=== PATIENT | female | born 1940 | race Caucasian/White ===

== ENCOUNTER → 2018-03-01 11:03 | Outpatient (CLI) | payer OTHER, SELFPAY ==
--- NOTE | 2018-03-01 | DI.CT.S_ITS ---
PROCEDURE: CT CHEST ABD PEL W CON INDICATIONS: Abdominal pain and weight loss TECHNIQUE: After the administration of oral and intravenous contrast, 5 mm thick sections acquired from the lung apices to the symphysis. 5 mm coronal and sagittal reformats were performed, with additional 7 mm coronal MIP reformats through the lungs. For radiation dose reduction, the following was used: automated exposure control, adjustment of mA and/or kV according to patient size. COMPARISON: None. FINDINGS: Image quality: Excellent. CHEST: Lungs and pleura: There is moderate patchy opacity within the right middle lobe, with an associated 24 mm diameter nodular density in the right anterior lung base, with ill-defined borders. Subpleural scarring within the bilateral upper lobes anteriorly are present, consistent with post repeat therapy related. No pleural effusions or pneumothorax. Central and peripheral airways appear patent and normal in caliber. Mediastinum: Heart size is normal. No pericardial effusion. No mediastinal or hilar adenopathy by size criteria. Thoracic aorta and central pulmonary arteries are normal in size. Esophagus is normal in caliber. No hiatal hernia. Chest wall: No axillary or supraclavicular adenopathy by size criteria. Thyroid gland is not seen, presumably surgically absent. ABDOMEN: Solid organs: Liver is normal in size and enhancement. Gallbladder is within normal limits. Biliary system is non dilated. Pancreas enhances normally. Spleen is normal in size and enhancement. No adrenal nodules. Kidneys demonstrate normal size and enhancement, without hydronephrosis. Peritoneum and bowel: Bowel loops demonstrate normal wall thickness and caliber. No free fluid or air. Nodes and vessels: No retroperitoneal or mesenteric adenopathy by size criteria. Aorta and inferior vena cava are normal in size. Miscellaneous: No ventral hernias. PELVIS: Genitourinary: Bladder wall thickness is normal. A 67 mm diameter left adnexal cyst is present. A pessary is present. Miscellaneous: No inguinal hernias or adenopathy. Bones: No suspicious bony lesions. No vertebral body compression fractures. IMPRESSION: 1. Presumed post radiation therapy scarring within the bilateral upper lobes. 2. Right middle lobe density which is indeterminate, and could represent pneumonia. Underlying neoplasm may also be present. Followup chest CT in 3 months is recommended to assess for resolution. 3. 67 mm diameter left adnexal cyst, which could represent a low-grade ovarian neoplasm. Initial further assessment with pelvic ultrasound is recommended. Dictated by: Levi Garcia M.D. on 03/01/2018 at 12:55 Approved by: Levi Garcia M.D. on 03/01/2018 at 12:58
== END ==
PROVIDERS: Family Provider Internal Medicine; PCP Internal Medicine; Visit Provider Internal Medicine
DX: R10.9 Unspecified abdominal pain (principal); R63.4 Abnormal weight loss; J98.4 Other disorders of lung; N83.8 Other noninflammatory disorders of ovary, fallopian tube and broad ligament
CPT/HCPCS: 71260; 74177; Q9967

== ENCOUNTER → 2018-03-09 10:18 | Outpatient (CLI) | payer OTHER, SELFPAY ==
--- NOTE | 2018-03-09 | DI.US.S_ITS ---
PROCEDURE: US PELVIC COMPLETE INDICATIONS: OVARIAN CYST TECHNIQUE: Real-time scanning was performed of the pelvic organs, with image documentation. Additional endovaginal scanning was necessary due to incomplete visualization of the adnexal and endometrial structures by transabdominal scanning. COMPARISON: [facility], CT, CT CHEST ABD PEL W CON, 03/01/2018, 12:28. FINDINGS: Transabdominal scanning: Limited scanning through the kidneys shows no hydronephrosis. No pathologic free abdominal or pelvic fluid. Endovaginal scanning: Uterus: Uterus is normal in size at 6.2 x 2.9 x 4.5 cm. The endometrium is not visualized. The 23 mm posterior intramural fibroid. Ovaries: Right ovary is not visualized. Simple cyst redemonstrated involving the left ovary unchanged measuring 4.9 x 6.1 x 5.1 cm. IMPRESSION: 1. Large simple left ovarian cyst as was seen on prior CT scan. Recommend gynecologic consultation and annual followup sonography. 2. 23 mm intramural fibroid. Dictated by: Kelton Cardenas A Interpreted: Licha Velasquez MD on 03/09/2018 at 12:06 Approved by: Licha Velasquez MD, PhD on 03/09/2018 at 15:12
== END ==
PROVIDERS: Family Provider Internal Medicine; PCP Internal Medicine; Visit Provider Internal Medicine
DX: N83.202 Unspecified ovarian cyst, left side (principal); D25.1 Intramural leiomyoma of uterus
CPT/HCPCS: 76830; 76856

== ENCOUNTER → 2018-03-10 13:12 | Outpatient (CLI) | payer OTHER, SELFPAY ==
--- NOTE | 2018-03-10 | DI.MG.S_ITS ---
BILATERAL DIGITAL DIAGNOSTIC MAMMOGRAM 3D/2D WITH CAD POST LUMPECTOMY SHORT-TERM FOLLOW-UP: 03/10/2018 CLINICAL: Patient returns for a 6 month follow up of the right breast. Due for bilateral imaging. Post right lumpectomy. Post left lumpectomy. Comparison is made to exams dated: 09/09/2017 mammogram, 05/19/2017 localization, and 05/19/2017 mammogram - [facility]. The tissue of both breasts is heterogeneously dense. This may lower the sensitivity of mammography. Current study was also evaluated with a Computer Aided Detection (CAD) system. There is a benign irregular architectural distortion with an indistinct margin in the right breast at 11 o'clock posterior depth. This correlates with surgery. No other significant masses, calcifications, or other findings are seen in either breast. IMPRESSION: BENIGN There is no mammographic evidence of malignancy. A 1 year screening mammogram is recommended. This exam was interpreted at Station ID: [id number]. NOTE: For mammograms, a report in lay terms will be sent to the patient. Approximately 15% of breast malignancies will not be visualized mammographically. In the management of a palpable breast mass, a negative mammogram must not discourage biopsy of a clinically suspicious lesion. Electronically Signed By: Lawrence shane/lee:03/10/2018 14:16:25 copy to: Karsten Lyon copy to: Evert Chinchilla letter sent: Normal Exam ACR BI-RADS Category 2: Benign Finding(s) [id number]
== END ==
PROVIDERS: Family Provider Internal Medicine; PCP Internal Medicine; Visit Provider Internal Medicine
DX: R92.8 Other abnormal and inconclusive findings on diagnostic imaging of breast (principal)
CPT/HCPCS: 77066; G0279

== ENCOUNTER → 2018-03-31 17:11 | Outpatient (CLI) | payer OTHER, SELFPAY ==
[2018-03-31 19:04] LABS: Cancer Antigen 125 13 U/mL (0-35)
[2018-04-06 12:45] LABS: Human HE4 Antigen 128 pmol/L
== END ==
PROVIDERS: Family Provider Internal Medicine; PCP Internal Medicine; Visit Provider Specialist
DX: N83.202 Unspecified ovarian cyst, left side (principal)
CPT/HCPCS: 36415; 86304; 86305

== ENCOUNTER → 2018-04-05 12:02 | Outpatient (CLI) | payer OTHER, SELFPAY ==
--- NOTE | 2018-04-05 | DI.CT.S_ITS ---
PROCEDURE: CT ABDOMEN PELVIS W CON INDICATIONS: CONSTIPATION AND LOWER ABDOMINAL PAIN TECHNIQUE: After the administration of oral and intravenous contrast, 5 mm thick sections acquired from the diaphragms to the symphysis. 5 mm thick coronal and sagittal reformats were performed. For radiation dose reduction, the following was used: automated exposure control, adjustment of mA and/or kV according to patient size. COMPARISON: [facility], CT, CT CHEST WITHOUT CONTRAST, 07/01/2017, 14:14. [facility], US, US PELVIC COMPLETE, 03/09/2018, 10:29. [facility], CT, CT CHEST ABD PEL W CON, 03/01/2018, 12:28. FINDINGS: Image quality: Excellent. ABDOMEN: Lung bases: Infiltrates in the right middle lobe. Heart size is normal. Solid organs: Liver is normal in size and enhancement. Gallbladder is normal. Biliary system is non-dilated. Pancreas enhances normally. Spleen is normal in size and enhancement. No adrenal nodules. Kidneys are normal in size and enhancement, without hydronephrosis. Peritoneum and bowel: Stomach, small bowel, and colon loops are normal in caliber and wall thickness. There is a large amount of stool in colon No free fluid or air. Nodes and vessels: No retroperitoneal or mesenteric adenopathy. Aorta and inferior vena cava are normal in caliber. Miscellaneous: No ventral hernias. PELVIS: Genitourinary: There is a 5.6 x 7.6 cm cystic mass in the left adnexum, demonstrating interval enlargement (previously 4.9 x 6.6 cm on 03/01/2018). Bladder is distended. Bladder wall thickness is normal. There is a pelvic floor suspension device. Miscellaneous: No inguinal hernias or adenopathy. Bones: Old right inferior fractures are noted. No suspicious bony lesions. No vertebral body compression fractures. Moderate levoscoliosis. Severe degenerative changes in lumbar spine. IMPRESSION: 1. A large amount of stool throughout colon, concerning for fecal impaction. 2. Large adnexal cystic mass has shown further interval enlargement compared to 03/01/2018. 3. Right middle lobe infiltrate consistent with pneumonia or pneumonitis. 4. Distended urinary bladder. Recommend clinical correlation for urinary retention. Dictated by: Pillo Campbell M.D. on 04/05/2018 at 14:45 Approved by: Pillo Campbell M.D. on 04/05/2018 at 14:55
== END ==
PROVIDERS: Family Provider Internal Medicine; PCP Internal Medicine; Visit Provider Physician Assistant
DX: K59.00 Constipation, unspecified (principal); R19.00 Intra-abdominal and pelvic swelling, mass and lump, unspecified site; J18.9 Pneumonia, unspecified organism; N32.89 Other specified disorders of bladder; R10.30 Lower abdominal pain, unspecified
CPT/HCPCS: 74177; Q9967

== ENCOUNTER 2018-04-05 17:35 | Emergency (ER) | payer OTHER, SELFPAY ==
[2018-04-05 17:41] VITALS: BP 162/61; PULSE 89; RESP 16; TEMP 37; O2SAT 100
--- NOTE | 2018-04-05 20:46 | ED_ITS ---
HPI - Abdominal Pain General Chief Complaint: Abdominal Pain Stated Complaint: STATES IMPACTED BOWEL Time Seen by Provider: 04/05/18 18:15 Source: patient and family Mode of arrival: ambulatory Limitations: no limitations History of Present Illness HPI narrative: Patient to the emergency department at the request of her primary care office after a CT obtained today notes large amount of stool and the possibility of fecal impaction additionally the possibility of pneumonia and a large distended bladder and the possibility of retention. The patient saw her primary care provider yesterday and had complaints of 4 days of soft stool and small amounts of stool with tenderness in her rectum. The patient had been given docusate and senna CHI and she started having multiple soft stools so she was then given loperamide. She regularly takes MiraLax at baseline. MD complaint: abdominal pain Onset (ago): day(s) Pain Consistency: constant Location: diffuse Severity: moderate Quality: cramping and aching Radiation: none Migration to: no migration Relieving factors: nothing Exacerbating factors: nothing Associated symptoms: denies other symptoms Related Data Home Medications Medication Instructions Recorded Confirmed calcium carbonate [Calci-Chew] 1 tab PO BID #0 05/19/17 03/28/18 losartan 50 mg PO BID #0 05/19/17 03/28/18 polyethylene glycol 3350 [Miralax] #0 05/19/17 03/28/18 levothyroxine 112 mcg capsule 112 mcg PO DAILY 03/31/18 03/31/18 verapamil ER 180 mg 24 hr 180 mg PO DAILY 03/31/18 03/31/18 capsule,extended release Allergies Allergy/AdvReac Type Severity Reaction Status Date / Time paraben [PARABEN] Allergy Unknown Unverified 03/31/18 16:29 hydrochlorothiazide Allergy Verified 03/31/18 16:29 amlodipine [AMLODIPINE] AdvReac Unknown LEG CRAMPS Unverified 03/31/18 16:29 metoprolol [METOPROLOL] AdvReac Unknown LEG CRAMPS Unverified 03/31/18 16:29 Review of Systems Review of Systems All systems reviewed & are unremarkable except as noted in HPI and below Constitutional Denies chills, Denies fever(s), Denies lethargy and Denies weakness Eyes Denies change in vision, Denies eye discharge, Denies irritation and Denies loss of vision ENT Ears, Nose, Mouth, and Throat: Denies change in voice, Denies neck pain and Denies sore throat Cardiovascular Denies chest pain, Denies irregular heart rhythm, Denies lightheadedness, Denies palpitations, Denies dyspnea, Denies dyspnea on exertion and Denies orthopnea Respiratory Denies cough, Denies dyspnea, Denies dyspnea on exertion and Denies wheezing Gastrointestinal Gastrointestinal: Reports abdominal pain, Denies change in bowel habits, Reports diarrhea, Denies nausea and Denies vomiting Genitourinary Denies hematuria, Denies flank pain, Denies urinary incontinence and Denies urinary urgency Musculoskeletal Denies neck pain Integumentary/Breasts Denies pruritus, Denies erythema, Denies rash and Denies wounds Neurologic Denies confusion, Denies loss of vision and Denies weakness Psychiatric Denies anxiety, Denies confusion, Denies depression, Denies homicidal ideation and Denies suicidal ideation Endocrine Denies palpitations Hematologic/Lymphatic Denies easy bruising Allergic/Immunologic Denies wheezing PFSH Surgical History History of thyroidectomy Status post breast lumpectomy Status post parathyroidectomy Family History Father Stroke Social History Smoking Status: Never smoker Exam Narrative Exam Narrative: GENERAL: 77-year-old female in obvious distress rubbing suprapubic region HEAD: Atraumatic. Normocephalic. No temporal or scalp tenderness. EYES: Pupils equal round and reactive. Extraocular motions intact. No scleral icterus. No injection or drainage. ENT: Nose without bleeding, purulent drainage or septal hematoma. Throat without erythema, tonsillar hypertrophy or exudate. Uvula midline. Airway patent. NECK: Trachea midline. No JVD or lymphadenopathy. Supple, nontender, no meningeal signs. CARDIOVASCULAR: Regular rate and rhythm without murmurs, gallops, or rubs. RESPIRATORY: Clear to auscultation. Breath sounds equal bilaterally. No wheezes , rales, or rhonchi. GASTROINTESTINAL: Suprapubic tenderness and minimal distention No hepato- splenomegaly, or palpable masses. No guarding. EXTREMITIES: No clubbing, cyanosis, or edema. No joint tenderness, effusion, or edema noted. BACK: Nontender without deformity or crepitance. No flank tenderness. NEURO: AOx3. SKIN: No rash or erythema. Initial Vital Signs Initial Vital Signs: Vital Signs Temperature 98.6 F 04/05/18 17:41 Pulse Rate 89 04/05/18 17:41 Respiratory Rate 16 04/05/18 17:41 Blood Pressure 162/61 H 04/05/18 17:41 Pulse Oximetry 100 04/05/18 17:41 Course Reevaluation(s) Reevaluation #1: With bladder scan noted over 900 cc. Costello catheter placed and patient experienced near immediate relief. At this point a rectal exam was performed with female nursing financial investment manager at the bedside. Moderate amount of firm stool in the rectal vault noted and manually disimpacted. Patient tolerated well Vital Signs - 8 hr 04/05/18 17:41 Temperature 98.6 F Pulse Rate 89 Respiratory Rate 16 Blood Pressure 162/61 H Pulse Oximetry 100 Discharge Plan Departure Patient Disposition: Home, Self-Care Clinical Impression: Acute urinary retention, Fecal impaction Discharge Date/Time: 04/06/18 01:12 Interventions: ED Discharge Assessment Last Done: 04/06/18 01:11 Instructions: DI for Fecal Impaction Activity Restrictions/Additional Instructions: 1. Stay active 2. Return to your normal diet as much as possible 3. Stay well hydrated 4. A combination of over the counter laxitives including Dulcolax (stimulant laxative) Magnesium Citrate (pulls water into stool) Colace (stool softener) Please follow up closely with her primary care provider in the next few days, call tomorrow morning for follow-up. Regarding urinary retention, please contact [facility] urology clinic (Dr. Khan) Prescriptions: No Action losartan 50 MG tablet 50 mg PO BID Qty: 0 RF: 0 calcium carbonate [Calci-Chew] 500 MG tablet,chewable 1 tab PO BID Qty: 0 RF: 0 polyethylene glycol 3350 [Miralax] 17 GM powder in packet Qty: 0 RF: 0 verapamil 180 mg capsule,ext rel. pellets 24 hr 180 mg PO DAILY RF: 0 levothyroxine 112 mcg capsule 112 mcg PO DAILY RF: 0 Referrals: Jacquie Khan MD [Physician] - Evert Chinchilla MD [Primary Care Provider] -
--- NOTE | 2018-04-05 21:38 | PC.NURSE ---
Pt has been having difficulty urinating
== END 2018-04-06 01:12 | disposition home or self-care (01) ==
PROVIDERS: Emergency Provider Emergency Medicine; Family Provider Internal Medicine; PCP Internal Medicine
DX: K56.41 Fecal impaction (principal); R33.8 Other retention of urine
CPT/HCPCS: 51701; 51798; 74177; 99283; 99285; Q9967

== ENCOUNTER → 2018-06-15 15:32 | Outpatient (CLI) | payer OTHER, SELFPAY ==
[2018-06-15 15:47] LABS: Add Manual Diff / Slide Review NO; Basophils Percent Auto 1.4 % (0-2); Eosinophils Percent Auto 1.4 % (2-4); Hematocrit 34.8 % (36-46); Hemoglobin 11.9 g/dL (12.0-16.0); Lymphocytes Percent Auto 18.6 % (25-40); Mean Corpuscular HGB Conc 34.3 % (30-36); Mean Corpuscular Hemoglobin 31.2 PG (26-34); Mean Corpuscular Volume 90.9 fL (80-100); Monocytes Percent Auto 7.1 % (3-14); Neutrophils Absolute Auto 2800 /uL (3000-5900); Neutrophils Percent Auto 71.5 % (50-75); Platelet Count 148 X10^3/uL (150-400); Red Blood Cell Count 3.83 X10^6/uL (4.0-5.2); Red Cell Distribution Width 14.2 % (11.6-14.8)
[2018-06-15 15:59] LABS: Alanine Aminotransferase 24 IU/L (9-52); Albumin 4.5 g/dL (3.5-5.0); Albumin Globulin Ratio 1.6 (1.0-2.8); Alkaline Phosphatase 38 U/L (38-126); Aspartate Aminotransferase 40 IU/L (14-36); BUN Creatinine Ratio 28.8 (6-22); Bilirubin Total 0.4 mg/dL (0.2-1.3); Blood Urea Nitrogen 23 mg/dL (7-17); Calcium 9.8 mg/dL (8.4-10.2); Carbon Dioxide 32 mmol/L (22-32); Chloride 98 mmol/L (98-107); Estimated Glomerular Filt Rate > 60.0 mL/min (>60); Globulin 2.8 g/dL (1.7-4.1); Glucose 99 mg/dL (80-110); HEMOLYSIS < 15 (0-50); Sodium 141 mmol/L (137-145); Total Protein 7.3 g/dL (6.3-8.2)
== END ==
PROVIDERS: Internal Medicine Hematology & Oncology; Family Provider Internal Medicine; PCP Internal Medicine; Visit Provider Nurse Practitioner Gerontology
DX: Z08 Encounter for follow-up examination after completed treatment for malignant neoplasm (principal); Z86.000 Personal history of in-situ neoplasm of breast; Z85.3 Personal history of malignant neoplasm of breast; Z85.850 Personal history of malignant neoplasm of thyroid
CPT/HCPCS: 36415; 80053; 85025

== ENCOUNTER → 2018-10-03 08:56 | Outpatient (CLI) | payer OTHER, SELFPAY ==
--- NOTE | 2018-10-03 08:58 | DI.MG.S_ITS ---
UNILATERAL LEFT DIGITAL DIAGNOSTIC MAMMOGRAM 3D/2D POST LUMPECTOMY: 10/03/2018 CLINICAL: Patient reports single episode of nonfocal left breast pain now resolved and cannot be localized. Personal history of breast cancer. Family history of breast cancer. Comparison is made to exams dated: 03/10/2018 mammogram - [facility], 03/15/2017 mammogram [facility], and [facility]. The tissue of left breast is heterogeneously dense. This may lower the sensitivity of mammography. There is a stable benign post surgical scar in the left breast in the upper outer quadrant. There also are stable benign punctate calcifications in the left breast. The left breast has post-operative findings. No significant masses, calcifications, or other findings are seen in the breast. IMPRESSION: There is no mammographic evidence of malignancy. Return to annual mammogram screening schedule is recommended, due in approximately 6 months. Clinical follow up for any recurrent or persistent breast pain. This exam was interpreted at Station ID: [id number]. NOTE: For mammograms, a report in lay terms will be sent to the patient. Approximately 15% of breast malignancies will not be visualized mammographically. In the management of a palpable breast mass, a negative mammogram must not discourage biopsy of a clinically suspicious lesion. Electronically Signed By: Papito Rod M.D. aty/:10/03/2018 09:59:47 copy to: Evert Chinchilla letter sent: Normal Exam ACR BI-RADS Category 2: Benign Finding(s) 3342F
== END ==
PROVIDERS: Family Provider Internal Medicine; PCP Internal Medicine; Visit Provider Surgery
DX: R92.8 Other abnormal and inconclusive findings on diagnostic imaging of breast (principal); N64.4 Mastodynia; Z85.3 Personal history of malignant neoplasm of breast; Z80.3 Family history of malignant neoplasm of breast
CPT/HCPCS: 77065; G0279

== ENCOUNTER → 2018-12-06 12:43 | Outpatient (CLI) | payer OTHER, SELFPAY | PROVIDERS: Family Provider Internal Medicine; PCP Internal Medicine; Visit Provider Internal Medicine | DX: M81.0 Age-related osteoporosis without current pathological fracture (principal); Z78.0 Asymptomatic menopausal state; E07.9 Disorder of thyroid, unspecified; Z85.3 Personal history of malignant neoplasm of breast | CPT/HCPCS: 77080; 77081 ==

== ENCOUNTER → 2018-12-12 13:47 | Outpatient (CLI) | payer OTHER, SELFPAY ==
[2018-12-12 14:24] LABS: Add Manual Diff / Slide Review NO; Basophils Absolute Auto 0 /uL (0-100); Basophils Percent Auto 0.8 % (0-2); Eosinophils Absolute Auto 100 /uL (0-450); Eosinophils Percent Auto 2.4 % (2-4); Hematocrit 35.1 % (36-46); Hemoglobin 11.6 g/dL (12.0-16.0); Lymphocytes Absolute Auto 1000 /uL (1100-4500); Mean Corpuscular HGB Conc 33.1 % (30-36); Mean Corpuscular Hemoglobin 30.2 PG (26-34); Mean Corpuscular Volume 91.1 fL (80-100); Monocytes Absolute Auto 500 /uL (0-900); Monocytes Percent Auto 8.8 % (3-14); Neutrophils Absolute Auto 3800 /uL (1500-7000); Platelet Count 156 X10^3/uL (150-400); Red Blood Cell Count 3.85 X10^6/uL (4.0-5.2); Red Cell Distribution Width 13.6 % (11.6-14.8); White Blood Cell Count 5.4 X10^3/uL (4.5-11.0)
[2018-12-12 15:41] LABS: Alanine Aminotransferase 22 IU/L (9-52); Albumin 4.4 g/dL (3.5-5.0); Albumin Globulin Ratio 1.6 (1.0-2.8); Alkaline Phosphatase 39 U/L (38-126); Aspartate Aminotransferase 36 IU/L (14-36); Bilirubin Total 0.6 mg/dL (0.2-1.3); Blood Urea Nitrogen 32 mg/dL (7-17); Calcium 9.4 mg/dL (8.4-10.2); Carbon Dioxide 30 mmol/L (22-32); Chloride 100 mmol/L (98-107); Estimated Glomerular Filt Rate 53.5 mL/min (>60); Globulin 2.7 g/dL (1.7-4.1); Glucose 103 mg/dL (80-110); HEMOLYSIS < 15 (0-50); Sodium 139 mmol/L (137-145); Total Protein 7.1 g/dL (6.3-8.2)
== END ==
PROVIDERS: Family Provider Internal Medicine; PCP Internal Medicine; Visit Provider Internal Medicine Hematology & Oncology
DX: D05.11 Intraductal carcinoma in situ of right breast (principal)
CPT/HCPCS: 36415; 80053; 85025

== ENCOUNTER → 2019-02-23 15:46 | Outpatient (CLI) | payer OTHER, SELFPAY ==
[2019-02-23 18:09] LABS: Vitamin B12 469 pg/mL (239-931)
== END ==
PROVIDERS: Family Provider Internal Medicine; PCP Internal Medicine; Visit Provider Internal Medicine
DX: D51.9 Vitamin B12 deficiency anemia, unspecified (principal)
CPT/HCPCS: 36415; 82607

== ENCOUNTER → 2019-03-20 12:37 | Outpatient (CLI) | payer OTHER, SELFPAY ==
--- NOTE | 2019-03-20 | DI.MG.S_ITS ---
BILATERAL DIGITAL SCREENING MAMMOGRAM 3D/2D WITH CAD POST LUMPECTOMY: 03/20/2019 CLINICAL: Routine screening. Personal history of bilateral breast cancer. Comparison is made to exams dated: 03/10/2018 mammogram, 10/28/2012 mammogram, and 10/03/2018 mammogram - [facility]. The tissue of both breasts is heterogeneously dense. This may lower the sensitivity of mammography. Current study was also evaluated with a Computer Aided Detection (CAD) system. There are benign post operative findings in the right breast. There also are benign calcifications in the left breast. No significant masses, calcifications, or other findings are seen in either breast. There has been no significant interval change. IMPRESSION: There is no mammographic evidence of malignancy. A 1 year screening mammogram is recommended. This exam was interpreted at Station ID: [id number]. NOTE: For mammograms, a report in lay terms will be sent to the patient. Approximately 15% of breast malignancies will not be visualized mammographically. In the management of a palpable breast mass, a negative mammogram must not discourage biopsy of a clinically suspicious lesion. Electronically Signed By: Lawrence shane/lee:03/20/2019 16:48:30 copy to: Evert Chinchilla letter sent: Normal Exam ACR BI-RADS Category 2: Benign Finding(s) 3342F
== END ==
PROVIDERS: Family Provider Internal Medicine; PCP Internal Medicine; Visit Provider Internal Medicine
DX: Z12.31 Encounter for screening mammogram for malignant neoplasm of breast (principal); Z85.3 Personal history of malignant neoplasm of breast
CPT/HCPCS: 77063; 77067

== ENCOUNTER → 2019-03-30 13:59 | Outpatient (CLI) | payer OTHER, SELFPAY ==
[2019-03-30 14:14] LABS: Add Manual Diff / Slide Review NO; Basophils Absolute Auto 0 /uL (0-100); Basophils Percent Auto 0.6 % (0-2); Eosinophils Absolute Auto 100 /uL (0-450); Eosinophils Percent Auto 1.2 % (2-4); Hematocrit 36.2 % (36-46); Hemoglobin 12.2 g/dL (12.0-16.0); Lymphocytes Absolute Auto 900 /uL (1100-4500); Lymphocytes Percent Auto 17.8 % (25-40); Mean Corpuscular HGB Conc 33.7 % (30-36); Mean Corpuscular Hemoglobin 30.7 PG (26-34); Mean Corpuscular Volume 91.1 fL (80-100); Monocytes Absolute Auto 400 /uL (0-900); Neutrophils Absolute Auto 3800 /uL (1500-7000); Neutrophils Percent Auto 72.4 % (50-75); Platelet Count 159 X10^3/uL (150-400); Red Blood Cell Count 3.97 X10^6/uL (4.0-5.2); Red Cell Distribution Width 13.5 % (11.6-14.8); White Blood Cell Count 5.2 X10^3/uL (4.5-11.0)
[2019-03-30 14:25] LABS: Alanine Aminotransferase 19 IU/L (9-52); Albumin 4.7 g/dL (3.5-5.0); Albumin Globulin Ratio 1.6 (1.0-2.8); Alkaline Phosphatase 46 U/L (38-126); Aspartate Aminotransferase 37 IU/L (14-36); BUN Creatinine Ratio 31.3 (6-22); Bilirubin Total 0.6 mg/dL (0.2-1.3); Blood Urea Nitrogen 25 mg/dL (7-17); Calcium 9.3 mg/dL (8.4-10.2); Carbon Dioxide 27 mmol/L (22-32); Chloride 104 mmol/L (98-107); Estimated Glomerular Filt Rate > 60.0 mL/min (>60); Globulin 2.9 g/dL (1.7-4.1); Glucose 112 mg/dL (80-110); HEMOLYSIS < 15 (0-50); Potassium 4.1 mmol/L (3.4-5.1); Sodium 142 mmol/L (137-145); Total Protein 7.6 g/dL (6.3-8.2)
== END ==
PROVIDERS: Family Provider Internal Medicine; Visit Provider Internal Medicine Hematology & Oncology
DX: D05.11 Intraductal carcinoma in situ of right breast (principal)
CPT/HCPCS: 36415; 80053; 85025

== ENCOUNTER → 2019-06-14 14:17 | Outpatient (ROUT) | payer OTHER, SELFPAY ==
[2019-06-14 15:07] LABS: Free T3, Triiodothyronine Free 2.97 pg/mL (2.77-5.27); Free T4, Direct Thyroxine 1.74 ng/dL (0.78-2.19)
== END ==
PROVIDERS: Family Provider Internal Medicine; Visit Provider Internal Medicine
DX: E03.9 Hypothyroidism, unspecified (principal)
CPT/HCPCS: 84439; 84443; 84481

== ENCOUNTER → 2019-08-16 15:17 | Outpatient (CLI) | payer OTHER, SELFPAY ==
[2019-08-16 17:09] LABS: Cancer Antigen 125 14 U/mL (0-35)
== END ==
PROVIDERS: Family Provider Internal Medicine; PCP Internal Medicine; Visit Provider Specialist
DX: N83.202 Unspecified ovarian cyst, left side (principal)
CPT/HCPCS: 36415; 86304

== ENCOUNTER → 2019-09-21 09:36 | Outpatient (CLI) | payer OTHER, SELFPAY | PROVIDERS: Family Provider Internal Medicine; PCP Internal Medicine; Visit Provider Specialist | DX: R32 Unspecified urinary incontinence (principal) | CPT/HCPCS: 87086 ==

== ENCOUNTER 2019-10-19 13:12 | Emergency (ER) | payer OTHER, SELFPAY ==
[2019-10-19 13:19] VITALS: BP 189/91; PULSE 82; RESP 18; TEMP 36.7; O2SAT 100; BMI 19.2
--- NOTE | 2019-10-19 13:23 | PC.NURSE ---
pt states he pulls out things he wants then makes a jerking motion. states hes smart, then states i could if i want.
[2019-10-19 15:15] VITALS: BP 189/91
[2019-10-19 15:43] VITALS: PULSE 64; O2SAT 98
[2019-10-19 15:52] LABS: Add Manual Diff / Slide Review NO; Basophils Absolute Auto 0 /uL (0-100); Basophils Percent Auto 0.8 % (0-2); Eosinophils Absolute Auto 100 /uL (0-450); Eosinophils Percent Auto 0.9 % (2-4); Hematocrit 33.7 % (36-46); Hemoglobin 11.6 g/dL (12.0-16.0); Lymphocytes Absolute Auto 500 /uL (1100-4500); Lymphocytes Percent Auto 8.1 % (25-40); Mean Corpuscular HGB Conc 34.4 % (30-36); Mean Corpuscular Hemoglobin 31.4 PG (26-34); Mean Corpuscular Volume 91.3 fL (80-100); Monocytes Absolute Auto 400 /uL (0-900); Monocytes Percent Auto 6.3 % (3-14); Neutrophils Absolute Auto 5100 /uL (1500-7000); Neutrophils Percent Auto 83.9 % (50-75); Platelet Count 176 X10^3/uL (150-400); Red Blood Cell Count 3.69 X10^6/uL (4.0-5.2); Red Cell Distribution Width 13.6 % (11.6-14.8); White Blood Cell Count 6.1 X10^3/uL (4.5-11.0)
[2019-10-19 15:54] LABS: Prothrombin Time 11.4 SECONDS (10.1-12.7)
[2019-10-19 15:57] LABS: PTT Partial Thromboplastin Tim 32 SECONDS (26.4-36.2)
[2019-10-19 16:01] LABS: Alanine Aminotransferase 31 IU/L (<35); Albumin 4.3 g/dL (3.5-5.0); Albumin Globulin Ratio 1.3 (1.0-2.8); Alkaline Phosphatase 61 U/L (38-126); Aspartate Aminotransferase 41 IU/L (14-36); Bilirubin Total 0.8 mg/dL (0.2-1.3); Blood Urea Nitrogen 20 mg/dL (7-17); Calcium 8.8 mg/dL (8.4-10.2); Carbon Dioxide 28 mmol/L (22-32); Chloride 100 mmol/L (98-107); Estimated Glomerular Filt Rate > 60.0 mL/min (>60); Globulin 3.4 g/dL (1.7-4.1); Glucose 103 mg/dL (80-110); HEMOLYSIS 48 (0-50); Lipase 77 U/L (23-300); Potassium 3.8 mmol/L (3.4-5.1); Sodium 137 mmol/L (137-145); Total Protein 7.7 g/dL (6.3-8.2)
--- NOTE | 2019-10-19 16:31 | ED.ABDPAIN ---
HPI - Abdominal Pain <Josette YenDEVIN - Last Filed: 10/19/19 21:20> General Chief Complaint: Abdominal Pain Stated Complaint: fecal impaction Time Seen by Provider: 10/19/19 15:16 Source: patient and family Mode of arrival: Ambulatory History of Present Illness HPI narrative: 78-year-old female with history of dementia presents to the emergency department initially with her for constipation. Patient lives at home with her . She has a history of chronic constipation. Patient apparently resisted vitals in triage and thinks that her is changing her name off of certain documents. Patient lives with her , patient's states she usually takes MiraLax daily. Last week her stool became soft so they stopped the MiraLax for 4 days. However, then her stool became hard and she has had very small bowel movements but has not had a large bowel movement for the past 8 days. is concern for constipation. No fevers, cough, shortness of breath, vomiting, complains of abdominal pain, change in behavior, or other concerns. Patient's son states that patient has developed paranoia and has started to report hearing voices. Related Data Home Medications Medication Instructions Recorded Confirmed losartan 50 mg PO BID #0 05/19/17 10/19/19 polyethylene glycol 3350 [Miralax] 17 g PO DAILY #0 05/19/17 10/19/19 cholecalciferol (vitamin D3) 5,000 unit PO DAILY 06/20/18 09/21/19 [Vitamin D3] magnesium 400 mg PO DAILY 06/20/18 09/21/19 potassium chloride 10 meq PO DAILY 06/20/18 10/19/19 alendronate [Fosamax] 70 mg WEEKLY 04/10/19 10/19/19 verapamil 120 mg tablet 120 mg PO BID 08/16/19 10/19/19 rivastigmine 4.6 mg TRANSDERMAL DAILY 08/22/19 10/19/19 calcium carbonate 500 mg PO BID 10/19/19 10/19/19 levothyroxine 100 mcg PO DAILY 10/19/19 10/19/19 oxyquinoline-sod.lauryl sulfat 0.5 ea VAGINAL 3XW 10/19/19 10/19/19 [Trimo-Pickett Jelly] Allergies Allergy/AdvReac Type Severity Reaction Status Date / Time paraben [PARABEN] Allergy Unknown Verified 10/19/19 13:19 hydrochlorothiazide Allergy Verified 10/19/19 13:19 amlodipine [AMLODIPINE] AdvReac Unknown LEG CRAMPS Verified 10/19/19 13:19 metoprolol [METOPROLOL] AdvReac Unknown LEG CRAMPS Verified 10/19/19 13:19 Review of Systems <DEVIN Dawson - Last Filed: 10/19/19 21:20> Review of Systems Narrative: REVIEW OF SYSTEMS: GENERAL: Denies fevers. HENT: No head trauma. CARDIOVASCULAR: No chest pain. RESPIRATORY: No cough. GASTROINTESTINAL: Complains of constipation, see HPI. GENITOURINARY: No increased frequency. MUSCULOSKELETAL: No falls or trauma. INTEGUMENTARY: No rash, lesions, or pruritus. Patient History <DEVIN Dawson - Last Filed: 10/19/19 21:20> Surgical History History of thyroidectomy Status post breast lumpectomy Status post parathyroidectomy Family History Father Stroke Social History Smoking Status: Never smoker Smoking Status: Never smoker Substance Use Type: does not use Exam <DEVIN Dawson - Last Filed: 10/19/19 21:20> Initial Vital Signs Initial Vital Signs: Vital Signs Temperature 98.0 F 10/19/19 13:19 Pulse Rate 82 10/19/19 13:19 Respiratory Rate 18 10/19/19 13:19 Blood Pressure 189/91 H 10/19/19 13:19 Pulse Oximetry 100 10/19/19 13:19 PHYSICAL EXAMINATION: GENERAL: Well groomed, alert, and cooperative. Answers questions promptly and appropriately. Vital signs noted. HENT: Normocephalic, atraumatic. Hearing intact. Oral mucosa is pink and moist. EYES: Conjunctiva pink, sclera white, no periorbital swelling. CARDIOVASCULAR: S1 and S2 sounds normal. Regular rate and rhythm, no murmurs, clicks, or bruits. No pedal edema. RESPIRATORY: Normal respiratory rate, trachea midline, airway patent. No stridor, nasal flaring or accessory muscle use. Lungs are clear in all judd without wheeze, rhonchi, or crackles. GASTROINTESTINAL: Bowel sounds normoactive. Abdomen is soft and non-tender. No organomegaly, no palpable masses. RECTAL: External hemorrhoids noted during rectal exam, moderate amount of hard brown stool removed via digital disimpaction. GENITALURINARY: No flank tenderness. MUSCULOSKELETAL: Normal gait and coordination. Equal tone and mass bilaterally. EXTREMITIES: CMS intact, no pedal edema. SKIN: Warm, dry, soft, appropriate color for ethnicity. No lesions, rashes, or wounds to visualized areas. NEURO: Alert and Oriented X 3. Good coordination. No ataxia, or sensory deficits, or cognitive issues. PSYCH: Appropriate affect and mood. <Carla Segundo DO - Last Filed: 10/20/19 05:51> Initial Vital Signs Initial Vital Signs: Vital Signs Temperature 98.0 F 10/19/19 13:19 Pulse Rate 82 10/19/19 13:19 Respiratory Rate 18 10/19/19 13:19 Blood Pressure 189/91 H 10/19/19 13:19 Pulse Oximetry 100 10/19/19 13:19 Course <DEVIN Dawson - Last Filed: 10/19/19 21:20> Course Course Narrative: Nursing administered and well enema, small amount of stool was removed. An additional saline enema was administered. After enema administration, patient was disimpacted. A large amount of hard stool was removed. Patient was then able to have a large bowel movement per nursing report. Afterwards, she fell asleep and was resting more comfortably. Orders Ordered: Discontinued Medications Magnesium Citrate (Magnesium Citrate) 150 ml PO NOW ONE Stop: 10/19/19 19:20 Mineral Oil (Mineral Oil Enema) 1 each TN NOW ONE Stop: 10/19/19 16:34 Last Admin: 10/19/19 17:15 Dose: 1 each Documented by: SCANAPO Vital Signs Vital signs: Vital Signs - 8 hr 10/19/19 13:19 10/19/19 15:15 10/19/19 15:43 Temperature 98.0 F Pulse Rate 82 64 Respiratory Rate 18 Blood Pressure 189/91 H Blood Pressure [Right Arm] 189/91 H Pulse Oximetry 100 98 10/19/19 18:20 01/30/20 19:45 Temperature Pulse Rate 71 67 Respiratory Rate 16 16 Blood Pressure Blood Pressure [Right Arm] 174/80 H 152/72 H Pulse Oximetry 100 99 <Crala Segunod DO - Last Filed: 10/20/19 05:51> Orders Ordered: Discontinued Medications Magnesium Citrate (Magnesium Citrate) 150 ml PO NOW ONE Stop: 10/19/19 19:20 Mineral Oil (Mineral Oil Enema) 1 each TN NOW ONE Stop: 10/19/19 16:34 Last Admin: 10/19/19 17:15 Dose: 1 each Documented by: SCANAPO Vital Signs Vital signs: Vital Signs - 8 hr 10/19/19 13:19 10/19/19 15:15 10/19/19 15:43 Temperature 98.0 F Pulse Rate 82 64 Respiratory Rate 18 Blood Pressure 189/91 H Blood Pressure [Right Arm] 189/91 H Pulse Oximetry 100 98 10/19/19 18:20 10/19/19 19:45 Temperature Pulse Rate 71 67 Respiratory Rate 16 16 Blood Pressure Blood Pressure [Right Arm] 174/80 H 152/72 H Pulse Oximetry 100 99 MDM - Abdominal Pain <DEVIN Dawson - Last Filed: 10/19/19 21:20> Medical Records Attestation: I reviewed the patient's medical records. Lab Data Attestation: I reviewed the patient's lab results. Result diagrams: 10/19/19 15:37 10/19/19 15:37 Labs: Lab Results 10/19/19 10/19/19 10/19/19 Range/Units 15:37 15:37 15:37 WBC 6.1 (4.5-11.0) X10^3/uL RBC 3.69 L (4.0-5.2) X10^6/uL Hgb 11.6 L (12.0-16.0) g/dL Hct 33.7 L (36-46) % MCV 91.3 (80-100) fL MCH 31.4 (26-34) PG MCHC 34.4 (30-36) % RDW 13.6 (11.6-14.8) % Plt Count 176 (150-400) X10^3/uL Neut % (Auto) 83.9 H (50-75) % Lymph % (Auto) 8.1 L (25-40) % Sutter % (Auto) 6.3 (3-14) % Eos % (Auto) 0.9 L (2-4) % Baso % (Auto) 0.8 (0-2) % Neut # (Auto) 5100 (2548-8515) /uL Lymph # (Auto) 500 L (6529-0634) /uL Sutter # (Auto) 400 (0-900) /uL Eos # (Auto) 100 (0-450) /uL Baso # (Auto) 0 (0-100) /uL PT 11.4 (10.1-12.7) SECONDS INR 1.0 (0.9-1.3) APTT 32 (26.4-36.2) SECONDS Sodium 137 (137-145) mmol/L Potassium 3.8 (3.4-5.1) mmol/L Chloride 100 (98-107) mmol/L Carbon Dioxide 28 (22-32) mmol/L BUN 20 H (7-17) mg/dL Creatinine 0.80 (0.52-1.04) mg/dL Estimated GFR > 60.0 (>60) mL/min BUN/Creatinine Ratio 25.0 H (6-22) Glucose 103 (80-110) mg/dL Calcium 8.8 (8.4-10.2) mg/dL Total Bilirubin 0.8 (0.2-1.3) mg/dL AST 41 H (14-36) IU/L ALT 31 (<35) IU/L Alkaline Phosphatase 61 (38-126) U/L Total Protein 7.7 (6.3-8.2) g/dL Albumin 4.3 (3.5-5.0) g/dL Globulin 3.4 (1.7-4.1) g/dL Albumin/Globulin Ratio 1.3 (1.0-2.8) Lipase 77 (23-300) U/L Point of care testing: Urine Dip Bedside Urine Glucose Negative Bedside Urine Bilirubin - Negative Bedside Urine Ketone + 15 Urine Specific Mcallen 1.015 Bedside Urine Occult Blood - Negative Bedside Urine pH 7 Bedside Urine Protein +/- 15 Bedside Urine Urobilinogen - Negative Bedside Urine Nitrite - Negative Bedside Urine Leukocytes - Negative Esterase Imaging Data Abdominal x-ray: Radiologist's Impression: [address] [address] XRay Report Signed Patient: Jocelyn Cornelius MMR#: [id number] : 1941Acct:[id number] Age/Sex: 78 / FDate of Service: 10/19/19 Loc: ED Accession Number: [id number] Procedure: XR acute abdomen series Ordering Provider: Josette Yen PROCEDURE: XR ACUTE ABDOMEN SERIES INDICATIONS: Complains of constipation. TECHNIQUE: One view chest and two views of the abdomen were acquired. COMPARISON: None. FINDINGS: Surgical changes and devices: None. Chest: Lungs are clear. Heart size is normal. No pleural effusions. No pneumoperitoneum. Abdomen: Bowel gas pattern is nonobstructive. Large amount of fecal matter is seen throughout the colon suggestive of severe constipation. No suspicious calcifications. Visualized solid organ contours appear normal. Bones: No suspicious bony lesions. IMPRESSION: Finding is consistent with severe constipation. No gross free air. No acute cardiopulmonary pathology. Dictated by: Mario Bhat M.D. on 10/19/2019 at 17:50 Approved by: Mario Bhat M.D. on 10/19/2019 at 17:51 MDM Narrative Medical decision making narrative: 78-year-old female presenting to the emergency department for constipation. Patient had a large bowel movement after to enemas and a disimpaction. Constipation without significant concerns for obstruction or visualized on x-ray. Patient exhibit signs of relief after bowel movement. She was given magnesium citrate to take a half a bottle at home to help promote another bowel movement. She was encouraged to continue her MiraLax as she is taking this daily for the past few weeks. Less likely abdominal etiology due to benign abdominal exam, relief of symptoms after bowel movement, and constipation seen on imaging. Less concern for obstruction due to lack of vomiting, severe abdominal pain, and a bowel gas pattern on imaging that is consistent with a non obstructive pattern. Patient and family were requesting social work evaluation, A&O was left for director of social media marketing follow-up. Patient is currently scheduled to see a psychiatrist. They are encouraged to follow-up instructed. Return precautions given. <Carla Segundo DO - Last Filed: 10/20/19 05:51> Lab Data Labs: Lab Results 10/19/19 10/19/19 10/19/19 Range/Units 15:37 15:37 15:37 WBC 6.1 (4.5-11.0) X10^3/uL RBC 3.69 L (4.0-5.2) X10^6/uL Hgb 11.6 L (12.0-16.0) g/dL Hct 33.7 L (36-46) % MCV 91.3 (80-100) fL MCH 31.4 (26-34) PG MCHC 34.4 (30-36) % RDW 13.6 (11.6-14.8) % Plt Count 176 (150-400) X10^3/uL Neut % (Auto) 83.9 H (50-75) % Lymph % (Auto) 8.1 L (25-40) % Sutter % (Auto) 6.3 (3-14) % Eos % (Auto) 0.9 L (2-4) % Baso % (Auto) 0.8 (0-2) % Neut # (Auto) 5100 (2495-0016) /uL Lymph # (Auto) 500 L (5776-2845) /uL Sutter # (Auto) 400 (0-900) /uL Eos # (Auto) 100 (0-450) /uL Baso # (Auto) 0 (0-100) /uL PT 11.4 (10.1-12.7) SECONDS INR 1.0 (0.9-1.3) APTT 32 (26.4-36.2) SECONDS Sodium 137 (137-145) mmol/L Potassium 3.8 (3.4-5.1) mmol/L Chloride 100 (98-107) mmol/L Carbon Dioxide 28 (22-32) mmol/L BUN 20 H (7-17) mg/dL Creatinine 0.80 (0.52-1.04) mg/dL Estimated GFR > 60.0 (>60) mL/min BUN/Creatinine Ratio 25.0 H (6-22) Glucose 103 (80-110) mg/dL Calcium 8.8 (8.4-10.2) mg/dL Total Bilirubin 0.8 (0.2-1.3) mg/dL AST 41 H (14-36) IU/L ALT 31 (<35) IU/L Alkaline Phosphatase 61 (38-126) U/L Total Protein 7.7 (6.3-8.2) g/dL Albumin 4.3 (3.5-5.0) g/dL Globulin 3.4 (1.7-4.1) g/dL Albumin/Globulin Ratio 1.3 (1.0-2.8) Lipase 77 (23-300) U/L Point of care testing: Urine Dip Bedside Urine Glucose Negative Bedside Urine Bilirubin - Negative Bedside Urine Ketone + 15 Urine Specific Mcallen 1.015 Bedside Urine Occult Blood - Negative Bedside Urine pH 7 Bedside Urine Protein +/- 15 Bedside Urine Urobilinogen - Negative Bedside Urine Nitrite - Negative Bedside Urine Leukocytes - Negative Esterase Discharge Plan Departure Patient Disposition: Home Clinical Impression: Constipation Qualifiers: Constipation type: other constipation type Qualified Code(s): K59.09 - Other constipation Discharge Date/Time: 10/19/19 19:58 Instructions: DI for Constipation Activity Restrictions/Additional Instructions: Thank you for entrusting me with your care today. As discussed, a large amount of stool was removed from her rectum today. Your x-ray reveals that there is more stool in your colon. Prescribed you magnesium citrate, please drink half of this when you are home to help encourage a bowel movement. We do not have a bowel movement in the next 24 hours, you may drink the other half. I have sent in a referral to our director of social media marketing, they should give you a call in the next 1-2 days to follow up with you and provide you appropriate resources. Return emergency department for new or worsening symptoms such as abdominal pain, high fevers, uncontrollable vomiting, or other concerns. Prescriptions: No Action losartan 50 MG tablet 50 mg PO BID Qty: 0 RF: 0 polyethylene glycol 3350 [Miralax] 17 GM powder in packet 17 g PO DAILY Qty: 0 RF: 0 verapamil 120 mg tablet 120 mg PO BID RF: 0 rivastigmine 4.6 mg/24 hr patch 24 hour 4.6 mg transdermal DAILY RF: 0 potassium chloride 10 mEq Capsule, Extended Release 10 meq PO DAILY RF: 0 magnesium 200 mg Tablet 400 mg PO DAILY RF: 0 cholecalciferol (vitamin D3) [Vitamin D3] 5,000 unit Tablet 5,000 unit PO DAILY RF: 0 alendronate [Fosamax] 70 mg Tablet 70 mg WEEKLY RF: 0 levothyroxine 100 mcg Tablet 100 mcg PO DAILY RF: 0 Trimo-Pickett Jelly 0.025-0.01 % Gel 0.5 ea VAGINAL 3XW RF: 0 calcium carbonate 500 mg calcium (1,250 mg) Tablet,Chewable 500 mg PO BID RF: 0 Referrals: Evert Chinchilla MD [Primary Care Provider] -
[2019-10-19] MEDS: MINERAL OIL 1 EACH ENEMA PR (17:15)
[2019-10-19 18:20] VITALS: BP 174/80; PULSE 71; RESP 16; O2SAT 100
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
[2019-10-19 19:45] VITALS: BP 152/72; PULSE 67; RESP 16; O2SAT 99
--- NOTE | 2019-10-20 15:58 | CM.SWNOTE ---
Late Entry PRODUCT SAFETY SPECIALIST Consult Brief Intervention: Received PRODUCT SAFETY SPECIALIST consult request 10.19.19 by ANGELIC Arriaga to assess needs of this 78 yo female, presented to the ED w/ fecal impaction. This PRODUCT SAFETY SPECIALIST asked ED staff the afternoon of 10.19.19 about this consult request...what was the need? what was the reason for consult? ED staff including providers Josette Yen and Dr Harrison had not known about PRODUCT SAFETY SPECIALIST consult request and had stated at the time that Jocelyn was not even assigned to a room. Later spoke w/ ANGELIC Arriaga who explained that Jocelyn was exhibiting behaviors associated w/progressive dementia to include paranoia, short term memory loss, hearing suspicious voices and accused spouse of malicious behavior and plots against her. ANGELIC Arriaga was able to assist in getting Jocelyn disimpacted and Jocelyn was inevitably DC home w.her and her adult son. Family had requested an PRODUCT SAFETY SPECIALIST visit but this was not available, and ED staff did not know to refer pt's family to the Resource center or PCP for Senior Resources (?) This AM, SPREADING MACHINE OPERATOR/[facility] asked this PRODUCT SAFETY SPECIALIST to f/u w/Jocelyn's family per ED provider Josette Yen's request for resources re: caring for someone w/dementia ..spouse feeling burnt out and unsure how to care for Jocelyn at home. This PRODUCT SAFETY SPECIALIST unable to commit time to this today so placed call to PCP Dr Chinchilla's [place] office, he and his RN are out today, requested that a msg by relayed to them upon their return Wednesday and summarized above. EFRAÍN Flores
== END 2019-10-19 19:58 | disposition home or self-care (01) ==
PROVIDERS: Emergency Medicine; Emergency Provider Nurse Practitioner; Family Provider Internal Medicine; PCP Internal Medicine
DX: K59.09 Other constipation (principal)
CPT/HCPCS: 36415; 74022; 80053; 81003; 83690; 85025; 85610; 85730; 99284

== ENCOUNTER → 2020-01-26 14:06 | Outpatient (CLI) | payer OTHER, SELFPAY ==
[2020-01-26 15:10] LABS: Add Manual Diff / Slide Review NO; Basophils Absolute Auto 0 /uL (0-100); Basophils Percent Auto 0.4 % (0-2); Eosinophils Absolute Auto 100 /uL (0-450); Eosinophils Percent Auto 1.5 % (2-4); Hematocrit 34.7 % (36-46); Hemoglobin 11.6 g/dL (12.0-16.0); Lymphocytes Absolute Auto 900 /uL (1100-4500); Lymphocytes Percent Auto 21.8 % (25-40); Mean Corpuscular HGB Conc 33.3 % (30-36); Mean Corpuscular Hemoglobin 30.9 PG (26-34); Mean Corpuscular Volume 92.8 fL (80-100); Monocytes Absolute Auto 300 /uL (0-900); Monocytes Percent Auto 8.3 % (3-14); Neutrophils Absolute Auto 2800 /uL (1500-7000); Platelet Count 152 X10^3/uL (150-400); Red Blood Cell Count 3.74 X10^6/uL (4.0-5.2); Red Cell Distribution Width 13.4 % (11.6-14.8); White Blood Cell Count 4.1 X10^3/uL (4.5-11.0)
[2020-01-26 15:28] LABS: BUN Creatinine Ratio 31.5 (6-22); Blood Urea Nitrogen 28 mg/dL (7-17); Calcium 9.4 mg/dL (8.4-10.2); Carbon Dioxide 30 mmol/L (22-32); Chloride 103 mmol/L (98-107); Estimated Glomerular Filt Rate > 60.0 mL/min (>60); Glucose 107 mg/dL (80-110); HEMOLYSIS < 15 (0-50); Potassium 4.2 mmol/L (3.4-5.1); Sodium 140 mmol/L (137-145)
[2020-01-26 16:02] LABS: Thyroid Stimulating Hormone 2.63 uIU/mL (0.47-4.68)
[2020-01-26 18:21] LABS: Free T3, Triiodothyronine Free 2.57 pg/mL (2.77-5.27)
== END ==
PROVIDERS: Family Provider Internal Medicine; PCP Internal Medicine; Referring Provider Internal Medicine; Visit Provider Internal Medicine
DX: E03.9 Hypothyroidism, unspecified (principal); I10 Essential (primary) hypertension
CPT/HCPCS: 36415; 80048; 84436; 84443; 84481; 85025

== ENCOUNTER → 2020-04-03 11:44 | Outpatient (CLI) | payer OTHER, SELFPAY ==
--- NOTE | 2020-04-03 11:45 | DI.MG.S_ITS ---
BILATERAL DIGITAL SCREENING MAMMOGRAM 3D/2D WITH CAD: 04/03/2020 CLINICAL: Routine screening. Family history of breast cancer. Breast cancer. Comparison is made to exams dated: 03/20/2019 mammogram, 10/03/2018 mammogram, 03/10/2018 mammogram, 09/09/2017 mammogram, and 05/19/2017 mammogram - [facility]. The tissue of both breasts is heterogeneously dense. This may lower the sensitivity of mammography. Current study was also evaluated with a Computer Aided Detection (CAD) system. There are benign calcifications in the left breast. There also are benign post operative findings in the right breast. No significant masses, calcifications, or other findings are seen in either breast. There has been no significant interval change. IMPRESSION: There is no mammographic evidence of malignancy. A 1 year screening mammogram is recommended. This exam was interpreted at Station ID: [id number]. NOTE: For mammograms, a report in lay terms will be sent to the patient. Approximately 15% of breast malignancies will not be visualized mammographically. In the management of a palpable breast mass, a negative mammogram must not discourage biopsy of a clinically suspicious lesion. Electronically Signed By: Phylicia cleveland/lee:04/03/2020 17:32:21 letter sent: Normal Exam ACR BI-RADS Category 2: Benign Finding(s) 3342F
== END ==
PROVIDERS: Family Provider Internal Medicine; PCP Internal Medicine; Referring Provider Internal Medicine Hematology & Oncology; Visit Provider Internal Medicine Hematology & Oncology
DX: Z12.31 Encounter for screening mammogram for malignant neoplasm of breast (principal); Z80.3 Family history of malignant neoplasm of breast; Z85.3 Personal history of malignant neoplasm of breast; Z86.000 Personal history of in-situ neoplasm of breast
CPT/HCPCS: 77063; 77067

== ENCOUNTER → 2020-11-05 10:41 | Outpatient (CLI) | payer OTHER, SELFPAY | PROVIDERS: Family Provider Internal Medicine; PCP Internal Medicine; Referring Provider Internal Medicine; Visit Provider Internal Medicine | DX: R14.0 Abdominal distension (gaseous) (principal); Z85.3 Personal history of malignant neoplasm of breast ==

== ENCOUNTER → 2020-11-05 10:58 | Oncology outpatient (ONC) | payer OTHER, SELFPAY ==
[2018-06-20 16:28] VITALS: BP 165/84; PULSE 84; RESP 20; TEMP 36.6; O2SAT 98
--- NOTE | 2018-06-20 17:06 | ONC.PN ---
PN -Subjective Interval history: Chief Complaint 77-year-old female with history breast cancer presents today for scheduled follow-up History of Present Illness Patient was last seen by Dr. Everardo Dumont in December of 2017. Patient has remote history thyroid cancer at the age of 18 status post thyroidectomy in 1966, a remote history of left-sided breast cancer diagnosed 1998 and treated with lumpectomy followed by chemotherapy and radiation treatment followed by 5 years of tamoxifen. In April of 2017 patient was diagnosed with right breast multiple focal DCIS and underwent lumpectomy on May 19, 2017. The tumor was ER negative, and MD negative. Patient underwent adjuvant radiotherapy to the right breast from July 09, 2017 through August 11, 2017. Patient came in here today accompanied by her . Since her previous visit, patient reported no new events. However patient has severe memory issues. She is not able to recall events in the near past. Per patient's , patient overall has been doing relatively well. She underwent a mammogram on March 10, 2018. The mammogram showed no evidence of malignancy. A 1 year screening mammogram was recommended. Due to abdomen pain, she underwent CT the abdomen with contrast and scan showed a 5.6 x 7.6 cm cystic mass in left adnexum demonstrating interval enlargement compared to scans March 01, 2018. The patient is not being followed by Dr. Krishnamurthy a slip cover operator. Patient is been getting ultrasound study about every 6 months. Patient said that she has a better energy level and better appetite. The said that her appetite is real good. Patient denies any nausea or vomiting. He denies any abdominal pain. He denies bright red blood per rectum or black stool. Patient has a left ovarian cyst/mass and is currently being followed by ultrasound study - Additional ROS All systems PM: reviewed and no additional remarkable complaints except as stated (Obtained from the . Patient has serious memory loss.) Home Medications and Allergies Home Medications Medication Instructions Recorded Confirmed Type calcium carbonate [Calci-Chew] 1 tab PO BID #0 05/19/17 03/28/18 History losartan 50 mg PO BID #0 05/19/17 03/28/18 History polyethylene glycol 3350 [Miralax] #0 05/19/17 03/28/18 History levothyroxine 112 mcg capsule 112 mcg PO DAILY 03/31/18 03/31/18 History verapamil ER 180 mg 24 hr 180 mg PO DAILY 03/31/18 03/31/18 History capsule,extended release cholecalciferol (vitamin D3) 5,000 unit PO DAILY 06/20/18 06/20/18 History [Vitamin D3] magnesium 400 mg PO DAILY 06/20/18 06/20/18 History potassium chloride 10 meq PO DAILY 06/20/18 06/20/18 History Allergies Allergy/AdvReac Type Severity Reaction Status Date / Time paraben [PARABEN] Allergy Unknown Unverified 03/31/18 16:29 hydrochlorothiazide Allergy Verified 03/31/18 16:29 amlodipine [AMLODIPINE] AdvReac Unknown LEG CRAMPS Unverified 03/31/18 16:29 metoprolol [METOPROLOL] AdvReac Unknown LEG CRAMPS Unverified 03/31/18 16:29 Exam Vital signs: Last Vital Signs Temp 97.9 F 06/20/18 16:28 Pulse 84 06/20/18 16:28 Resp 20 06/20/18 16:28 BP 165/84 H 06/20/18 16:28 Pulse Ox 98 06/20/18 16:28 Narrative: Constitutional: Well developed, well nourished, not in any acute respiratory distress, average body habitus, well groomed, pleasant and cooperative. HEENT: Normocephalic atraumatic. Extraocular muscle movement intact. Pupils are round, equal and reactive to light and accommodations. Anicteric sclera. No hearing difficulty; Oral mucus membrane moist and without ulcers. Neck: Supple, symmetrical, and tracheal midline; No palpable thyromegaly and no palpable lymph nodes. Respiratory: No use of accessory muscles. Clear to auscultation, and no wheezes or rales or rubs. Cardiovascular: Regular rate and rhythm, S1 and S2 normal, no murmurs gallops or rubs. No JVD. No pitting edema of lower extremities. Abdomen: Soft, nontender, non-distended, bowel sounds normal, no palpable organomegaly, no hernia, no palpable masses. Lower extremities: No palpable pedal edema. Lymphatic: no palpable lymph nodes in the neck, axillae, or groins. Musculoskeletal: normal gait and station, no clubbing, no cyanosis, no pitting edema. Skin: no rashes, no ulcers, no petechiae Neurological: Awake and alert and oriented x3. CN II-XII grossly intact. No focal motor or sensory deficit. Psychiatric: serious memory loss Results - Labs From June 15, 2018 WBC 4.0, hemoglobin 11.9, hematocrit 34.8, platelets 148 Sodium 141, potassium 4.0, chloride 98, carbon dioxide 32, BUN 23, creatinine 0.8, glucose level 99, calcium 9.8, total bilirubin 0.4, AST 40, ALT 24, alk-phos 38. Total protein 7.3, globulin 2.8, albumin 4.5. 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 And there is no mammographic evidence of disease recurrence or metastasis. I will continue current active surveillance. (2) History of left breast cancer She has a remote history of left breast apparently ER positive cancer diagnosed in 1998. Patient underwent lumpectomy followed by chemotherapy followed by surgery followed by 5 years of endocrine treatment. Patient has been doing well. There is no evidence clinically or mammographically to suggest disease recurrence or metastasis. I will continue current active surveillance. (3) History of thyroid cancer Patient underwent thyroidectomy apparently. He has been doing well. We will continue surveillance. (4) History of benign parathyroid tumor According to patient's , patient had a on usually high level of calcium. Patient underwent resection of 1 of the for parathyroid glands. Since then patient has been normal as far as calcium level is concerned. Today the calcium level is 9.8. I will 10 continue current active surveillance. (5) Memory loss It seems to me that patient has serious memory issues. I believe patient is now being followed by neurologist Andriy. I encouraged patient continue to follow up with her primary care provider as well as Dr. Dr. Ashraf. - Time Spent with Patient For I will have the patient come back in 6 months for follow-up.
--- NOTE | 2018-06-20 17:20 | P.PNONC_ITS ---
PN -Subjective Interval history: Chief Complaint 77-year-old female with history breast cancer presents today for scheduled follow-up History of Present Illness Patient was last seen by Dr. Everardo Dumont in December of 2017. Patient has remote history thyroid cancer at the age of 18 status post thyroidectomy in 1966 , a remote history of left-sided breast cancer diagnosed 1998 and treated with lumpectomy followed by chemotherapy and radiation treatment followed by 5 years of tamoxifen. In April of 2017 patient was diagnosed with right breast multiple focal DCIS and underwent lumpectomy on May 19, 2017. The tumor was ER negative, and [place] negative. Patient underwent adjuvant radiotherapy to the right breast from July 09, 2017 through August 11, 2017. Patient came in here today accompanied by her . Since her previous visit, patient reported no new events. However patient has severe memory issues. She is not able to recall events in the near past. Per patient's , patient overall has been doing relatively well. She underwent a mammogram on March 10, 2018. The mammogram showed no evidence of malignancy. A 1 year screening mammogram was recommended. Due to abdomen pain, she underwent CT the abdomen with contrast and scan showed a 5.6 x 7.6 cm cystic mass in left adnexum demonstrating interval enlargement compared to scans March 01, 2018. The patient is not being followed by Dr. Krishnamurthy a band head saw operator. Patient is been getting ultrasound study about every 6 months. Patient said that she has a better energy level and better appetite. The said that her appetite is real good. Patient denies any nausea or vomiting. He denies any abdominal pain. He denies bright red blood per rectum or black stool. Patient has a left ovarian cyst/mass and is currently being followed by ultrasound study - Additional ROS All systems PM: reviewed and no additional remarkable complaints except as stated (Obtained from the . Patient has serious memory loss.) Home Medications and Allergies Home Medications Medication Instructions Recorded Confirmed Type calcium carbonate [Calci-Chew] 1 tab PO BID #0 05/19/17 03/28/18 History losartan 50 mg PO BID #0 05/19/17 03/28/18 History polyethylene glycol 3350 [Miralax] #0 05/19/17 03/28/18 History levothyroxine 112 mcg capsule 112 mcg PO DAILY 03/31/18 03/31/18 History verapamil ER 180 mg 24 hr 180 mg PO DAILY 03/31/18 03/31/18 History capsule,extended release cholecalciferol (vitamin D3) 5,000 unit PO DAILY 06/20/18 06/20/18 History [Vitamin D3] magnesium 400 mg PO DAILY 06/20/18 06/20/18 History potassium chloride 10 meq PO DAILY 06/20/18 06/20/18 History Allergies Allergy/AdvReac Type Severity Reaction Status Date / Time paraben [PARABEN] Allergy Unknown Unverified 03/31/18 16:29 hydrochlorothiazide Allergy Verified 03/31/18 16:29 amlodipine [AMLODIPINE] AdvReac Unknown LEG CRAMPS Unverified 03/31/18 16:29 metoprolol [METOPROLOL] AdvReac Unknown LEG CRAMPS Unverified 03/31/18 16:29 Exam Vital signs: Last Vital Signs Temp 97.9 F 06/20/18 16:28 Pulse 84 06/20/18 16:28 Resp 20 06/20/18 16:28 BP 165/84 H 06/20/18 16:28 Pulse Ox 98 06/20/18 16:28 Narrative: Constitutional: Well developed, well nourished, not in any acute respiratory distress, average body habitus, well groomed, pleasant and cooperative. HEENT: Normocephalic atraumatic. Extraocular muscle movement intact. Pupils are round, equal and reactive to light and accommodations. Anicteric sclera. No hearing difficulty; Oral mucus membrane moist and without ulcers. Neck: Supple, symmetrical, and tracheal midline; No palpable thyromegaly and no palpable lymph nodes. Respiratory: No use of accessory muscles. Clear to auscultation, and no wheezes or rales or rubs. Cardiovascular: Regular rate and rhythm, S1 and S2 normal, no murmurs gallops or rubs. No JVD. No pitting edema of lower extremities. Abdomen: Soft, nontender, non-distended, bowel sounds normal, no palpable organomegaly, no hernia, no palpable masses. Lower extremities: No palpable pedal edema. Lymphatic: no palpable lymph nodes in the neck, axillae, or groins. Musculoskeletal: normal gait and station, no clubbing, no cyanosis, no pitting edema. Skin: no rashes, no ulcers, no petechiae Neurological: Awake and alert and oriented x3. CN II-XII grossly intact. No focal motor or sensory deficit. Psychiatric: serious memory loss Results - Labs From June 15, 2018 WBC 4.0, hemoglobin 11.9, hematocrit 34.8, platelets 148 Sodium 141, potassium 4.0, chloride 98, carbon dioxide 32, BUN 23, creatinine 0.8, glucose level 99, calcium 9.8, total bilirubin 0.4, AST 40, ALT 24, alk- phos 38. Total protein 7.3, globulin 2.8, albumin 4.5. - Imaging Additional studies: Procedures Excision of lesion of other soft tissue (05/23/14) Insertion of intraocular lens prosthesis at time of cataract extraction, one- stage (01/22/15) Other local excision or destruction of lesion or tissue of skin and subcutaneous tissue (05/23/14) Phacoemulsification and aspiration of cataract (01/22/15) Assessment and Plan (1) Ductal carcinoma in situ (DCIS) of right breast She had a mammogram in February of 2018. And there is no mammographic evidence of disease recurrence or metastasis. I will continue current active surveillance. (2) History of left breast cancer She has a remote history of left breast apparently ER positive cancer diagnosed in 1998. Patient underwent lumpectomy followed by chemotherapy followed by surgery followed by 5 years of endocrine treatment. Patient has been doing well. There is no evidence clinically or mammographically to suggest disease recurrence or metastasis. I will continue current active surveillance. (3) History of thyroid cancer Patient underwent thyroidectomy apparently. He has been doing well. We will continue surveillance. (4) History of benign parathyroid tumor According to patient's , patient had a on usually high level of calcium. Patient underwent resection of 1 of the for parathyroid glands. Since then patient has been normal as far as calcium level is concerned. Today the calcium level is 9.8. I will 10 continue current active surveillance. (5) Memory loss It seems to me that patient has serious memory issues. I believe patient is now being followed by neurologist Andriy. I encouraged patient continue to follow up with her primary care provider as well as Dr. Dr. Ashraf. - Time Spent with Patient For I will have the patient come back in 6 months for follow-up.
[2018-12-19 12:09] VITALS: BP 129/63; PULSE 84; RESP 16; TEMP 36.4; O2SAT 97
--- NOTE | 2018-12-19 12:26 | ONC.PN ---
PN -Subjective Interval history: She came in here today for scheduled follow-up visit. She is accompanied by her . She is complaining intermittent pain in the breast on both side. She did not notice any lumps or bumps. She saw Dr. Pang and had a mammogram of the left side in Sep 2018. The mammogram showed no evidence of disease. She noticed a dent on her right breast in the mirror when she got of shower. No palpable mass. History of Present Illness Patient was last seen by Dr. Everardo Dumont in December of 2017. Patient has remote history thyroid cancer at the age of 18 status post thyroidectomy in 1966, a remote history of left-sided breast cancer diagnosed 1998 and treated with lumpectomy followed by chemotherapy and radiation treatment followed by 5 years of tamoxifen. In April of 2017 patient was diagnosed with right breast multiple focal DCIS and underwent lumpectomy on May 19, 2017. The tumor was ER negative, and [place] negative. Patient underwent adjuvant radiotherapy to the right breast from July 09, 2017 through August 11, 2017. Patient came in here today accompanied by her . Since her previous visit, patient reported no new events. However patient has severe memory issues. She is not able to recall events in the near past. Per patient's , patient overall has been doing relatively well. She underwent a mammogram on March 10, 2018. The mammogram showed no evidence of malignancy. A 1 year screening mammogram was recommended. Due to abdomen pain, she underwent CT the abdomen with contrast and scan showed a 5.6 x 7.6 cm cystic mass in left adnexum demonstrating interval enlargement compared to scans March 01, 2018. The patient is not being followed by Dr. Krishnamurthy a insert molding operator. Patient is been getting ultrasound study about every 6 months. Patient said that she has a better energy level and better appetite. The said that her appetite is real good. Patient denies any nausea or vomiting. He denies any abdominal pain. He denies bright red blood per rectum or black stool. Patient has a left ovarian cyst/mass and is currently being followed by ultrasound study - Additional ROS All systems PM: reviewed and no additional remarkable complaints except as stated Home Medications and Allergies Home Medications Medication Instructions Recorded Confirmed Type calcium carbonate [Calci-Chew] 1 tab PO BID #0 05/19/17 03/28/18 History losartan 50 mg PO BID #0 05/19/17 03/28/18 History polyethylene glycol 3350 [Miralax] #0 05/19/17 03/28/18 History levothyroxine 112 mcg capsule 112 mcg PO DAILY 03/31/18 03/31/18 History verapamil ER 180 mg 24 hr 180 mg PO DAILY 03/31/18 03/31/18 History capsule,extended release cholecalciferol (vitamin D3) 5,000 unit PO DAILY 06/20/18 06/20/18 History [Vitamin D3] magnesium 400 mg PO DAILY 06/20/18 06/20/18 History potassium chloride 10 meq PO DAILY 06/20/18 06/20/18 History Allergies Allergy/AdvReac Type Severity Reaction Status Date / Time paraben [PARABEN] Allergy Unknown Unverified 03/31/18 16:29 hydrochlorothiazide Allergy Verified 03/31/18 16:29 amlodipine [AMLODIPINE] AdvReac Unknown LEG CRAMPS Unverified 03/31/18 16:29 metoprolol [METOPROLOL] AdvReac Unknown LEG CRAMPS Unverified 03/31/18 16:29 Exam Vital signs: Vital Signs Temp Pulse Resp BP Pulse Ox 12/19/18 12:09 97.6 F 84 16 129/63 97 Intake and Output 12/18/18 12/19/18 12/19/18 23:59 07:59 15:59 Other: Weight 54.6 kg Patient Weight 12/19/18 23:59 Weight 54.6 kg Narrative: Constitutional: Well developed, well nourished, not in any acute respiratory distress, average body habitus, well groomed, pleasant and cooperative. HEENT: Normocephalic atraumatic. Extraocular muscle movement intact. Pupils are round, equal and reactive to light and accommodations. Anicteric sclera. No hearing difficulty; Oral mucus membrane moist and without ulcers. Neck: Supple, symmetrical, and tracheal midline; No palpable thyromegaly and no palpable lymph nodes. Respiratory: No use of accessory muscles. Clear to auscultation, and no wheezes or rales or rubs. Cardiovascular: Regular rate and rhythm, S1 and S2 normal, no murmurs gallops or rubs. No JVD. No pitting edema of lower extremities. Abdomen: Soft, nontender, non-distended, bowel sounds normal, no palpable organomegaly, no hernia, no palpable masses. Lower extremities: No palpable pedal edema. Lymphatic: no palpable lymph nodes in the neck, axillae, or groins. Musculoskeletal: normal gait and station, no clubbing, no cyanosis, no pitting edema. Skin: no rashes, no ulcers, no petechiae Neurological: Awake and alert and oriented x3. CN II-XII grossly intact. No focal motor or sensory deficit. Breast exam: Right breast: Status post previous lumpectomy. There is no palpable lumps or bumps, there is no skin changes. There is no palpable lymph nodes in the right axilla. The left breast is status post previous lumpectomy. No nipple retraction. No palpable masses. No palpable lymph nodes in the left axilla. Psychiatric: serious memory loss All physical examinations are chaperoned. Results - Labs Reviewed. - Imaging Additional studies: Procedures Excision of lesion of other soft tissue (05/23/14) Insertion of intraocular lens prosthesis at time of cataract extraction, one-stage (01/22/15) Other local excision or destruction of lesion or tissue of skin and subcutaneous tissue (05/23/14) Phacoemulsification and aspiration of cataract (01/22/15) Assessment and Plan (1) Ductal carcinoma in situ (DCIS) of right breast I talked with the patient and patient's that I do not think there is any clinical evidence of disease recurrence or metastasis. We will continue current active surveillance. She has already scheduled screening mammograms in 20 of March. I will have her come back after the mammogram is performed. Patient and patient's both voiced understanding. Plan: Mammogram as scheduled in March 2019 RTC MD visit 04/10/2019, CBC, CMP. (2) History of left breast cancer She has a remote history of left breast apparently ER positive cancer diagnosed in 1998. Patient underwent lumpectomy followed by chemotherapy followed by surgery followed by 5 years of endocrine treatment. Patient has been doing well. There is no evidence clinically or mammographically to suggest disease recurrence or metastasis. I will continue current active surveillance. Plan: See above. (3) History of thyroid cancer Patient underwent thyroidectomy apparently. He has been doing well. We will continue surveillance. (4) History of benign parathyroid tumor According to patient's , patient had a on usually high level of calcium. Patient underwent resection of 1 of the for parathyroid glands. Since then patient has been normal as far as calcium level is concerned. Today the calcium level is 9.4. I will continue current active surveillance. (5) Memory loss It seems to me that patient has serious memory issues. I believe patient is now being followed by neurologist Andriy. I encouraged patient continue to follow up with her primary care provider as well as Dr. Dr. Ashraf.
[2019-04-10 13:22] VITALS: BP 137/84; PULSE 77; RESP 18; TEMP 36.6; O2SAT 99
--- NOTE | 2019-04-10 13:38 | P.PNONC_ITS ---
PN -Subjective Interval history: She came in here today for scheduled follow-up visit. She is accompanied by her . According to him, patient has been doing really good recently. Patient underwent screening mammogram on March 20 2019. It showed no evidence of disease recurrence or metastasis. One year follow-up is recommended. History of Present Illness Patient was last seen by Dr. Everardo Dumont in December of 2017. Patient has remote history thyroid cancer at the age of 18 status post thyroidectomy in 1966, a remote history of left-sided breast cancer diagnosed 1998 and treated with lumpectomy followed by chemotherapy and radiation treatment followed by 5 years of tamoxifen. In April of 2017 patient was diagnosed with right breast multiple focal DCIS and underwent lumpectomy on May 19, 2017. The tumor was ER negative, and CT negative. Patient underwent adjuvant radiotherapy to the right breast from July 09, 2017 through August 11, 2017. Patient came in here today accompanied by her . Since her previous visit, patient reported no new events. However patient has severe memory issues. She is not able to recall events in the near past. Per patient's , patient overall has been doing relatively well. She underwent a mammogram on March 10, 2018. The mammogram showed no evidence of malignancy. A 1 year screening mammogram was recommended. Due to abdomen pain, she underwent CT the abdomen with contrast and scan showed a 5.6 x 7.6 cm cystic mass in left adnexum demonstrating interval enlargement compared to scans March 01, 2018. The patient is not being followed by Dr. Krishnamurthy a vocational rehabilitation consultant. Patient is been getting ultrasound study about every 6 months. Patient said that she has a better energy level and better appetite. The said that her appetite is real good. Patient denies any nausea or vomiting. He denies any abdominal pain. He denies bright red blood per rectum or black stool. Patient has a left ovarian cyst/mass and is currently being followed by ultrasound study - Additional ROS All systems PM: reviewed and no additional remarkable complaints except as stated Home Medications and Allergies Home Medications Medication Instructions Recorded Confirmed Type calcium carbonate [Calci-Chew] 1 tab PO BID #0 05/19/17 04/10/19 History losartan 50 mg PO BID #0 05/19/17 04/10/19 History polyethylene glycol 3350 [Miralax] 17 g DAILY #0 05/19/17 04/10/19 History levothyroxine 112 mcg capsule 112 mcg PO DAILY 03/31/18 04/10/19 History cholecalciferol (vitamin D3) 5,000 unit PO DAILY 06/20/18 04/10/19 History [Vitamin D3] magnesium 400 mg PO DAILY 06/20/18 04/10/19 History potassium chloride 10 meq PO DAILY 06/20/18 04/10/19 History alendronate [Fosamax] 70 mg WEEKLY 04/10/19 04/10/19 History Allergies Allergy/AdvReac Type Severity Reaction Status Date / Time paraben [PARABEN] Allergy Unknown Unverified 03/31/18 16:29 hydrochlorothiazide Allergy Verified 03/31/18 16:29 amlodipine [AMLODIPINE] AdvReac Unknown LEG CRAMPS Unverified 03/31/18 16:29 metoprolol [METOPROLOL] AdvReac Unknown LEG CRAMPS Unverified 03/31/18 16:29 Exam Vital signs: Vital Signs Temp Pulse Resp BP Pulse Ox 04/10/19 13:22 97.8 F 77 18 137/84 99 Intake and Output 04/09/19 04/10/19 04/10/19 23:59 07:59 15:59 Other: Weight 54 kg Patient Weight 04/10/19 23:59 Weight 54 kg ECOG 1 Narrative: Constitutional: Well developed, well nourished, not in any acute respiratory distress, average body habitus, well groomed, pleasant and cooperative. HEENT: Normocephalic atraumatic. Extraocular muscle movement intact. Pupils are round, equal and reactive to light and accommodations. Anicteric sclera. No hearing difficulty; Oral mucus membrane moist and without ulcers. Neck: Supple, symmetrical, and tracheal midline; No palpable thyromegaly and no palpable lymph nodes. Respiratory: No use of accessory muscles. Clear to auscultation, and no wheezes or rales or rubs. Cardiovascular: Regular rate and rhythm, S1 and S2 normal, no murmurs gallops or rubs. No JVD. No pitting edema of lower extremities. Abdomen: Soft, nontender, non-distended, bowel sounds normal, no palpable organomegaly, no hernia, no palpable masses. Lower extremities: No palpable pedal edema. Lymphatic: no palpable lymph nodes in the neck, axillae, or groins. Musculoskeletal: normal gait and station, no clubbing, no cyanosis Skin: no rashes, no ulcers, no petechiae Neurological: Awake and alert and oriented x3. CN II-XII grossly intact. No focal motor or sensory deficit. Breast exam: deferred. Psychiatric: serious memory loss Results - Labs Mammogram and labs were reviewed. - Imaging Additional studies: Procedures Excision of lesion of other soft tissue (05/23/14) Insertion of intraocular lens prosthesis at time of cataract extraction, one- stage (01/22/15) Other local excision or destruction of lesion or tissue of skin and subcutaneous tissue (05/23/14) Phacoemulsification and aspiration of cataract (01/22/15) Assessment and Plan (1) Ductal carcinoma in situ (DCIS) of right breast I reviewed the mammogram results with her and her hunsband. I do not think there is any clinical evidence of disease recurrence or metastasis. We will continue current active surveillance. Plan: Mammogram as scheduled in March 2020, RTC MD visit after scan, CBC, CMP. (2) History of left breast cancer She has a remote history of left breast apparently ER positive cancer diagnosed in 1998. Patient underwent lumpectomy followed by chemotherapy followed by surgery followed by 5 years of endocrine treatment. Patient has been doing well. There is no evidence clinically or mammographically to suggest disease recurrence or metastasis. I will continue current active surveillance. (3) History of thyroid cancer Patient underwent thyroidectomy apparently. He has been doing well. We will continue surveillance. (4) History of benign parathyroid tumor According to patient's , patient had a on usually high level of calcium. Patient underwent resection of 1 of the four parathyroid glands. Since then patient has been normal as far as calcium level is concerned. I will continue current active surveillance. (5) Memory loss It seems to me that patient has serious memory issues. I believe patient is now being followed by neurologlisa Ashraf. I encouraged patient continue to follow up with her primary care provider as well as Dr. Ashraf.
[2020-04-03 12:33] LABS: Add Manual Diff / Slide Review NO; Basophils Absolute Auto 0 /uL (0-100); Eosinophils Absolute Auto 0 /uL (0-450); Eosinophils Percent Auto 0.9 % (2-4); Hematocrit 34.6 % (36-46); Hemoglobin 11.7 g/dL (12.0-16.0); Lymphocytes Absolute Auto 700 /uL (1100-4500); Lymphocytes Percent Auto 14.7 % (25-40); Mean Corpuscular HGB Conc 33.9 % (30-36); Mean Corpuscular Hemoglobin 31.3 PG (26-34); Mean Corpuscular Volume 92.3 fL (80-100); Monocytes Absolute Auto 300 /uL (0-900); Monocytes Percent Auto 6.3 % (3-14); Neutrophils Absolute Auto 3600 /uL (1500-7000); Neutrophils Percent Auto 77.1 % (50-75); Platelet Count 147 X10^3/uL (150-400); Red Blood Cell Count 3.75 X10^6/uL (4.0-5.2); Red Cell Distribution Width 13.6 % (11.6-14.8); White Blood Cell Count 4.7 X10^3/uL (4.5-11.0)
[2020-04-03 12:47] LABS: Albumin 4.6 g/dL (3.5-5.0); Albumin Globulin Ratio 1.6 (1.0-2.8); Alkaline Phosphatase 32 U/L (38-126); Aspartate Aminotransferase 38 IU/L (14-36); BUN Creatinine Ratio 34.1 (6-22); Bilirubin Total 0.8 mg/dL (0.2-1.3); Blood Urea Nitrogen 31 mg/dL (7-17); Calcium 9.7 mg/dL (8.4-10.2); Carbon Dioxide 25 mmol/L (22-32); Chloride 104 mmol/L (98-107); Estimated Glomerular Filt Rate 59.3 mL/min (>60); Globulin 2.8 g/dL (1.7-4.1); Glucose 145 mg/dL (80-110); HEMOLYSIS 25 (0-50); Potassium 4.3 mmol/L (3.4-5.1); Sodium 138 mmol/L (137-145); Total Protein 7.4 g/dL (6.3-8.2)
[2020-04-03 13:02] LABS: Alanine Aminotransferase 18 IU/L (<35)
[2020-04-16 08:51] VITALS: BP 164/78; PULSE 73; RESP 16; TEMP 36.5; O2SAT 98
--- NOTE | 2020-04-16 08:59 | P.PNONC_ITS ---
PN -Subjective Interval history: She came in here today for scheduled follow-up visit. She is accompanied by her . Patient has remote history thyroid cancer at the age of 18 status post thyroidectomy in 1966, a remote history of left-sided breast cancer diagnosed 1998 and treated with lumpectomy followed by chemotherapy and radiation t reatment followed by 5 years of tamoxifen. In April of 2017 patient was diagnosed with right breast multiple focal DCIS and underwent lumpectomy on May 19, 2017. The tumor was ER negative, and NE negative. Patient underwent adjuvant radiotherapy to the right breast from July 09, 2017 through August 11, 2017. Patient came in here today accompanied by her . Since her previous visit, patient reported no new events. However patient has severe memory issues. She is not able to recall events in the near past. She denies any pain, bleeding, localized weakness, fever, chills, nausea, vomiting, cough or shortness of breath. Her states that they get out of the house almost daily to go for a walk. Her memory issues have continued and are severe. She previously underwent CT the abdomen with contrast and scan showed a 5.6 x 7.6 cm cystic mass in left adnexum demonstrating interval enlargement compared to scans March 01, 2018. A CA 125 in July of 2019 was normal at 14. She has previously been seen by Dr. Krishnamurthy from Gynecology but has not seen her in over a year. Patient and her both state that she isn't have any symptoms of abdominal or pelvic pain, disturbances in her bowel function, urinary symptoms or bleeding. All other systems are negative. Her past medical history including family and social history are reviewed from previous notes. Home Medications and Allergies Home Medications Medication Instructions Recorded Confirmed Type losartan 50 mg PO BID #0 05/19/17 04/16/20 History polyethylene glycol 3350 [Miralax] 17 g PO DAILY #0 05/19/17 04/16/20 History cholecalciferol (vitamin D3) 5,000 unit PO DAILY 06/20/18 04/16/20 History [Vitamin D3] magnesium 400 mg PO DAILY 06/20/18 04/16/20 History potassium chloride 10 meq PO DAILY 06/20/18 04/16/20 History alendronate [Fosamax] 70 mg WEEKLY 04/10/19 04/16/20 History verapamil 120 mg tablet 120 mg PO BID 08/16/19 04/16/20 History calcium carbonate 500 mg PO BID 10/19/19 04/16/20 History levothyroxine 100 mcg PO DAILY 10/19/19 04/16/20 History oxyquinoline-sod.lauryl sulfat 0.5 ea VAGINAL 3XW 10/19/19 04/16/20 History [[place] Jelly] Allergies Allergy/AdvReac Type Severity Reaction Status Date / Time paraben [PARABEN] Allergy Unknown Verified 11/21/19 13:16 hydrochlorothiazide Allergy Verified 11/21/19 13:16 amlodipine [AMLODIPINE] AdvReac Unknown LEG CRAMPS Verified 11/21/19 13:16 metoprolol [METOPROLOL] AdvReac Unknown LEG CRAMPS Verified 11/21/19 13:16 Exam Vital signs: Vital Signs Temp Pulse Resp BP Pulse Ox 04/16/20 08:51 97.7 F 73 16 164/78 H 98 Intake and Output 04/15/20 04/16/20 04/16/20 23:59 07:59 15:59 Other: Weight 53.6 kg Patient Weight 04/16/20 23:59 Weight 53.6 kg Narrative: She was awake and alert. She appeared in no acute distress. She did not appear to have a good understanding of why she was in the office today. She was suspicious of some of my questions and her 's answering of her symptom sheet questions. Despite numerous attempts by me, her , and the mA, she declined a physical examination today. I reassured her that we would be respectful of her wishes. Results - Labs Laboratory Last Values WBC 4.7 X10^3/uL (4.5-11.0) 04/03/20 12:24 RBC 3.75 X10^6/uL (4.0-5.2) L 04/03/20 12:24 Hgb 11.7 g/dL (12.0-16.0) L 04/03/20 12:24 Hct 34.6 % (36-46) L 04/03/20 12:24 MCV 92.3 fL (80-100) 04/03/20 12:24 MCH 31.3 PG (26-34) 04/03/20 12:24 MCHC 33.9 % (30-36) 04/03/20 12:24 RDW 13.6 % (11.6-14.8) 04/03/20 12:24 Plt Count 147 X10^3/uL (150-400) L 04/03/20 12:24 Neut % (Auto) 77.1 % (50-75) H 04/03/20 12:24 Lymph % (Auto) 14.7 % (25-40) L 04/03/20 12:24 [place] % (Auto) 6.3 % (3-14) 04/03/20 12:24 Eos % (Auto) 0.9 % (2-4) L 04/03/20 12:24 Baso % (Auto) 1.0 % (0-2) 04/03/20 12:24 Neut # (Auto) 3600 /uL (8721-2939) 04/03/20 12:24 Lymph # (Auto) 700 /uL (2634-1171) L 04/03/20 12:24 [place] # (Auto) 300 /uL (0-900) 04/03/20 12:24 Eos # (Auto) 0 /uL (0-450) 04/03/20 12:24 Baso # (Auto) 0 /uL (0-100) 04/03/20 12:24 Sodium 138 mmol/L (137-145) 04/03/20 12:24 Potassium 4.3 mmol/L (3.4-5.1) 04/03/20 12:24 Chloride 104 mmol/L (98-107) 04/03/20 12:24 Carbon Dioxide 25 mmol/L (22-32) 04/03/20 12:24 BUN 31 mg/dL (7-17) H 04/03/20 12:24 Creatinine 0.91 mg/dL (0.52-1.04) 04/03/20 12:24 Estimated GFR 59.3 mL/min (>60) L 04/03/20 12:24 BUN/Creatinine Ratio 34.1 (6-22) H 04/03/20 12:24 Glucose 145 mg/dL (80-110) H 04/03/20 12:24 Calcium 9.7 mg/dL (8.4-10.2) 04/03/20 12:24 Total Bilirubin 0.8 mg/dL (0.2-1.3) 04/03/20 12:24 AST 38 IU/L (14-36) H 04/03/20 12:24 ALT 18 IU/L (<35) 04/03/20 12:24 Alkaline Phosphatase 32 U/L (38-126) L 04/03/20 12:24 Total Protein 7.4 g/dL (6.3-8.2) 04/03/20 12:24 Albumin 4.6 g/dL (3.5-5.0) 04/03/20 12:24 Globulin 2.8 g/dL (1.7-4.1) 04/03/20 12:24 Albumin/Globulin Ratio 1.6 (1.0-2.8) 04/03/20 12:24 - Imaging Additional studies: Procedures Excision of lesion of other soft tissue (05/23/14) Insertion of intraocular lens prosthesis at time of cataract extraction, one- stage (01/22/15) Other local excision or destruction of lesion or tissue of skin and subcutaneous tissue (05/23/14) Phacoemulsification and aspiration of cataract (01/22/15) Assessment and Plan (1) Ductal carcinoma in situ (DCIS) of right breast I reviewed the mammogram results with her and her hunsband. I do not think there is any clinical evidence of disease recurrence or metastasis. We will continue current active surveillance. We reviewed the fact that her original breast cancer in 1998 is now 21 years ago. Although late relapses can occur with home receptor-positive breast cancer, her risk of relapse going forward from this con dition would be small. We also discussed the fact that she had her most recent breast cancer related event was right-sided hormone receptor negative ductal carcinoma in Situ. She has had lumpectomy and radiation for this. We discussed the fact that ductal carcinoma in Situ is not associated with a decrease in survival in women diagnosed over the age of 65. There survival curve is superimposeable on that of the general population. We discussed standard follow-up. This would consist of an annual mammogram and examination. She would not need laboratory studies to monitor her ductal carcinoma in Situ. I explained it does not matter who does the exam and mammogram and this could be done by her primary care provider or here in the clinic. Will plan to schedule her back here in a year for follow-up exam in mammogram and orders were entered for this today. I explained that if she wished to have an examination here in the interim would be happy to see her any time to accomplish that. We also discussed the fact that both of the breast cancer related events for which were monitoring her (invasive breast cancer in 1998, ductal carcinoma in Situ in 2017) pose a relatively low risk to her at this time. I personally spent 25 minutes in today's [id number] visit with greater than 50% of the time spent in counseling regarding the issues outlined above. Return appointment will be scheduled in a year for an exam and mammogram. She was encouraged to call if any problems arise in the interim. We also discussed the fact that she has a history of an ovarian cyst. She has not been seen by Gynecology recently. She does not have any symptoms referable to this and I suggested that they follow up with Dr. Krishnamurthy if any symptoms should arise such as pain, disturbances in bowel or bladder function, or bleeding. (2) History of left breast cancer She has a remote history of left breast apparently ER positive cancer diagnosed in 1998. Patient underwent lumpectomy followed by chemotherapy followed by surgery followed by 5 years of endocrine treatment. Patient has been doing well. There is no evidence clinically or mammographically to suggest disease recurrence or metastasis. I will continue current active surveillance.
[2020-10-29 16:25] VITALS: BP 186/86; PULSE 84; RESP 16; TEMP 36.4; O2SAT 100
--- NOTE | 2020-10-29 17:27 | P.PNONC_ITS ---
PN -Subjective Interval history: She came in here today for scheduled follow-up visit. She is accompanied by her . Patient has remote history thyroid cancer at the age of 18 status post thyroidectomy in 1966, a remote history of left-sided breast cancer diagnosed 1998 and treated with lumpectomy followed by chemotherapy and radiation t reatment followed by 5 years of tamoxifen. In April of 2017 patient was diagnosed with right breast multiple focal DCIS and underwent lumpectomy on May 19, 2017. The tumor was ER negative, and [place] negative. Patient underwent adjuvant radiotherapy to the right breast from July 09, 2017 through August 11, 2017. She was last seen about 6 months ago. She declined examination at that time. She comes today for a follow-up assessment. Her notes abdominal distension that is been present for the past 3 weeks or so. It has not changed since then. She is moving her bowels normally. She is passing urine normally. She has not had any nausea or vomiting. She has not been in any apparent pain. There has been no bleeding, fever, chills, sweats, cough or shortness of breath. All other systems are negative. Her states that they get out of the house almost daily to go for a walk. Her memory issues have continued and are severe. She previously underwent CT the abdomen with contrast and scan showed a 5.6 x 7.6 cm cystic mass in left adnexum demonstrating interval enlargement compared to scans March 01, 2018. A CA 125 in July of 2019 was normal at 14. She has previously been seen by Dr. Krishnamurthy from Gynecology, but has had no recent visits with her. Her past medical history including family and social history are reviewed from previous notes. Home Medications and Allergies Home Medications Medication Instructions Recorded Confirmed Type losartan 50 mg PO BID #0 05/19/17 10/29/20 History polyethylene glycol 3350 [Miralax] 17 g PO DAILY #0 05/19/17 10/29/20 History cholecalciferol (vitamin D3) 5,000 unit PO DAILY 06/20/18 10/29/20 History [Vitamin D3] alendronate [Fosamax] 70 mg WEEKLY 04/10/19 10/29/20 History verapamil 120 mg tablet 120 mg PO BID 08/16/19 10/29/20 History levothyroxine 100 mcg PO DAILY 10/19/19 10/29/20 History oxyquinoline 0.025 %-sodium lauryl 0.5 ea VAGINAL 3XW #113.4 gram 07/22/20 10/29/20 Rx sulfate 0.01 % vaginal gel Allergies Allergy/AdvReac Type Severity Reaction Status Date / Time paraben [PARABEN] Allergy Unknown Verified 07/22/20 12:09 hydrochlorothiazide Allergy Verified 07/22/20 12:09 amlodipine [AMLODIPINE] AdvReac Unknown LEG CRAMPS Verified 07/22/20 12:09 metoprolol [METOPROLOL] AdvReac Unknown LEG CRAMPS Verified 07/22/20 12:09 Exam Vital signs: Vital Signs Temp Pulse Resp BP Pulse Ox 10/29/20 16:25 97.6 F 84 16 186/86 H 100 Intake and Output 10/29/20 10/29/20 10/29/20 07:59 15:59 23:59 Other: Weight 53.8 kg Patient Weight 10/29/20 23:59 Weight 53.8 kg Narrative: She was awake and alert. She appeared in no acute distress. She was calm and cooperative today. There was no lymphadenopathy in the cervical, supraclavicular, axillary, inguinal femoral regions. Abdomen was distended. The liver and spleen were not enlarged. There was a fullness in the mid abdomen but it was difficult to appreciate a discrete mass. There was no evidence of phlebitis in the lower extremities. Results - Labs Laboratory Last Values WBC 4.7 X10^3/uL (4.5-11.0) 04/03/20 12:24 RBC 3.75 X10^6/uL (4.0-5.2) L 04/03/20 12:24 Hgb 11.7 g/dL (12.0-16.0) L 04/03/20 12:24 Hct 34.6 % (36-46) L 04/03/20 12:24 MCV 92.3 fL (80-100) 04/03/20 12:24 MCH 31.3 PG (26-34) 04/03/20 12:24 MCHC 33.9 % (30-36) 04/03/20 12:24 RDW 13.6 % (11.6-14.8) 04/03/20 12:24 Plt Count 147 X10^3/uL (150-400) L 04/03/20 12:24 Neut % (Auto) 77.1 % (50-75) H 04/03/20 12:24 Lymph % (Auto) 14.7 % (25-40) L 04/03/20 12:24 [place] % (Auto) 6.3 % (3-14) 04/03/20 12:24 Eos % (Auto) 0.9 % (2-4) L 04/03/20 12:24 Baso % (Auto) 1.0 % (0-2) 04/03/20 12:24 Neut # (Auto) 3600 /uL (3724-4035) 04/03/20 12:24 Lymph # (Auto) 700 /uL (7199-5518) L 04/03/20 12:24 [place] # (Auto) 300 /uL (0-900) 04/03/20 12:24 Eos # (Auto) 0 /uL (0-450) 04/03/20 12:24 Baso # (Auto) 0 /uL (0-100) 04/03/20 12:24 Sodium 138 mmol/L (137-145) 04/03/20 12:24 Potassium 4.3 mmol/L (3.4-5.1) 04/03/20 12:24 Chloride 104 mmol/L (98-107) 04/03/20 12:24 Carbon Dioxide 25 mmol/L (22-32) 04/03/20 12:24 BUN 31 mg/dL (7-17) H 04/03/20 12:24 Creatinine 0.91 mg/dL (0.52-1.04) 04/03/20 12:24 Estimated GFR 59.3 mL/min (>60) L 04/03/20 12:24 BUN/Creatinine Ratio 34.1 (6-22) H 04/03/20 12:24 Glucose 145 mg/dL (80-110) H 04/03/20 12:24 Calcium 9.7 mg/dL (8.4-10.2) 04/03/20 12:24 Total Bilirubin 0.8 mg/dL (0.2-1.3) 04/03/20 12:24 AST 38 IU/L (14-36) H 04/03/20 12:24 ALT 18 IU/L (<35) 04/03/20 12:24 Alkaline Phosphatase 32 U/L (38-126) L 04/03/20 12:24 Total Protein 7.4 g/dL (6.3-8.2) 04/03/20 12:24 Albumin 4.6 g/dL (3.5-5.0) 04/03/20 12:24 Globulin 2.8 g/dL (1.7-4.1) 04/03/20 12:24 Albumin/Globulin Ratio 1.6 (1.0-2.8) 04/03/20 12:24 - Imaging Additional studies: Procedures Excision of lesion of other soft tissue (05/23/14) Insertion of intraocular lens prosthesis at time of cataract extraction, one- stage (01/22/15) Other local excision or destruction of lesion or tissue of skin and subcutaneous tissue (05/23/14) Phacoemulsification and aspiration of cataract (01/22/15) Assessment and Plan (1) Ductal carcinoma in situ (DCIS) of right breast Ms. Cornelius has abdominal distention over the past 3 weeks. There is a fullness in the mid abdomen but I can appreciate a discrete mass. She has a history of an ovarian cyst. She does not have any bowel or bladder dysfunction, pain, nausea or vomiting all of which is reassuring. We discussed options, which would include continued observation or imaging. They were comfortable proceeding with an ultrasound of the abdomen pelvis along with lab work to include a CBC, CMP, and CA 125. These tests were ordered for today and a plan to see her back afterwards to review results. We could consider a CT scan if indicated based upon the ultrasound results and could also have the patient follow-up with Dr. Krishnamurthy depending upon the findings. From a breast cancer perspective, she appears to be doing well. I spent 9 minutes in chart review, 14 minutes with the patient, 4 minutes writing orders, and 6 minutes in documentation for a total of 33 minutes. (2) History of left breast cancer She has a remote history of left breast apparently ER positive cancer diagnosed in 1998. Patient underwent lumpectomy followed by chemotherapy followed by surgery followed by 5 years of endocrine treatment. Patient has been doing well. There is no evidence clinically or mammographically to suggest disease recurrence or metastasis. I will continue current active surveillance. (3) Abdominal bloating Status: Acute
--- NOTE | 2020-10-31 10:44 | ONC.SCHED ---
Patient is scheduled for US's 11/05/20 check in time of 9:40AM with clear liquids only after midnight and to come with a full bladder. I gave the instructions day/time to spouse and they will be there.
[2020-11-05 11:44] LABS: Add Manual Diff / Slide Review NO; Basophils Absolute Auto 0 /uL (0-100); Basophils Percent Auto 0.8 % (0-2); Eosinophils Absolute Auto 100 /uL (0-450); Eosinophils Percent Auto 1.5 % (2-4); Hematocrit 35.6 % (36-46); Hemoglobin 11.9 g/dL (12.0-16.0); Lymphocytes Absolute Auto 700 /uL (1100-4500); Lymphocytes Percent Auto 15.2 % (25-40); Mean Corpuscular HGB Conc 33.5 % (30-36); Mean Corpuscular Hemoglobin 30.8 PG (26-34); Mean Corpuscular Volume 92.1 fL (80-100); Monocytes Absolute Auto 400 /uL (0-900); Monocytes Percent Auto 7.2 % (3-14); Neutrophils Absolute Auto 3700 /uL (1500-7000); Neutrophils Percent Auto 75.3 % (50-75); Platelet Count 156 X10^3/uL (150-400); Red Blood Cell Count 3.86 X10^6/uL (4.0-5.2); Red Cell Distribution Width 15.6 % (11.6-14.8); White Blood Cell Count 4.9 X10^3/uL (4.5-11.0)
[2020-11-05 12:30] LABS: Alanine Aminotransferase 16 IU/L (<35); Albumin 4.4 g/dL (3.5-5.0); Albumin Globulin Ratio 1.5 (1.0-2.8); Alkaline Phosphatase 45 U/L (38-126); Aspartate Aminotransferase 37 IU/L (14-36); BUN Creatinine Ratio 38.7 (6-22); Bilirubin Total 0.6 mg/dL (0.2-1.3); Blood Urea Nitrogen 41 mg/dL (7-17); Calcium 9.2 mg/dL (8.4-10.2); Carbon Dioxide 31 mmol/L (22-32); Chloride 104 mmol/L (98-107); Estimated Glomerular Filt Rate 49.8 mL/min (>60); Globulin 2.9 g/dL (1.7-4.1); Glucose 101 mg/dL (80-110); HEMOLYSIS < 15 (0-50); Potassium 4.2 mmol/L (3.4-5.1); Sodium 139 mmol/L (137-145); Total Protein 7.3 g/dL (6.3-8.2)
[2020-11-05 12:46] LABS: Cancer Antigen 125 17.3 U/mL (0-35)
--- NOTE | 2020-11-11 14:17 | PC.NURSE ---
This RN was called by Registration on behalf of the patient after a scheduled ultrasound. The patient had become suspicious and expressed she did not want to leave with her . She said she was not in any danger. Pt did say that she does not remember why she was at the hospital and seemed anxious about not being able to remember. This RN tried to orient the patient to the situation, but was unsuccessful. The social media assistant was then notified.
--- NOTE | 2020-11-12 08:36 | ONC.SCHED ---
per Awa Stout, Dr. Gonzalez will call patient at the end of his day today with her US results/left a voice mail for the patient and cancelled appt per Awa's request
--- NOTE | 2020-11-12 17:24 | P.PNONC_ITS ---
PN -Subjective Interval history: I called Mr. link with the lab and ultrasound results. The CA 125 was normal. There were no changes of from previous results in her metabolic panel or CBC. The ultrasound of the abdomen pelvis showed no obvious masses. Her symptoms seem a bit better. Given her progressive dementia the plan will be to monitor her symptoms for the time being. She has a return appointment in March which she can keep if things are going well enough that that is sensible and he was advised to let us know if she has worsening abdominal complaints. Further workup can take the form of a CT scan or a merchandise director referral. Home Medications and Allergies Home Medications Medication Instructions Recorded Confirmed Type losartan 50 mg PO BID #0 05/19/17 10/29/20 History polyethylene glycol 3350 [Miralax] 17 g PO DAILY #0 05/19/17 10/29/20 History cholecalciferol (vitamin D3) 5,000 unit PO DAILY 06/20/18 10/29/20 History [Vitamin D3] alendronate [Fosamax] 70 mg WEEKLY 04/10/19 10/29/20 History verapamil 120 mg tablet 120 mg PO BID 08/16/19 10/29/20 History levothyroxine 100 mcg PO DAILY 10/19/19 10/29/20 History oxyquinoline 0.025 %-sodium lauryl 0.5 ea VAGINAL 3XW #113.4 gram 07/22/20 10/29/20 Rx sulfate 0.01 % vaginal gel Allergies Allergy/AdvReac Type Severity Reaction Status Date / Time paraben [PARABEN] Allergy Unknown Verified 07/22/20 12:09 hydrochlorothiazide Allergy Verified 07/22/20 12:09 amlodipine [AMLODIPINE] AdvReac Unknown LEG CRAMPS Verified 07/22/20 12:09 metoprolol [METOPROLOL] AdvReac Unknown LEG CRAMPS Verified 07/22/20 12:09 Results - Labs Laboratory Last Values WBC 4.9 X10^3/uL (4.5-11.0) 11/05/20 11:02 RBC 3.86 X10^6/uL (4.0-5.2) L 11/05/20 11:02 Hgb 11.9 g/dL (12.0-16.0) L 11/05/20 11:02 Hct 35.6 % (36-46) L 11/05/20 11:02 MCV 92.1 fL (80-100) 11/05/20 11:02 MCH 30.8 PG (26-34) 11/05/20 11:02 MCHC 33.5 % (30-36) 11/05/20 11:02 RDW 15.6 % (11.6-14.8) H 11/05/20 11:02 Plt Count 156 X10^3/uL (150-400) 11/05/20 11:02 Neut % (Auto) 75.3 % (50-75) H 11/05/20 11:02 Lymph % (Auto) 15.2 % (25-40) L 11/05/20 11:02 [place] % (Auto) 7.2 % (3-14) 11/05/20 11:02 Eos % (Auto) 1.5 % (2-4) L 11/05/20 11:02 Baso % (Auto) 0.8 % (0-2) 11/05/20 11:02 Neut # (Auto) 3700 /uL (6975-0834) 11/05/20 11:02 Lymph # (Auto) 700 /uL (2398-5225) L 11/05/20 11:02 [place] # (Auto) 400 /uL (0-900) 11/05/20 11:02 Eos # (Auto) 100 /uL (0-450) 11/05/20 11:02 Baso # (Auto) 0 /uL (0-100) 11/05/20 11:02 Sodium 139 mmol/L (137-145) 11/05/20 11:02 Potassium 4.2 mmol/L (3.4-5.1) 11/05/20 11:02 Chloride 104 mmol/L (98-107) 11/05/20 11:02 Carbon Dioxide 31 mmol/L (22-32) 11/05/20 11:02 BUN 41 mg/dL (7-17) H 11/05/20 11:02 Creatinine 1.06 mg/dL (0.52-1.04) H 11/05/20 11:02 Estimated GFR 49.8 mL/min (>60) L 11/05/20 11:02 BUN/Creatinine Ratio 38.7 (6-22) H 11/05/20 11:02 Glucose 101 mg/dL (80-110) 11/05/20 11:02 Calcium 9.2 mg/dL (8.4-10.2) 11/05/20 11:02 Total Bilirubin 0.6 mg/dL (0.2-1.3) 11/05/20 11:02 AST 37 IU/L (14-36) H 11/05/20 11:02 ALT 16 IU/L (<35) 11/05/20 11:02 Alkaline Phosphatase 45 U/L (38-126) 11/05/20 11:02 Total Protein 7.3 g/dL (6.3-8.2) 11/05/20 11:02 Albumin 4.4 g/dL (3.5-5.0) 11/05/20 11:02 Globulin 2.9 g/dL (1.7-4.1) 11/05/20 11:02 Albumin/Globulin Ratio 1.5 (1.0-2.8) 11/05/20 11:02 CA 125 Antigen 17.3 U/mL (0-35) 11/05/20 11:02 - Imaging Additional studies: Procedures Excision of lesion of other soft tissue (05/23/14) Insertion of intraocular lens prosthesis at time of cataract extraction, one- stage (01/22/15) Other local excision or destruction of lesion or tissue of skin and subcutaneous tissue (05/23/14) Phacoemulsification and aspiration of cataract (01/22/15) Assessment and Plan (1) Ductal carcinoma in situ (DCIS) of right breast (2) History of left breast cancer (3) Abdominal bloating Status: Acute
--- NOTE | 2021-03-31 13:49 | PC.NURSE ---
Addendum entered by Richard Duong R.N. 04/07/21 09:07: Dr. Perez gave written orders for Sep 2021. Original Note: Pt's spouse called to cancel upcoming appointment and asked if we could postpone the appointment to allow for his healing from open heart surgery as he is the morning caregiver of his SO that lives in memory care. She is doing well and has no symptoms. This RN recommended postponing the appointment till Sep 2021. Making the provider aware with this note. If Dr. perez is in agreement we will ask the schedulers to call and set up the appointment.
--- NOTE | 2021-10-06 09:26 | ONC.MSW ---
T/C-Discontinue ONC Tx Activity: Pt's spouse called and shared that he and his adult children had a long discussion re: continued care goals for pt, and have decided to end all of her f/u appointments and tx in Oncology at this time. He states that her dementia has become very progressed, and it's just too difficult, distressing, and unsafe for her to leave the home. TERRITORY MANAGER agreed, offered support for coping and doing what is best for her and the family. No further needs expressed at this time.
== END ==
PROVIDERS: Internal Medicine; Internal Medicine Hematology & Oncology; Family Provider Internal Medicine; PCP Internal Medicine; Visit Provider Internal Medicine Medical Oncology
DX: Z08 Encounter for follow-up examination after completed treatment for malignant neoplasm; Z85.3 Personal history of malignant neoplasm of breast; Z85.850 Personal history of malignant neoplasm of thyroid; Z86.000 Personal history of in-situ neoplasm of breast; R14.0 Abdominal distension (gaseous); N83.202 Unspecified ovarian cyst, left side
CPT/HCPCS: 36415; 80053; 85025; 86304; 99214

== ENCOUNTER → 2020-11-11 09:08 | Outpatient (CLI) | payer OTHER, SELFPAY ==
--- NOTE | 2020-11-11 09:10 | DI.US.S_ITS ---
PROCEDURE: US PELVIC LIMITED INDICATIONS: ABDOMINAL DISTENTION TECHNIQUE: Real-time transabdominal scanning was performed of the pelvic organs, with image documentation. COMPARISON: [facility], US, US ABDOMEN COMPLETE, 11/11/2020, 9:18. [facility], CT, CT ABDOMEN PELVIS W CON, 04/05/2018, 13:16. FINDINGS: Uterus: Uterus is not visualized. Ovaries: The ovaries are not visualized. Adnexal regions are unremarkable. Other: No free pelvic fluid. IMPRESSION: Nonvisualization of the uterus and ovaries. No free fluid. Dictated by: Corie Barker M.D. on 11/11/2020 at 12:15 Approved by: Corie Barker M.D. on 11/11/2020 at 12:15
--- NOTE | 2020-11-11 09:11 | DI.US.S_ITS ---
PROCEDURE: US ABDOMEN COMPLETE INDICATIONS: ABDOMINAL DISTENTION TECHNIQUE: Real-time scanning was performed of the abdominal and retroperitoneal organs, with image documentation. COMPARISON: [facility], US, US PELVIC LIMITED, 11/11/2020, 9:35. [facility], CT, CT ABDOMEN PELVIS W CON, 04/05/2018, 13:16. FINDINGS: Liver: Liver is normal in size and homogeneous in echotexture. Gallbladder: Gallbladder demonstrate multiple areas of non mobile increased echogenicity the largest measuring 4 mm. Wall thickness is within normal limits measuring 1.2 mm. Biliary ducts: Intrahepatic bile ducts are non-dilated. Extrahepatic bile duct caliber measures 4.1 mm. Normal is 6-7 mm or less in diameter, or 10 mm or less post-cholecystectomy. Pancreas: Visualized portions of the pancreas are sonographically normal. Spleen: Spleen is normal in size and homogeneous in echotexture. Kidneys: Kidneys are normal in size and echotexture. Right kidney measures 9.2 cm long; left kidney measures 8.7 cm long. No hydronephrosis or nephrolithiasis. No solid masses. Aorta: Visualized aorta is normal in caliber at less than 3 cm. Iliacs: Proximal common iliac arteries are not visualized. IVC: Intrahepatic inferior vena cava is patent. Miscellaneous: No free abdominal fluid. IMPRESSION: 1. Non mobile foci increased echogenicity within the gallbladder suggestive of polyps. Dictated by: Corie Barker M.D. on 11/11/2020 at 12:13 Approved by: Corie Barker M.D. on 11/11/2020 at 12:15
== END ==
PROVIDERS: Family Provider Internal Medicine; PCP Internal Medicine; Referring Provider Internal Medicine; Visit Provider Internal Medicine
DX: R14.0 Abdominal distension (gaseous) (principal); Z85.3 Personal history of malignant neoplasm of breast
CPT/HCPCS: 76700; 76857

== ENCOUNTER 2022-03-01 23:19 | Emergency (ER) | payer OTHER, SELFPAY ==
[2022-03-01 23:30] VITALS: BP 183/86; PULSE 77; RESP 14; TEMP 36.1; O2SAT 98; BMI 19.3
--- NOTE | 2022-03-01 23:37 | DI.CT.S_ITS ---
PROCEDURE: CT CERVICAL SPINE WO CON INDICATIONS: fall with injury to the head TECHNIQUE: Noncontrast 3 mm thick sections acquired from the skull base to the T4 level. Sagittal and coronal reformats were then constructed. For radiation dose reduction, the following was used: automated exposure control, adjustment of mA and/or kV according to patient size. COMPARISON: None. FINDINGS: Image quality: Excellent. Bones: No fractures or subluxation. There is minimal anterolisthesis at C3-C4, C4-C5, and C5-C6. There is multilevel degenerative disc disease including moderate degeneration at C6-C7. Moderate to severe multilevel facet arthropathy also demonstrated throughout the cervical spine. Visualized superior ribs are intact. Soft tissues: Prevertebral soft tissues are normal in thickness. No paravertebral hematomas. No apical pneumothoraces. IMPRESSION: 1. No acute fracture or subluxation. 2. Multilevel degenerative changes as described. Dictated by: Lawrence Aparicio M.D. on 03/02/2022 at 1:03 Approved by: Lawrence Aparicio M.D. on 03/02/2022 at 1:11
--- NOTE | 2022-03-01 23:37 | DI.CT.S_ITS ---
PROCEDURE: CT HEAD/BRAIN WO CON INDICATIONS: fall with injury to the head TECHNIQUE: Noncontrast 5 mm thick angled axial sections acquired from the foramen magnum to the vertex, with coronal and sagittal reformats. For radiation dose reduction, the following was used: automated exposure control, adjustment of mA and/or kV according to patient size. COMPARISON: [facility], CT, HEAD WITHOUT CONTRAST, 11/29/2015, 12:31. FINDINGS: Image quality: Excellent. CSF spaces: Basal cisterns are patent. No extra-axial fluid collections. There is moderate cerebral volume loss, with resultant ventricular and sulcal prominence. Brain: No intracranial hemorrhage, mass, or mass effect. There are subcortical, periventricular and deep white matter hypodensities consistent with mild chronic small vessel ischemic changes. The stafford-white matter junction appears preserved. There is intracranial internal carotid artery atherosclerosis. Skull and face: There is left frontal forehead soft tissue swelling. Calvarium and visualized facial bones appear intact, without suspicious lesions. Sinuses: Visualized sinuses demonstrate [id number] mucosal thickening within the ethmoid sinuses. Mastoid air cells are clear. IMPRESSION: 1. No acute intracranial abnormality. 2. Moderate cerebral volume loss and mild chronic white matter small vessel ischemic changes. 3. No fractures identified. Dictated by: Lawrence Aparicio M.D. on 03/02/2022 at 0:25 Approved by: Lawrence Aparicio M.D. on 03/02/2022 at 0:27
--- NOTE | 2022-03-02 01:12 | ED.FALL ---
HPI - Fall General Chief Complaint: Fall Stated Complaint: fall Time Seen by Provider: 03/01/22 23:39 Source: family and EMS Mode of arrival: EMS History of Present Illness HPI Narrative: 81-year-old woman with advanced dementia who lives at home with her is her primary caregiver history of hypertension, hypothyroidism, osteoporosis presents after a fall today. Her notes that each day seems to be different in today was a ?sleepy day. After dinner she apparently fell asleep sitting at the table and then fell off the chair hitting the left side of her head on the cabinet on the way down. There is enough bleeding that he was concerned and called 911. On arrival she has a small abrasion to the top for head does not need repair. She is minimally interactive in her seems to feel that she is close to her baseline. She seems to indicate some behavior when manipulating her neck and her hips so x-rays will be ordered. She has no other significant trauma appreciated. Her notes that she has not been dramatically different from her baseline and has not had a cough, fevers, vomiting, diarrhea and has not been complaining of headache or abdominal pain. Related Data Home Medications Medication Instructions Recorded Confirmed losartan 50 mg tablet 50 mg PO BID ##0 05/19/17 01/09/21 polyethylene glycol 3350 17 gram 17 g PO DAILY ##0 05/19/17 01/09/21 oral powder packet (Miralax) cholecalciferol (vitamin D3) 125 5,000 unit PO DAILY 06/20/18 01/09/21 mcg (5,000 unit) tablet (Vitamin D3) alendronate 70 mg tablet (Fosamax) 70 mg WEEKLY 04/10/19 01/09/21 verapamil 120 mg tablet 120 mg PO BID 08/16/19 01/09/21 levothyroxine 100 mcg tablet 100 mcg PO DAILY 10/19/19 01/09/21 Previous Rx's Medication Instructions Recorded oxyquinoline 0.025 %-sodium lauryl 0.5 ea vaginal 3XW pessary #113.4 07/22/20 sulfate 0.01 % vaginal gel grams (Trimo-Pickett Jelly) Allergies Allergy/AdvReac Type Severity Reaction Status Date / Time paraben [PARABEN] Allergy Unknown Verified 07/22/20 12:09 hydrochlorothiazide Allergy Verified 07/22/20 12:09 amlodipine [AMLODIPINE] AdvReac Unknown LEG CRAMPS Verified 07/22/20 12:09 metoprolol [METOPROLOL] AdvReac Unknown LEG CRAMPS Verified 07/22/20 12:09 Review of Systems Review of Systems Narrative: Remainder of complete review of systems is otherwise unremarkable except for that included in the HPI. Patient History Medical History (Updated 03/02/22 @ 03:21 by Valeria Pritchard MD) Dementia Hallucinations due to late onset dementia Memory loss Surgical History History of thyroidectomy Status post breast lumpectomy Status post parathyroidectomy Family History Father Stroke Social History Smoking Status: Never smoker Smoking Status: Never smoker Substance Use Type: does not use Exam Initial Vital Signs Initial Vital Signs: Vital Signs Temperature 97 F L 03/01/22 23:30 Pulse Rate 77 03/01/22 23:30 Respiratory Rate 14 03/01/22 23:30 Blood Pressure 183/86 H 03/01/22 23:30 Pulse Oximetry 98 03/01/22 23:30 Oxygen Delivery Method 03/01/22 23:30 General: Frail and chronically ill-appearing, lying comfortably on the gurney minimally interactive HEENT: Dry mucous membranes, normal sclera with reactive pupils, Neck: No JVD, mild tenderness C6-C7 level to palpation Respiratory: Lungs are clear to auscultation, no wheezing no rales no rhonchi. Full and symmetrical air movement Cardiac: Regular rate and rhythm no murmurs no bruits Abdomen: Soft, nontender, good bowel tones, no flank pain Skin: Pale, Warm and dry, no rashes Neurologic: Moving all extremities with minimal interaction otherwise Extremities: No trauma, well perfused, seems to indicate pain behavior when mobilizing her hips Psych: Advanced dementia Course Orders Ordered: ED Orders 03/01/22 23:37 CT cervical spine wo con Stat CT head/brain wo con Stat 03/02/22 01:22 XR pelvis 1-2V Stat Vital Signs Vital signs: Vital Signs - 8 hr 03/01/22 23:30 Temperature 97 F L Pulse Rate 77 Respiratory Rate 14 Blood Pressure 183/86 H Pulse Oximetry 98 Oxygen Delivery Method Room Air MDM - Fall Imaging Data CT - cervical spine: Radiologist's Impression: FINDINGS:? Image quality:? Excellent.? ? Bones:? No fractures or subluxation.? There is minimal anterolisthesis at C3-C4, C4-C5, and C5-C6.? There is multilevel degenerative disc disease including moderate degeneration at C6-C7.? Moderate to severe multilevel facet arthropathy also demonstrated throughout the cervical spine.? Visualized superior ribs are intact.? ? Soft tissues:? Prevertebral soft tissues are normal in thickness.? No paravertebral hematomas.? No apical pneumothoraces.? ? ? IMPRESSION:? ? 1. No acute fracture or subluxation. ? 2. Multilevel degenerative changes as described. ? ? ? Dictated by: Lawrence Aparicio M.D. on 03/02/2022 at 1:03? ?? CT scan - head: Radiologist's Impression: FINDINGS:? Image quality:? Excellent.? ? CSF spaces:? Basal cisterns are patent.? No extra-axial fluid collections.? There is moderate cerebral volume loss, with resultant ventricular and sulcal prominence.? ? Brain:? No intracranial hemorrhage, mass, or mass effect.? There are subcortical, periventricular and deep white matter hypodensities consistent with mild chronic small vessel ischemic changes.? The stafford-white matter junction appears preserved.? There is intracranial internal carotid artery atherosclerosis.? ? Skull and face:? There is left frontal forehead soft tissue swelling.? Calvarium and visualized facial bones appear intact, without suspicious lesions.? ? Sinuses:? Visualized sinuses demonstrate [id number] mucosal thickening within the ethmoid sinuses.? Mastoid air cells are clear. ? IMPRESSION:? ? 1. No acute intracranial abnormality. ? 2.? Moderate cerebral volume loss and mild chronic white matter small vessel ischemic changes. ? 3. No fractures identified.? ? Dictated by: Lawrence Aparicio M.D. on 03/02/2022 at 0:25? ?? XR pelvis: Radiologist's Impression: FINDINGS:? ? Bones:? No definite fractures or dislocations.? No suspicious bony lesions.? ? Soft tissues:? Visualized bowel gas pattern is normal.? There are linear calcifications adjacent to the greater trochanters bilaterally, left greater than right. ? IMPRESSION:? ? 1. No definite fracture or dislocation. ? 2. Linear calcifications along the greater trochanters bilaterally are nonspecific and may reflect enthesophytes, calcific tendinitis, or dystrophic calcifications.? ? ? Dictated by: Lawrence Aparicio M.D. on 03/02/2022 at 2:50? ?? MDM Narrative Medical decision making narrative: 81-year-old woman with advanced dementia with 2nd fall this week. Her does seem to providing outstanding care at home however additional assistance would likely be entirely appropriate. At this time and has a small abrasion to her scalp that does not eat in the repair. X-rays are reassuring. There is no sign of obvious infection or other treatable anomalies today. She is unable to sit or stand by herself due to her dementia and BLS transport will be used to help her get back home this evening. Discharge Plan Departure Patient Disposition: Home Clinical Impression: Dementia, Fall, Contusion of head Activity Restrictions/Additional Instructions: Thank you for coming in today. CT scan of the head, cervical spine and pelvis are unremarkable today. I did not find any evidence of bleeding or any fractures. At this time I am going to have our BLS ambulance crew help get an safely home. You are doing an amazing job of being a wonderful caregiver for your . I would encourage you to talk to her primary care doctor to see if additional services might be available to you such as home health workers and aides that may be able to assist for a couple of hours a week. Home physical therapy to suggest modifications in presenting falls may be an excellent opportunity as well. Unfortunately, dementia is a chronic progressive disease and as the number of falls increase the risk of having significant complications from the falls increase as well. Prescriptions: No Action losartan 50 MG tablet 50 mg PO BID Qty: 0 Rx Instructions: *Pt currently taking one time daily polyethylene glycol 3350 [Miralax] 17 GM powder in packet 17 g PO DAILY Qty: 0 verapamil 120 mg tablet 120 mg PO BID Rx Instructions: *Pt only taking one time daily Trimo-Pickett Jelly 0.025-0.01 % gel 0.5 ea VAGINAL 3XW Qty: 113.4 2RF cholecalciferol (vitamin D3) [Vitamin D3] 5,000 unit Tablet 5,000 unit PO DAILY alendronate [Fosamax] 70 mg Tablet 70 mg WEEKLY levothyroxine 100 mcg Tablet 100 mcg PO DAILY Referrals: Evert Chinchilla MD [Primary Care Provider] - Visit Report Forms: Patient Portal/API
--- NOTE | 2022-03-02 01:22 | DI.RAD.S_ITS ---
PROCEDURE: XR PELVIS 1-2V INDICATIONS: fall, pain behaviors TECHNIQUE: Single view of the pelvis acquired. COMPARISON: None. FINDINGS: Bones: No definite fractures or dislocations. No suspicious bony lesions. Soft tissues: Visualized bowel gas pattern is normal. There are linear calcifications adjacent to the greater trochanters bilaterally, left greater than right. IMPRESSION: 1. No definite fracture or dislocation. 2. Linear calcifications along the greater trochanters bilaterally are nonspecific and may reflect enthesophytes, calcific tendinitis, or dystrophic calcifications. Dictated by: Lawrence Aparicio M.D. on 03/02/2022 at 2:50 Approved by: Lawrence Aparicio M.D. on 03/02/2022 at 2:51
[2022-03-02 03:58] VITALS: PULSE 82; RESP 16; O2SAT 98
--- NOTE | 2022-03-04 14:56 | CM.SWNOTE ---
PROCESSING ANALYST f/u note PROCESSING ANALYST receives consult for f/u call for 81 y/o patient and spouse. PROCESSING ANALYST calls patient's spouse. He reports that patient is doing quite well since ED visit and denies concerns. He states that he is very capable of caring for patient as needed and has great neighbors that are close by and supportive as well as several relatives. PROCESSING ANALYST recommends PCP appt if patient is in need of further services after ED encounter and returning to ED in case of an emergency. Spouse denies need for PCP f/u or the need for any in home services at this time due to patient's natural supports that are readily available. Erica Rainey, PROCESSING ANALYST
== END 2022-03-02 04:03 | disposition home or self-care (01) ==
PROVIDERS: Emergency Provider Emergency Medicine; Family Provider Internal Medicine; PCP Internal Medicine
DX: S00.93XA Contusion of unspecified part of head, initial encounter (principal); W19.XXXA Unspecified fall, initial encounter; F03.90 Unspecified dementia, unspecified severity, without behavioral disturbance, psychotic disturbance, mood disturbance, and anxiety
CPT/HCPCS: 70450; 72125; 72170; 99283

== ENCOUNTER 2022-05-12 18:51 | Inpatient (IN) | payer OTHER, SELFPAY ==
[2022-05-12] VITALS (12 sets, daily range): BP systolic 166–215; BP diastolic 86–103; PULSE 73–103; TEMP 37; O2SAT 93–99; BMI 24.0; BMI 21.2
--- NOTE | 2022-05-12 | DI.RAD.S_ITS ---
PROCEDURE: XR CHEST 1V INDICATIONS: FALL TECHNIQUE: One view of the chest was acquired. COMPARISON: [facility], , CHEST 1 VIEW, 11/04/2016, 11:51. FINDINGS: Surgical changes and devices: Surgical clips are seen in the left axilla. Lungs and pleura: Patient is rotated towards the left. Lungs are clear. No pleural effusions or pneumothorax. Mediastinum: Mediastinal contours appear normal. Heart size is normal. Bones and chest wall: Chronic appearing right posterolateral rib fractures are noted. No suspicious bony lesions. Overlying soft tissues appear unremarkable. IMPRESSION: No acute displaced rib fracture is seen. Chronic appearing right-sided rib fractures are present. No pleural effusion or pneumothorax. Dictated by: Martinez Porter M.D. on 05/12/2022 at 19:24 Approved by: Martinez Porter M.D. on 05/12/2022 at 19:26
--- NOTE | 2022-05-12 18:54 | DI.RAD.S_ITS ---
PROCEDURE: XR HIP W PEL IF DONE RT 2V INDICATIONS: fall TECHNIQUE: AP pelvis with lateral view of the right hip. COMPARISON: [facility], CR, XR PELVIS 1-2V, 03/02/2022, 1:25. FINDINGS: Bones: There is a mildly displaced and impacted fracture of the right femoral neck. The femoral neck component is mildly superiorly displaced and anteriorly displaced relative to the femoral head component with impaction. No additional pelvic fracture is seen. Soft tissues: The visualized bowel gas pattern is normal. Nonspecific calcification again seen at the greater trochanters that may indicate calcific tendinopathy. IMPRESSION: Mildly displaced impacted subcapital or transcervical fracture of the right femoral neck. Dictated by: Martinez Porter M.D. on 05/12/2022 at 19:22 Approved by: Martinez Porter M.D. on 05/12/2022 at 19:24
[2022-05-12] MEDS: ONDANSETRON 4 MG/2 ML INJ IV (19:24)
[2022-05-12] MEDS: HYDROMORPHONE 0.5 MG INJ (19:24)
[2022-05-12 19:59] LABS: Add Manual Diff / Slide Review NO; Basophils Absolute Auto 100 /uL (0-100); Basophils Percent Auto 0.7 % (0-2); Eosinophils Absolute Auto 0 /uL (0-450); Eosinophils Percent Auto 0.3 % (2-4); Hematocrit 33.1 % (36-46); Hemoglobin 11.4 g/dL (12.0-16.0); Lymphocytes Absolute Auto 200 /uL (1100-4500); Lymphocytes Percent Auto 2.3 % (25-40); Mean Corpuscular HGB Conc 34.4 % (30-36); Mean Corpuscular Hemoglobin 30.7 PG (26-34); Mean Corpuscular Volume 89.3 fL (80-100); Monocytes Absolute Auto 500 /uL (0-900); Monocytes Percent Auto 5.4 % (3-14); Neutrophils Absolute Auto 8100 /uL (1500-7000); Neutrophils Percent Auto 91.3 % (50-75); Platelet Count 133 X10^3/uL (150-400); Red Blood Cell Count 3.71 X10^6/uL (4.0-5.2); Red Cell Distribution Width 14.1 % (11.6-14.8); White Blood Cell Count 8.8 X10^3/uL (4.5-11.0)
[2022-05-12 20:07] LABS: Appearance Urine UA SL CLOUDY; Bilirubin Urine UA NEGATIVE (NEGATIVE); Color Urine UA YELLOW; Glucose Urine UA NEGATIVE (Negative); Ketones Urine UA 1+ (NEGATIVE); Leukocyte Esterase Urine UA 1+ (NEGATIVE); Nitrite Urine UA POSITIVE (Negative); Occult Blood Urine UA 2+ (Negative); Protein Urine UA 1+ (Negative); Specific Gravity Urine UA 1.015 (1.000-1.035); Urobilinogen Urine UA 0.2 E.U./dL (0.2)
[2022-05-12 20:10] LABS: COVID19 -Nasal RAPID Negative (Negative)
--- NOTE | 2022-05-12 20:12 | ED.FALL ---
HPI - Fall General Chief Complaint: Fall Stated Complaint: GLF-no thinners,she tripped this morning Time Seen by Provider: 05/12/22 19:20 Source: EMS Mode of arrival: EMS History of Present Illness HPI Narrative: 81-year-old woman with hypothyroidism, hypertension and dementia, lives at home with her who is her primary caregiver is brought in by medics with severe right hip pain. Reportedly she was more agitated last night and prefer to sleep on the couch when typically she sleeps in bed so her can watch over her. Her her found her on the floor beside the couch complaining of right hip pain. He was able to get back onto the couch relatively comfortable but over the course the day her pain has progressively gotten worse the point that medics were required to help her transfer and she is brought to the emergency room for further evaluation. Reports that she is otherwise been in fairly good health with no complaints of urine abnormalities, frequency, cough, fevers, change to her baseline cognitive status, chest pain or headaches. Related Data Home Medications Medication Instructions Recorded Confirmed losartan 50 mg tablet 50 mg PO BID ##0 05/19/17 01/09/21 polyethylene glycol 3350 17 gram 17 g PO DAILY ##0 05/19/17 01/09/21 oral powder packet (Miralax) cholecalciferol (vitamin D3) 125 5,000 unit PO DAILY 06/20/18 01/09/21 mcg (5,000 unit) tablet (Vitamin D3) alendronate 70 mg tablet (Fosamax) 70 mg WEEKLY 04/10/19 01/09/21 verapamil 120 mg tablet 120 mg PO BID 08/16/19 01/09/21 levothyroxine 100 mcg tablet 100 mcg PO DAILY 10/19/19 01/09/21 Previous Rx's Medication Instructions Recorded oxyquinoline 0.025 %-sodium lauryl 0.5 ea vaginal 3XW pessary #113.4 07/22/20 sulfate 0.01 % vaginal gel grams (Trimo-Pickett Jelly) Allergies Allergy/AdvReac Type Severity Reaction Status Date / Time paraben [PARABEN] Allergy Unknown Verified 05/12/22 19:05 hydrochlorothiazide Allergy Verified 05/12/22 19:05 amlodipine [AMLODIPINE] AdvReac Unknown LEG CRAMPS Verified 05/12/22 19:05 metoprolol [METOPROLOL] AdvReac Unknown LEG CRAMPS Verified 05/12/22 19:05 Review of Systems Review of Systems Narrative: Remainder of complete review of systems is otherwise unremarkable except for that included in the HPI. Patient History Medical History Dementia Hallucinations due to late onset dementia Memory loss Surgical History History of thyroidectomy Status post breast lumpectomy Status post parathyroidectomy Family History Father Stroke Social History Smoking Status: Never smoker Smoking Status: Never smoker Substance Use Type: does not use Exam Initial Vital Signs Initial Vital Signs: Vital Signs Temperature 98.6 F 05/12/22 19:14 Pulse Rate 103 H 05/12/22 19:14 Blood Pressure 215/86 H 05/12/22 19:14 Pulse Oximetry 99 05/12/22 19:14 General: Frail 81-year-old woman appears to be in mild pain minimally active with physical with contributing majority of the history HEENT: Moist mucous membranes, normal sclera with reactive pupils, Neck: No midline cervical spine tenderness supple Respiratory: Lungs are clear to auscultation, no wheezing no rales no rhonchi. Full and symmetrical air movement Cardiac: Regular rate and rhythm no murmurs no bruits Abdomen: Soft, scaphoid, nontender, good bowel tones, no flank pain Skin: Warm and dry, no rashes Neurologic: Grossly neurologically intact with no obvious asymmetries or abnormalities Extremities: Tenderness to the right hip with right leg foreshortened and internally rotated. Neurovascularly intact. Minor bruising over the greater trochanter Psych: Cooperative, dementia with minimal verbal interaction Course Orders Ordered: Acetaminophen (Acetaminophen 325 Mg Tablet) 650 mg PO Q6HR [facility] Last Admin: 05/13/22 06:06 Dose: Not Given Documented By: Admin: 05/13/22 00:22 Dose: 650 mg Documented By: Docusate Sodium (Docusate 100 Mg Capsule) 100 mg PO BID [facility] Last Admin: 05/13/22 00:22 Dose: 100 mg Documented By: Hydromorphone HCl (Hydromorphone 0.5 Mg Inj) 0.5 mg IV Q4H PRN PRN Reason: Breakthrough pain only (8-10) Last Admin: 05/13/22 00:23 Dose: 0.5 mg Documented By: RICHARD Sodium Chloride (Normal Saline 0.9%) 1,000 mls @ 100 mls/hr IV CONT [facility] Last Admin: 05/13/22 00:21 Dose: 100 mls/hr Documented By: RICHARD Ceftriaxone Sodium 1,000 mg/ (Sodium Chloride) 100 mls @ 200 mls/hr IV Q24H [facility] Losartan Potassium (Losartan 50 Mg Tablet) 50 mg PO BID [facility] Last Admin: 05/13/22 00:20 Dose: 50 mg Documented By: RICHARD Morphine Sulfate (Morphine 2 Mg/Ml Inj) 2 mg IV Q4H PRN PRN Reason: Pain, Severe (7-10) Naloxone HCl (Naloxone 0.4 Mg/Ml Vial) 0.1 mg IV Q2MIN PRN PRN Reason: Opiate Reversal Ondansetron HCl (Ondansetron 4 Mg/2 Ml Inj) 4 mg IV Q6HR PRN PRN Reason: Nausea And Vomiting Last Admin: 05/13/22 00:23 Dose: 4 mg Documented By: RICHARD Sennosides (Sennosides 8.6 Mg Tablet) 17.2 mg PO BEDTIME [facility] Last Admin: 05/13/22 00:22 Dose: 17.2 mg Documented By: RICHARD Tramadol HCl (Tramadol 50 Mg Tablet) 50 mg PO Q4H PRN PRN Reason: Pain, Moderate (4-6) Verapamil HCl (Verapamil 120 Mg Tablet) 120 mg PO BID [facility] Last Admin: 05/13/22 00:20 Dose: 120 mg Documented By: RICHARD Discontinued Medications Enalaprilat (Enalaprilat 2.5 Mg/ 2 Ml Vial) 0.625 mg IV NOW ONE Stop: 05/13/22 05:50 Last Admin: 05/13/22 06:06 Dose: Not Given Documented By: RICHARD Hydromorphone HCl (Hydromorphone 0.5 Mg Inj) 0.5 mg IV Q15MIN PRN PRN Reason: Pain, Ceftriaxone Sodium 2,000 mg/ (Sodium Chloride) 100 mls @ 200 mls/hr IV NOW ONE Stop: 05/12/22 20:12 Last Infusion: 05/12/22 22:12 Dose: 0 mls/hr Documented By: Admin: 05/12/22 21:34 Dose: 200 mls/hr Documented By: DANYA Ondansetron HCl (Ondansetron 4 Mg/2 Ml Inj) 4 mg IV NOW ONE Stop: 05/12/22 19:21 Last Admin: 05/12/22 19:24 Dose: 4 mg Documented By: ABDIRASHID Vital Signs Vital signs: Vital Signs - 8 hr 05/12/22 19:14 05/12/22 19:14 05/12/22 19:32 Temperature 98.6 F Pulse Rate 103 H 97 H Blood Pressure 215/86 H Pulse Oximetry 99 96 05/12/22 20:00 05/12/22 20:30 05/12/22 21:00 Temperature Pulse Rate 83 74 73 Blood Pressure Pulse Oximetry 93 93 93 05/12/22 21:30 05/12/22 22:00 05/12/22 22:30 Temperature Pulse Rate 73 78 90 Blood Pressure Pulse Oximetry 94 94 95 MDM - Fall Lab Data Result diagrams: 05/13/22 05:53 05/13/22 05:53 Labs: Lab Results 05/12/22 05/12/22 05/12/22 Range/Units 19:36 19:36 19:36 WBC 8.8 (4.5-11.0) X10^3/uL RBC 3.71 L (4.0-5.2) X10^6/uL Hgb 11.4 L (12.0-16.0) g/dL Hct 33.1 L (36-46) % MCV 89.3 (80-100) fL MCH 30.7 (26-34) PG MCHC 34.4 (30-36) % RDW 14.1 (11.6-14.8) % Plt Count 133 L (150-400) X10^3/uL Neut % (Auto) 91.3 H (50-75) % Lymph % (Auto) 2.3 L (25-40) % [place] % (Auto) 5.4 (3-14) % Eos % (Auto) 0.3 L (2-4) % Baso % (Auto) 0.7 (0-2) % Neut # (Auto) 8100 H (5300-0877) /uL Lymph # (Auto) 200 L (3284-1387) /uL [place] # (Auto) 500 (0-900) /uL Eos # (Auto) 0 (0-450) /uL Baso # (Auto) 100 (0-100) /uL PT (10.1-12.7) SECONDS INR (0.9-1.3) Sodium 140 (137-145) mmol/L Potassium 3.7 (3.4-5.1) mmol/L Chloride 103 (98-107) mmol/L Carbon Dioxide 31 (22-32) mmol/L BUN 31 H (7-17) mg/dL Creatinine 0.72 (0.52-1.04) mg/dL Estimated GFR > 60 (>60) mL/min BUN/Creatinine Ratio 43.1 H (6-22) Glucose 170 H (80-110) mg/dL Hemoglobin A1c (4.0-6.0) % Calcium 8.7 (8.4-10.2) mg/dL Total Bilirubin 1.1 (0.2-1.3) mg/dL AST 35 (14-36) IU/L ALT 19 (<35) IU/L Alkaline Phosphatase 52 (38-126) U/L Total Protein 7.4 (6.3-8.2) g/dL Albumin 4.2 (3.5-5.0) g/dL Globulin 3.2 (1.7-4.1) g/dL Albumin/Globulin Ratio 1.3 (1.0-2.8) Urine Color Yellow Urine Appearance Sl cloudy Urine pH 6.0 (4.5-8.0) Ur Specific [place] 1.015 (1.000-1.035) Urine Protein 1+ H (Negative) Urine Glucose (UA) Negative (Negative) g/dL Urine Ketones 1+ H (NEGATIVE) Urine Occult Blood 2+ H (Negative) Urine Nitrate Positive H (Negative) Urine Bilirubin Negative (NEGATIVE) Urine Urobilinogen 0.2 (0.2) E.U./dL Ur Leukocyte Esterase 1+ H (NEGATIVE) Urine RBC 1-5/hpf (0-5/HPF) Urine WBC 1-5/hpf (0-5/HPF) Ur Squamous Epith Cells 0-1 /hpf (0-5/HPF) Amorphous Sediment 1+ Urine Bacteria Many (>30) H (None) Ur Culture Indicated? Specimen cultured SARS-CoV-2 (PCR) (Negative) 05/12/22 05/12/22 05/12/22 Range/Units 19:36 19:45 19:45 WBC (4.5-11.0) X10^3/uL RBC (4.0-5.2) X10^6/uL Hgb (12.0-16.0) g/dL Hct (36-46) % MCV (80-100) fL MCH (26-34) PG MCHC (30-36) % RDW (11.6-14.8) % Plt Count (150-400) X10^3/uL Neut % (Auto) (50-75) % Lymph % (Auto) (25-40) % [place] % (Auto) (3-14) % Eos % (Auto) (2-4) % Baso % (Auto) (0-2) % Neut # (Auto) (3418-1727) /uL Lymph # (Auto) (2779-8066) /uL [place] # (Auto) (0-900) /uL Eos # (Auto) (0-450) /uL Baso # (Auto) (0-100) /uL PT 12.5 (10.1-12.7) SECONDS INR 1.1 (0.9-1.3) Sodium (137-145) mmol/L Potassium (3.4-5.1) mmol/L Chloride (98-107) mmol/L Carbon Dioxide (22-32) mmol/L BUN (7-17) mg/dL Creatinine (0.52-1.04) mg/dL Estimated GFR (>60) mL/min BUN/Creatinine Ratio (6-22) Glucose (80-110) mg/dL Hemoglobin A1c 5.2 (4.0-6.0) % Calcium (8.4-10.2) mg/dL Total Bilirubin (0.2-1.3) mg/dL AST (14-36) IU/L ALT (<35) IU/L Alkaline Phosphatase (38-126) U/L Total Protein (6.3-8.2) g/dL Albumin (3.5-5.0) g/dL Globulin (1.7-4.1) g/dL Albumin/Globulin Ratio (1.0-2.8) Urine Color Urine Appearance Urine pH (4.5-8.0) Ur Specific [place] (1.000-1.035) Urine Protein (Negative) Urine Glucose (UA) (Negative) g/dL Urine Ketones (NEGATIVE) Urine Occult Blood (Negative) Urine Nitrate (Negative) Urine Bilirubin (NEGATIVE) Urine Urobilinogen (0.2) E.U./dL Ur Leukocyte Esterase (NEGATIVE) Urine RBC (0-5/HPF) Urine WBC (0-5/HPF) Ur Squamous Epith Cells (0-5/HPF) Amorphous Sediment Urine Bacteria (None) Ur Culture Indicated? SARS-CoV-2 (PCR) Negative (Negative) Imaging Data XR hip: Radiologist's Impression: FINDINGS:? ? Bones:? There is a mildly displaced and impacted fracture of the right femoral neck.? The femoral neck component is mildly superiorly displaced and anteriorly displaced relative to the femoral head component with impaction.? No additional pelvic fracture is seen. ? Soft tissues:? The visualized bowel gas pattern is normal.? Nonspecific calcification again seen at the greater trochanters that may indicate calcific tendinopathy. ? ? IMPRESSION:? Mildly displaced impacted subcapital or transcervical fracture of the right femoral neck. ? ? ? Dictated by: Martinez Porter M.D. on 05/12/2022 at 19:22 ?? Chest x-ray: Radiologist's Impression: FINDINGS:? ? Surgical changes and devices:? Surgical clips are seen in the left axilla. ? Lungs and pleura:? Patient is rotated towards the left.? Lungs are clear.? No pleural effusions or pneumothorax.? ? Mediastinum:? Mediastinal contours appear normal.? Heart size is normal.? ? Bones and chest wall:? Chronic appearing right posterolateral rib fractures are noted. No suspicious bony lesions.? Overlying soft tissues appear unremarkable.? ? IMPRESSION:? No acute displaced rib fracture is seen.? Chronic appearing right-sided rib fractures are present.? No pleural effusion or pneumothorax. ? ? Dictated by: Martinez Porter M.D. on 05/12/2022 at 19:24 ? ? MDM Narrative Medical decision making narrative: 81-year-old woman who presents 12 hours after ground level fall with right femoral neck fracture and no other significant injury. She does have moderate dementia. Her notes that she typically is fairly mobile at home and still moderately independent. She is found have very strong smelling urine, Costello catheter is placed and urine sample looks like she does in fact have a urinary tract infection there is no sign of sepsis. She is treated with IV ceftriaxone in the emergency department. 1030 hospitalist, admit except 10[address] Dr [place], will consult, surgery anticipated DNR, surgery and intubation for surgery is OK Discharge Plan Departure Patient Disposition: Admitted As Inpatient Clinical Impression: Acute UTI Closed hip fracture Qualifiers: Encounter type: initial encounter Laterality: right Qualified Code(s): S72.001A - Fracture of unspecified part of neck of right femur, initial encounter for closed fracture Admit Date/Time: 05/12/22 22:52 Admit Provider: Che Morton
[2022-05-12 20:14] LABS: Alanine Aminotransferase 19 IU/L (<35); Albumin 4.2 g/dL (3.5-5.0); Albumin Globulin Ratio 1.3 (1.0-2.8); Alkaline Phosphatase 52 U/L (38-126); Aspartate Aminotransferase 35 IU/L (14-36); BUN Creatinine Ratio 43.1 (6-22); Bilirubin Total 1.1 mg/dL (0.2-1.3); Blood Urea Nitrogen 31 mg/dL (7-17); Calcium 8.7 mg/dL (8.4-10.2); Carbon Dioxide 31 mmol/L (22-32); Chloride 103 mmol/L (98-107); Estimated Glomerular Filt Rate > 60 mL/min (>60); Globulin 3.2 g/dL (1.7-4.1); Glucose 170 mg/dL (80-110); HEMOLYSIS < 15 (0-50); Potassium 3.7 mmol/L (3.4-5.1); Sodium 140 mmol/L (137-145); Total Protein 7.4 g/dL (6.3-8.2)
[2022-05-12 20:19] LABS: Amorphous Sediment Urine 1+; Bacteria Urine Many (>30); Culture Indicated Urine Specimen Cultured; RBC Urine 1-5/HPF (0-5/HPF); Squamous Epithelial Cell Urine 0-1 /HPF (0-5/HPF); WBC Urine 1-5/HPF (0-5/HPF)
[2022-05-12] MEDS: cefTRIAXone 2,000 MG in SODIUM CHLORIDE 0.9% 100 ML 200 MG IV (21:34)
[2022-05-12 23:28] LABS: INR 1.1 (0.9-1.3); Prothrombin Time 12.5 SECONDS (10.1-12.7)
[2022-05-12 23:50] LABS: Hemoglobin A1C% w Est Avg Glu 5.2 % (4.0-6.0)
[2022-05-13] VITALS (16 sets, daily range): BP systolic 133–185; BP diastolic 60–112; PULSE 74–93; RESP 12–24; TEMP 36.2–37.7; O2SAT 90–100; BMI 21.2
--- NOTE | 2022-05-13 | DI.RAD.S_ITS ---
PROCEDURE: XR PELVIS 1-2V INDICATIONS: INTRA-OP AVELINO RIGHT HIP TECHNIQUE: 1 view of the lower pelvis acquired. COMPARISON: [facility], , XR PELVIS 1-2V, 03/02/2022, 1:25. FINDINGS: Bones: Patient is status post right hip arthroplasty, with hardware components in expected positions. The hip joint appears congruent. The visualized bony structures appear intact. Soft tissues: Overlying postoperative changes are noted. No suspicious soft tissue densities. IMPRESSION: Total right hip arthroplasty in position Approved by: Iron Ornelas M.D. on 05/13/2022 at 15:32
[2022-05-13] MEDS: VERAPAMIL 120 MG TABLET PO ×3 (00:20→21:18)
[2022-05-13] MEDS: LOSARTAN 50 MG TABLET PO ×3 (00:20→21:19)
[2022-05-13] MEDS: SODIUM CHLORIDE 0.9% 1,000 ML 100 ML IV ×3 (00:21→17:34)
[2022-05-13] MEDS: DOCUSATE 100 MG CAPSULE PO ×2 (00:22→21:19)
[2022-05-13] MEDS: SENNOSIDES 8.6 MG TABLET 17.2 MG PO (00:22)
[2022-05-13] MEDS: ACETAMINOPHEN 325 MG TABLET 650 MG PO (00:22)
[2022-05-13] MEDS: ONDANSETRON 4 MG/2 ML INJ IV (00:23)
[2022-05-13] MEDS: HYDROMORPHONE 0.5 MG INJ IV (00:23)
--- NOTE | 2022-05-13 01:06 | P.HP_ITS ---
History of Present Illness History of Present Illness Date Patient Seen: 05/13/22 Time Patient Seen: 01:07 Chief complaint: Right hip fx, UTI Narrative: Audrey Cornelius is an 81 female with has late stage dementia, osteoporosis, hypothyroidism, and essential hypertension is non-verbal to me and am unable to obtain a history from her. History is obtained from the ED provider based on her conversation with the patient's who has left for the evening. Per the E D provider, the patient was in bed with her then decided to go out into the living room and sleep on the couch. told the ED provider that when she got up her leg gave out on her and she fell. She was found to have a right ?impacted subcapital or transcervical fracture of the right femoral neck and an incidental finding of a urinary tract infection. She is afebrile, blood pressure 185/76, heart rate 93, she is mildly anemic with a H&H of 11.4 and 33.1 respectively she has a thrombocytopenia of with platelet count of 133, mild left shift of 8100 BUN 31 glucose 170 with an A1c of 5.2 she is positive for nitrates in her urine with ketones, leukocytes and bacteria and her urine will be cultured, COVID-19 PCR is negative. FH: See chart, unable to obtain any kind of history from the patient including family history. Patient History Medical History Dementia Hallucinations due to late onset dementia Memory loss Surgical History History of thyroidectomy Status post breast lumpectomy Status post parathyroidectomy Family & Social History Family History Father Stroke Safety & Behavioral: Feels Safe in Current Yes Environment Tobacco & Substance use: Smoking Status Never smoker Substance Use Type does not use Meds Home Medications and Allergies Home Medications Medication Instructions Recorded Confirmed Type losartan 50 mg tablet 50 mg PO BID ##0 05/19/17 01/09/21 History polyethylene glycol 3350 17 gram 17 g PO DAILY ##0 05/19/17 01/09/21 History oral powder packet (Miralax) cholecalciferol (vitamin D3) 125 5,000 unit PO DAILY 06/20/18 01/09/21 History mcg (5,000 unit) tablet (Vitamin D3) alendronate 70 mg tablet (Fosamax) 70 mg WEEKLY 04/10/19 01/09/21 History verapamil 120 mg tablet 120 mg PO BID 08/16/19 01/09/21 History levothyroxine 100 mcg tablet 100 mcg PO DAILY 10/19/19 01/09/21 History oxyquinoline 0.025 %-sodium lauryl 0.5 ea vaginal 3XW pessary #113.4 07/22/20 01/09/21 Rx sulfate 0.01 % vaginal gel grams (Trimo-Pickett Jelly) Allergies Allergy/AdvReac Type Severity Reaction Status Date / Time paraben [PARABEN] Allergy Unknown Verified 05/12/22 19:05 hydrochlorothiazide Allergy Verified 05/12/22 19:05 amlodipine [AMLODIPINE] AdvReac Unknown LEG CRAMPS Verified 05/12/22 19:05 metoprolol [METOPROLOL] AdvReac Unknown LEG CRAMPS Verified 05/12/22 19:05 Review of Systems Review of Systems ROS: Yes unobtainable due to mental status Exam Vital Signs (past 8 hours): - 05/12/22 19:14 05/12/22 19:14 05/12/22 19:32 Temperature 98.6 F Pulse Rate 103 H 97 H Respiratory Rate Blood Pressure 215/86 H Pulse Oximetry 99 96 Oxygen Flow Rate 05/12/22 20:00 05/12/22 20:30 05/12/22 21:00 Temperature Pulse Rate 83 74 73 Respiratory Rate Blood Pressure Pulse Oximetry 93 93 93 Oxygen Flow Rate 05/12/22 21:30 05/12/22 22:00 05/12/22 22:30 Temperature Pulse Rate 73 78 90 Respiratory Rate Blood Pressure Pulse Oximetry 94 94 95 Oxygen Flow Rate 05/12/22 23:00 05/12/22 23:15 05/12/22 23:15 Temperature Pulse Rate 103 H 101 H Respiratory Rate Blood Pressure 205/91 H Pulse Oximetry 96 95 Oxygen Flow Rate 05/12/22 23:30 05/12/22 23:31 05/12/22 23:31 Temperature Pulse Rate 94 H 94 H Respiratory Rate Blood Pressure 166/103 H Pulse Oximetry 96 96 Oxygen Flow Rate 05/13/22 00:20 05/13/22 00:00 Temperature 98.4 F Pulse Rate 93 H 93 H Respiratory Rate 24 Blood Pressure 185/76 H 185/76 H Pulse Oximetry 95 Oxygen Flow Rate 0 Oxygen Flow Rate 0 Narrative Exam Narrative: Gen: A rousable and very frail-appearing 81 y.o. female, appears uncomfortable HEENT: normocephalic, atraumatic, conjunctiva clear, sclera non-icteric, oral mucosa pink and moist Neck: supple, full ROM, no JVD, trachea is midline Resp: Lungs CTA, non-labored breathing CV: RRR, no murmur or rubs Abd: soft, non-tender, normoactive BTs Skin: Thin and friable no lesions or rashes, dry and intact Neuro: GCS 13 Patient seems to be nonverbal Extremities: moves all 4 extremities, is ambulatory, negative Roby?s sign Psyche: normal mood and affect. Objective Labs Result Diagrams: 05/12/22 19:36 05/12/22 19:36 Labs: Laboratory Results - last 24 hr 05/12/22 05/12/22 05/12/22 19:36 19:36 19:36 WBC 8.8 RBC 3.71 L Hgb 11.4 L Hct 33.1 L MCV 89.3 MCH 30.7 MCHC 34.4 RDW 14.1 Plt Count 133 L Neut % (Auto) 91.3 H Lymph % (Auto) 2.3 L [place] % (Auto) 5.4 Eos % (Auto) 0.3 L Baso % (Auto) 0.7 Neut # (Auto) 8100 H Lymph # (Auto) 200 L [place] # (Auto) 500 Eos # (Auto) 0 Baso # (Auto) 100 PT INR Sodium 140 Potassium 3.7 Chloride 103 Carbon Dioxide 31 BUN 31 H Creatinine 0.72 Estimated GFR > 60 BUN/Creatinine Ratio 43.1 H Glucose 170 H Hemoglobin A1c Calcium 8.7 Total Bilirubin 1.1 AST 35 ALT 19 Alkaline Phosphatase 52 Total Protein 7.4 Albumin 4.2 Globulin 3.2 Albumin/Globulin Ratio 1.3 Urine Color Yellow Urine Appearance Sl cloudy Urine pH 6.0 Ur Specific [place] 1.015 Urine Protein 1+ H Urine Glucose (UA) Negative Urine Ketones 1+ H Urine Occult Blood 2+ H Urine Nitrate Positive H Urine Bilirubin Negative Urine Urobilinogen 0.2 Ur Leukocyte Esterase 1+ H Urine RBC 1-5/hpf Urine WBC 1-5/hpf Ur Squamous Epith Cells 0-1 /hpf Amorphous Sediment 1+ Urine Bacteria Many (>30) H Ur Culture Indicated? Specimen cultured SARS-CoV-2 (PCR) 05/12/22 05/12/22 05/12/22 19:36 19:45 19:45 WBC RBC Hgb Hct MCV MCH MCHC RDW Plt Count Neut % (Auto) Lymph % (Auto) [place] % (Auto) Eos % (Auto) Baso % (Auto) Neut # (Auto) Lymph # (Auto) [place] # (Auto) Eos # (Auto) Baso # (Auto) PT 12.5 INR 1.1 Sodium Potassium Chloride Carbon Dioxide BUN Creatinine Estimated GFR BUN/Creatinine Ratio Glucose Hemoglobin A1c 5.2 Calcium Total Bilirubin AST ALT Alkaline Phosphatase Total Protein Albumin Globulin Albumin/Globulin Ratio Urine Color Urine Appearance Urine pH Ur Specific [place] Urine Protein Urine Glucose (UA) Urine Ketones Urine Occult Blood Urine Nitrate Urine Bilirubin Urine Urobilinogen Ur Leukocyte Esterase Urine RBC Urine WBC Ur Squamous Epith Cells Amorphous Sediment Urine Bacteria Ur Culture Indicated? SARS-CoV-2 (PCR) Negative Assessment & Plan Assessment & Plan narrative: Audrey Cornelius is admitted for surgical management of a right femur fracture and a UTI. Right femur fracture, acute, present on admission * She is NPO * Dr. Han, orthopedic surgery will see the patient in the morning, scheduling is unknown Urinary tract infection, acute, present on admission * She was administered 2 g IV ceftriaxone in the emergency department and will be continued on 1 g ceftriaxone daily Essential hypertension, not well controlled * Continue home dose of verapramil 120 mg p.o. b.i.d. VTE Prophylaxis: Wells risk score 0X Bilateral SCDs Patient is admitted to the inpatient service due to the severity of disease, risks of further disease progression and this stay is expected to exceed 2 midnights. FEN: IV fluids: NS at 100 mL/hour, diet: NPO, labs: CBC, C/BMP, liver enzymes, Mag, PT/INR Consultants Dr. Han, orthopedic surgery, care and involvement in the patient's care is appreciated. Dispo: Probable discharge to [facility] for rehab Code status: DNR, Erica Cornelius is her surrogate and POA. [X] I have utilized all available immediate resources to obtain, update, or review of the patient's current medications COVID-19 COVID-19 status: Negative Result date/Date tested (Pos, Neg/Pending): 05/13/22 Scores GCS Milena coma scale eye opening: Spontaneous Ehrenberg coma scale verbal response: Confused Milena coma scale motor response: Localising Ehrenberg coma scale total score: 13 Quality VTE Deep Vein Thrombosis/Pulmonary Embolism Present on Admission: No MIPS - Admit I confirm the patient?s Advance Care Plan is present, Code status is documented, Surrogate decision maker is in patient?s record [If Yes, STOP here]: Yes MIPS - DC The patient has current or prior documentation of left ventricular ejection fraction (LVEF) less than 40%, or moderate or severely depressed left ventricular systolic function.: No
[2022-05-13 06:15] LABS: Add Manual Diff / Slide Review NO; Basophils Absolute Auto 0 /uL (0-100); Basophils Percent Auto 0.3 % (0-2); Eosinophils Absolute Auto 100 /uL (0-450); Eosinophils Percent Auto 1.4 % (2-4); Hematocrit 30.9 % (36-46); Hemoglobin 10.6 g/dL (12.0-16.0); Lymphocytes Absolute Auto 500 /uL (1100-4500); Mean Corpuscular HGB Conc 34.4 % (30-36); Mean Corpuscular Hemoglobin 30.9 PG (26-34); Mean Corpuscular Volume 89.9 fL (80-100); Monocytes Absolute Auto 500 /uL (0-900); Monocytes Percent Auto 6.9 % (3-14); Neutrophils Absolute Auto 5500 /uL (1500-7000); Neutrophils Percent Auto 83.4 % (50-75); Platelet Count 112 X10^3/uL (150-400); Red Blood Cell Count 3.43 X10^6/uL (4.0-5.2); White Blood Cell Count 6.6 X10^3/uL (4.5-11.0)
[2022-05-13 06:30] LABS: Alanine Aminotransferase 15 IU/L (<35); Albumin 3.6 g/dL (3.5-5.0); Albumin Globulin Ratio 1.4 (1.0-2.8); Alkaline Phosphatase 43 U/L (38-126); Aspartate Aminotransferase 30 IU/L (14-36); BUN Creatinine Ratio 31.6 (6-22); Bilirubin Total 0.9 mg/dL (0.2-1.3); Blood Urea Nitrogen 24 mg/dL (7-17); Calcium 8.1 mg/dL (8.4-10.2); Carbon Dioxide 32 mmol/L (22-32); Chloride 105 mmol/L (98-107); Estimated Glomerular Filt Rate > 60 mL/min (>60); Globulin 2.6 g/dL (1.7-4.1); Glucose 99 mg/dL (80-110); HEMOLYSIS < 15 (0-50); Potassium 4.2 mmol/L (3.4-5.1); Sodium 140 mmol/L (137-145); Total Protein 6.2 g/dL (6.3-8.2)
--- NOTE | 2022-05-13 07:40 | PM.CN ---
History of Present Illness Consult details Date Patient Seen: 05/13/22 Time Patient Seen: 07:40 Chief complaint: Right hip fx, UTI Reason for consult: Right femoral neck fracture Requesting provider: Valeria Pritchard Narrative: The patient is an 81 year old woman with significant dementia who fell yesterday morning, sustaining an injury to her right hip. She was evaluated at [facility] ED and found to have a displaced right femoral neck fracture. Orthopedic consultation is obtained for management of the fracture. She is not anticoagulated, but does have a urinary tract infection. Meds Home Medications and Allergies Home Medications Medication Instructions Recorded Confirmed Type losartan 50 mg tablet 50 mg PO BID ##0 05/19/17 01/09/21 History polyethylene glycol 3350 17 gram 17 g PO DAILY ##0 05/19/17 01/09/21 History oral powder packet (Miralax) cholecalciferol (vitamin D3) 125 5,000 unit PO DAILY 06/20/18 01/09/21 History mcg (5,000 unit) tablet (Vitamin D3) alendronate 70 mg tablet (Fosamax) 70 mg WEEKLY 04/10/19 01/09/21 History verapamil 120 mg tablet 120 mg PO BID 08/16/19 01/09/21 History levothyroxine 100 mcg tablet 100 mcg PO DAILY 10/19/19 01/09/21 History oxyquinoline 0.025 %-sodium lauryl 0.5 ea vaginal 3XW pessary #113.4 07/22/20 01/09/21 Rx sulfate 0.01 % vaginal gel grams (Trimo-Pickett Jelly) Allergies Allergy/AdvReac Type Severity Reaction Status Date / Time paraben [PARABEN] Allergy Unknown Verified 05/12/22 19:05 hydrochlorothiazide Allergy Verified 05/12/22 19:05 amlodipine [AMLODIPINE] AdvReac Unknown LEG CRAMPS Verified 05/12/22 19:05 metoprolol [METOPROLOL] AdvReac Unknown LEG CRAMPS Verified 05/12/22 19:05 Review of Systems Review of Systems Narrative: Unobtainable due to dementia. Exam Vital Signs (past 8 hours): - 05/13/22 00:20 05/13/22 00:00 05/13/22 05:46 Temperature 98.4 F 97.7 F Pulse Rate 93 H 93 H 74 Respiratory Rate 24 20 Blood Pressure 185/76 H 185/76 H 133/60 Pulse Oximetry 95 94 Oxygen Delivery Method Oxygen Flow Rate 0 0 05/13/22 00:00 05/13/22 05:58 Temperature Pulse Rate Respiratory Rate Blood Pressure Pulse Oximetry 95 96 Oxygen Delivery Method Room Air Room Air Oxygen Flow Rate 0 Oxygen Delivery Method Room Air Oxygen Flow Rate 0 Narrative Exam Narrative: Resting comfortably in her hospital bed. Right leg shortened, neutral rotation. Light touch intact throughout toes, says, yes when asked to move toes but does not comply. Calf is soft. 1+ pulses in DP and PT arteries. Objective Labs Result Diagrams: 05/13/22 05:53 05/13/22 05:53 Labs: Laboratory Results - last 24 hr 05/12/22 05/12/22 05/12/22 19:36 19:36 19:36 WBC 8.8 RBC 3.71 L Hgb 11.4 L Hct 33.1 L MCV 89.3 MCH 30.7 MCHC 34.4 RDW 14.1 Plt Count 133 L Neut % (Auto) 91.3 H Lymph % (Auto) 2.3 L [place] % (Auto) 5.4 Eos % (Auto) 0.3 L Baso % (Auto) 0.7 Neut # (Auto) 8100 H Lymph # (Auto) 200 L [place] # (Auto) 500 Eos # (Auto) 0 Baso # (Auto) 100 PT INR Sodium 140 Potassium 3.7 Chloride 103 Carbon Dioxide 31 BUN 31 H Creatinine 0.72 Estimated GFR > 60 BUN/Creatinine Ratio 43.1 H Glucose 170 H Hemoglobin A1c Calcium 8.7 Magnesium Total Bilirubin 1.1 AST 35 ALT 19 Alkaline Phosphatase 52 Total Protein 7.4 Albumin 4.2 Globulin 3.2 Albumin/Globulin Ratio 1.3 Urine Color Yellow Urine Appearance Sl cloudy Urine pH 6.0 Ur Specific [place] 1.015 Urine Protein 1+ H Urine Glucose (UA) Negative Urine Ketones 1+ H Urine Occult Blood 2+ H Urine Nitrate Positive H Urine Bilirubin Negative Urine Urobilinogen 0.2 Ur Leukocyte Esterase 1+ H Urine RBC 1-5/hpf Urine WBC 1-5/hpf Ur Squamous Epith Cells 0-1 /hpf Amorphous Sediment 1+ Urine Bacteria Many (>30) H Ur Culture Indicated? Specimen cultured SARS-CoV-2 (PCR) 05/12/22 05/12/22 05/12/22 19:36 19:45 19:45 WBC RBC Hgb Hct MCV MCH MCHC RDW Plt Count Neut % (Auto) Lymph % (Auto) [place] % (Auto) Eos % (Auto) Baso % (Auto) Neut # (Auto) Lymph # (Auto) [place] # (Auto) Eos # (Auto) Baso # (Auto) PT 12.5 INR 1.1 Sodium Potassium Chloride Carbon Dioxide BUN Creatinine Estimated GFR BUN/Creatinine Ratio Glucose Hemoglobin A1c 5.2 Calcium Magnesium Total Bilirubin AST ALT Alkaline Phosphatase Total Protein Albumin Globulin Albumin/Globulin Ratio Urine Color Urine Appearance Urine pH Ur Specific [place] Urine Protein Urine Glucose (UA) Urine Ketones Urine Occult Blood Urine Nitrate Urine Bilirubin Urine Urobilinogen Ur Leukocyte Esterase Urine RBC Urine WBC Ur Squamous Epith Cells Amorphous Sediment Urine Bacteria Ur Culture Indicated? SARS-CoV-2 (PCR) Negative 05/13/22 05/13/22 05:53 05:53 WBC 6.6 RBC 3.43 L Hgb 10.6 L Hct 30.9 L MCV 89.9 MCH 30.9 MCHC 34.4 RDW 14.0 Plt Count 112 L Neut % (Auto) 83.4 H Lymph % (Auto) 8.0 L [place] % (Auto) 6.9 Eos % (Auto) 1.4 L Baso % (Auto) 0.3 Neut # (Auto) 5500 Lymph # (Auto) 500 L [place] # (Auto) 500 Eos # (Auto) 100 Baso # (Auto) 0 PT INR Sodium 140 Potassium 4.2 Chloride 105 Carbon Dioxide 32 BUN 24 H Creatinine 0.76 Estimated GFR > 60 BUN/Creatinine Ratio 31.6 H Glucose 99 Hemoglobin A1c Calcium 8.1 L Magnesium 2.0 Total Bilirubin 0.9 AST 30 ALT 15 Alkaline Phosphatase 43 Total Protein 6.2 L Albumin 3.6 Globulin 2.6 Albumin/Globulin Ratio 1.4 Urine Color Urine Appearance Urine pH Ur Specific [place] Urine Protein Urine Glucose (UA) Urine Ketones Urine Occult Blood Urine Nitrate Urine Bilirubin Urine Urobilinogen Ur Leukocyte Esterase Urine RBC Urine WBC Ur Squamous Epith Cells Amorphous Sediment Urine Bacteria Ur Culture Indicated? SARS-CoV-2 (PCR) Radiographs reveal a displaced femoral neck fracture on the right. [facility] Medical History Dementia Hallucinations due to late onset dementia Memory loss Surgical History History of thyroidectomy Status post breast lumpectomy Status post parathyroidectomy Family History Father Stroke Tobacco & Substance Use Smoking Status: Never smoker Assessment & Plan Assessment & Plan narrative: Elderly lady with dementia and a right femoral neck fracture. Dr. Pritchard spoke to the family and they wish operative care rather than comfort measures. I have added her on to today's surgical schedule for a hemiarthroplasty and will return to discuss the risks, benefits and alternatives of surgery with the patient's later today when he comes into the hospital. She will need to remain NPO today for anesthesia. COVID-19 COVID-19 status: Negative Result date/Date tested (Pos, Neg/Pending): 05/12/22 Time Spent With Patient Time with patient: less than 30 minutes Critical Care time: I spent a total of [] minutes of critical care time on this patient's care today; this time is exclusive of procedural time.
[2022-05-13] MEDS: TRAMADOL 50 MG TABLET PO (10:18)
--- NOTE | 2022-05-13 14:16 | PM.PN.1 ---
Subjective Subjective Date Patient Seen: 05/13/22 Interval history: Patient has left for the operating room. Exam Vital Signs (past 8 hours): - 05/13/22 08:00 05/13/22 08:00 05/13/22 08:00 Temperature 98.3 F Pulse Rate 80 Respiratory Rate 19 Blood Pressure 136/61 Pulse Oximetry 97 98 Oxygen Delivery Method Room Air Room Air Oxygen Flow Rate 0 Oxygen Delivery Method Room Air Oxygen Flow Rate 0 Narrative Exam Narrative: No exam done. Objective Labs Result Diagrams: 05/13/22 05:53 05/13/22 05:53 Labs: Laboratory Results - last 24 hr 05/12/22 05/12/22 05/12/22 19:36 19:36 19:36 WBC 8.8 RBC 3.71 L Hgb 11.4 L Hct 33.1 L MCV 89.3 MCH 30.7 MCHC 34.4 RDW 14.1 Plt Count 133 L Neut % (Auto) 91.3 H Lymph % (Auto) 2.3 L [place] % (Auto) 5.4 Eos % (Auto) 0.3 L Baso % (Auto) 0.7 Neut # (Auto) 8100 H Lymph # (Auto) 200 L [place] # (Auto) 500 Eos # (Auto) 0 Baso # (Auto) 100 PT INR Sodium 140 Potassium 3.7 Chloride 103 Carbon Dioxide 31 BUN 31 H Creatinine 0.72 Estimated GFR > 60 BUN/Creatinine Ratio 43.1 H Glucose 170 H Hemoglobin A1c Calcium 8.7 Magnesium Total Bilirubin 1.1 AST 35 ALT 19 Alkaline Phosphatase 52 Total Protein 7.4 Albumin 4.2 Globulin 3.2 Albumin/Globulin Ratio 1.3 Urine Color Yellow Urine Appearance Sl cloudy Urine pH 6.0 Ur Specific [place] 1.015 Urine Protein 1+ H Urine Glucose (UA) Negative Urine Ketones 1+ H Urine Occult Blood 2+ H Urine Nitrate Positive H Urine Bilirubin Negative Urine Urobilinogen 0.2 Ur Leukocyte Esterase 1+ H Urine RBC 1-5/hpf Urine WBC 1-5/hpf Ur Squamous Epith Cells 0-1 /hpf Amorphous Sediment 1+ Urine Bacteria Many (>30) H Ur Culture Indicated? Specimen cultured SARS-CoV-2 (PCR) 05/12/22 05/12/22 05/12/22 19:36 19:45 19:45 WBC RBC Hgb Hct MCV MCH MCHC RDW Plt Count Neut % (Auto) Lymph % (Auto) [place] % (Auto) Eos % (Auto) Baso % (Auto) Neut # (Auto) Lymph # (Auto) [place] # (Auto) Eos # (Auto) Baso # (Auto) PT 12.5 INR 1.1 Sodium Potassium Chloride Carbon Dioxide BUN Creatinine Estimated GFR BUN/Creatinine Ratio Glucose Hemoglobin A1c 5.2 Calcium Magnesium Total Bilirubin AST ALT Alkaline Phosphatase Total Protein Albumin Globulin Albumin/Globulin Ratio Urine Color Urine Appearance Urine pH Ur Specific [place] Urine Protein Urine Glucose (UA) Urine Ketones Urine Occult Blood Urine Nitrate Urine Bilirubin Urine Urobilinogen Ur Leukocyte Esterase Urine RBC Urine WBC Ur Squamous Epith Cells Amorphous Sediment Urine Bacteria Ur Culture Indicated? SARS-CoV-2 (PCR) Negative 05/13/22 05/13/22 05:53 05:53 WBC 6.6 RBC 3.43 L Hgb 10.6 L Hct 30.9 L MCV 89.9 MCH 30.9 MCHC 34.4 RDW 14.0 Plt Count 112 L Neut % (Auto) 83.4 H Lymph % (Auto) 8.0 L [place] % (Auto) 6.9 Eos % (Auto) 1.4 L Baso % (Auto) 0.3 Neut # (Auto) 5500 Lymph # (Auto) 500 L [place] # (Auto) 500 Eos # (Auto) 100 Baso # (Auto) 0 PT INR Sodium 140 Potassium 4.2 Chloride 105 Carbon Dioxide 32 BUN 24 H Creatinine 0.76 Estimated GFR > 60 BUN/Creatinine Ratio 31.6 H Glucose 99 Hemoglobin A1c Calcium 8.1 L Magnesium 2.0 Total Bilirubin 0.9 AST 30 ALT 15 Alkaline Phosphatase 43 Total Protein 6.2 L Albumin 3.6 Globulin 2.6 Albumin/Globulin Ratio 1.4 Urine Color Urine Appearance Urine pH Ur Specific [place] Urine Protein Urine Glucose (UA) Urine Ketones Urine Occult Blood Urine Nitrate Urine Bilirubin Urine Urobilinogen Ur Leukocyte Esterase Urine RBC Urine WBC Ur Squamous Epith Cells Amorphous Sediment Urine Bacteria Ur Culture Indicated? SARS-CoV-2 (PCR) [facility] Medical History Dementia Hallucinations due to late onset dementia Memory loss Surgical History History of thyroidectomy Status post breast lumpectomy Status post parathyroidectomy Family History Father Stroke Social History Smoking Status: Never smoker Assessment & Plan Assessment & Plan narrative: 1.Right femur fracture, acute, present on admission. Has gone to the operating room Dr. Han, orthopedic surgery will do surgery. 2.Urinary tract infection, acute, present on admission She was administered 2 g IV ceftriaxone in the emergency department and will be continued on 1 g ceftriaxone daily. Urine is positive for Gram-positive bacilli. 3.Essential hypertension, not well controlled on presentation. Today has adequate control. Continue home dose of verapramil 120 mg p.o. b.i.d. VTE Prophylaxis: Wells risk score 0X Bilateral SCDs Patient is inpatient service due to the severity of disease, risks of further disease progression and this stay is expected to exceed 2 midnights. FEN: IV fluids:? NS at 100 mL/hour, diet:? NPO, labs: CBC, C/BMP, liver enzymes, Mag, PT/INR Consultants Dr. Han, orthopedic surgery, care and involvement in the patient's care is appreciated. Dispo:? [facility]able [facility] for [facility]hab Code status:? DNR, Erica Cornelius is? her surrogate and POA. Time Spent With Patient Critical Care time: I spent a total of [] minutes of critical care time on this patient's care today; this time is exclusive of procedural time. Quality VTE Deep Vein Thrombosis/Pulmonary Embolism Present on Admission: No
--- NOTE | 2022-05-13 14:19 | CM.DANOTE ---
Patient is an 81 yo female who was admitted on 05/12/22 for GLF, hip fx. Pt has [facility] for insurance and her PCP is Dr. Evert Chinchilla. EMR was reviewed. Per MD, pt with late stage dementia, osteoporosis, and mostly nonverbal and poor historian. Pt with hip fx from GLF. Per Ortho Consult, met with spouse and adult son and discussion of Comfort vs tx and surgery. Decision made for surgery today around 1430. SW met bedside with pt, who was sleeping, spouse/DPOA and adult son and explained role and spent lengthy amount of time discussing options and plans. Spouse confirms they live at home and spouse is primary CG and states no other supportive services or private caregivers in place. Pt typically ambulates independently and has had increased falls and needs reminders and redirection and is incontinent at baseline. Spouse states that pt is not agitated or aggressive and does not really exit seek but he has placed locks on the doors for night as a precaution. SW discussed LTC plans and spouse states last year he had to have surgery and went to SNF himself and pt had to go to Memory Care at [facility] and it went alright. SW provided resources for local Memory Care facilities and also PP CG agencies for likely need in the future and spouse and son very appreciative and plan to start researching LTC options for the likely need in the near future. SW provided SNF Choice List and showed the medicare website for reviews and per family wishes would want SNF in [facility] and SW highlighted [facility] SNFs. Family plans to tour [facility], [facility], and [facility] and aware it will also depend on which facility accepts and bed availability and very reasonable. PASRR completed in anticipation of SNF. Pt fully vaccinated with 2 vaccines and 2 boosters and SW printed copy from [facility]. Plan: SW to follow closely after surgery tonight and then PT/OT eval towards initiating [facility] auth and referrals to [facility] contracted SNFs after family tours. [place] Discharge Planning/Care Management CM Discharge Assessment Start: 05/13/22 14:16 Freq: Status: Active Protocol: Document 05/13/22 14:17 BF (Rec: 05/13/22 14:19 BF [id number]) Discharge Planning Assessment Assigned Director Of Corporate Communications [place]RAÍN [place] DPOA/Assigned Designee Name Erica, spouse Contact Information [phone] Advance Directives? No Advance Directives on File No History Provided By Family Member,Significant Other,Medical Record Has Patient been admitted in last 30 No days? Prior Living Arrangements House Household Members spouse Type of transporation used prior to Relies on Others admit Independent with ADL's No Is patient alert and oriented? No Needs Assistance With Grooming,Meal Prep,Toileting, Managing Medications,Home Chores / Shopping Caregiver for Another No Patient/Family Preference [facility] Facility Barriers to Discharge Yes Comment dementia, but no behaviors Discharge Plan [facility] Facility Transportation Arrangement If SNF then facility van Referrals Initiated [facility] If patient plan is SNF: Has PASSR been Yes completed? Medicare Choice List Provided Yes SNF/HH Preference [facility], [facility] Has Agency SNF been contacted Yes Whiteboard Updated in Patient Room with Yes name and ext. # of Director Of Corporate Communications Review Status In Process Please Provide Date Initial DC 05/13/22 Assessment Was Performed Next Review Type Continued Stay Review
[2022-05-13] MEDS: TRANEXAMIC ACID 1,000 MG in SODIUM CHLORIDE 0.9% 100 ML 200 MG IV (14:58)
[2022-05-13] MEDS: CEFAZOLIN VIAL 1 GM in SODIUM CHLORIDE 0.9% 100 ML IV (14:58)
--- NOTE | 2022-05-13 15:28 | SUR.OPER ---
Lateral on padded OR bed. Gel axillary roll. Arms secured on padded armboard with pillow supporting top arm. Padded hip positioner braces x4 - anterior and posterior chest and pelvis. Additional gel pad used anterior pelvis. Gel pad under bottom leg from knee to foot and secured with tape over sheet. POSITION APPROVED BY ANESTHESIA AND SURGEON
[2022-05-13] MEDS: LACTATED RINGERS 1,000 ML 42 ML IV (16:00)
[2022-05-13] MEDS: BUPIVACAINE 0.5% W/ EPI (PF) 30 ML VIAL INJ (16:00)
--- NOTE | 2022-05-13 16:10 | P.OP_ITS ---
Operative Date/Time/Diagnoses Date of procedure: 05/13/22 Time of procedure: 16:11 Pre-op diagnosis: Right hip femoral neck fracture Post-op diagnosis: same Procedure & Clinicians Procedure: Right hip hemiarthroplasty Same procedure as scheduled: Yes Indications: The patient is an 81-year-old woman who suffered a fall sustaining the above-no adelina fracture. Her who holds durable power of digital strategist, gave consent to proceed with hemiarthroplasty after discussion risks benefits and alternatives. Risks discussed included but were not limited to: Leg length discrepancy, instability of the hip, infection, nerve damage, deep venous thrombosis, pulmonary embolism, stroke, myocardial infarction, permanent paralysis and . Surgeon: Devendra Han Digital Marketing Assistant: Tab Dunn Click Yes if Unassisted: No Anesthesia Type: General and Local Operative Notes Findings: Subcapital femoral neck fracture, displaced. Closure Type: primary Specimen(s): none sent Prosthetic devices, grafts, tissues, transplants, or devices: Implants used in this procedure were manufactured by the [employer] and [employer] and included a Synergy cemented stem size 10 with a 48 mm Tandem unipolar femoral head with a +0 neck and an 8 mm distal cement centralizer. In addition a plastic bone plug was used as a cement restrictor. Applied: catheter and implant(s) Estimated Blood Loss (mL): 250 Blood products transfused: none Tourniquet time (min): 0 Procedure in detail: The patient was seen in the pre-operative area, where they identified the right hip as the operative site and this was marked with my initials. The patient received pre-operative antibiotics and was taken to the operating room and placed on the operative table in the left lateral decubitus position after satisfactory anesthesia. A multimedia authoring specialist out was performed. The right leg was prepared from the ankle to the iliac crest with ChloroPrep in the usual fashion and draped through sterile drapes. The hip was approached through an approximately 15 cm incision centered over the greater trochanter and curving gently posteriorly as it went proximally. This was carried sharply to the fascia dave, which was divided and retracted with a self-retaining retractor. The trochanteric bursa was excised with care being taken to avoid the sciatic nerve, which was identified and protected throughout the case. The short external rotators were incised and the capsulomuscular flap was raised and tagged for later repair. The femoral head was removed with a ?corkscrew?, and the femoral neck osteotomy performed approximately 15 mm above the lesser trochanter. Retractors were placed to expose the acetabulum and a trial femoral head placed to confirm the size of the ball. We then turned our attention to the femur. The canal was opened with a box cutting osteotome, followed by a T handled reamer and a lateralizing reamer. The broaches were used, sequentially enlarging until a good fit was obtained. A trial head and neck were then placed and the hip relocated and checked for leg length and stability. The patient was stable in the position of sleep, of squatting, and could be put through a range of motion with 45 degrees internal rotation without dislocation. At 90 degrees flexion, internal rotation to 70? was possible before dislocation. This was felt to be satisfactory and the appropriate components were opened, and the trials were removed. The canal was prepared by placing a distal cement plug. The pulsatile lavage was used followed by an epinephrine-soaked sponge for hemostasis. Cement was then retrograde injected and pressurized. The final stem was then impacted into the prepared femoral canal. Finally the femoral head was impacted onto the stem. The acetabulum was cleared of all material and the hip relocated one final time. Radiographs were obtained intra-operatively confirming the position of all components and confirming that there were no iatrogenic fractures. The capsulomuscular flap was then repaired to the greater trochanter though an awl hole using the tag sutures. The short external rotators were repaired with a running 0 Vicryl. The fascia dave was closed with running and interrupted 0 Vicryl. A subcutaneous drain was placed. The subcutaneous layer was closed with interrupted 3-0 Vicryl, and the skin with a running 3-0 V-Lock suture and SteriStrips. An Aquacel Ag dressing was applied and the patient was taken to recovery having tolerated the procedure well. The services of a skilled teachers assistant were necessary in this procedure for exposure and to correctly orient the leg for appropriate positioning of the femoral stem. Without the services of Floyd Dunn the procedure would have been considerably more difficult and would have been prolonged. Complications: none Post-operative Condition: stable Disposition: PACU Plan for aftercare: The patient will be maintained in the hospital for approximately 3 days and will likely be transferred to a halfway facility. She has fairly significant dementia and her is elderly and it is likely that she will require halfway for assistance in the early postoperative period.
--- NOTE | 2022-05-13 16:44 | SUR.PHASEI ---
Report called to Janie Harris.
--- NOTE | 2022-05-13 17:18 | SUR.PHASEI ---
Patient transferred to the floor with the tele. Report given to Janie. Right hip dressing CDI. Patient moving her toes independently. VS stable, except O2 dropped to 85% RA. 2L NC applied, sats increased to 94%. IV saline locked.
[2022-05-13] MEDS: HYDROMORPHONE 0.5 MG INJ 0.2 MG IV (17:44)
[2022-05-13] MEDS: cefTRIAXone 1,000 MG in SODIUM CHLORIDE 0.9% 100 ML 200 MG IV (21:18)
[2022-05-13] MEDS: HALOPERIDOL 5 MG/ML VIAL IM (22:14)
[2022-05-14] VITALS (11 sets, daily range): BP systolic 156–182; BP diastolic 66–80; PULSE 80–93; RESP 12–22; TEMP 36.4–36.7; O2SAT 92–95
--- NOTE | 2022-05-14 04:19 | PC.NURSE ---
Patient is A/O to self only and not able to follow commands overnight. After giving patient their evening meds with applesauce, the patient became agitated and began spitting sauce out, pulled out IV out, threw blankets, and attempted to pull Costello Catheter out. Patient was combative and not able to keep hands to herself and would not stop yelling. Dr. Fox notified and aware. One dose of IM Haldol given.
[2022-05-14 07:50] LABS: Add Manual Diff / Slide Review NO; Basophils Absolute Auto 100 /uL (0-100); Basophils Percent Auto 0.7 % (0-2); Eosinophils Absolute Auto 100 /uL (0-450); Eosinophils Percent Auto 0.9 % (2-4); Hematocrit 27.7 % (36-46); Hemoglobin 9.5 g/dL (12.0-16.0); Lymphocytes Absolute Auto 500 /uL (1100-4500); Lymphocytes Percent Auto 5.9 % (25-40); Mean Corpuscular HGB Conc 34.2 % (30-36); Mean Corpuscular Hemoglobin 30.8 PG (26-34); Mean Corpuscular Volume 90.1 fL (80-100); Monocytes Absolute Auto 600 /uL (0-900); Monocytes Percent Auto 6.7 % (3-14); Neutrophils Absolute Auto 7900 /uL (1500-7000); Neutrophils Percent Auto 85.8 % (50-75); Platelet Count 103 X10^3/uL (150-400); Red Blood Cell Count 3.07 X10^6/uL (4.0-5.2); White Blood Cell Count 9.2 X10^3/uL (4.5-11.0)
[2022-05-14 08:05] LABS: Albumin 3.1 g/dL (3.5-5.0); Albumin Globulin Ratio 1.1 (1.0-2.8); Alkaline Phosphatase 45 U/L (38-126); Aspartate Aminotransferase 38 IU/L (14-36); BUN Creatinine Ratio 21.9 (6-22); Bilirubin Total 0.7 mg/dL (0.2-1.3); Blood Urea Nitrogen 16 mg/dL (7-17); Carbon Dioxide 28 mmol/L (22-32); Estimated Glomerular Filt Rate > 60 mL/min (>60); Globulin 2.8 g/dL (1.7-4.1); Glucose 100 mg/dL (80-110); HEMOLYSIS < 15 (0-50); Total Protein 5.9 g/dL (6.3-8.2)
[2022-05-14 08:10] LABS: Alanine Aminotransferase 17 IU/L (<35); Calcium 7.6 mg/dL (8.4-10.2); Chloride 106 mmol/L (98-107); Potassium 3.6 mmol/L (3.4-5.1); Sodium 139 mmol/L (137-145)
[2022-05-14 08:19] LABS: Magnesium 1.8 mg/dL (1.6-2.3)
--- NOTE | 2022-05-14 08:20 | P.PN_ITS ---
Subjective Subjective Date Patient Seen: 05/14/22 Time Patient Seen: 08:25 Interval history: Patient on able to articulate things for herself. Per nursing, became very agitated with any positional movement with there is increased pain at the hip. Also has been pulling at IV and [place]. Is lungs the patient can stay in 1 position and is not approached, the patient is calm. Agitation has been worse at night. Exam Vital Signs (past 8 hours): - 05/14/22 02:57 05/14/22 04:29 05/14/22 05:21 Temperature 97.9 F Pulse Rate 82 Respiratory Rate 12 Blood Pressure 182/79 H 163/78 H Pulse Oximetry 92 Oxygen Delivery Method Room Air Oxygen Flow Rate 0 Oxygen Delivery Method Room Air Oxygen Flow Rate 0 Narrative Exam Narrative: Gen:? Arousable and interacting me when talking to her. Appears in no acute medical distress. HEENT: normocephalic, atraumatic, conjunctiva clear, sclera non-icteric, oral mucosa pink and moist Neck: supple, full ROM, no JVD, trachea is midline Resp: Lungs CTA, non-labored breathing CV: Rhythm normal. Heart sounds S1 and S2, no murmur or rubs Abd: soft, non-tender, bowel sounds normal. Skin:? Thin and friable no lesions or rashes, dry and intact Neuro: Abnormal sensation of all extremities. Protective of any movement of her right leg due to right hip pain. Extremities: moves all 4 extremities. Protective of any movement of her right leg due to right hip pain. Psyche: normal mood and affect. Agitated easily due to dementia. Objective Labs Result Diagrams: 05/14/22 07:31 05/14/22 07:31 Labs: Laboratory Results - last 24 hr 05/14/22 05/14/22 05/14/22 07:31 07:31 07:31 WBC 9.2 RBC 3.07 L Hgb 9.5 L Hct 27.7 L MCV 90.1 MCH 30.8 MCHC 34.2 RDW 14.0 Plt Count 103 L Neut % (Auto) 85.8 H Lymph % (Auto) 5.9 L [place] % (Auto) 6.7 Eos % (Auto) 0.9 L Baso % (Auto) 0.7 Neut # (Auto) 7900 H Lymph # (Auto) 500 L [place] # (Auto) 600 Eos # (Auto) 100 Baso # (Auto) 100 Sodium 139 Potassium 3.6 Chloride 106 Carbon Dioxide 28 BUN 16 Creatinine 0.73 Estimated GFR > 60 BUN/Creatinine Ratio 21.9 Glucose 100 Calcium 7.6 L Magnesium 1.8 Total Bilirubin 0.7 AST 38 H ALT 17 Alkaline Phosphatase 45 Total Protein 5.9 L Albumin 3.1 L Globulin 2.8 Albumin/Globulin Ratio 1.1 [facility] Medical History Dementia Hallucinations due to late onset dementia Memory loss Surgical History History of thyroidectomy Status post breast lumpectomy Status post parathyroidectomy Family History Father Stroke Social History household members: spouse Smoking Status: Never smoker alcohol intake: former Assessment & Plan Assessment & Plan narrative: 1.Right femur fracture, acute, present on admission.? Postoperative for right hip hemiarthroplasty. Dr. Han, orthopedic surgery will do surgery. 2.Urinary tract infection, acute, present on admission She was administered 2 g IV ceftriaxone in the emergency department and will be continued on 1 g ceftriaxone daily.? Urine is positive for Gram-positive bacilli. Identified as E coli sensitive to ceftriaxone. 3.Essential hypertension, not well controlled on presentation.? Slightly elevated today and likely as a response to pain and agitation. Continue home dose of verapramil 120 mg p.o. b.i.d. 4. Dementia with agitation especially at night. Add dosing of quetiapine. VTE Prophylaxis: Wells risk score 0X Bilateral SCDs Patient is inpatient service due to the severity of disease, risks of further disease progression. FEN: IV fluids:? NS at 100 mL/hour, diet:? NPO, labs: CBC, C/BMP, liver enzymes, Mag, PT/INR Consultants Dr. Han, orthopedic surgery, care and involvement in the patient's care is appreciated. Dispo:? Probable discharge to [facility] for rehab Code status:? DNR, Erica Cornelius is? her surrogate and POA. Time Spent With Patient Critical Care time: I spent a total of [] minutes of critical care time on this patient's care today; this time is exclusive of procedural time. Quality VTE Deep Vein Thrombosis/Pulmonary Embolism Present on Admission: No
--- NOTE | 2022-05-14 10:23 | PM.PNPO.1 ---
Subjective Subjective Date Patient Seen: 05/14/22 Time Patient Seen: 10:23 Interval history: Pt is sitting up comfortably in bed, calmly twisting ends of her blanket. She is responsive to questions with one or two words, but does not appropriately answer or follow commands. She is demented at baseline. Exam Vital Signs (past 8 hours): - 05/14/22 02:57 05/14/22 04:29 05/14/22 05:21 Temperature 97.9 F Pulse Rate 82 Respiratory Rate 12 Blood Pressure 182/79 H 163/78 H Pulse Oximetry 92 Oxygen Delivery Method Room Air Oxygen Flow Rate 0 05/14/22 08:31 05/14/22 10:06 05/14/22 10:11 Temperature 98.1 F Pulse Rate 84 84 Respiratory Rate 22 Blood Pressure 162/73 H 162/73 H Pulse Oximetry 94 94 Oxygen Delivery Method Room Air Oxygen Flow Rate 0 0 Oxygen Delivery Method Room Air Oxygen Flow Rate 0 Narrative Exam Narrative: Unable to examine strength due to lack of cooperation. RLE is warm, calves are soft and compressible. Aquacel dressing to right hip is CDI. Objective Labs Result Diagrams: 05/14/22 07:31 05/14/22 07:31 Labs: Laboratory Results - last 24 hr 05/14/22 05/14/22 05/14/22 07:31 07:31 07:31 WBC 9.2 RBC 3.07 L Hgb 9.5 L Hct 27.7 L MCV 90.1 MCH 30.8 MCHC 34.2 RDW 14.0 Plt Count 103 L Neut % (Auto) 85.8 H Lymph % (Auto) 5.9 L [place] % (Auto) 6.7 Eos % (Auto) 0.9 L Baso % (Auto) 0.7 Neut # (Auto) 7900 H Lymph # (Auto) 500 L [place] # (Auto) 600 Eos # (Auto) 100 Baso # (Auto) 100 Sodium 139 Potassium 3.6 Chloride 106 Carbon Dioxide 28 BUN 16 Creatinine 0.73 Estimated GFR > 60 BUN/Creatinine Ratio 21.9 Glucose 100 Calcium 7.6 L Magnesium 1.8 Total Bilirubin 0.7 AST 38 H ALT 17 Alkaline Phosphatase 45 Total Protein 5.9 L Albumin 3.1 L Globulin 2.8 Albumin/Globulin Ratio 1.1 [facility] Medical History Dementia Hallucinations due to late onset dementia Memory loss Surgical History (Updated 05/14/22 @ 10:26 by Alba Smith PA-C) History of thyroidectomy Status post breast lumpectomy Status post parathyroidectomy Family History Father Stroke Social History household members: spouse Smoking Status: Never smoker alcohol intake: former Assessment & Plan Post-op Assessment and plan (1) S/P hip hemiarthroplasty: Assessment and Plan narrative: WBAT to RLE, posterior hip precautions. Continue SCDs and enoxaparin 40 mg daily for VTE prophylaxis. Continue enoxaparin through May 23. Follow up in Dr Han's office with a PA between May 22 and May 26 for wound check. Leave Aquacel dressing in place until that time. If transport from SNF at that time is too burdensome, Aquacel dressing can be removed and wound evaluated by SNF provider. Pt should follow up in Dr Han's office no later than 6 weeks after surgery for radiographs. Postoperative Procedures: Procedures Operation Date: 05/13/22 14:15 Actual Procedure Side Surgeon p Hip Hemiarthroplasty Right Devendra Han MD Postoperative day: 1 Quality VTE Deep Vein Thrombosis/Pulmonary Embolism Present on Admission: No
--- NOTE | 2022-05-14 10:30 | PT.IIE ---
Current Diagnoses Fracture of unspecified part of neck of unspecified femur, initial encounter for closed fracture (05/12/22) Presence of unspecified artificial hip joint (05/12/22) Surgery Performed Operation Date: 05/13/22 14:15 Actual Procedures p Hip Hemiarthroplasty(Right) - Devendra Han MD Surgical History (Last Reviewed 05/13/22 @ 08:27 by Valeria Pritchard MD) History of thyroidectomy Status post breast lumpectomy Status post parathyroidectomy Medical History (Last Reviewed 05/13/22 @ 08:27 by Valeria Pritchard MD) Dementia Hallucinations due to late onset dementia Memory loss Physical Therapy Inpatient Evaluation/Re-Eval M1 PT/OT-IP Prior Functional Status Start: 05/14/22 12:23 Freq: NEEDED Status: Active Protocol: Document 05/14/22 10:30 AB (Rec: 05/14/22 12:36 AB [id number]) Medical Review Prior Functional Status Medical History Reviewed Yes Communication pt has decrease awareness due to dx of dementia; unable to make eye contact or follow directions Mobility and Gait spouse in room and provided PLFO and home set up info: stated that pt is modified independent with bed mobility, transfers and ambulation without AD but depending on willingness of pt to move; stated that he assists pt with hygiene care, dressing needs Social History Household Members spouse Living Arrangements House Number of Floors (Floors) One Floor Number of Stairs To Enter/Railing? no steps to enter Home Environment Standard Height Toilet,Walk in Shower Home Equipment Shower Seat with Backrest,Hand Held Shower M2 PT-IP Current Condition Start: 05/14/22 12:23 Freq: NEEDED Status: Active Protocol: Document 05/14/22 10:30 AB (Rec: 05/14/22 12:36 AB [id number]) Physical Therapy Current Condition Current Condition Evaluation Date 05/14/22 Treatment Diagnosis R femoral fx s/p hemiarthroplasty; difficulty in walking Onset Date 05/12/22 M3 PT-IP Subjective Start: 05/14/22 12:23 Freq: NEEDED Status: Active Protocol: Document 05/14/22 10:30 AB (Rec: 05/14/22 12:36 AB [id number]) Subjective Physical Therapy Visit Type Type Initial Evaluation Visit Start Time 10:30 Visit Stop Time 11:17 Total Visit Minutes 47 Number of [employer] Visits 0 Physical Therapy Visit Comments Patient Comments spouse gave consent to work with pt M4 PT-IP Mobility and Gait Start: 05/14/22 12:23 Freq: NEEDED Status: Active Protocol: Document 05/14/22 10:30 AB (Rec: 05/14/22 12:36 AB [id number]) PT-Bed Mobility Assessment Supine to Sit Supine to Sit Total Assistance,2 Person Assistance,Head of Bed Elevated Sit to Supine Sit to Supine Total Assistance,2 Person Assistance Scooting Scooting to Edge of Bed Dependent PT-Transfer Assessment Sit to and From Stand Sit to and from Stand Maximum Assistance,Total Assistance,2 Person Assistance ,Use of Upper Extremities Equipment Transfer Assistive Device Gait Belt,Front Wheeled Walker Orthotic/Prosthetic Devices or Brace: No Comments Mobility Comments informed spouse regarding pt's R hip posterior precautions. Pt has dx dementia and with decrease comprehension and unable to following much directions. completed supine to sit total A x 2. Pt easily agitated and combative. able to sit on EOB max A. positioned pt on EOB total A x 2 and able to sit SBA to CGA afterwards. completed sit to stand x 3 attempts max A x 2 to total A x 2. able to stand using FWW for ~ 10 sec max A x 2. assisted back to bed. completed sit to supine total A x 2. positioned pt in bed. call light and table placed within reach. PT-Balance Assessment Sitting Balance and Reactions Static Sitting Balance Ability Fair Dynamic Sitting Balance Ability Fair Standing Balance and Reactions Static Standing Balance Ability Poor Dynamic Standing Balance Ability Poor Device Used FWW M5 PT-IP Objective Assessments Start: 05/14/22 12:23 Freq: NEEDED Status: Active Protocol: Document 05/14/22 10:30 AB (Rec: 05/14/22 12:36 AB [id number]) Orientation Orientation/Cognition Level of Alertness Confus[place] State Safety Awareness Decreased Safety Awareness Memory Description Short Term Impaired,Practice Business Asst Impaired Gross Range of Motion Lower Extremity ROM Impairments presents with increase extensor guarding and unable to assess ROM and MMT Strength Comments Strength Comments presents with increase extensor guarding and unable to assess ROM and MMT M6 PT-IP Treatment Start: 05/14/22 12:23 Freq: NEEDED Status: Active Protocol: Document 05/14/22 10:30 AB (Rec: 05/14/22 12:36 AB [email or web address]) Physical Therapy Treatment Education Education Provided Precautions,Weight Bearing Status,Post-Op Packet,Safety M7 PT-IP Assessment and Plan Start: 05/14/22 12:23 Freq: NEEDED Status: Active Protocol: Document 05/14/22 10:30 AB (Rec: 05/14/22 12:36 [email or web address]) PT Summary Assessment and Plan Potential Rehabilitation Potential Fair Status of Condition at Evaluation Evolving Summary Impairments Pain,ROM,Strength,Balance, Coordination,Sensation,Tone, Cognition,Bed Mobility, Transfers,Gait,Activity Tolerance Assessment Summary pt s/p fall and sustained a R femoral fx and underwent a R hip hemiarthroplasty. Pt has dx of dementia affecting mobility and safety awareness. pt has difficulty in following directions and can get easily agitated and combative. pt requiring max A x 2 to total A x 2 at this time and will need SNF rehab. will continue to assess progress. Goals Bed Mobility Goal Moderate Assistance Transfer Goal Moderate Assistance,Front Wheeled Walker Gait Goal Moderate Assistance,Front Wheel Walker Gait Distance 25 Other Goals improve bed mobiltiy, transfers and ambulation using FWW ~ 50 ft min A Days to Meet Goals 10 Frequency of Treatment Frequency Of Treatment Once a Day Treatment Plan Physical Therapy Treatment Plan Bed Mobility Training,Transfer Training,Gait Training, Therapeutic Exercise,Balance Retraining,Post Op Education, Discharge Planning,Hot or Cold Pack,Neuromuscular Re-ed, Coordination Retraining,Manual Therapy Precautions Posterior Hip Precautions No Hip Flexion > 90 degrees,No Hip Internal Rotation,No Hip Adduction Weight Bearing Status Weight Bearing Status Weight Bear as Tolerated Allowed Weight Bearing Amount (enter % RLE WBAT or #) (%) Recommendations To Nursing Amount of Assist Needed Mechanical Lift Discharge Recommendations PT Discharge Recommendations SNF Rehab Transportation Needs at Discharge Wheelchair/Cabulance
[2022-05-14] MEDS: SODIUM CHLORIDE 0.9% 1,000 ML 100 ML IV ×2 (11:31→21:54)
--- NOTE | 2022-05-14 15:40 | CM.DPNOTE ---
Discharge Planning Note: Spoke with spouse regarding if has chosen SNF. He wants to go with [facility]. Called Mera this afternoon and she will take a look at the chart and get back to me. Plan: Upon discharge to go to SNF, preference for spouse is [facility]. Speak with Mera in the morning. Melanie Reina RN/DCP
--- NOTE | 2022-05-14 17:32 | PC.NURSE ---
Day shift: Pt has been sleepy today. Pt declined taking PO daily medications today. Pt Erica states, Jocelyn usually sleeps during the day and is less cooperative until the evening.
[2022-05-14] MEDS: cefTRIAXone 1,000 MG in SODIUM CHLORIDE 0.9% 100 ML 200 MG IV (20:51)
[2022-05-14] MEDS: QUETIAPINE 25 MG TABLET 12.5 MG PO (20:53)
[2022-05-14] MEDS: DOCUSATE 100 MG CAPSULE PO (20:53)
[2022-05-14] MEDS: VERAPAMIL 120 MG TABLET PO (20:56)
[2022-05-14] MEDS: LOSARTAN 50 MG TABLET PO (20:56)
[2022-05-14] MEDS: ACETAMINOPHEN 325 MG TABLET 650 MG PO (23:59)
[2022-05-15] VITALS (11 sets, daily range): BP systolic 95–153; BP diastolic 40–104; PULSE 76–83; RESP 16–22; TEMP 36.6–37.4; O2SAT 92–96
--- NOTE | 2022-05-15 07:20 | PM.PNPO.1 ---
Subjective Subjective Date Patient Seen: 05/15/22 Time Patient Seen: 07:21 Interval history: Pt sleeping on visit this morning, seen in conjunction w/ Dr Weber. Arouses sleepily to voice, appears to be answering questions appropriately. Exam Vital Signs (past 8 hours): - 05/15/22 00:00 05/15/22 02:00 05/15/22 06:00 Temperature 99.3 F 98.3 F Pulse Rate 83 76 Respiratory Rate 16 16 Blood Pressure 95/40 L 153/70 H Pulse Oximetry 92 96 96 Oxygen Delivery Method Room Air Oxygen Flow Rate 0 0 0 Oxygen Delivery Method Room Air Oxygen Flow Rate 0 Narrative Exam Narrative: No pain response to exam of RLE. Aquacel dressing CDI, calves soft and compressible. Objective Labs Result Diagrams: 05/14/22 07:31 05/14/22 07:31 Labs: Laboratory Results - last 24 hr 05/14/22 05/14/22 05/14/22 07:31 07:31 07:31 WBC 9.2 RBC 3.07 L Hgb 9.5 L Hct 27.7 L MCV 90.1 MCH 30.8 MCHC 34.2 RDW 14.0 Plt Count 103 L Neut % (Auto) 85.8 H Lymph % (Auto) 5.9 L [place] % (Auto) 6.7 Eos % (Auto) 0.9 L Baso % (Auto) 0.7 Neut # (Auto) 7900 H Lymph # (Auto) 500 L [place] # (Auto) 600 Eos # (Auto) 100 Baso # (Auto) 100 Sodium 139 Potassium 3.6 Chloride 106 Carbon Dioxide 28 BUN 16 Creatinine 0.73 Estimated GFR > 60 BUN/Creatinine Ratio 21.9 Glucose 100 Calcium 7.6 L Magnesium 1.8 Total Bilirubin 0.7 AST 38 H ALT 17 Alkaline Phosphatase 45 Total Protein 5.9 L Albumin 3.1 L Globulin 2.8 Albumin/Globulin Ratio 1.1 [facility] Medical History Dementia Hallucinations due to late onset dementia Memory loss Surgical History (Updated 05/14/22 @ 10:26 by Alba Smith PA-C) History of thyroidectomy Status post breast lumpectomy Status post parathyroidectomy Family History Father Stroke Social History household members: spouse Smoking Status: Never smoker alcohol intake: former Assessment & Plan Post-op Assessment and plan (1) S/P hip hemiarthroplasty: Assessment and Plan narrative: Will need SNF rehab. WBAT to RLE, posterior hip precautions. Continue SCDs and enoxaparin 40 mg daily for VTE prophylaxis.? Continue enoxaparin through May 23. Follow up in Dr Han's office with a PA between May 22 and May 26 for wound check.? Leave Aquacel dressing in place until that time.? If transport from [facility] at that time is too burdensome, Aquacel dressing can be removed and wound evaluated by SNF provider.? Pt should follow up in Dr Han's office no later than 6 weeks after surgery for radiographs. Postoperative Procedures: Procedures Operation Date: 05/13/22 14:15 Actual Procedure Side Surgeon p Hip Hemiarthroplasty Right Devendra Han MD Postoperative day: 2 Quality VTE Deep Vein Thrombosis/Pulmonary Embolism Present on Admission: No
--- NOTE | 2022-05-15 07:22 | P.PN_ITS ---
Subjective Subjective Date Patient Seen: 05/15/22 Time Patient Seen: 07:05 Interval history: Nursing reports that there has been no agitation with the use of quetiapine. Also slept well last night. Not eating very well. Pain adequately controlled per nursing. Patient in no pain. She that she feels fine. Exam Vital Signs (past 8 hours): - 05/15/22 00:00 05/15/22 02:00 05/15/22 06:00 Temperature 99.3 F 98.3 F Pulse Rate 83 76 Respiratory Rate 16 16 Blood Pressure 95/40 L 153/70 H Pulse Oximetry 92 96 96 Oxygen Delivery Method Room Air Oxygen Flow Rate 0 0 0 Oxygen Delivery Method Room Air Oxygen Flow Rate 0 Narrative Exam Narrative: Gen:? Arousable and indicating that she feels fine.? Appears in no acute medical distress. HEENT: normocephalic, atraumatic, conjunctiva clear, sclera non-icteric, oral mucosa pink and moist Neck: supple, full ROM, no JVD, trachea is midline Resp: Lungs CTA, non-labored breathing CV:? Rhythm normal.? Heart sounds S1 and S2, no murmur or rubs Abd: soft, non-tender, bowel sounds normal. Skin:? Thin and friable no lesions or rashes, dry and intact Neuro:? Normal sensation of all extremities.? Protective of any movement of her right leg due to right hip pain. Extremities: moves all 4 extremities.? Protective of any movement of her right leg due to right hip pain. Psyche: normal mood and affect.? Dementia with behavioral disturbance that is well controlled now that the patient is on quetiapine doses.. Objective Labs Result Diagrams: 05/14/22 07:31 05/14/22 07:31 Labs: Laboratory Results - last 24 hr 05/14/22 05/14/22 05/14/22 07:31 07:31 07:31 WBC 9.2 RBC 3.07 L Hgb 9.5 L Hct 27.7 L MCV 90.1 MCH 30.8 MCHC 34.2 RDW 14.0 Plt Count 103 L Neut % (Auto) 85.8 H Lymph % (Auto) 5.9 L [place] % (Auto) 6.7 Eos % (Auto) 0.9 L Baso % (Auto) 0.7 Neut # (Auto) 7900 H Lymph # (Auto) 500 L [place] # (Auto) 600 Eos # (Auto) 100 Baso # (Auto) 100 Sodium 139 Potassium 3.6 Chloride 106 Carbon Dioxide 28 BUN 16 Creatinine 0.73 Estimated GFR > 60 BUN/Creatinine Ratio 21.9 Glucose 100 Calcium 7.6 L Magnesium 1.8 Total Bilirubin 0.7 AST 38 H ALT 17 Alkaline Phosphatase 45 Total Protein 5.9 L Albumin 3.1 L Globulin 2.8 Albumin/Globulin Ratio 1.1 [facility] Medical History Dementia Hallucinations due to late onset dementia Memory loss Surgical History (Updated 05/14/22 @ 10:26 by Alba Smith PA-C) History of thyroidectomy Status post breast lumpectomy Status post parathyroidectomy Family History Father Stroke Social History household members: spouse Smoking Status: Never smoker alcohol intake: former Assessment & Plan Assessment & Plan narrative: 1.Right femur fracture, acute, present on admission.? Postoperative for right hip hemiarthroplasty. Dr. Han, orthopedic surgery did surgery. 2.Urinary tract infection, acute, present on admission She was administered 2 g IV ceftriaxone in the emergency department and will be continued on 1 g ceftriaxone daily.? Urine is positive for Gram-positive bacilli.? Identified as E coli sensitive to ceftriaxone. Can discontinue ceftriaxone. 3.Essential hypertension, not well controlled on presentation.? Slightly elevated today and likely as a response to pain and the agitation of being in the hospital. Continue home dose of verapramil 120 mg p.o. b.i.d. 4. Dementia with behavioral disturbance especially at night.? Add dosing of quetiapine. The b.i.d. dosing of 12.5 mg has been of benefit in the patient behavioral disturbance with the dementia has settled. VTE Prophylaxis: Wells risk score 0X Bilateral SCDs Patient is inpatient service due to the severity of disease, risks of further disease progression. FEN: IV fluids:? NS at 100 mL/hour, diet:? NPO, labs: CBC, C/BMP, liver enzymes, Mag, PT/INR Consultants Dr. Han, orthopedic surgery, care and involvement in the patient's care is appreciated. Dispo:? Probable discharge to [facility] for rehab Code status:? DNR, Erica Cornelius is? her surrogate and POA. Time Spent With Patient Critical Care time: I spent a total of [] minutes of critical care time on this patient's care today; this time is exclusive of procedural time. Quality VTE Deep Vein Thrombosis/Pulmonary Embolism Present on Admission: No
[2022-05-15 07:37] LABS: Add Manual Diff / Slide Review NO; Basophils Absolute Auto 100 /uL (0-100); Basophils Percent Auto 0.8 % (0-2); Eosinophils Absolute Auto 200 /uL (0-450); Eosinophils Percent Auto 2.8 % (2-4); Hematocrit 26.4 % (36-46); Hemoglobin 9.1 g/dL (12.0-16.0); Lymphocytes Absolute Auto 400 /uL (1100-4500); Lymphocytes Percent Auto 6.8 % (25-40); Mean Corpuscular HGB Conc 34.4 % (30-36); Mean Corpuscular Volume 90.3 fL (80-100); Monocytes Absolute Auto 500 /uL (0-900); Monocytes Percent Auto 7.9 % (3-14); Neutrophils Absolute Auto 5300 /uL (1500-7000); Neutrophils Percent Auto 81.7 % (50-75); Platelet Count 85 X10^3/uL (150-400); Red Blood Cell Count 2.92 X10^6/uL (4.0-5.2); Red Cell Distribution Width 13.9 % (11.6-14.8); White Blood Cell Count 6.4 X10^3/uL (4.5-11.0)
[2022-05-15 07:40] LABS: Alanine Aminotransferase 15 IU/L (<35); Albumin 2.8 g/dL (3.5-5.0); Alkaline Phosphatase 47 U/L (38-126); Aspartate Aminotransferase 38 IU/L (14-36); BUN Creatinine Ratio 22.1 (6-22); Bilirubin Total 0.6 mg/dL (0.2-1.3); Blood Urea Nitrogen 15 mg/dL (7-17); Calcium 7.6 mg/dL (8.4-10.2); Carbon Dioxide 25 mmol/L (22-32); Chloride 110 mmol/L (98-107); Estimated Glomerular Filt Rate > 60 mL/min (>60); Globulin 2.8 g/dL (1.7-4.1); Glucose 82 mg/dL (80-110); HEMOLYSIS < 15 (0-50); Potassium 3.2 mmol/L (3.4-5.1); Sodium 139 mmol/L (137-145); Total Protein 5.6 g/dL (6.3-8.2)
[2022-05-15] MEDS: SODIUM CHLORIDE 0.9% 1,000 ML 100 ML IV ×2 (07:52→18:20)
[2022-05-15] MEDS: QUETIAPINE 25 MG TABLET 12.5 MG PO ×2 (09:43→21:25)
[2022-05-15] MEDS: VERAPAMIL 120 MG TABLET PO ×2 (09:44→21:25)
[2022-05-15] MEDS: LOSARTAN 50 MG TABLET PO ×2 (09:44→21:26)
[2022-05-15] MEDS: SODIUM CHLORIDE 0.9% FLUSH 10 ML IV ×2 (09:45→21:28)
[2022-05-15] MEDS: DOCUSATE 100 MG CAPSULE PO (09:45)
--- NOTE | 2022-05-15 11:36 | CM.DPNOTE ---
Addendum entered by Aydee Reina R.N. 05/15/22 16:51: [facility] can accept on Wednesday. PASSR done. Spoke with he is glad she will go to [facility], as that was his choice. Early leatha pending, Sherita--[phone]. SEJ Original Note: Discharge Planning Note: Received voicemail from February at [facility] this morning and she would like to see another PT note and this DCP requested Dr to write for OT Eval this am. PT/OT notes instrumental in getting Sharath zhang for optimal stay in SNF. February asking what is LTC plan for patient given her advanced dementia. Will let her know that family have been given memory care resources and private caregivers. P: Touch base with spouse. Call February. Melanie Reina RN/DCP
--- NOTE | 2022-05-15 11:44 | PT.IPTN ---
Current Diagnoses Fracture of unspecified part of neck of unspecified femur, initial encounter for closed fracture (05/12/22) Presence of unspecified artificial hip joint (05/12/22) Surgery Performed Operation Date: 05/13/22 14:15 Actual Procedures p Hip Hemiarthroplasty(Right) - Devendra Han MD Physical Therapy Treatment Note M2 PT-IP Current Condition Start: 05/14/22 12:23 Freq: NEEDED Status: Active Protocol: Document 05/14/22 10:30 AB (Rec: 05/14/22 12:36 AB [id number]) Physical Therapy Current Condition Current Condition Evaluation Date 05/14/22 Treatment Diagnosis R femoral fx s/p hemiarthroplasty; difficulty in walking Onset Date 05/12/22 M3 PT-IP Subjective Start: 05/14/22 12:23 Freq: NEEDED Status: Active Protocol: Document 05/15/22 11:21 KS (Rec: 05/15/22 14:29 KS [id number]) Subjective Physical Therapy Visit Type Type Treatment Note Visit Start Time 11:21 Visit Stop Time 11:44 Total Visit Minutes 23 Notes co-treat w/ OT Number of PROGRAM COUNSELOR Visits 1 Physical Therapy Visit Comments Patient Comments spouse gave consent to work with pt M4 PT-IP Mobility and Gait Start: 05/14/22 12:23 Freq: NEEDED Status: Active Protocol: Document 05/15/22 11:21 [place] (Rec: 05/15/22 14:29 KS [id number]) PT-Bed Mobility Assessment Supine to Sit Supine to Sit Maximum Assistance,Total Assistance,2 Person Assistance ,Head of Bed Elevated Scooting Scooting to Edge of Bed Dependent PT-Transfer Assessment Sit to and From Stand Sit to and from Stand Maximum Assistance,Total Assistance,2 Person Assistance ,Use of Upper Extremities Equipment Transfer Assistive Device Gait Belt,Front Wheeled Walker Orthotic/Prosthetic Devices or Brace: No Transfers Transfer Destination Chair Transfer Technique Squat Pivot Transfer Ability Level of Assist Maximum Assistance,Total Assistance,2 Person Assistance Comments Mobility Comments Pt in bed upon arrival and present giving consent to mobilize pt. Pt w/ severe dementia, able to follow some cues including opening eyes and leaning forward. Pt required Max to Total A x2 for all mobility. She was able to sit EOB at first needing max A to maintain balance but progressed to Min A. She stood twice w/ FWW w/ Max Total x2- 3 and max cues for upright posture, knee and hip extension which she could minimally follow. Performed squat pivot to chair Max/Total x2. Pt left in chair w/ all needs in reach. Gait Assessment Comments Gait Comments Unable PT-Balance Assessment Sitting Balance and Reactions Static Sitting Balance Ability Fair Dynamic Sitting Balance Ability Fair Standing Balance and Reactions Static Standing Balance Ability Poor Dynamic Standing Balance Ability Poor Device Used FWW M5 PT-IP Objective Assessments Start: 05/14/22 12:23 Freq: NEEDED Status: Active Protocol: Document 05/14/22 10:30 AB (Rec: 05/14/22 12:36 AB [id number]) Orientation Orientation/Cognition Level of Alertness Confusional State Safety Awareness Decreased Safety Awareness Memory Description Short Term Impaired,Mink Slicer Impaired Gross Range of Motion Lower Extremity ROM Impairments presents with increase extensor guarding and unable to assess ROM and MMT Strength Comments Strength Comments presents with increase extensor guarding and unable to assess ROM and MMT M6 PT-IP Treatment Start: 05/14/22 12:23 Freq: NEEDED Status: Active Protocol: Document 05/15/22 11:21 KS (Rec: 05/15/22 14:29 KS [id number]) Physical Therapy Treatment Education Education Provided Precautions,Weight Bearing Status,Post-Op Packet,Safety M7 PT-IP Assessment and Plan Start: 05/14/22 12:23 Freq: NEEDED Status: Active Protocol: Document 05/15/22 11:21 KS (Rec: 05/15/22 14:29 KS [id number]) PT Summary Assessment and Plan Potential Rehabilitation Potential Fair Summary Impairments Pain,ROM,Strength,Balance, Coordination,Sensation,Tone, Cognition,Bed Mobility, Transfers,Gait,Activity Tolerance Progress Towards Goals Slow Progress due to Pain,Slow Progress due to Medical Issues,Slow Progress due to Activity Tolerance Assessment Summary Pt showed progress today and did not resist any therapies. She was able to perform 2x sit <>Stand and 1x squat pivot from bed to chair w/ Max/Total A x2. She was able to follow simple commands and responded to verbal and tactile cues. She was not agitated or combative. She will require SNF to improve strength and functional mobility. Goals Bed Mobility Goal Moderate Assistance Transfer Goal Moderate Assistance,Front Wheeled Walker Gait Goal Moderate Assistance,Front Wheel Walker Gait Distance 25 Other Goals improve bed mobiltiy, transfers and ambulation using FWW ~ 50 ft min A Days to Meet Goals 10 Frequency of Treatment Frequency Of Treatment Once a Day Treatment Plan Physical Therapy Treatment Plan Bed Mobility Training,Transfer Training,Gait Training, Therapeutic Exercise,Balance Retraining,Post Op Education, Discharge Planning,Hot or Cold Pack,Neuromuscular Re-ed, Coordination Retraining,Manual Therapy Precautions Posterior Hip Precautions No Hip Flexion > 90 degrees,No Hip Internal Rotation,No Hip Adduction Weight Bearing Status Weight Bearing Status Weight Bear as Tolerated Allowed Weight Bearing Amount (enter % RLE WBAT or #) (%) Recommendations To Nursing Amount of Assist Needed Mechanical Lift Discharge Recommendations PT Discharge Recommendations SNF Rehab Transportation Needs at Discharge Wheelchair/Cabulance
--- NOTE | 2022-05-15 11:50 | OT.IP.EVAL ---
Current Diagnoses Fracture of unspecified part of neck of unspecified femur, initial encounter for closed fracture (05/12/22) Presence of unspecified artificial hip joint (05/12/22) Surgery Performed Operation Date: 05/13/22 14:15 Actual Procedures p Hip Hemiarthroplasty(Right) - Devendra Han MD Past Medical History (Last Reviewed 05/13/22 @ 08:27 by Valeria Pritchard MD) Dementia Hallucinations due to late onset dementia Memory loss Surgical History (Last Reviewed 05/13/22 @ 08:27 by Valeria Pritchard MD) History of thyroidectomy Status post breast lumpectomy Status post parathyroidectomy Occupational Therapy Inpatient Evaluation/Re-Eval M1 PT/OT-IP Prior Functional Status Start: 05/14/22 12:23 Freq: NEEDED Status: Active Protocol: Document 05/15/22 11:55 [facility] (Rec: 05/15/22 12:19 [facility] [id number]) Medical Review Prior Functional Status Medical History Reviewed Yes Communication pt has decrease awareness due to dx of dementia; Pt needing visual cue and tactile cues to follow commands. Mobility and Gait spouse in room and provided PLFO and home set up info: stated that pt is modified independent with bed mobility, transfers and ambulation without AD but depending on willingness of pt to move; stated that he assists pt with hygiene care, dressing needs Activities of Daily Living and IADL's Pt's states once in while pt able to get to the toilet on her own and complete the task, otherwise he is there to assist as needed and help her sequence through the tasks. Social History Household Members spouse Living Arrangements House Number of Floors (Floors) One Floor Number of Stairs To Enter/Railing? no steps to enter Home Environment Standard Height Toilet,Walk in Shower Home Equipment Shower Seat with Backrest,Hand Held Shower M2 OT-IP Current Condition Start: 05/15/22 11:54 Freq: Status: Active Protocol: Document 05/15/22 11:55 [facility] (Rec: 05/15/22 12:19 [facility] [id number]) Occupational Therapy Current Condition Current Condition Evaluation Date 05/15/22 Treatment Diagnosis Right femoral fx, UTI, decreased mobility Diagnosis Onset Date 05/12/22 Post Operative Precautions Posterior Hip Precautions No Hip Flexion > 90 degrees,No Hip Internal Rotation,No Hip Adduction M3 OT- IP Subjective and Pain Start: 05/15/22 11:54 Freq: Status: Active Protocol: Document 05/15/22 11:55 [facility] (Rec: 05/15/22 12:19 [facility] [id number]) OT- Subjective Occupational Therapy Visit Type Type Initial Evaluation Visit Start Time 11:20 Visit Stop Time 11:50 Total Visit Minutes 30 Occupational Therapy Visit Comments Patient Comments Pt's in the room and pt awake in the bed. Patient/Caregiver Goals Pt's would like for pt to go to skilled rehab. Pt has severe dementia and unable to states any goals. OT Pain Assessment Pain When Pain Assessed During Mobility Pain Present Pain Present Unable to Respond FLACC Pain Scale Face Occasional grimace/frown M4 OT- IP ADL's Start: 05/15/22 11:54 Freq: Status: Active Protocol: Document 05/15/22 11:55 [facility] (Rec: 05/15/22 12:19 [facility] [id number]) OT [id number] Comments OT Self-Feeding Comments NOt at meal time. Nursing aid states assisted pt to eat her pudding. OT ADL-Grooming Comments OT Grooming Comments Pt not able to wash her face after wash cloth set-up in her hand. OT ADL-Oral Care Comments Oral Care Comments Per pt's assist with her oral care at home especially for completeness as food gets stuck on her mouth. OT ADL-Dressing General Eval Lower Body Dressing Ability Total Assistance Comments OT Dressing Comments Pt will need total assist for all LB dressing needs at this time. OT ADL-Toileting General Evaluation Toileting Ability Total Assistance OT ADL-Bathing Comments OT Bathing Comments Sponge bath more appropriate at this time. M5 OT- IP IADL's Start: 05/15/22 11:54 Freq: Status: Active Protocol: Document 05/15/22 11:55 [facility] (Rec: 05/15/22 12:19 [facility] [id number]) OT-Instrumental Activities of Daily Living Home Safety Awareness Ability to Problem Solve Emergency Unable to Problem Solve Situations Home Safety Comments Pt has severe dementia and therefore pt's assist with all ADL,IADL, and mobility needs. Medication Management Medication Management Caregiver Administers Money Management Money Management Caregiver Provides Assistance Meal Preparation Meal Preparation Caregiver Provides Assist Security Researcher Security Researcher Caregiver Provides Assist Driving Driving Caregiver Provides Assist M6 OT- IP Functional Cognition Start: 05/15/22 11:54 Freq: Status: Active Protocol: Document 05/15/22 11:55 [facility] (Rec: 05/15/22 12:19 [facility] [id number]) Cognitive Factors Limiting Selfcare Function Cognitive Ability Level of Alertness Alert,Confusional State Patient Orientation Name Attention Span Ability Capable of Focused Attention, Unable to Sustain Attention Memory Description Short Term Impaired,[place] Impaired,Working Impaired Cognitive Comments Cognitive Assessment Comments Pt has severe dementia and mainly just orientated to her name. Pt able to follow simple concrete commands with visual and tactile cues. Pt is cooperative during OT/PERMIT SPECIALIST joint session. M7 OT- IP Mobility and Balance Start: 05/15/22 11:54 Freq: Status: Active Protocol: Document 05/15/22 11:55 [facility] (Rec: 05/15/22 12:19 [facility] [id number]) OT- Bed Mobility Assessment Supine to Sit Supine to Sit Assist Maximum Assistance,Total Assistance,2 Person Assistance ,Head of Bed Elevated OT-Transfer Assessment Sit to and From Stand Sit to and from Stand Maximum Assistance,Total Assistance,1 Person Assistance ,2 Person Assistance Transfers Transfer Ability Total Assistance,2 Person Assistance Technique Transfer Destination Bed,Chair Transfer Technique Squat Pivot Devices Transfer Assistive Devices None,Gait Belt Comments Mobility Comments MAX/TOTAL assist and heavy use of green pad to assist to get pt to the edge of the bed. assist to get her legs off the bed and to assist to get her trunk upright. Pt needing from CGA to MOD a for sitting balance at this time. MAX/ Total X 2-3 to assist to stand to FWW and unable to straighten her legs up all the way. Squat pivot transfer Total A x2 to the left and another person there for safety and IV pole management. Jose lift. OT- Balance Assessment Sitting Balance and Reactions Static Sitting Balance Ability Poor Dynamic Sitting Balance Ability Poor Standing Balance and Reactions Static Standing Balance Ability Poor Dynamic Standing Balance Ability Poor M8 OT- IP Objective Assessments Start: 05/15/22 11:54 Freq: Status: Active Protocol: Document 05/15/22 11:55 [facility] (Rec: 05/15/22 12:19 [facility] [id number]) OT Strength Comments Strength Comments Not able to formally assess due to her dementia, at least 3-/5 per pt's assist for mobility needs. OT-Muscle Tone Assessment Muscle Tone WNL Yes M9 OT- IP Assessment and Plan Start: 05/15/22 11:54 Freq: Status: Active Protocol: Document 05/15/22 11:55 [facility] (Rec: 05/15/22 12:19 [facility] [id number]) OT Summary Assessment and Plan Potential Rehabilitation Potential Good Analytic Complexity at Evaluation Moderate Summary OT Impairments Pain,Balance,Functional Cognition,Functional Mobility, Dressing,Toileting,Toilet Transfers,Shower Transfers, Activity Tolerance Progress Towards Goals Slow Progress due to Pain,Slow Progress due to Medical Issues,Slow Progress due to Activity Tolerance,Slow Progress due to Cognition Assessment Summary Pt MOD complexity and main barriers are pain and now needing 3 person assist to stand to FWW . Pt able to do squat pivot transfer from the bed to wc with TOTAL assist x2 . Jose lift suggested for nursing staff at this time. Pt is far from her baseline of MOD I without use of devices for functional ambulation needs. Pt has a very supportive elderly but pt's current level too great for pt to assist. Pt will greatly benefit from skilled rehab. Pt was cooperative during OT eval today . Goals Grooming Goal Moderate Assistance Toileting Goal Moderate Assistance Toilet Transfer Goal Contact Guard Assistance Shower Transfer Goal Minimal Assistance Days to Meet Goals 40 Frequency of Treatment Frequency Of Treatment Once a Day Treatment Plan OT Treatment Plan ADL Training,Functional Mobility,Patient/Family Education,Discharge Planning Other Treatment Recommendations and [place] [facility] [place] 2 Treatment Focus squat pivot. Discharge Recommendations OT Discharge Recommendations SNF Rehab Transportation Needs at Discharge Wheelchair/Cabulance
[2022-05-15] MEDS: ACETAMINOPHEN 325 MG TABLET 650 MG PO (12:24)
[2022-05-15] MEDS: POTASSIUM CHLORIDE 20 MEQ TAB 40 MEQ PO (12:24)
--- NOTE | 2022-05-15 21:02 | P.PN_ITS ---
Exam Vital Signs (past 8 hours): - 05/15/22 14:00 05/15/22 18:00 Temperature 98.0 F Pulse Rate 81 Respiratory Rate 22 Blood Pressure 114/96 H Pulse Oximetry 94 95 Oxygen Delivery Method Room Air Oxygen Flow Rate 0 0 Oxygen Delivery Method Room Air Oxygen Flow Rate 0 Narrative Exam Narrative: Gen:? Arousable and indicating that she feels fine.? Appears in no acute medical distress. HEENT: normocephalic, atraumatic, conjunctiva clear, sclera non-icteric, oral mucosa pink and moist Neck: supple, full ROM, no JVD, trachea is midline Resp: Lungs CTA, non-labored breathing CV:? Rhythm normal.? Heart sounds S1 and S2, no murmur or rubs Abd: soft, non-tender, bowel sounds normal. Skin:? Thin and friable no lesions or rashes, dry and intact Neuro:? Normal sensation of all extremities.? Protective of any movement of her right leg due to right hip pain. Extremities: moves all 4 extremities.? Protective of any movement of her right leg due to right hip pain. Psyche: normal mood and affect.? Dementia with behavioral disturbance that is well controlled now that the patient is on quetiapine doses.. Objective Labs Result Diagrams: 05/15/22 06:39 05/15/22 06:39 Labs: Laboratory Results - last 24 hr 05/15/22 05/15/22 06:39 06:39 WBC 6.4 RBC 2.92 L Hgb 9.1 L Hct 26.4 L MCV 90.3 MCH 31.0 MCHC 34.4 RDW 13.9 Plt Count 85 L Neut % (Auto) 81.7 H Lymph % (Auto) 6.8 L [place] % (Auto) 7.9 Eos % (Auto) 2.8 Baso % (Auto) 0.8 Neut # (Auto) 5300 Lymph # (Auto) 400 L [place] # (Auto) 500 Eos # (Auto) 200 Baso # (Auto) 100 Sodium 139 Potassium 3.2 L Chloride 110 H Carbon Dioxide 25 BUN 15 Creatinine 0.68 Estimated GFR > 60 BUN/Creatinine Ratio 22.1 H Glucose 82 Calcium 7.6 L Magnesium 2.0 Total Bilirubin 0.6 AST 38 H ALT 15 Alkaline Phosphatase 47 Total Protein 5.6 L Albumin 2.8 L Globulin 2.8 Albumin/Globulin Ratio 1.0 PFSH Medical History Dementia Hallucinations due to late onset dementia Memory loss Surgical History (Updated 05/14/22 @ 10:26 by Alba Smith PA-C) History of thyroidectomy Status post breast lumpectomy Status post parathyroidectomy Family History Father Stroke Social History household members: spouse Smoking Status: Never smoker alcohol intake: former Assessment & Plan Assessment & Plan narrative: 1.Right femur fracture, acute, present on admission.? Postoperative for right hip hemiarthroplasty. Dr. Han, orthopedic surgery did surgery. 2.Urinary tract infection, acute, present on admission She was administered 2 g IV ceftriaxone in the emergency department and will be continued on 1 g ceftriaxone daily.? Urine is positive for Gram-positive bacilli.? Identified as E coli sensitive to ceftriaxone. Can discontinue ceftriaxone. 3.Essential hypertension, not well controlled on presentation.? Slightly elevated today and likely as a response to pain and the agitation of being in the hospital. Continue home dose of verapramil 120 mg p.o. b.i.d. 4. Dementia with behavioral disturbance especially at night.? Add dosing of quetiapine. The b.i.d. dosing of 12.5 mg has been of benefit in the patient behavioral disturbance with the dementia has settled. VTE Prophylaxis: Wells risk score 0X Bilateral SCDs Patient is inpatient service due to the severity of disease, risks of further disease progression. Consultants Dr. Han, orthopedic surgery, care and involvement in the patient's care is appreciated. Dispo:? Probable discharge to SNF for rehab, awaiting availability Code status:? DNR, Erica Cornelius is? her surrogate and POA. Time Spent With Patient Critical Care time: I spent a total of [] minutes of critical care time on this patient's care today; this time is exclusive of procedural time. Quality VTE Deep Vein Thrombosis/Pulmonary Embolism Present on Admission: No
[2022-05-16] VITALS: BP 135/61; PULSE 87; RESP 15; TEMP 37.2; O2SAT 94
[2022-05-16 02:00] VITALS: O2SAT 94
[2022-05-16 06:00] VITALS: BP 133/56; PULSE 83; RESP 17; TEMP 36.7; O2SAT 96
--- NOTE | 2022-05-16 06:58 | PC.NURSE ---
Pt initially allowed this RN to administer medication with applesauce. All tablets given, pt continued to chew them instead of swallowing despite cues. One capsule remained, pt repeatedly spat out of applesauce and refused to take any more pills. Refused tylenol x2.
[2022-05-16] MEDS: QUETIAPINE 25 MG TABLET 12.5 MG PO (08:36)
[2022-05-16 08:37] VITALS: O2SAT 93
[2022-05-16] MEDS: LOSARTAN 50 MG TABLET PO (08:37)
[2022-05-16] MEDS: DOCUSATE 100 MG CAPSULE PO (08:37)
[2022-05-16] MEDS: VERAPAMIL 120 MG TABLET PO (08:37)
[2022-05-16] MEDS: SODIUM CHLORIDE 0.9% FLUSH 10 ML IV (08:38)
[2022-05-16 08:40] VITALS: BP 132/53; PULSE 78
[2022-05-16 10:09] LABS: COVID19 -Nasal RAPID Negative (Negative)
--- NOTE | 2022-05-16 10:30 | P.PN_ITS ---
Subjective Subjective Date Patient Seen: 05/16/22 Time Patient Seen: 11:02 Interval history: Sitting up in a chair, eating breakfast with the help of her , Katerin. She continues to be minimally verbal and only occasionally cooperative with exam, despite the urging of her . Exam Vital Signs (past 8 hours): - 05/16/22 06:00 05/16/22 08:40 05/16/22 08:37 Temperature 98.1 F Pulse Rate 83 78 Respiratory Rate 17 Blood Pressure 133/56 L 132/53 L Pulse Oximetry 96 Oxygen Delivery Method Room Air Oxygen Flow Rate 0 05/16/22 08:37 Temperature Pulse Rate Respiratory Rate Blood Pressure Pulse Oximetry 93 Oxygen Delivery Method Room Air Oxygen Flow Rate Oxygen Delivery Method Room Air Oxygen Flow Rate 0 Narrative Exam Narrative: Wiggles toes without difficulty, does not otherwise move foot or leg. RLE is warm and well-perfused. Calves are soft and compressible without palpable cords or masses. Aquacel dressing to right hip is CDI. Objective Labs Result Diagrams: 05/15/22 06:39 05/15/22 06:39 Labs: Laboratory Results - last 24 hr 05/16/22 09:53 SARS-CoV-2 (PCR) Negative [facility] Medical History Dementia Hallucinations due to late onset dementia Memory loss Surgical History (Updated 05/14/22 @ 10:26 by Alba Smith PA-C) History of thyroidectomy Status post breast lumpectomy Status post parathyroidectomy Family History Father Stroke Social History household members: spouse Smoking Status: Never smoker alcohol intake: former Assessment & Plan Post-op Assessment and plan (1) S/P hip hemiarthroplasty: Assessment and Plan narrative: Per CM notes, appears that plan is for [facility] on 05/18/2022. WBAT to RLE, posterior hip precautions. Continue SCDs and enoxaparin 40 mg daily for VTE prophylaxis.? Continue enoxaparin through May 23. Follow up in Dr Han's office with a PA between May 22 and May 26 for wound check.? Leave Aquacel dressing in place until that time.? If transport from SNF at that time is too burdensome, Aquacel dressing can be removed and wound evaluated by SNF provider.? Pt should follow up in Dr Han's office no later than 6 weeks after surgery for radiographs. Postoperative Procedures: Procedures Operation Date: 05/13/22 14:15 Actual Procedure Side Surgeon p Hip Hemiarthroplasty Right Devendra Han MD Postoperative day: 3 Quality VTE Deep Vein Thrombosis/Pulmonary Embolism Present on Admission: No
--- NOTE | 2022-05-16 10:48 | PT.IPTN ---
Current Diagnoses Fracture of unspecified part of neck of unspecified femur, initial encounter for closed fracture (05/12/22) Presence of unspecified artificial hip joint (05/12/22) Surgery Performed Operation Date: 05/13/22 14:15 Actual Procedures p Hip Hemiarthroplasty(Right) - Devendra Han MD Physical Therapy Treatment Note M2 PT-IP Current Condition Start: 05/14/22 12:23 Freq: NEEDED Status: Active Protocol: Document 05/14/22 10:30 AB (Rec: 05/14/22 12:36 AB [id number]) Physical Therapy Current Condition Current Condition Evaluation Date 05/14/22 Treatment Diagnosis R femoral fx s/p hemiarthroplasty; difficulty in walking Onset Date 05/12/22 M3 PT-IP Subjective Start: 05/14/22 12:23 Freq: NEEDED Status: Active Protocol: Document 05/16/22 10:34 KS (Rec: 05/16/22 11:31 KS [id number]) Subjective Physical Therapy Visit Type Type Treatment Note Visit Start Time 10:34 Visit Stop Time 10:48 Total Visit Minutes 14 Notes co-treat w/ OT Number of WILDLIFE MANAGER Visits 2 Physical Therapy Visit Comments Patient Comments Pt agreeable to transfer to chair. M4 PT-IP Mobility and Gait Start: 05/14/22 12:23 Freq: NEEDED Status: Active Protocol: Document 05/16/22 10:34 KS (Rec: 05/16/22 11:31 KS [id number]) PT-Bed Mobility Assessment Supine to Sit Supine to Sit Maximum Assistance,2 Person Assistance,Head of Bed Elevated Scooting Scooting to Edge of Bed Dependent PT-Transfer Assessment Sit to and From Stand Sit to and from Stand Maximum Assistance,2 Person Assistance,Use of Upper Extremities Equipment Transfer Assistive Device Gait Belt,Front Wheeled Walker Orthotic/Prosthetic Devices or Brace: No Transfers Transfer Destination Chair Transfer Technique Squat Pivot Transfer Ability Level of Assist Maximum Assistance,2 Person Assistance Comments Mobility Comments Pt in bed upon arrival w/ in room. Agreeable to transfer to chair to finish breakfast. Pt required Max A x2 for sup<>sit and scooting EOB. Her sitting balance was improved today and she was able to maintain seated balance EOB CGA to Min A. Required Max A x2 for squat pivot transfer from bed to chair. Pt left in chair w/ all needs in reach. PT-Balance Assessment Sitting Balance and Reactions Static Sitting Balance Ability Fair Dynamic Sitting Balance Ability Fair Standing Balance and Reactions Static Standing Balance Ability Poor Dynamic Standing Balance Ability Poor Device Used FWW M5 PT-IP Objective Assessments Start: 05/14/22 12:23 Freq: NEEDED Status: Active Protocol: Document 05/14/22 10:30 AB (Rec: 05/14/22 12:36 AB [id number]) Orientation Orientation/Cognition Level of Alertness [place] Safety Awareness Decreased Safety Awareness Memory Description Short Term Impaired,Fpc Impaired Gross Range of Motion Lower Extremity ROM Impairments presents with increase extensor guarding and unable to assess ROM and MMT Strength Comments Strength Comments presents with increase extensor guarding and unable to assess ROM and MMT M6 PT-IP Treatment Start: 05/14/22 12:23 Freq: NEEDED Status: Active Protocol: Document 05/16/22 10:34 KS (Rec: 05/16/22 11:31 KS [id number]) Physical Therapy Treatment Education Education Provided Precautions,Weight Bearing Status,Post-Op Packet,Safety M7 PT-IP Assessment and Plan Start: 05/14/22 12:23 Freq: NEEDED Status: Active Protocol: Document 05/16/22 10:34 KS (Rec: 05/16/22 11:31 KS [id number]) PT Summary Assessment and Plan Potential Rehabilitation Potential Fair Summary Impairments Pain,ROM,Strength,Balance, Coordination,Sensation,Tone, Cognition,Bed Mobility, Transfers,Gait,Activity Tolerance Progress Towards Goals Slow Progress due to Pain,Slow Progress due to Medical Issues,Slow Progress due to Activity Tolerance Assessment Summary Pt continues to make slow progress and demonstrated improved sitting balance today . She required Max A x2 for squat pivot transfer and tolerated well. She was able to follow simple commands and responded to verbal and tactile cues. She was not agitated or combative. She will require SNF to improve strength and functional mobility as she is not at her baseline mobility. Goals Bed Mobility Goal Moderate Assistance Transfer Goal Moderate Assistance,Front Wheeled Walker Gait Goal Moderate Assistance,Front Wheel Walker Gait Distance 25 Other Goals improve bed mobiltiy, transfers and ambulation using FWW ~ 50 ft min A Days to Meet Goals 10 Frequency of Treatment Frequency Of Treatment Once a Day Treatment Plan Physical Therapy Treatment Plan Bed Mobility Training,Transfer Training,Gait Training, Therapeutic Exercise,Balance Retraining,Post Op Education, Discharge Planning,Hot or Cold Pack,Neuromuscular Re-ed, Coordination Retraining,Manual Therapy Precautions Posterior Hip Precautions No Hip Flexion > 90 degrees,No Hip Internal Rotation,No Hip Adduction Weight Bearing Status Weight Bearing Status Weight Bear as Tolerated Allowed Weight Bearing Amount (enter % RLE WBAT or #) (%) Recommendations To Nursing Amount of Assist Needed Mechanical Lift Discharge Recommendations PT Discharge Recommendations SNF Rehab Transportation Needs at Discharge Wheelchair/Cabulance
--- NOTE | 2022-05-16 10:49 | OT.IP.TRT ---
Current Diagnoses Fracture of unspecified part of neck of unspecified femur, initial encounter for closed fracture (05/12/22) Presence of unspecified artificial hip joint (05/12/22) Surgery Performed Operation Date: 05/13/22 14:15 Actual Procedures p Hip Hemiarthroplasty(Right) - Devendra Han MD Occupational Therapy Treatment Note M2 OT-IP Current Condition Start: 05/15/22 11:54 Freq: Status: Active Protocol: Document 05/15/22 11:55 [facility] (Rec: 05/15/22 12:19 [facility] [id number]) Occupational Therapy Current Condition Current Condition Evaluation Date 05/15/22 Treatment Diagnosis Right femoral fx, UTI, decreased mobility Diagnosis Onset Date 05/12/22 Post Operative Precautions Posterior Hip Precautions No Hip Flexion > 90 degrees,No Hip Internal Rotation,No Hip Adduction M3 OT- IP Subjective and Pain Start: 05/15/22 11:54 Freq: Status: Active Protocol: Document 05/16/22 10:53 [facility] (Rec: 05/16/22 11:06 [facility] [id number]) OT- Subjective Occupational Therapy Visit Type Type Treatment Note Visit Start Time 10:34 Visit Stop Time 10:49 Total Visit Minutes 15 Occupational Therapy Visit Comments Patient Comments Pt's assisting her to eat and pt's agreed best to get the pt up to the recliner. Patient/Caregiver Goals Pt's would like for pt to go to skilled rehab. Pt has severe dementia and unable to states any goals. OT Pain Assessment Pain When Pain Assessed During Mobility Pain Present Pain Present Unable to Respond FLACC Pain Scale Face Frequent/constant frown M4 OT- IP ADL's Start: 05/15/22 11:54 Freq: Status: Active Protocol: Document 05/16/22 10:53 [facility] (Rec: 05/16/22 11:06 [facility] [id number]) OT LUL-Rzfq-[id number] Comments OT Self-Feeding Comments Pt's assisting pt to eat at this time and will continue to benefit from assist due to her dementia. OT ADL-Grooming Comments OT Grooming Comments Not performed. OT ADL-Oral Care Comments Oral Care Comments NOt performed. OT ADL-Dressing Comments OT Dressing Comments Total assist at this time. OT ADL-Toileting General Evaluation Toileting Ability Total Assistance OT ADL-Bathing Comments OT Bathing Comments Sponge bath more appropriate at this time. M5 OT- IP IADL's Start: 05/15/22 11:54 Freq: Status: Active Protocol: Document 05/15/22 11:55 [facility] (Rec: 05/15/22 12:19 [facility] [id number]) OT-Instrumental Activities of Daily Living Home Safety Awareness Ability to Problem Solve Emergency Unable to Problem Solve Situations Home Safety Comments Pt has severe dementia and therefore pt's assist with all ADL,IADL, and mobility needs. Medication Management Medication Management Caregiver Administers Money Management Money Management Caregiver Provides Assistance Meal Preparation Meal Preparation Caregiver Provides Assist Industrial Electrician Industrial Electrician Caregiver Provides Assist Driving Driving Caregiver Provides Assist M6 OT- IP Functional Cognition Start: 05/15/22 11:54 Freq: Status: Active Protocol: Document 05/16/22 10:53 [facility] (Rec: 05/16/22 11:06 [facility] [id number]) Cognitive Factors Limiting Selfcare Function Cognitive Ability Level of Alertness Alert Patient Orientation Name Attention Span Ability Capable of Focused Attention Memory Description Short Term Impaired,Care Home Impaired,Working Impaired Cognitive Comments Cognitive Assessment Comments Pt able to follow commands better today and answer simple questions today regarding her pain. Pt is cooperative during the session. M7 OT- IP Mobility and Balance Start: 05/15/22 11:54 Freq: Status: Active Protocol: Document 05/16/22 10:53 [facility] (Rec: 05/16/22 11:06 [facility] [id number]) OT- Bed Mobility Assessment Supine to Sit Supine to Sit Assist Maximum Assistance,2 Person Assistance,Head of Bed Elevated OT-Transfer Assessment Transfers Transfer Ability Maximum Assistance,2 Person Assistance Technique Transfer Destination Bed,Chair Transfer Technique Squat Pivot Devices Transfer Assistive Devices None,Gait Belt Comments Mobility Comments Pt able to assist to help move her left leg closer to the edge of the bed and then needing assist to move both legs off the bed and assist for her trunk upright. Use of green pad to assist to move her to the edge of the bed. Squat/stand pivot and MAX AX 2 and pt able to move her feet a little during the transfer. OT- Balance Assessment Sitting Balance and Reactions Static Sitting Balance Ability Fair Dynamic Sitting Balance Ability Poor Comments Other Balance Tests/Deviations/Treatment Pt sitting balance improve : today and fair and able to sit at the edge of the bed with SBA today versus yesterday needing up to MOD A at times. M8 OT- IP Objective Assessments Start: 05/15/22 11:54 Freq: Status: Active Protocol: Document 05/15/22 11:55 [facility] (Rec: 05/15/22 12:19 [facility] [id number]) OT Strength Comments Strength Comments Not able to formally assess due to her dementia, at least 3-/5 per pt's assist for mobility needs. OT-Muscle Tone Assessment Muscle Tone WNL Yes M9 OT- IP Assessment and Plan Start: 05/15/22 11:54 Freq: Status: Active Protocol: Document 05/16/22 10:53 [facility] (Rec: 05/16/22 11:06 [facility] [id number]) OT Summary Assessment and Plan Potential Rehabilitation Potential Good Analytic Complexity at Evaluation Moderate Summary OT Impairments Pain,Balance,Functional Cognition,Functional Mobility, Dressing,Toileting,Toilet Transfers,Shower Transfers, Activity Tolerance Progress Towards Goals Progressing Toward Goals,Slow Progress due to Pain Assessment Summary Pt able to follow commands better today for the transfer. Pt also able to answer simple questions today of whether she was in pain. Pt sitting balance was SBA at the edge of the bed today and able to do squat/stand pivot MAX Ax2. Pt is very cooperative and would greatly benefit from skilled rehab. Prior to pt's fall pt was MOD I with all her mobility needs and no devices used. Goals Self-Feeding Goal Moderate Assistance Grooming Goal Moderate Assistance Toileting Goal Moderate Assistance Toilet Transfer Goal Contact Guard Assistance Shower Transfer Goal Minimal Assistance Days to Meet Goals 39 Frequency of Treatment Frequency Of Treatment Once a Day Treatment Plan OT Treatment Plan ADL Training,Functional Mobility,Patient/Family Education,Discharge Planning Other Treatment Recommendations and Next Transfer to [facility] with MAX AX 2 Treatment Focus squat pivot. Discharge Recommendations OT Discharge Recommendations SNF Rehab Transportation Needs at Discharge Wheelchair/Cabulance
--- NOTE | 2022-05-16 11:18 | PC.NURSE ---
patient is 1:1 feed. A&O1. occasionally follows commands. denies pain. can wiggle toes. can slightly bend legs. pp++.foleey patent
--- NOTE | 2022-05-16 12:49 | P.DS_ITS ---
History of Present Illness History of Present Illness Date Patient Seen: 05/16/22 Time Patient Seen: 12:49 Chief complaint: Right hip fx, UTI Narrative: Audrey Cornelius is an 81 female with has late stage dementia, osteoporosis, hypothyroidism, and essential hypertension is non-verbal to me and am unable to obtain a history from her. History is obtained from the ED provider based on her conversation with the patient's who has left for the evening.? Per the ED provider, the patient was in bed with her then decided to go out into the living room and sleep on the couch.? told the ED provider that when she got up her leg gave out on her and she fell.? She was found to have a right ?impacted subcapital or transcervical fracture of the right femoral neck and an incidental finding of a urinary tract infection. She is afebrile, blood pressure 185/76, heart rate 93, she is mildly anemic with a H&H of 11.4 and 33.1 respectively she has a thrombocytopenia of with platelet count of 133, mild left shift of 8100 BUN 31 glucose 170 with an A1c of 5.2 she is positive for nitrates in her urine with ketones, leukocytes and bacteria and her urine will be cultured, COVID-19 PCR is negative. FH:? See chart, unable to obtain any kind of history from the patient including family history. Discharge Providers Provider Date of admission: 05/12/22 22:52 Discharge Date: 05/16/22 Primary care physician: Evert Chinchilla MD Consults: 05/12/22 23:20 Consult to Physician Routine Comment: Consulting Provider: Devendra Han Reason for consultation: right hip fx Has provider been notified: Yes 05/13/22 17:16 Consult to Discharge Planning Routine Comment: Consult to Physical Therapy Evaluate & Treat Comment: Physician Instructions: post op BAM protocol Consult to Respiratory Therapy Evaluate & Treat Comment: Physician Instructions: Evaluate and treat 05/15/22 10:30 Consult to Occupational Therapy Evaluate & Treat Comment: assess needs Physician Instructions: Evaluate and treat Discharge provider: Des Campa DO Summary Hospital Course Discharge Diagnosis: 1.Right femur fracture, acute, present on admission.? Postoperative for right hip hemiarthroplasty. Dr. Han, orthopedic surgery repaired on 05/13/22. -Continue lovenox 40mg daily until 05/23. -Per ortho note: Follow up in Dr Han's office with a PA between May 22 and May 26 for wound check.? Leave Aquacel dressing in place until that time.? If transport from [facility] at that time is too burdensome, Aquacel dressing can be removed and wound evaluated by SNF provider.? Pt should follow up in Dr Han's office no later than 6 weeks after surgery for radiographs. 2.Urinary tract infection, acute, present on admission She was administered 2 g IV ceftriaxone in the emergency department and will be continued on 1 g ceftriaxone daily.? Urine is positive for Gram-positive bacilli.? Identified as E coli sensitive to ceftriaxone.? Finished 3 day course. 3.Essential hypertension, not well controlled on presentation.? Slightly elevated today and likely as a response to pain and the agitation of being in the hospital. Continue home dose of verapramil 120 mg p.o. b.i.d. 4. Dementia with behavioral disturbance especially at night.? Add dosing of quetiapine.? The b.i.d. dosing of 12.5 mg has been of benefit in the patient behavioral disturbance with the dementia has settled. Hospital Course: Admitted for right hip fracture s/p repair by Dr. Han on 05/13. Had delirium post-op on top of her advanced dementia so seroquel added with good results. She will continue lovenox 40mg daily until 05/23 and f/u in ortho clinic for wound check in 1 week and again in 6 weeks. Time Spent with Patient Time spent: Greater than 30 minutes Exam Vital Signs (past 8 hours): - 05/16/22 06:00 05/16/22 08:40 05/16/22 08:37 Temperature 98.1 F Pulse Rate 83 78 Respiratory Rate 17 Blood Pressure 133/56 L 132/53 L Pulse Oximetry 96 Oxygen Delivery Method Room Air Oxygen Flow Rate 0 05/16/22 08:37 Temperature Pulse Rate Respiratory Rate Blood Pressure Pulse Oximetry 93 Oxygen Delivery Method Room Air Oxygen Flow Rate Oxygen Delivery Method Room Air Oxygen Flow Rate 0 Narrative Exam Narrative: Gen:? Arousable and indicating that she feels fine.? Appears in no acute medical distress. HEENT: normocephalic, atraumatic, conjunctiva clear, sclera non-icteric, oral mucosa pink and moist Neck: supple, full ROM, no JVD, trachea is midline Resp: Lungs CTA, non-labored breathing CV:? Rhythm normal.? Heart sounds S1 and S2, no murmur or rubs Abd: soft, non-tender, bowel sounds normal. Skin:? Thin and friable no lesions or rashes, dry and intact Neuro:? Normal sensation of all extremities.? Protective of any movement of her right leg due to right hip pain. Extremities: moves all 4 extremities.? Protective of any movement of her right leg due to right hip pain. Psyche: normal mood and affect.? Dementia with behavioral disturbance that is well controlled now that the patient is on quetiapine doses. Objective Labs Result Diagrams: 05/15/22 06:39 05/15/22 06:39 Labs: Laboratory Results - last 24 hr 05/16/22 09:53 SARS-CoV-2 (PCR) Negative COUNT INCLUDES THE [facility] Medical History Dementia Hallucinations due to late onset dementia Memory loss Surgical History (Updated 05/14/22 @ 10:26 by Alba Smith PA-C) History of thyroidectomy Status post breast lumpectomy Status post parathyroidectomy Family History Father Stroke Social History household members: spouse Smoking Status: Never smoker alcohol intake: former Discharge Plan Discharge Plan Patient Disposition: SNF Transfer to: [facility] Discharge orders & Medications Prescriptions: New enoxaparin [Lovenox] 40 mg/0.4 mL Syringe 40 mg SUBCUT DAILY 7 Days Qty: 4 0RF quetiapine 25 mg Tablet 12.5 mg PO BID Qty: 30 0RF oxycodone 5 mg Tablet 5 mg PO Q3HR PRN (Reason: Pain, Moderate (4-6)) Qty: 30 0RF senna 8.6 mg capsule 17.2 mg PO BEDTIME Qty: 30 0RF levothyroxine 112 mcg capsule 112 mcg PO DAILY Qty: 30 0RF Continued losartan 50 MG tablet 50 mg PO DAILY Qty: 0 Rx Instructions: *Pt currently taking one time daily polyethylene glycol 3350 [Miralax] 17 GM powder in packet 17 g PO DAILY Qty: 0 verapamil 120 mg tablet 120 mg PO DAILY Rx Instructions: *Pt only taking one time daily cholecalciferol (vitamin D3) [Vitamin D3] 5,000 unit Tablet 5,000 unit PO DAILY alendronate [Fosamax] 70 mg Tablet 70 mg WEEKLY Discontinued levothyroxine 100 mcg Tablet 100 mcg PO DAILY Follow up/Referrals: Evert Chinchilla MD [Primary Care Provider] - Devendra Han MD [Physician] - 1 Week Diet/Activity/Treatments Diet: Regular [facility] Reason for rehabilitation: Post-operative therapy Rehab type: Physical therapy and Occupational therapy Discharge Data Primary Care Provider: Evert Chinchilla Quality VTE Deep Vein Thrombosis/Pulmonary Embolism Present on Admission: No
[2022-05-16] MEDS: polyethylene glycoL 3350 17 GM POWD.PACK PO (13:22)
[2022-05-16 14:01] VITALS: BP 116/53; PULSE 97; RESP 14; TEMP 36.5; O2SAT 96
--- NOTE | 2022-05-16 15:26 | CM.DPC ---
DCP/continued: Reviewed chart. Received notification from provider that patient medically stable for d/c. Current plan is for patient to go to [facility] if approved by [facility]. RAIL CAR MAINTENANCE MECHANIC spoke with Vane at [facility] this AM. She reports that case being reviewed by Mixing Picker Tender. Updated therapy notes from today sent to [facility] per their request. Spoke with Mera at [facility] and she confirms that they can accept today if authorization received. Received call from [facility] indicating that patient has been approved for SNF. RN updated and number for report provided. Dr. Campa wrote d/c orders. RAIL CAR MAINTENANCE MECHANIC faxed order and [facility] facility. No additional needs identified. Met with patient and spouse. Spouse in agreement to plan. P: [facility] today. SUMIT
== END 2022-05-16 14:00 | DRG 522 ==
LOC: ED 20:12 → AC 22:53
PROVIDERS: Neuromusculoskeletal Medicine, Sports Medicine; Orthopaedic Surgery; Student in an Organized Health Care Education/Training Program; Admitting Provider Nurse Practitioner Family; Emergency Provider Emergency Medicine; Family Provider Internal Medicine; PCP Internal Medicine; Referring Provider Emergency Medicine; Visit Provider Nurse Practitioner Family
PROC: 0SRR0JZ Replacement of Right Hip Joint, Femoral Surface with Synthetic Substitute, Open Approach (ICD-10-PCS; CPT 27125; principal; 2022-05-13 14:15)
DX: S72.011A Unspecified intracapsular fracture of right femur, initial encounter for closed fracture (principal); N39.0 Urinary tract infection, site not specified; F03.91 Unspecified dementia, unspecified severity, with behavioral disturbance; I10 Essential (primary) hypertension; Z66 Do not resuscitate; B96.20 Unspecified Escherichia coli [E. coli] as the cause of diseases classified elsewhere; M81.0 Age-related osteoporosis without current pathological fracture; W08.XXXA Fall from other furniture, initial encounter; Z20.822 Contact with and (suspected) exposure to COVID-19
CPT/HCPCS: 36415; 71045; 72170; 73502; 80053; 81001; 83036; 83735; 85025; 85610; 87077; 87086; 87186; 87635; 93005; 96365; 96375; 97163; 97166; 97530; 99284; C1776; C9803; J0690; J0696; J1170; J1630; J2405; J2704; J3010

== ENCOUNTER 2022-10-10 16:08 | Inpatient (IN) | payer OTHER, SELFPAY ==
[2022-05-12 23:05] VITALS: BMI 21.2
[2022-10-10] VITALS (25 sets, daily range): BP systolic 144–224; BP diastolic 67–96; PULSE 76–104; RESP 11–25; TEMP 36.8–36.9; O2SAT 92–96; BMI 15.0
--- NOTE | 2022-10-10 16:17 | DI.RAD.S_ITS ---
PROCEDURE: XR CHEST 1V INDICATIONS: altered, twitchy TECHNIQUE: One view of the chest was acquired. COMPARISON: [facility], , CHEST 1 VIEW, 11/04/2016, 11:51. [facility], , XR CHEST 1V, 05/12/2022, 19:04. FINDINGS: Surgical changes and devices: Overlying monitoring wires. Surgical clips in the left axilla. Lungs and pleura: Chronic opacity in the right axillary region corresponding to the pleural and airspace disease seen on neck CT. There are no acute appearing consolidations. Mediastinum: Mediastinal contours appear normal. Heart size is normal. Bones and chest wall: No suspicious bony lesions. Degenerative changes in the right shoulder. Remote, healed left rib fractures. Overlying soft tissues appear unremarkable. IMPRESSION: 1. No acute process. 2. Chronic opacity in the right axillary upper lobe region, increasingly prominent over time. This may be scarring, radiation change, or pleural plaquing. Dictated by: Phylicia Almodovar M.D. on 10/10/2022 at 17:17 Approved by: Phylicia Almodovar M.D. on 10/10/2022 at 17:21
--- NOTE | 2022-10-10 16:17 | DI.CT.S_ITS ---
PROCEDURE: CT CERVICAL SPINE WO CON INDICATIONS: altered, twitchy TECHNIQUE: Noncontrast 3 mm thick sections acquired from the skull base to the T4 level. Sagittal and coronal reformats were then constructed. For radiation dose reduction, the following was used: automated exposure control, adjustment of mA and/or kV according to patient size. COMPARISON: [facility], CT, CT CERVICAL SPINE WO CON, 03/01/2022, 23:40. FINDINGS: Image quality: Suboptimal due to patient motion.. Bones: No fractures or dislocations. Trace anterolisthesis C4 on five, C5 on six. Moderate disc height loss at C6-7 with mild endplate spurs. Multilevel facet arthropathy bilaterally. Visualized superior ribs are intact. Soft tissues: Prevertebral soft tissues are normal in thickness. Mild bilateral carotid bulb calcifications. No paravertebral hematomas. There is mild partially imaged right upper lobe subpleural and pleural-based airspace disease. IMPRESSION: 1. No CT evidence of acute cervical spine injury. 2. Multilevel degeneration. 3. Mild subpleural airspace opacity in the right upper lobe may be progressed since the prior study. Dictated by: Phylicia Almodovar M.D. on 10/10/2022 at 16:15 Approved by: Phylicia Almodovar M.D. on 10/10/2022 at 16:22
--- NOTE | 2022-10-10 16:18 | ED.AMS ---
HPI - Altered Mental Status <Carlaraquel Segundo, DO - Last Filed: 10/11/22 08:52> General Chief Complaint: Altered Mental Status Stated Complaint: Alterted Mental Status Time Seen by Provider: 10/10/22 16:16 Source: EMS, RN notes reviewed and old records reviewed Mode of arrival: EMS Limitations: altered mental status History of Present Illness HPI narrative: This is a 81-year-old female with reported advanced dementia on Cozaar. Patient presents with EMS for altered mental status. [facility] [place], she was noted to be more twitchy today and has been less interactive. Per EMS glucose was 100 in the field, they state that staff states she has just been sort of sleeping all day not really interacting which is atypical she usually will sit in her chair and sleep a lot but interact occasionally. Baseline described as very minimal interaction. Patient has not had any reported falls she did seem to respond to noxious stimuli according to EMS and they noted that she is sort of twitchy on exam. Patient has not had any reported fevers no reports of difficulty breathing, vomiting, diarrhea otherwise noted. Patient is not answering questions. She does not open her eyes but does pull away when attempted for lab draw. She does present with a POLST form which states DNR/DNI, limited interventions. EMS also noted that patient's who is currently COVID positive has been visiting her this week. Related Data Home Medications Medication Instructions Recorded Confirmed losartan 50 mg tablet 50 mg PO DAILY ##0 05/19/17 10/10/22 cholecalciferol (vitamin D3) 125 5,000 unit PO DAILY 06/20/18 10/10/22 mcg (5,000 unit) tablet (Vitamin D3) verapamil 120 mg tablet 120 mg PO DAILY 08/16/19 10/10/22 Previous Rx's Medication Instructions Recorded levothyroxine 112 mcg capsule 112 mcg PO DAILY #30 caps 05/16/22 sennosides 8.6 mg capsule (senna) 17.2 mg PO BEDTIME #30 caps 05/16/22 Allergies Allergy/AdvReac Type Severity Reaction Status Date / Time paraben [PARABEN] Allergy Unknown Verified 05/12/22 19:05 hydrochlorothiazide Allergy Verified 05/12/22 19:05 amlodipine [AMLODIPINE] AdvReac Unknown LEG CRAMPS Verified 05/12/22 19:05 metoprolol [METOPROLOL] AdvReac Unknown LEG CRAMPS Verified 05/12/22 19:05 Review of Systems <Carla Segundo DO - Last Filed: 10/11/22 08:52> Review of Systems ROS Unobtainable: Unobtainable due to mental status/LOC Patient History <Carla Segundo DO - Last Filed: 10/11/22 08:52> Medical History Dementia Hallucinations due to late onset dementia Memory loss Surgical History History of thyroidectomy Status post breast lumpectomy Status post parathyroidectomy Family History Father Stroke Social History household members: spouse Smoking Status: Never smoker alcohol intake: former Smoking Status: Never smoker Substance Use Type: does not use Exam <Carla Segundo DO - Last Filed: 10/11/22 08:52> Narrative Exam Narrative: GEN: Thin cachectic-appearing elderly female, patient pulls away from tactile stimuli but otherwise does not interact, patient appears to be in distress. HEENT: Atraumatic, pupils are equal round reactive to light, pupils 3 mm bilaterally, extraocular movements unable to be assessed, nares are clear, TMs are clear with no fluid, there is no conjunctival pallor. Throat is clear without any exudates, erythema, tonsillar enlargement or uvular deviation, no facial droop. Airway is clear. HEART: Regular rate and rhythm without murmur, clicks, rubs. No carotid bruits, pulses are equal in upper and lower extremities LUNGS:Lungs decreased bilaterally, no wheezes, rales, crackles, chest moves symmetrically, no tachypnea. No accessory muscle use ABD:bowel sounds normal, nondistended. Soft, non-tender, no guarding, rebound, rigidity, no masses noted, no hepatosplenomegaly :No CVA tenderness MSCL: Non-tender, no muscle atrophy, patient her arms slightly contracted, she does pull away with both upper extremities strength seems to be intact. Patient has no tenderness on exam of upper and lower extremities. NEURO:CN 2-12 intact, sensation normal, reflexes 2/4 upper and lower extremities. No clonus pedal a bilaterally. Patient does have intermittent twitch generalized. Initial Vital Signs Initial Vital Signs: Vital Signs Temperature 98.4 F 10/10/22 16:15 Pulse Rate 97 H 10/10/22 16:15 Respiratory Rate 18 10/10/22 16:15 Blood Pressure 154/91 H 10/10/22 16:15 Pulse Oximetry 96 10/10/22 16:15 Oxygen Delivery Method 10/10/22 16:15 <Ebenezer Nieto, DO - Last Filed: 10/10/22 20:48> Initial Vital Signs Initial Vital Signs: Vital Signs Temperature 98.4 F 10/10/22 16:15 Pulse Rate 97 H 10/10/22 16:15 Respiratory Rate 18 10/10/22 16:15 Blood Pressure 154/91 H 10/10/22 16:15 Pulse Oximetry 96 10/10/22 16:15 Oxygen Delivery Method 10/10/22 16:15 Course <Carla Segundo, DO - Last Filed: 10/11/22 08:52> Orders Ordered: Acetaminophen (Acetaminophen 325 Mg Tablet) 650 mg PO Q6H PRN PRN Reason: Fever/Mild Pain (1-3) Enoxaparin Sodium (Enoxaparin 40 Mg/0.4 Ml Syringe) 40 mg SUBCUT DAILY [facility] Sodium Chloride (Normal Saline 0.9%) 1,000 mls @ 100 mls/hr IV CONT [facility] Last Admin: 10/10/22 21:46 Dose: 100 mls/hr Documented By: Ceftriaxone Sodium 1,000 mg/ (Sodium Chloride) 100 mls @ 200 mls/hr IV Q24H [facility] Stop: 10/12/22 19:01 Levothyroxine Sodium (Levothyroxine 150 Mcg Tablet) 150 mcg PO 0600 [facility] Last Admin: 10/11/22 05:46 Dose: Not Given Documented By: Losartan Potassium (Losartan 50 Mg Tablet) 50 mg PO DAILY [facility] Naloxone HCl (Naloxone 0.4 Mg/Ml Vial) 0.2 mg IV Q2MIN PRN PRN Reason: Opiate Reversal Ondansetron HCl (Ondansetron 4 Mg/2 Ml Inj) 4 mg IV Q6HR PRN PRN Reason: Nausea And Vomiting Ondansetron HCl (Ondansetron 4 Mg/2 Ml Inj) 4 mg IV Q8HR PRN PRN Reason: Nausea And Vomiting Oxycodone HCl (Oxycodone Ir 5 Mg Tablet) 5 mg PO Q3HR PRN PRN Reason: Pain, Moderate (4-6) Quetiapine Fumarate (Quetiapine 25 Mg Tablet) 12.5 mg PO BID [facility] Last Admin: 10/10/22 21:47 Dose: Not Given Documented By: Verapamil HCl (Verapamil 120 Mg Tablet) 120 mg PO DAILY [facility] Discontinued Medications Enoxaparin Sodium (Enoxaparin 40 Mg/0.4 Ml Syringe) 40 mg SUBCUT DAILY [facility] Sodium Chloride (Normal Saline 0.9%) 1,000 mls @ 1,000 mls/hr IV BOLUS ONE Stop: 10/10/22 17:15 Last Infusion: 10/10/22 17:22 Dose: 0 mls/hr Documented By: Admin: 10/10/22 16:20 Dose: 1,000 mls/hr Documented By: VALENCIA Ceftriaxone Sodium 1,000 mg/ (Sodium Chloride) 100 mls @ 200 mls/hr IV NOW ONE Stop: 10/10/22 19:14 Last Infusion: 10/10/22 20:13 Dose: 0 mls/hr Documented By: Admin: 10/10/22 19:33 Dose: 200 mls/hr Documented By: RB Lorazepam (Lorazepam 2 Mg/Ml Inj) 0.5 mg IV NOW ONE Stop: 10/10/22 16:55 Last Admin: 10/10/22 17:03 Dose: 0.5 mg Documented By: SB Vital Signs Vital signs: Vital Signs - 8 hr 10/10/22 16:15 10/10/22 16:15 10/10/22 16:20 Temperature 98.4 F Pulse Rate 97 H 97 H Respiratory Rate 18 21 Blood Pressure 154/91 H 154/91 H Pulse Oximetry 96 95 Oxygen Delivery Method Room Air 10/10/22 16:20 10/10/22 16:25 10/10/22 16:25 Temperature Pulse Rate 98 H 96 H Respiratory Rate 18 Blood Pressure 224/96 H Pulse Oximetry 95 95 Oxygen Delivery Method 10/10/22 16:27 10/10/22 16:27 10/10/22 16:41 Temperature Pulse Rate 96 H 104 H Respiratory Rate 15 Blood Pressure 183/86 H Pulse Oximetry 95 95 Oxygen Delivery Method 10/10/22 16:42 10/10/22 16:42 10/10/22 16:59 Temperature Pulse Rate 102 H Respiratory Rate 18 Blood Pressure 193/95 H 200/94 H Pulse Oximetry 96 Oxygen Delivery Method 10/10/22 16:59 10/10/22 17:00 10/10/22 17:00 Temperature Pulse Rate 92 H 94 H Respiratory Rate 20 17 Blood Pressure 179/82 H Pulse Oximetry 94 94 Oxygen Delivery Method 10/10/22 17:10 10/10/22 17:10 10/10/22 17:20 Temperature Pulse Rate 93 H 90 Respiratory Rate 18 17 Blood Pressure 178/85 H Pulse Oximetry 95 94 Oxygen Delivery Method 10/10/22 17:20 10/10/22 17:30 10/10/22 17:30 Temperature Pulse Rate 90 Respiratory Rate 25 H Blood Pressure 196/84 H 183/86 H Pulse Oximetry 95 Oxygen Delivery Method 10/10/22 17:40 10/10/22 17:40 10/10/22 18:00 Temperature Pulse Rate 87 90 Respiratory Rate 14 22 Blood Pressure 194/93 H Pulse Oximetry 95 Oxygen Delivery Method 10/10/22 18:04 10/10/22 18:04 10/10/22 18:10 Temperature Pulse Rate 82 79 Respiratory Rate 11 L Blood Pressure 180/80 H Pulse Oximetry 95 95 Oxygen Delivery Method 10/10/22 18:10 10/10/22 18:21 10/10/22 18:21 Temperature Pulse Rate 78 Respiratory Rate 18 Blood Pressure 144/67 H 170/75 H Pulse Oximetry 92 Oxygen Delivery Method 10/10/22 18:30 10/10/22 18:30 10/10/22 18:40 Temperature Pulse Rate 76 Respiratory Rate 14 Blood Pressure 148/67 H 157/71 H Pulse Oximetry 95 Oxygen Delivery Method 10/10/22 18:40 10/10/22 18:50 10/10/22 18:50 Temperature Pulse Rate 77 76 Respiratory Rate 17 15 Blood Pressure 166/78 H Pulse Oximetry 94 95 Oxygen Delivery Method 10/10/22 19:00 10/10/22 19:00 10/10/22 19:10 Temperature Pulse Rate 86 84 Respiratory Rate Blood Pressure 201/84 H Pulse Oximetry 96 95 Oxygen Delivery Method 10/10/22 19:10 Temperature Pulse Rate Respiratory Rate Blood Pressure 158/83 H Pulse Oximetry Oxygen Delivery Method <Ebenezer Gerson, DO - Last Filed: 10/10/22 20:48> Orders Ordered: Acetaminophen (Acetaminophen 325 Mg Tablet) 650 mg PO Q6H PRN PRN Reason: Fever/Mild Pain (1-3) Enoxaparin Sodium (Enoxaparin 40 Mg/0.4 Ml Syringe) 40 mg SUBCUT DAILY [facility] Sodium Chloride (Normal Saline 0.9%) 1,000 mls @ 100 mls/hr IV CONT [facility] Last Admin: 10/10/22 21:46 Dose: 100 mls/hr Documented By: RICHARD Ceftriaxone Sodium 1,000 mg/ (Sodium Chloride) 100 mls @ 200 mls/hr IV Q24H [facility] Stop: 10/12/22 19:01 Levothyroxine Sodium (Levothyroxine 150 Mcg Tablet) 150 mcg PO 0600 [facility] Last Admin: 10/11/22 05:46 Dose: Not Given Documented By: RICHARD Losartan Potassium (Losartan 50 Mg Tablet) 50 mg PO DAILY [facility] Naloxone HCl (Naloxone 0.4 Mg/Ml Vial) 0.2 mg IV Q2MIN PRN PRN Reason: Opiate Reversal Ondansetron HCl (Ondansetron 4 Mg/2 Ml Inj) 4 mg IV Q6HR PRN PRN Reason: Nausea And Vomiting Ondansetron HCl (Ondansetron 4 Mg/2 Ml Inj) 4 mg IV Q8HR PRN PRN Reason: Nausea And Vomiting Oxycodone HCl (Oxycodone Ir 5 Mg Tablet) 5 mg PO Q3HR PRN PRN Reason: Pain, Moderate (4-6) Quetiapine Fumarate (Quetiapine 25 Mg Tablet) 12.5 mg PO BID [facility] Last Admin: 10/10/22 21:47 Dose: Not Given Documented By: Verapamil HCl (Verapamil 120 Mg Tablet) 120 mg PO DAILY [facility] Discontinued Medications Enoxaparin Sodium (Enoxaparin 40 Mg/0.4 Ml Syringe) 40 mg SUBCUT DAILY [facility] Sodium Chloride (Normal Saline 0.9%) 1,000 mls @ 1,000 mls/hr IV BOLUS ONE Stop: 10/10/22 17:15 Last Infusion: 10/10/22 17:22 Dose: 0 mls/hr Documented By: Admin: 10/10/22 16:20 Dose: 1,000 mls/hr Documented By: SB Ceftriaxone Sodium 1,000 mg/ (Sodium Chloride) 100 mls @ 200 mls/hr IV NOW ONE Stop: 10/10/22 19:14 Last Infusion: 10/10/22 20:13 Dose: 0 mls/hr Documented By: Admin: 10/10/22 19:33 Dose: 200 mls/hr Documented By: RB Lorazepam (Lorazepam 2 Mg/Ml Inj) 0.5 mg IV NOW ONE Stop: 10/10/22 16:55 Last Admin: 10/10/22 17:03 Dose: 0.5 mg Documented By: VALENCIA Vital Signs Vital signs: Vital Signs - 8 hr 10/10/22 16:15 10/10/22 16:15 10/10/22 16:20 Temperature 98.4 F Pulse Rate 97 H 97 H Respiratory Rate 18 21 Blood Pressure 154/91 H 154/91 H Pulse Oximetry 96 95 Oxygen Delivery Method Room Air 10/10/22 16:20 10/10/22 16:25 10/10/22 16:25 Temperature Pulse Rate 98 H 96 H Respiratory Rate 18 Blood Pressure 224/96 H Pulse Oximetry 95 95 Oxygen Delivery Method 10/10/22 16:27 10/10/22 16:27 10/10/22 16:41 Temperature Pulse Rate 96 H 104 H Respiratory Rate 15 Blood Pressure 183/86 H Pulse Oximetry 95 95 Oxygen Delivery Method 10/10/22 16:42 10/10/22 16:42 10/10/22 16:59 Temperature Pulse Rate 102 H Respiratory Rate 18 Blood Pressure 193/95 H 200/94 H Pulse Oximetry 96 Oxygen Delivery Method 10/10/22 16:59 10/10/22 17:00 10/10/22 17:00 Temperature Pulse Rate 92 H 94 H Respiratory Rate 20 17 Blood Pressure 179/82 H Pulse Oximetry 94 94 Oxygen Delivery Method 10/10/22 17:10 10/10/22 17:10 10/10/22 17:20 Temperature Pulse Rate 93 H 90 Respiratory Rate 18 17 Blood Pressure 178/85 H Pulse Oximetry 95 94 Oxygen Delivery Method 10/10/22 17:20 10/10/22 17:30 10/10/22 17:30 Temperature Pulse Rate 90 Respiratory Rate 25 H Blood Pressure 196/84 H 183/86 H Pulse Oximetry 95 Oxygen Delivery Method 10/10/22 17:40 10/10/22 17:40 10/10/22 18:00 Temperature Pulse Rate 87 90 Respiratory Rate 14 22 Blood Pressure 194/93 H Pulse Oximetry 95 Oxygen Delivery Method 10/10/22 18:04 10/10/22 18:04 10/10/22 18:10 Temperature Pulse Rate 82 79 Respiratory Rate 11 L Blood Pressure 180/80 H Pulse Oximetry 95 95 Oxygen Delivery Method 10/10/22 18:10 10/10/22 18:21 10/10/22 18:21 Temperature Pulse Rate 78 Respiratory Rate 18 Blood Pressure 144/67 H 170/75 H Pulse Oximetry 92 Oxygen Delivery Method 10/10/22 18:30 10/10/22 18:30 10/10/22 18:40 Temperature Pulse Rate 76 Respiratory Rate 14 Blood Pressure 148/67 H 157/71 H Pulse Oximetry 95 Oxygen Delivery Method 10/10/22 18:40 10/10/22 18:50 10/10/22 18:50 Temperature Pulse Rate 77 76 Respiratory Rate 17 15 Blood Pressure 166/78 H Pulse Oximetry 94 95 Oxygen Delivery Method 10/10/22 19:00 10/10/22 19:00 10/10/22 19:10 Temperature Pulse Rate 86 84 Respiratory Rate Blood Pressure 201/84 H Pulse Oximetry 96 95 Oxygen Delivery Method 10/10/22 19:10 Temperature Pulse Rate Respiratory Rate Blood Pressure 158/83 H Pulse Oximetry Oxygen Delivery Method MDM - Altered Mental Status <Carla Segundo, - Last Filed: 10/11/22 08:52> Lab Data Result diagrams: 10/11/22 04:08 10/11/22 04:08 Labs: Lab Results 10/10/22 10/10/22 10/10/22 Range/Units 16:00 16:00 16:00 WBC 9.7 (4.5-11.0) X10^3/uL RBC 3.53 L (4.0-5.2) X10^6/uL Hgb 10.6 L (12.0-16.0) g/dL Hct 31.3 L (36-46) % MCV 88.6 (80-100) fL MCH 29.9 (26-34) PG MCHC 33.8 (30-36) % RDW 17.5 H (11.6-14.8) % Plt Count 187 (150-400) X10^3/uL Neut % (Auto) 90.7 H (50-75) % Lymph % (Auto) 3.4 L (25-40) % Turner % (Auto) 5.5 (3-14) % Eos % (Auto) 0.1 L (2-4) % Baso % (Auto) 0.3 (0-2) % Neut # (Auto) 8800 H (0694-7134) /uL Lymph # (Auto) 300 L (7017-9711) /uL Turner # (Auto) 500 (0-900) /uL Eos # (Auto) 0 (0-450) /uL Baso # (Auto) 0 (0-100) /uL PT 11.3 (10.1-12.7) SECONDS INR 1.0 (0.9-1.3) APTT 42 H (26-36) SECONDS Sodium 141 (137-145) mmol/L Potassium 4.4 (3.4-5.1) mmol/L Chloride 103 (98-107) mmol/L Carbon Dioxide 32 (22-32) mmol/L BUN 22 H (7-17) mg/dL Creatinine 0.74 (0.52-1.04) mg/dL Estimated GFR > 60 (>60) mL/min BUN/Creatinine Ratio 29.7 H (6-22) Glucose 103 (80-110) mg/dL Lactate (0.7-2.1) mmol/L Calcium 9.0 (8.4-10.2) mg/dL Magnesium (1.6-2.3) mg/dL Total Bilirubin 0.4 (0.2-1.3) mg/dL AST 37 H (14-36) IU/L ALT 20 (<35) IU/L Alkaline Phosphatase 97 (38-126) U/L Ammonia (9-30) umol/L Total Creatine Kinase 33 (30-135) U/L CK-MB (CK-2) TNP CK-MB (CK-2) Rel Index TNP Troponin I < 0.012 (0.01-0.034) ng/mL Total Protein 7.0 (6.3-8.2) g/dL Albumin 3.6 (3.5-5.0) g/dL Globulin 3.4 (1.7-4.1) g/dL Albumin/Globulin Ratio 1.1 (1.0-2.8) Procalcitonin 0.29 (<0.5) ng/mL TSH (0.47-4.68) uIU/mL Free T4 (0.78-2.19) ng/dL Free T3 (2.77-5.27) pg/mL Prolactin 11.6 (3.0-18.6) ng/mL Urine Color Urine Appearance Urine pH (4.5-8.0) Ur Specific [place] (1.000-1.035) Urine Protein (Negative) Urine Glucose (UA) (Negative) g/dL Urine Ketones (NEGATIVE) Urine Occult Blood (Negative) Urine Nitrate (Negative) Urine Bilirubin (NEGATIVE) Urine Urobilinogen (0.2) E.U./dL Ur Leukocyte Esterase (NEGATIVE) Urine RBC (0-5/HPF) Urine WBC (0-5/HPF) Ur Squamous Epith Cells (0-5/HPF) Amorphous Sediment Urine Bacteria (None) Urine Mucus (Negative) Salicylates < 1.0 (<20) mg/dL U Opiates 300ng/mL cut (Negative) Ur Oxycodone Screen (Negative) Urine Methadone Screen (Negative) Acetaminophen < 10 (10-30) ug/mL Ur Barbiturates Screen (Negative) U Tricyclic Antidepress (Negative) Ur Phencyclidine Scrn (Negative) Ur Amphetamines Screen (Negative) U Methamphetamines Scrn (Negative) Ur MDMA Scrn (Ecstasy) (Negative) U Benzodiazepines Scrn (Negative) Urine Cocaine Screen (Negative) U Marijuana (THC) Screen (Negative) Ethyl Alcohol < 10 ( - 10) mg/dL 10/10/22 10/10/22 10/10/22 Range/Units 16:00 16:00 16:00 WBC (4.5-11.0) X10^3/uL RBC (4.0-5.2) X10^6/uL Hgb (12.0-16.0) g/dL Hct (36-46) % MCV (80-100) fL MCH (26-34) PG MCHC (30-36) % RDW (11.6-14.8) % Plt Count (150-400) X10^3/uL Neut % (Auto) (50-75) % Lymph % (Auto) (25-40) % Turner % (Auto) (3-14) % Eos % (Auto) (2-4) % Baso % (Auto) (0-2) % Neut # (Auto) (6225-6921) /uL Lymph # (Auto) (3957-4618) /uL Turner # (Auto) (0-900) /uL Eos # (Auto) (0-450) /uL Baso # (Auto) (0-100) /uL PT (10.1-12.7) SECONDS INR (0.9-1.3) APTT (26-36) SECONDS Sodium (137-145) mmol/L Potassium (3.4-5.1) mmol/L Chloride (98-107) mmol/L Carbon Dioxide (22-32) mmol/L BUN (7-17) mg/dL Creatinine (0.52-1.04) mg/dL Estimated GFR (>60) mL/min BUN/Creatinine Ratio (6-22) Glucose (80-110) mg/dL Lactate 0.8 (0.7-2.1) mmol/L Calcium (8.4-10.2) mg/dL Magnesium 1.8 (1.6-2.3) mg/dL Total Bilirubin (0.2-1.3) mg/dL AST (14-36) IU/L ALT (<35) IU/L Alkaline Phosphatase (38-126) U/L Ammonia (9-30) umol/L Total Creatine Kinase (30-135) U/L CK-MB (CK-2) CK-MB (CK-2) Rel Index Troponin I (0.01-0.034) ng/mL Total Protein (6.3-8.2) g/dL Albumin (3.5-5.0) g/dL Globulin (1.7-4.1) g/dL Albumin/Globulin Ratio (1.0-2.8) Procalcitonin (<0.5) ng/mL TSH 24.4 H (0.47-4.68) uIU/mL Free T4 (0.78-2.19) ng/dL Free T3 (2.77-5.27) pg/mL Prolactin (3.0-18.6) ng/mL Urine Color Urine Appearance Urine pH (4.5-8.0) Ur Specific [place] (1.000-1.035) Urine Protein (Negative) Urine Glucose (UA) (Negative) g/dL Urine Ketones (NEGATIVE) Urine Occult Blood (Negative) Urine Nitrate (Negative) Urine Bilirubin (NEGATIVE) Urine Urobilinogen (0.2) E.U./dL Ur Leukocyte Esterase (NEGATIVE) Urine RBC (0-5/HPF) Urine WBC (0-5/HPF) Ur Squamous Epith Cells (0-5/HPF) Amorphous Sediment Urine Bacteria (None) Urine Mucus (Negative) Salicylates (<20) mg/dL U Opiates 300ng/mL cut (Negative) Ur Oxycodone Screen (Negative) Urine Methadone Screen (Negative) Acetaminophen (10-30) ug/mL Ur Barbiturates Screen (Negative) U Tricyclic Antidepress (Negative) Ur Phencyclidine Scrn (Negative) Ur Amphetamines Screen (Negative) U Methamphetamines Scrn (Negative) Ur MDMA Scrn (Ecstasy) (Negative) U Benzodiazepines Scrn (Negative) Urine Cocaine Screen (Negative) U Marijuana (THC) Screen (Negative) Ethyl Alcohol ( - 10) mg/dL 10/10/22 10/10/22 10/10/22 Range/Units 16:00 17:21 18:04 WBC (4.5-11.0) X10^3/uL RBC (4.0-5.2) X10^6/uL Hgb (12.0-16.0) g/dL Hct (36-46) % MCV (80-100) fL MCH (26-34) PG MCHC (30-36) % RDW (11.6-14.8) % Plt Count (150-400) X10^3/uL Neut % (Auto) (50-75) % Lymph % (Auto) (25-40) % Turner % (Auto) (3-14) % Eos % (Auto) (2-4) % Baso % (Auto) (0-2) % Neut # (Auto) (2424-7388) /uL Lymph # (Auto) (0630-2364) /uL Turner # (Auto) (0-900) /uL Eos # (Auto) (0-450) /uL Baso # (Auto) (0-100) /uL PT (10.1-12.7) SECONDS INR (0.9-1.3) APTT (26-36) SECONDS Sodium (137-145) mmol/L Potassium (3.4-5.1) mmol/L Chloride (98-107) mmol/L Carbon Dioxide (22-32) mmol/L BUN (7-17) mg/dL Creatinine (0.52-1.04) mg/dL Estimated GFR (>60) mL/min BUN/Creatinine Ratio (6-22) Glucose (80-110) mg/dL Lactate (0.7-2.1) mmol/L Calcium (8.4-10.2) mg/dL Magnesium (1.6-2.3) mg/dL Total Bilirubin (0.2-1.3) mg/dL AST (14-36) IU/L ALT (<35) IU/L Alkaline Phosphatase (38-126) U/L Ammonia < 9 L (9-30) umol/L Total Creatine Kinase (30-135) U/L CK-MB (CK-2) CK-MB (CK-2) Rel Index Troponin I (0.01-0.034) ng/mL Total Protein (6.3-8.2) g/dL Albumin (3.5-5.0) g/dL Globulin (1.7-4.1) g/dL Albumin/Globulin Ratio (1.0-2.8) Procalcitonin (<0.5) ng/mL TSH (0.47-4.68) uIU/mL Free T4 0.66 L (0.78-2.19) ng/dL Free T3 1.83 L (2.77-5.27) pg/mL Prolactin (3.0-18.6) ng/mL Urine Color Lt. yellow Urine Appearance Cloudy Urine pH 7.0 (4.5-8.0) Ur Specific [place] 1.020 (1.000-1.035) Urine Protein Trace H (Negative) Urine Glucose (UA) Negative (Negative) g/dL Urine Ketones Trace H (NEGATIVE) Urine Occult Blood Negative (Negative) Urine Nitrate Positive H (Negative) Urine Bilirubin Negative (NEGATIVE) Urine Urobilinogen 1.0 (0.2) E.U./dL Ur Leukocyte Esterase Trace H (NEGATIVE) Urine RBC None seen (0-5/HPF) Urine WBC 10-30/hpf H (0-5/HPF) Ur Squamous Epith Cells 0-1 /hpf (0-5/HPF) Amorphous Sediment 2+ Urine Bacteria Many (>30) H (None) Urine Mucus 1+ H (Negative) Salicylates (<20) mg/dL U Opiates 300ng/mL cut (Negative) Ur Oxycodone Screen (Negative) Urine Methadone Screen (Negative) Acetaminophen (10-30) ug/mL Ur Barbiturates Screen (Negative) U Tricyclic Antidepress (Negative) Ur Phencyclidine Scrn (Negative) Ur Amphetamines Screen (Negative) U Methamphetamines Scrn (Negative) Ur MDMA Scrn (Ecstasy) (Negative) U Benzodiazepines Scrn (Negative) Urine Cocaine Screen (Negative) U Marijuana (THC) Screen (Negative) Ethyl Alcohol ( - 10) mg/dL 10/10/22 Range/Units 18:04 WBC (4.5-11.0) X10^3/uL RBC (4.0-5.2) X10^6/uL Hgb (12.0-16.0) g/dL Hct (36-46) % MCV (80-100) fL MCH (26-34) PG MCHC (30-36) % RDW (11.6-14.8) % Plt Count (150-400) X10^3/uL Neut % (Auto) (50-75) % Lymph % (Auto) (25-40) % Turner % (Auto) (3-14) % Eos % (Auto) (2-4) % Baso % (Auto) (0-2) % Neut # (Auto) (0875-5759) /uL Lymph # (Auto) (4630-8507) /uL Turner # (Auto) (0-900) /uL Eos # (Auto) (0-450) /uL Baso # (Auto) (0-100) /uL PT (10.1-12.7) SECONDS INR (0.9-1.3) APTT (26-36) SECONDS Sodium (137-145) mmol/L Potassium (3.4-5.1) mmol/L Chloride (98-107) mmol/L Carbon Dioxide (22-32) mmol/L BUN (7-17) mg/dL Creatinine (0.52-1.04) mg/dL Estimated GFR (>60) mL/min BUN/Creatinine Ratio (6-22) Glucose (80-110) mg/dL Lactate (0.7-2.1) mmol/L Calcium (8.4-10.2) mg/dL Magnesium (1.6-2.3) mg/dL Total Bilirubin (0.2-1.3) mg/dL AST (14-36) IU/L ALT (<35) IU/L Alkaline Phosphatase (38-126) U/L Ammonia (9-30) umol/L Total Creatine Kinase (30-135) U/L CK-MB (CK-2) CK-MB (CK-2) Rel Index Troponin I (0.01-0.034) ng/mL Total Protein (6.3-8.2) g/dL Albumin (3.5-5.0) g/dL Globulin (1.7-4.1) g/dL Albumin/Globulin Ratio (1.0-2.8) Procalcitonin (<0.5) ng/mL TSH (0.47-4.68) uIU/mL Free T4 (0.78-2.19) ng/dL Free T3 (2.77-5.27) pg/mL Prolactin (3.0-18.6) ng/mL Urine Color Urine Appearance Urine pH (4.5-8.0) Ur Specific [place] (1.000-1.035) Urine Protein (Negative) Urine Glucose (UA) (Negative) g/dL Urine Ketones (NEGATIVE) Urine Occult Blood (Negative) Urine Nitrate (Negative) Urine Bilirubin (NEGATIVE) Urine Urobilinogen (0.2) E.U./dL Ur Leukocyte Esterase (NEGATIVE) Urine RBC (0-5/HPF) Urine WBC (0-5/HPF) Ur Squamous Epith Cells (0-5/HPF) Amorphous Sediment Urine Bacteria (None) Urine Mucus (Negative) Salicylates (<20) mg/dL U Opiates 300ng/mL cut Negative (Negative) Ur Oxycodone Screen Negative (Negative) Urine Methadone Screen Negative (Negative) Acetaminophen (10-30) ug/mL Ur Barbiturates Screen Negative (Negative) U Tricyclic Antidepress Negative (Negative) Ur Phencyclidine Scrn Negative (Negative) Ur Amphetamines Screen Negative (Negative) U Methamphetamines Scrn Negative (Negative) Ur MDMA Scrn (Ecstasy) Negative (Negative) U Benzodiazepines Scrn Negative (Negative) Urine Cocaine Screen Negative (Negative) U Marijuana (THC) Screen Negative (Negative) Ethyl Alcohol ( - 10) mg/dL Point of Care Testing Glucose POC [address] scan - head: Radiologist's Impression: Jocelyn Cornelius??[id number]??[id number]??[id number] ? Allergy/Adv: paraben, hydrochlorothiazide, amlodipine, metoprolol (More??) Close Head CT (Signed) Phylicia Almodovar - 10/10/22 Chest X-Ray (Signed) Phylicia Almodovar - 10/10/[address] (Signed) Phylicia Almodovar - 10/10/22 Telemetry Strips 05/13/22 Pelvis X-Ray (Signed) Iron Ornelas - 05/13/22 Hip X-Ray (Signed) Martinez Porter - 05/12/22 Chest X-Ray (Signed) Martinez Porter - 05/12/22 Pelvis X-Ray (Signed) Lawrence Aparicio - 03/02/[address] (Signed) Lawrence Aparicio - 03/01/[address] (Signed) Lawrence Aparicio - 03/01/22 Abdomen Ultrasound (Signed) Corie Barker - 11/11/20 Pelvis Ultrasound (Signed) Corie Barker - 11/11/20 Mammogram Screening (Signed) Phylicia Almodovar - 04/03/20 Chest/Abdomen X-ray (Signed) Mario Bhat - 10/19/19 Mammogram Screening (Signed) Lawrence Aparicio - 03/20/19 Bone Densitometry 12/06/18 Mammogram Diagnostic (Signed) Papito Rod - 10/03/18 Abdomen/Pelvis CT (Signed) Peterson Campbell - 04/05/18 Mammogram Diagnostic (Signed) Lawrence Aparicio - 03/10/18 Pelvis Ultrasound (Signed) Licha Velasquez - 03/09/18 Chest/Abdomen/Pelvis CT (Signed) Levi Garcia - 03/01/18 Launch?[address] [address] [address] Scan Report Signed Patient: Jocelyn Cornelius MR#: [id number] : 1940 Acct:[id number] Age/Sex: 81 / F Date of Service: 10/10/22 Loc: ED Accession Number: [id number] ?? Procedure: CT head/brain wo con Ordering Provider: Carla Segundo D.O. PROCEDURE:? CT HEAD/BRAIN WO CON ? INDICATIONS:? altered, twitchy ? TECHNIQUE:? Noncontrast 4.5 mm thick angled axial sections acquired from the foramen magnum to the vertex, with coronal and sagittal reformats.? For radiation dose reduction, the following was used:? automated exposure control, adjustment of mA and/or kV according to patient size.? ? COMPARISON:? [facility], CT, CT HEAD/BRAIN WO CON, 03/01/2022, 23:40. ? FINDINGS:? Image quality:? Excellent.? ? CSF spaces:? Basal cisterns are patent.? No extra-axial fluid collections.? The ventricles are symmetric in size and shape.? ? Brain:? No intracranial bleeds or masses.? There is cerebral volume loss for age, with resultant ventricular and sulcal prominence.? There are periventricular and deep white matter chronic small vessel ischemic changes.? There is intracranial internal carotid artery atherosclerosis.? ? Skull and face:? Calvarium and visualized facial bones appear intact, without suspicious lesions.? ? Sinuses:? Visualized sinuses and mastoids are clear.? ? IMPRESSION:? ? 1. No CT evidence of acute intracranial process.? ? 2. Age-appropriate cerebral cortical volume loss and chronic microvascular ischemic changes. ? ? ? Dictated by: Phylicia Almodovar M.D. on 10/10/2022 at 16:13 ? ? Approved by: Phylicia Almodovar M.D. on 10/10/2022 at 16:14?? CT - cervical spine: Radiologist's Impression: Jocelyn Cornelius??81??F??1940 ? Allergy/Adv: paraben, hydrochlorothiazide, amlodipine, metoprolol (More??) Close Head CT (Signed) Phylicia Almodovar - 10/10/22 Chest X-Ray (Signed) Phylicia Almodovar - 10/10/[address] (Signed) Phylicia Almodovar - 10/10/22 Telemetry Strips 05/13/22 Pelvis X-Ray (Signed) Iron Ornelas - 05/13/22 Hip X-Ray (Signed) Martinez Porter - 05/12/22 Chest X-Ray (Signed) Martinez Porter - 05/12/22 Pelvis X-Ray (Signed) Lawrence Aparicio - 03/02/[address] (Signed) Aparicio,Lawrence - 03/01/[address] (Signed) Aparicio,Lawrence - 03/01/22 Abdomen Ultrasound (Signed) Corie Barker - 11/11/20 Pelvis Ultrasound (Signed) Corie Barker - 11/11/20 Mammogram Screening (Signed) Phylicia Almodovar - 04/03/20 Chest/Abdomen X-ray (Signed) Mario Bhat - 10/19/19 Mammogram Screening (Signed) Lawrence Aparicio - 03/20/19 Bone Densitometry 12/06/18 Mammogram Diagnostic (Signed) Papito Rod - 10/03/18 Abdomen/Pelvis CT (Signed) Peterson Campbell - 04/05/18 Mammogram Diagnostic (Signed) Lawrence Aparicio - 03/10/18 Pelvis Ultrasound (Signed) Licha Velasquez - 03/09/18 Chest/Abdomen/Pelvis CT (Signed) eLvi Garcia - 03/01/18 [place] [address] CT Scan Report Signed Patient: Jocelyn Cornelius MR#: [id number] : 1940 Acct:[id number] Age/Sex: 81 / F Date of Service: 10/10/22 Loc: ED Accession Number: [id number] ?? Procedure: CT cervical spine wo con Ordering Provider: Carla Segundo D.O. PROCEDURE:? CT CERVICAL SPINE WO CON ? INDICATIONS:? altered, twitchy ? TECHNIQUE:? Noncontrast 3 mm thick sections acquired from the skull base to the T4 level.? Sagittal and coronal reformats were then constructed.? For radiation dose reduction, the following was used:? automated exposure control, adjustment of mA and/or kV according to patient size.? ? COMPARISON:? [facility], CT, CT CERVICAL SPINE WO CON, 03/01/2022, 23:40. ? FINDINGS:? Image quality:? Suboptimal due to patient motion..? ? Bones:? No fractures or dislocations.? Trace anterolisthesis C4 on five, C5 on six.? Moderate disc height loss at C6-7 with mild endplate spurs.? Multilevel facet arthropathy bilaterally.? Visualized superior ribs are intact.? ? Soft tissues:? Prevertebral soft tissues are normal in thickness.? Mild bilateral carotid bulb calcifications.? No paravertebral hematomas.? There is mild partially imaged right upper lobe subpleural and pleural-based airspace disease. ? ? IMPRESSION:? ? 1. No CT evidence of acute cervical spine injury. ? 2. Multilevel degeneration. ? 3. Mild subpleural airspace opacity in the right upper lobe may be progressed since the prior study.? Dictated by: Phylicia Almodovar M.D. on 10/10/2022 at 16:15 ? ? Approved by: Phylicia Almodovar M.D. on 10/10/2022 at 16:22?? Chest x-ray: Radiologist's Impression: [address] [address] XRay Report Signed Patient: Jocelyn Cornelius MR#: [id number] : 1940 Acct:[id number] Age/Sex: 81 / F Date of Service: 10/10/22 Loc: ED Accession Number: [id number] ?? Procedure: XR chest 1V Ordering Provider: Carla Segundo D.O. PROCEDURE:? XR CHEST 1V ? INDICATIONS:? altered, twitchy ? TECHNIQUE:? One view of the chest was acquired.? ? COMPARISON:? [facility], , CHEST 1 VIEW, 11/04/2016, 11:51.? [facility], , XR CHEST 1V, 05/12/2022, 19:04. ? FINDINGS:? ? Surgical changes and devices:? Overlying monitoring wires.? Surgical clips in the left axilla. ? Lungs and pleura:? Chronic opacity in the right axillary region corresponding to the pleural and airspace disease seen on neck CT.? There are no acute appearing consolidations. ? Mediastinum:? Mediastinal contours appear normal.? Heart size is normal.? ? Bones and chest wall:? No suspicious bony lesions.? Degenerative changes in the right shoulder.? Remote, healed left rib fractures.? Overlying soft tissues appear unremarkable.? ? IMPRESSION:? ? 1. No acute process.? ? 2. Chronic opacity in the right axillary upper lobe region, increasingly prominent over time.? This may be scarring, radiation change, or pleural plaquing.? ? ? Dictated by: Phylicia Almodovar M.D. on 10/10/2022 at 17:17 ? ? Approved by: Phylicia Almodovar M.D. on 10/10/2022 at 17:21?? ECG Data Attestation: I personally reviewed and interpreted this ECG as follows: Interpretation: Sinus rhythm incomplete right bundle-branch, left anterior fascicular. Rate of 90 9p are 142 QRS of 104 and QTC 47. Patient does have mild depression lateral leads. Patient has prior EKG from 11/04/2016 which appears fairly similar regularly lateral leads. MDM Narrative Medical decision making narrative: This is an 81-year-old female with known dementia with altered mental status and twitching. Patient does not appear to be having seizure-like activity, plan for evaluation with head CT, cervical spine, chest x-ray although no reported trauma-imaging shows right upper lobe change but no other clear cause for her symptoms, electrolytes to evaluate for calcium, magnesium and potassium abnormalities, patient does not have any sinusoidal or significant EKG changes suggesting major abnormalities at this time. Patient's hemoglobin, renal function and LFTs as well as evaluation for infection and urine function. Patient has anemia which is at baseline, thrombocytopenia which is also appears to be baseline. No obvious signs of infection, glucose was 78, CMP shows no acute change, ammonia is negative, TSH is 24 with a free T4-T3 of 0.6 and 1.83, patient's notes that she is had thyroidectomy and is on levothyroxine daily. He notes it is quite difficult to get her to appointments to have it regularly monitored. Troponin is negative. U tox, Tylenol salicylates are negative. Patient's urine sample has been sent but is pending. I spoke with Dr. Jon in the hospitalist often accepting particularly positive urine. We are awaiting this result patient was signed out to Dr. Nieto to call back to the hospitalist after urine has resulted. Patient is DNR/DNI, she appears to be protecting her airway at this time and was confirmed with her . She did receive a small dose of benzodiazepine which did seem to help with her twitching and also assisted while trying to place her catheter patient was quite tense. She does not have what appears to be seizure-like activity or fasciculations. Discussed with family might be related to her thyroid but based on her numbers seems less likely, could be related to infection or progression of her dementia. notes that she is been slowly progressing in her symptoms over time. Dr Nieto: Received turned over. Reviewed patient's history and physical exam. She does have a nitrite positive urine and other indication of a continued urinary tract infection. Review of her prior culture shows a pansensitive E coli so we started her on Rocephin. Patient is also hypothyroid. We did discuss the case with Dr. Garcia with hospitalist service who will admit. I did discuss the need for admission with the patient's and their son who is at bedside. He expressed understanding and agreement. <Ebenezer Nieto, - Last Filed: 10/10/22 20:48> Differential Diagnosis Differential diagnosis: Likely altered mental status, delirium, dementia, hypoglycemia, hyponatremia, other, subarachnoid hemorrhage and sepsis Condition is:: Well Controlled Lab Data Attestation: I reviewed the patient's lab results. Labs: Lab Results 10/10/22 10/10/22 10/10/22 Range/Units 16:00 16:00 16:00 WBC 9.7 (4.5-11.0) X10^3/uL RBC 3.53 L (4.0-5.2) X10^6/uL Hgb 10.6 L (12.0-16.0) g/dL Hct 31.3 L (36-46) % MCV 88.6 (80-100) fL MCH 29.9 (26-34) PG MCHC 33.8 (30-36) % RDW 17.5 H (11.6-14.8) % Plt Count 187 (150-400) X10^3/uL Neut % (Auto) 90.7 H (50-75) % Lymph % (Auto) 3.4 L (25-40) % Turner % (Auto) 5.5 (3-14) % Eos % (Auto) 0.1 L (2-4) % Baso % (Auto) 0.3 (0-2) % Neut # (Auto) 8800 H (4738-5927) /uL Lymph # (Auto) 300 L (5558-5581) /uL Turner # (Auto) 500 (0-900) /uL Eos # (Auto) 0 (0-450) /uL Baso # (Auto) 0 (0-100) /uL PT 11.3 (10.1-12.7) SECONDS INR 1.0 (0.9-1.3) APTT 42 H (26-36) SECONDS Sodium 141 (137-145) mmol/L Potassium 4.4 (3.4-5.1) mmol/L Chloride 103 (98-107) mmol/L Carbon Dioxide 32 (22-32) mmol/L BUN 22 H (7-17) mg/dL Creatinine 0.74 (0.52-1.04) mg/dL Estimated GFR > 60 (>60) mL/min BUN/Creatinine Ratio 29.7 H (6-22) Glucose 103 (80-110) mg/dL Lactate (0.7-2.1) mmol/L Calcium 9.0 (8.4-10.2) mg/dL Magnesium (1.6-2.3) mg/dL Total Bilirubin 0.4 (0.2-1.3) mg/dL AST 37 H (14-36) IU/L ALT 20 (<35) IU/L Alkaline Phosphatase 97 (38-126) U/L Ammonia (9-30) umol/L Total Creatine Kinase 33 (30-135) U/L CK-MB (CK-2) TNP CK-MB (CK-2) Rel Index TNP Troponin I < 0.012 (0.01-0.034) ng/mL Total Protein 7.0 (6.3-8.2) g/dL Albumin 3.6 (3.5-5.0) g/dL Globulin 3.4 (1.7-4.1) g/dL Albumin/Globulin Ratio 1.1 (1.0-2.8) Procalcitonin 0.29 (<0.5) ng/mL TSH (0.47-4.68) uIU/mL Free T4 (0.78-2.19) ng/dL Free T3 (2.77-5.27) pg/mL Prolactin 11.6 (3.0-18.6) ng/mL Urine Color Urine Appearance Urine pH (4.5-8.0) Ur Specific [place] (1.000-1.035) Urine Protein (Negative) Urine Glucose (UA) (Negative) g/dL Urine Ketones (NEGATIVE) Urine Occult Blood (Negative) Urine Nitrate (Negative) Urine Bilirubin (NEGATIVE) Urine Urobilinogen (0.2) E.U./dL Ur Leukocyte Esterase (NEGATIVE) Urine RBC (0-5/HPF) Urine WBC (0-5/HPF) Ur Squamous Epith Cells (0-5/HPF) Amorphous Sediment Urine Bacteria (None) Urine Mucus (Negative) Salicylates < 1.0 (<20) mg/dL U Opiates 300ng/mL cut (Negative) Ur Oxycodone Screen (Negative) Urine Methadone Screen (Negative) Acetaminophen < 10 (10-30) ug/mL Ur Barbiturates Screen (Negative) U Tricyclic Antidepress (Negative) Ur Phencyclidine Scrn (Negative) Ur Amphetamines Screen (Negative) U Methamphetamines Scrn (Negative) Ur MDMA Scrn (Ecstasy) (Negative) U Benzodiazepines Scrn (Negative) Urine Cocaine Screen (Negative) U Marijuana (THC) Screen (Negative) Ethyl Alcohol < 10 ( - 10) mg/dL 10/10/22 10/10/22 10/10/22 Range/Units 16:00 16:00 16:00 WBC (4.5-11.0) X10^3/uL RBC (4.0-5.2) X10^6/uL Hgb (12.0-16.0) g/dL Hct (36-46) % MCV (80-100) fL MCH (26-34) PG MCHC (30-36) % RDW (11.6-14.8) % Plt Count (150-400) X10^3/uL Neut % (Auto) (50-75) % Lymph % (Auto) (25-40) % Turner % (Auto) (3-14) % Eos % (Auto) (2-4) % Baso % (Auto) (0-2) % Neut # (Auto) (9853-7393) /uL Lymph # (Auto) (2476-1970) /uL Turner # (Auto) (0-900) /uL Eos # (Auto) (0-450) /uL Baso # (Auto) (0-100) /uL PT (10.1-12.7) SECONDS INR (0.9-1.3) APTT (26-36) SECONDS Sodium (137-145) mmol/L Potassium (3.4-5.1) mmol/L Chloride (98-107) mmol/L Carbon Dioxide (22-32) mmol/L BUN (7-17) mg/dL Creatinine (0.52-1.04) mg/dL Estimated GFR (>60) mL/min BUN/Creatinine Ratio (6-22) Glucose (80-110) mg/dL Lactate 0.8 (0.7-2.1) mmol/L Calcium (8.4-10.2) mg/dL Magnesium 1.8 (1.6-2.3) mg/dL Total Bilirubin (0.2-1.3) mg/dL AST (14-36) IU/L ALT (<35) IU/L Alkaline Phosphatase (38-126) U/L Ammonia (9-30) umol/L Total Creatine Kinase (30-135) U/L CK-MB (CK-2) CK-MB (CK-2) Rel Index Troponin I (0.01-0.034) ng/mL Total Protein (6.3-8.2) g/dL Albumin (3.5-5.0) g/dL Globulin (1.7-4.1) g/dL Albumin/Globulin Ratio (1.0-2.8) Procalcitonin (<0.5) ng/mL TSH 24.4 H (0.47-4.68) uIU/mL Free T4 (0.78-2.19) ng/dL Free T3 (2.77-5.27) pg/mL Prolactin (3.0-18.6) ng/mL Urine Color Urine Appearance Urine pH (4.5-8.0) Ur Specific [place] (1.000-1.035) Urine Protein (Negative) Urine Glucose (UA) (Negative) g/dL Urine Ketones (NEGATIVE) Urine Occult Blood (Negative) Urine Nitrate (Negative) Urine Bilirubin (NEGATIVE) Urine Urobilinogen (0.2) E.U./dL Ur Leukocyte Esterase (NEGATIVE) Urine RBC (0-5/HPF) Urine WBC (0-5/HPF) Ur Squamous Epith Cells (0-5/HPF) Amorphous Sediment Urine Bacteria (None) Urine Mucus (Negative) Salicylates (<20) mg/dL U Opiates 300ng/mL cut (Negative) Ur Oxycodone Screen (Negative) Urine Methadone Screen (Negative) Acetaminophen (10-30) ug/mL Ur Barbiturates Screen (Negative) U Tricyclic Antidepress (Negative) Ur Phencyclidine Scrn (Negative) Ur Amphetamines Screen (Negative) U Methamphetamines Scrn (Negative) Ur MDMA Scrn (Ecstasy) (Negative) U Benzodiazepines Scrn (Negative) Urine Cocaine Screen (Negative) U Marijuana (THC) Screen (Negative) Ethyl Alcohol ( - 10) mg/dL 10/10/22 10/10/22 10/10/22 Range/Units 16:00 17:21 18:04 WBC (4.5-11.0) X10^3/uL RBC (4.0-5.2) X10^6/uL Hgb (12.0-16.0) g/dL Hct (36-46) % MCV (80-100) fL MCH (26-34) PG MCHC (30-36) % RDW (11.6-14.8) % Plt Count (150-400) X10^3/uL Neut % (Auto) (50-75) % Lymph % (Auto) (25-40) % Turner % (Auto) (3-14) % Eos % (Auto) (2-4) % Baso % (Auto) (0-2) % Neut # (Auto) (8410-5213) /uL Lymph # (Auto) (1569-4386) /uL Turner # (Auto) (0-900) /uL Eos # (Auto) (0-450) /uL Baso # (Auto) (0-100) /uL PT (10.1-12.7) SECONDS INR (0.9-1.3) APTT (26-36) SECONDS Sodium (137-145) mmol/L Potassium (3.4-5.1) mmol/L Chloride (98-107) mmol/L Carbon Dioxide (22-32) mmol/L BUN (7-17) mg/dL Creatinine (0.52-1.04) mg/dL Estimated GFR (>60) mL/min BUN/Creatinine Ratio (6-22) Glucose (80-110) mg/dL Lactate (0.7-2.1) mmol/L Calcium (8.4-10.2) mg/dL Magnesium (1.6-2.3) mg/dL Total Bilirubin (0.2-1.3) mg/dL AST (14-36) IU/L ALT (<35) IU/L Alkaline Phosphatase (38-126) U/L Ammonia < 9 L (9-30) umol/L Total Creatine Kinase (30-135) U/L CK-MB (CK-2) CK-MB (CK-2) Rel Index Troponin I (0.01-0.034) ng/mL Total Protein (6.3-8.2) g/dL Albumin (3.5-5.0) g/dL Globulin (1.7-4.1) g/dL Albumin/Globulin Ratio (1.0-2.8) Procalcitonin (<0.5) ng/mL TSH (0.47-4.68) uIU/mL Free T4 0.66 L (0.78-2.19) ng/dL Free T3 1.83 L (2.77-5.27) pg/mL Prolactin (3.0-18.6) ng/mL Urine Color Lt. yellow Urine Appearance Cloudy Urine pH 7.0 (4.5-8.0) Ur Specific [place] 1.020 (1.000-1.035) Urine Protein Trace H (Negative) Urine Glucose (UA) Negative (Negative) g/dL Urine Ketones Trace H (NEGATIVE) Urine Occult Blood Negative (Negative) Urine Nitrate Positive H (Negative) Urine Bilirubin Negative (NEGATIVE) Urine Urobilinogen 1.0 (0.2) E.U./dL Ur Leukocyte Esterase Trace H (NEGATIVE) Urine RBC None seen (0-5/HPF) Urine WBC 10-30/hpf H (0-5/HPF) Ur Squamous Epith Cells 0-1 /hpf (0-5/HPF) Amorphous Sediment 2+ Urine Bacteria Many (>30) H (None) Urine Mucus 1+ H (Negative) Salicylates (<20) mg/dL U Opiates 300ng/mL cut (Negative) Ur Oxycodone Screen (Negative) Urine Methadone Screen (Negative) Acetaminophen (10-30) ug/mL Ur Barbiturates Screen (Negative) U Tricyclic Antidepress (Negative) Ur Phencyclidine Scrn (Negative) Ur Amphetamines Screen (Negative) U Methamphetamines Scrn (Negative) Ur MDMA Scrn (Ecstasy) (Negative) U Benzodiazepines Scrn (Negative) Urine Cocaine Screen (Negative) U Marijuana (THC) Screen (Negative) Ethyl Alcohol ( - 10) mg/dL 10/10/22 Range/Units 18:04 WBC (4.5-11.0) X10^3/uL RBC (4.0-5.2) X10^6/uL Hgb (12.0-16.0) g/dL Hct (36-46) % MCV (80-100) fL MCH (26-34) PG MCHC (30-36) % RDW (11.6-14.8) % Plt Count (150-400) X10^3/uL Neut % (Auto) (50-75) % Lymph % (Auto) (25-40) % Turner % (Auto) (3-14) % Eos % (Auto) (2-4) % Baso % (Auto) (0-2) % Neut # (Auto) (1174-6737) /uL Lymph # (Auto) (0735-2417) /uL Turner # (Auto) (0-900) /uL Eos # (Auto) (0-450) /uL Baso # (Auto) (0-100) /uL PT (10.1-12.7) SECONDS INR (0.9-1.3) APTT (26-36) SECONDS Sodium (137-145) mmol/L Potassium (3.4-5.1) mmol/L Chloride (98-107) mmol/L Carbon Dioxide (22-32) mmol/L BUN (7-17) mg/dL Creatinine (0.52-1.04) mg/dL Estimated GFR (>60) mL/min BUN/Creatinine Ratio (6-22) Glucose (80-110) mg/dL Lactate (0.7-2.1) mmol/L Calcium (8.4-10.2) mg/dL Magnesium (1.6-2.3) mg/dL Total Bilirubin (0.2-1.3) mg/dL AST (14-36) IU/L ALT (<35) IU/L Alkaline Phosphatase (38-126) U/L Ammonia (9-30) umol/L Total Creatine Kinase (30-135) U/L CK-MB (CK-2) CK-MB (CK-2) Rel Index Troponin I (0.01-0.034) ng/mL Total Protein (6.3-8.2) g/dL Albumin (3.5-5.0) g/dL Globulin (1.7-4.1) g/dL Albumin/Globulin Ratio (1.0-2.8) Procalcitonin (<0.5) ng/mL TSH (0.47-4.68) uIU/mL Free T4 (0.78-2.19) ng/dL Free T3 (2.77-5.27) pg/mL Prolactin (3.0-18.6) ng/mL Urine Color Urine Appearance Urine pH (4.5-8.0) Ur Specific Glasgow (1.000-1.035) Urine Protein (Negative) Urine Glucose (UA) (Negative) g/dL Urine Ketones (NEGATIVE) Urine Occult Blood (Negative) Urine Nitrate (Negative) Urine Bilirubin (NEGATIVE) Urine Urobilinogen (0.2) E.U./dL Ur Leukocyte Esterase (NEGATIVE) Urine RBC (0-5/HPF) Urine WBC (0-5/HPF) Ur Squamous Epith Cells (0-5/HPF) Amorphous Sediment Urine Bacteria (None) Urine Mucus (Negative) Salicylates (<20) mg/dL U Opiates 300ng/mL cut Negative (Negative) Ur Oxycodone Screen Negative (Negative) Urine Methadone Screen Negative (Negative) Acetaminophen (10-30) ug/mL Ur Barbiturates Screen Negative (Negative) U Tricyclic Antidepress Negative (Negative) Ur Phencyclidine Scrn Negative (Negative) Ur Amphetamines Screen Negative (Negative) U Methamphetamines Scrn Negative (Negative) Ur MDMA Scrn (Ecstasy) Negative (Negative) U Benzodiazepines Scrn Negative (Negative) Urine Cocaine Screen Negative (Negative) U Marijuana (THC) Screen Negative (Negative) Ethyl Alcohol ( - 10) mg/dL Point of Care Testing Glucose POC 108 MDM Narrative Medical decision making narrative: This is an 81-year-old female with known dementia with altered mental status and twitching. Patient does not appear to be having seizure-like activity, plan for evaluation with head CT, cervical spine although no reported trauma, chest x-ray, electrolytes to evaluate for calcium, magnesium and potassium abnormalities, patient does not have any sinusoidal or significant EKG changes suggesting major abnormalities at this time. Patient's hemoglobin, renal function and LFTs as well as evaluation for infection and urine function. Patient is DNR/DNI, she appears to be protecting her airway at this time. Dr Nieto: Received turned over. Reviewed patient's history and physical exam. She does have a nitrite positive urine and other indication of a continued urinary tract infection. Review of her prior culture shows a pansensitive E coli so we started her on Rocephin. Patient is also hypothyroid. We did discuss the case with Dr. Garcia with hospitalist service who will admit. I did discuss the need for admission with the patient's and their son who is at bedside. He expressed understanding and agreement. Discharge Plan Departure Patient Disposition: Admitted as Observation Clinical Impression: Urinary tract infection, Altered mental status Admit Date/Time: 10/10/22 19:14 Admit Provider: Tolu Garcia
[2022-10-10] MEDS: SODIUM CHLORIDE 0.9% 1,000 ML 1000 ML IV (16:20)
[2022-10-10 16:26] LABS: Add Manual Diff / Slide Review NO; Basophils Absolute Auto 0 /uL (0-100); Basophils Percent Auto 0.3 % (0-2); Eosinophils Absolute Auto 0 /uL (0-450); Eosinophils Percent Auto 0.1 % (2-4); Hematocrit 31.3 % (36-46); Hemoglobin 10.6 g/dL (12.0-16.0); Lymphocytes Absolute Auto 300 /uL (1100-4500); Lymphocytes Percent Auto 3.4 % (25-40); Mean Corpuscular HGB Conc 33.8 % (30-36); Mean Corpuscular Hemoglobin 29.9 PG (26-34); Mean Corpuscular Volume 88.6 fL (80-100); Monocytes Absolute Auto 500 /uL (0-900); Monocytes Percent Auto 5.5 % (3-14); Neutrophils Absolute Auto 8800 /uL (1500-7000); Neutrophils Percent Auto 90.7 % (50-75); Platelet Count 187 X10^3/uL (150-400); Red Blood Cell Count 3.53 X10^6/uL (4.0-5.2); Red Cell Distribution Width 17.5 % (11.6-14.8); White Blood Cell Count 9.7 X10^3/uL (4.5-11.0)
--- NOTE | 2022-10-10 16:29 | DI.CT.S_ITS ---
PROCEDURE: CT HEAD/BRAIN WO CON INDICATIONS: altered, twitchy TECHNIQUE: Noncontrast 4.5 mm thick angled axial sections acquired from the foramen magnum to the vertex, with coronal and sagittal reformats. For radiation dose reduction, the following was used: automated exposure control, adjustment of mA and/or kV according to patient size. COMPARISON: [facility], CT, CT HEAD/BRAIN WO CON, 03/01/2022, 23:40. FINDINGS: Image quality: Excellent. CSF spaces: Basal cisterns are patent. No extra-axial fluid collections. The ventricles are symmetric in size and shape. Brain: No intracranial bleeds or masses. There is cerebral volume loss for age, with resultant ventricular and sulcal prominence. There are periventricular and deep white matter chronic small vessel ischemic changes. There is intracranial internal carotid artery atherosclerosis. Skull and face: Calvarium and visualized facial bones appear intact, without suspicious lesions. Sinuses: Visualized sinuses and mastoids are clear. IMPRESSION: 1. No CT evidence of acute intracranial process. 2. Age-appropriate cerebral cortical volume loss and chronic microvascular ischemic changes. Dictated by: Phylicia Almodovar M.D. on 10/10/2022 at 16:13 Approved by: Phylicia Almodovar M.D. on 10/10/2022 at 16:14
[2022-10-10 16:33] LABS: Prothrombin Time 11.3 SECONDS (10.1-12.7)
--- NOTE | 2022-10-10 16:33 | PC.NURSE ---
Pt responds to name with eye opening only. Provider aware.
[2022-10-10 16:36] LABS: PTT Partial Thromboplastin Tim 42 SECONDS (26-36)
[2022-10-10 16:38] LABS: Lactate (Lactic Acid) 0.8 mmol/L (0.7-2.1)
[2022-10-10 16:40] LABS: Acetaminophen < 10 ug/mL (10-30); Alanine Aminotransferase 20 IU/L (<35); Albumin 3.6 g/dL (3.5-5.0); Albumin Globulin Ratio 1.1 (1.0-2.8); Alkaline Phosphatase 97 U/L (38-126); Aspartate Aminotransferase 37 IU/L (14-36); BUN Creatinine Ratio 29.7 (6-22); Bilirubin Total 0.4 mg/dL (0.2-1.3); Blood Urea Nitrogen 22 mg/dL (7-17); Carbon Dioxide 32 mmol/L (22-32); Chloride 103 mmol/L (98-107); Creatine Kinase 33 U/L (30-135); Estimated Glomerular Filt Rate > 60 mL/min (>60); Ethanol (ETOH) < 10 mg/dL; Globulin 3.4 g/dL (1.7-4.1); Glucose 103 mg/dL (80-110); HEMOLYSIS < 15 (0-50); Magnesium 1.8 mg/dL (1.6-2.3); Potassium 4.4 mmol/L (3.4-5.1); Salicylate < 1.0 mg/dL (<20); Sodium 141 mmol/L (137-145)
--- NOTE | 2022-10-10 16:43 | PC.NURSE ---
Radiologist tech reports seizure like activity with more responsiveness after large tremors. Pt arrives with eyes open, but unresponsive to voice. Eyes closed now. Provider at bedside and aware. at bedside. Reports recent UTI and finishing abx.
[2022-10-10 16:51] LABS: Troponin I < 0.012 ng/mL (0.01-0.034)
[2022-10-10 16:56] LABS: Procalcitonin 0.29 ng/mL (<0.5); Prolactin 11.6 ng/mL (3.0-18.6)
[2022-10-10] MEDS: LORazepam 2 MG/ML INJ 0.5 MG IV (17:03)
[2022-10-10 17:17] LABS: Thyroid Stimulating Hormone 24.4 uIU/mL (0.47-4.68)
[2022-10-10 17:46] LABS: Ammonia (NH3) < 9 umol/L (9-30)
[2022-10-10 17:56] LABS: Free T3, Triiodothyronine Free 1.83 pg/mL (2.77-5.27); Free T4, Direct Thyroxine 0.66 ng/dL (0.78-2.19)
[2022-10-10 18:22] LABS: Appearance Urine UA CLOUDY; Bilirubin Urine UA NEGATIVE (NEGATIVE); Color Urine UA LT. YELLOW; Glucose Urine UA NEGATIVE (Negative); Ketones Urine UA TRACE (NEGATIVE); Leukocyte Esterase Urine UA TRACE (NEGATIVE); Nitrite Urine UA POSITIVE (Negative); Occult Blood Urine UA NEGATIVE (Negative); Protein Urine UA TRACE (Negative)
[2022-10-10 18:26] LABS: UR Morphine/Opiate cutoff 300 Negative (Negative); Ur Creatinine Normal (Normal); Ur Specific Gravity Normal (Normal); Urine Amphetamines Negative (Negative); Urine Barbiturates Negative (Negative); Urine Benzodiazepines Negative (Negative); Urine Cocaine Negative (Negative); Urine MDMA Negative (Negative); Urine Methadone Negative (Negative); Urine Methamphetamines Negative (Negative); Urine Oxycodone Negative (Negative); Urine Phencyclidine Negative (Negative); Urine Tetrahydrocannabinol Negative (Negative); Urine Tricyclic Antidepressant Negative (Negative); Urine pH Normal (Normal)
[2022-10-10 18:41] LABS: Amorphous Sediment Urine 2+; Bacteria Urine Many (>30); Mucus Urine 1+ (Negative); RBC Urine None Seen (0-5/HPF); Squamous Epithelial Cell Urine 0-1 /HPF (0-5/HPF); WBC Urine 10-30/HPF (0-5/HPF)
[2022-10-10] MEDS: cefTRIAXone 1,000 MG in SODIUM CHLORIDE 0.9% 100 ML 200 MG IV (19:33)
[2022-10-10 19:59] LABS: COVID19 -Nasal RAPID Negative (Negative)
[2022-10-10] MEDS: SODIUM CHLORIDE 0.9% 1,000 ML 100 ML IV (21:46)
--- NOTE | 2022-10-10 23:51 | PM.HP.1 ---
History of Present Illness History of Present Illness Date Patient Seen: 10/09/22 Time Patient Seen: 21:30 Chief complaint: Altered Mental Status found to have a UTI Narrative: Audrey Cornelius is an 81 female known to me with late stage dementia, osteoporosis, hypothyroidism, and essential hypertension is non-verbal to me and am unable to obtain a history from her. History is obtained from the ED provider based on her conversation with the patient's who has left for the evening.? Per the ED provider,?she was observed to be more twitchy today and less interactive than her baseline. Staff at her faclity reported she had been sleeping intermittently all day. She is not responsive to me, does not speak to me and seems to withdraw slightly to light touch. POLST form in her chart dated 10/02/20 indicates she is a DNR/DNI with limited interventions. Chest x-ray, C-spine CT, and chest x-ray were negative for any acute intracranial process. She does have a mild subpleural airspace opacity in the right upper lobe seen on prior studies. She presented afebrile, blood pressure 164/75 heart rate 79 respiratory rate 18 oxygen saturation of 96% on room air she weighs 45 kg with a BMI of 15. She is mildly anemic with a hemoglobin and hematocrit of 10.6 and 31.3 respectively though this appears to be higher than her baseline, platelet count is 187, she has a slight left shift of 8800 chemistries are unremarkable, she is a mildly elevated AST of 37 troponin is negative her TSH was elevated at 24.4 with a free T4 of 0.66 and a free T3 of 1.83. Urine is positive for bacteria and nitrates comment toxicology is negative and COVID-19 PCR is negative. Patient History Medical History Dementia Hallucinations due to late onset dementia Memory loss Surgical History History of thyroidectomy Status post breast lumpectomy Status post parathyroidectomy Family & Social History Family History Father Stroke Social History: household members spouse Tobacco & Substance use: Smoking Status Never smoker alcohol intake former Substance Use Type does not use Meds Home Medications and Allergies Home Medications Medication Instructions Recorded Confirmed Type losartan 50 mg tablet 50 mg PO DAILY ##0 05/19/17 10/10/22 History cholecalciferol (vitamin D3) 125 5,000 unit PO DAILY 06/20/18 10/10/22 History mcg (5,000 unit) tablet (Vitamin D3) verapamil 120 mg tablet 120 mg PO DAILY 08/16/19 10/10/22 History levothyroxine 112 mcg capsule 112 mcg PO DAILY #30 caps 05/16/22 10/10/22 Rx sennosides 8.6 mg capsule (senna) 17.2 mg PO BEDTIME #30 caps 05/16/22 10/10/22 Rx Allergies Allergy/AdvReac Type Severity Reaction Status Date / Time paraben [PARABEN] Allergy Unknown Verified 05/12/22 19:05 hydrochlorothiazide Allergy Verified 05/12/22 19:05 amlodipine [AMLODIPINE] AdvReac Unknown LEG CRAMPS Verified 05/12/22 19:05 metoprolol [METOPROLOL] AdvReac Unknown LEG CRAMPS Verified 05/12/22 19:05 Review of Systems Review of Systems ROS: Yes unobtainable due to mental status Exam Vital Signs (past 8 hours): - 10/10/22 16:15 10/10/22 16:15 10/10/22 16:20 Temperature 98.4 F Pulse Rate 97 H 97 H Respiratory Rate 18 21 Blood Pressure 154/91 H 154/91 H Pulse Oximetry 96 95 Oxygen Delivery Method Room Air Oxygen Flow Rate 10/10/22 16:20 10/10/22 16:25 10/10/22 16:25 Temperature Pulse Rate 98 H 96 H Respiratory Rate 18 Blood Pressure 224/96 H Pulse Oximetry 95 95 Oxygen Delivery Method Oxygen Flow Rate 10/10/22 16:27 10/10/22 16:27 10/10/22 16:41 Temperature Pulse Rate 96 H 104 H Respiratory Rate 15 Blood Pressure 183/86 H Pulse Oximetry 95 95 Oxygen Delivery Method Oxygen Flow Rate 10/10/22 16:42 10/10/22 16:42 10/10/22 16:59 Temperature Pulse Rate 102 H Respiratory Rate 18 Blood Pressure 193/95 H 200/94 H Pulse Oximetry 96 Oxygen Delivery Method Oxygen Flow Rate 10/10/22 16:59 10/10/22 17:00 10/10/22 17:00 Temperature Pulse Rate 92 H 94 H Respiratory Rate 20 17 Blood Pressure 179/82 H Pulse Oximetry 94 94 Oxygen Delivery Method Oxygen Flow Rate 10/10/22 17:10 10/10/22 17:10 10/10/22 17:20 Temperature Pulse Rate 93 H 90 Respiratory Rate 18 17 Blood Pressure 178/85 H Pulse Oximetry 95 94 Oxygen Delivery Method Oxygen Flow Rate 10/10/22 17:20 10/10/22 17:30 10/10/22 17:30 Temperature Pulse Rate 90 Respiratory Rate 25 H Blood Pressure 196/84 H 183/86 H Pulse Oximetry 95 Oxygen Delivery Method Oxygen Flow Rate 10/10/22 17:40 10/10/22 17:40 10/10/22 18:00 Temperature Pulse Rate 87 90 Respiratory Rate 14 22 Blood Pressure 194/93 H Pulse Oximetry 95 Oxygen Delivery Method Oxygen Flow Rate 10/10/22 18:04 10/10/22 18:04 10/10/22 18:10 Temperature Pulse Rate 82 79 Respiratory Rate 11 L Blood Pressure 180/80 H Pulse Oximetry 95 95 Oxygen Delivery Method Oxygen Flow Rate 10/10/22 18:10 10/10/22 18:21 10/10/22 18:21 Temperature Pulse Rate 78 Respiratory Rate 18 Blood Pressure 144/67 H 170/75 H Pulse Oximetry 92 Oxygen Delivery Method Oxygen Flow Rate 10/10/22 18:30 10/10/22 18:30 10/10/22 18:40 Temperature Pulse Rate 76 Respiratory Rate 14 Blood Pressure 148/67 H 157/71 H Pulse Oximetry 95 Oxygen Delivery Method Oxygen Flow Rate 10/10/22 18:40 10/10/22 18:50 10/10/22 18:50 Temperature Pulse Rate 77 76 Respiratory Rate 17 15 Blood Pressure 166/78 H Pulse Oximetry 94 95 Oxygen Delivery Method Oxygen Flow Rate 10/10/22 19:00 10/10/22 19:00 10/10/22 19:10 Temperature Pulse Rate 86 84 Respiratory Rate Blood Pressure 201/84 H Pulse Oximetry 96 95 Oxygen Delivery Method Oxygen Flow Rate 10/10/22 19:10 10/10/22 19:20 10/10/22 19:20 Temperature Pulse Rate 85 Respiratory Rate 18 Blood Pressure 158/83 H 188/88 H Pulse Oximetry 95 Oxygen Delivery Method Oxygen Flow Rate 10/10/22 19:30 10/10/22 19:30 10/10/22 19:40 Temperature Pulse Rate 85 Respiratory Rate 22 Blood Pressure 188/89 H 189/87 H Pulse Oximetry 94 Oxygen Delivery Method Oxygen Flow Rate 10/10/22 19:40 10/10/22 20:35 10/10/22 19:43 Temperature 98.3 F Pulse Rate 86 79 Respiratory Rate 19 18 Blood Pressure 164/75 H Pulse Oximetry 96 96 Oxygen Delivery Method Room Air Oxygen Flow Rate 0 10/10/22 20:36 Temperature Pulse Rate Respiratory Rate Blood Pressure Pulse Oximetry Oxygen Delivery Method Room Air Oxygen Flow Rate 95 Oxygen Delivery Method Room Air Oxygen Flow Rate 95 Narrative Exam Narrative: Gen: Ill appearing, cachectic 81 y.o. female, non-verbal HEENT: normocephalic, atraumatic, conjunctiva clear, sclera non-icteric, oral mucosa pink and moist Neck: supple, full ROM, no JVD, trachea is midline Resp: Lungs CTA, non-labored breathing CV: RRR, no murmur or rubs Abd: soft, non-tender, normoactive BTs Skin: no lesions or rashes, dry and intact Neuro: GCS 9, alert and oriented to self only, does not speak Extremities: moves all 4 extremities, is ambulatory, negative Roby?s sign Psyche: normal mood and affect. Objective Labs Result Diagrams: 10/10/22 16:00 10/10/22 16:00 Labs: Laboratory Results - last 24 hr 10/10/22 10/10/22 10/10/22 16:00 16:00 16:00 WBC 9.7 RBC 3.53 L Hgb 10.6 L Hct 31.3 L MCV 88.6 MCH 29.9 MCHC 33.8 RDW 17.5 H Plt Count 187 Neut % (Auto) 90.7 H Lymph % (Auto) 3.4 L [place] % (Auto) 5.5 Eos % (Auto) 0.1 L Baso % (Auto) 0.3 Neut # (Auto) 8800 H Lymph # (Auto) 300 L [place] # (Auto) 500 Eos # (Auto) 0 Baso # (Auto) 0 PT 11.3 INR 1.0 APTT 42 H Sodium 141 Potassium 4.4 Chloride 103 Carbon Dioxide 32 BUN 22 H Creatinine 0.74 Estimated GFR > 60 BUN/Creatinine Ratio 29.7 H Glucose 103 Lactate Calcium 9.0 Magnesium Total Bilirubin 0.4 AST 37 H ALT 20 Alkaline Phosphatase 97 Ammonia Total Creatine Kinase 33 CK-MB (CK-2) TNP CK-MB (CK-2) Rel Index TNP Troponin I < 0.012 Total Protein 7.0 Albumin 3.6 Globulin 3.4 Albumin/Globulin Ratio 1.1 Procalcitonin 0.29 TSH Free T4 Free T3 Prolactin 11.6 Urine Color Urine Appearance Urine pH Ur Specific [place] Urine Protein Urine Glucose (UA) Urine Ketones Urine Occult Blood Urine Nitrate Urine Bilirubin Urine Urobilinogen Ur Leukocyte Esterase Urine RBC Urine WBC Ur Squamous Epith Cells Amorphous Sediment Urine Bacteria Urine Mucus Salicylates < 1.0 U Opiates 300ng/mL cut Ur Oxycodone Screen Urine Methadone Screen Acetaminophen < 10 Ur Barbiturates Screen U Tricyclic Antidepress Ur Phencyclidine Scrn Ur Amphetamines Screen U Methamphetamines Scrn Ur MDMA Scrn (Ecstasy) U Benzodiazepines Scrn Urine Cocaine Screen U Marijuana (THC) Screen Ethyl Alcohol < 10 SARS-CoV-2 (PCR) 10/10/22 10/10/22 10/10/22 16:00 16:00 16:00 WBC RBC Hgb Hct MCV MCH MCHC RDW Plt Count Neut % (Auto) Lymph % (Auto) [place] % (Auto) Eos % (Auto) Baso % (Auto) Neut # (Auto) Lymph # (Auto) [place] # (Auto) Eos # (Auto) Baso # (Auto) PT INR APTT Sodium Potassium Chloride Carbon Dioxide BUN Creatinine Estimated GFR BUN/Creatinine Ratio Glucose Lactate 0.8 Calcium Magnesium 1.8 Total Bilirubin AST ALT Alkaline Phosphatase Ammonia Total Creatine Kinase CK-MB (CK-2) CK-MB (CK-2) Rel Index Troponin I Total Protein Albumin Globulin Albumin/Globulin Ratio Procalcitonin TSH 24.4 H Free T4 Free T3 Prolactin Urine Color Urine Appearance Urine pH Ur Specific [place] Urine Protein Urine Glucose (UA) Urine Ketones Urine Occult Blood Urine Nitrate Urine Bilirubin Urine Urobilinogen Ur Leukocyte Esterase Urine RBC Urine WBC Ur Squamous Epith Cells Amorphous Sediment Urine Bacteria Urine Mucus Salicylates U Opiates 300ng/mL cut Ur Oxycodone Screen Urine Methadone Screen Acetaminophen Ur Barbiturates Screen U Tricyclic Antidepress Ur Phencyclidine Scrn Ur Amphetamines Screen U Methamphetamines Scrn Ur MDMA Scrn (Ecstasy) U Benzodiazepines Scrn Urine Cocaine Screen U Marijuana (THC) Screen Ethyl Alcohol SARS-CoV-2 (PCR) 10/10/22 10/10/22 10/10/22 16:00 17:21 18:04 WBC RBC Hgb Hct MCV MCH MCHC RDW Plt Count Neut % (Auto) Lymph % (Auto) [place] % (Auto) Eos % (Auto) Baso % (Auto) Neut # (Auto) Lymph # (Auto) [place] # (Auto) Eos # (Auto) Baso # (Auto) PT INR APTT Sodium Potassium Chloride Carbon Dioxide BUN Creatinine Estimated GFR BUN/Creatinine Ratio Glucose Lactate Calcium Magnesium Total Bilirubin AST ALT Alkaline Phosphatase Ammonia < 9 L Total Creatine Kinase CK-MB (CK-2) CK-MB (CK-2) Rel Index Troponin I Total Protein Albumin Globulin Albumin/Globulin Ratio Procalcitonin TSH Free T4 0.66 L Free T3 1.83 L Prolactin Urine Color Lt. yellow Urine Appearance Cloudy Urine pH 7.0 Ur Specific [place] 1.020 Urine Protein Trace H Urine Glucose (UA) Negative Urine Ketones Trace H Urine Occult Blood Negative Urine Nitrate Positive H Urine Bilirubin Negative Urine Urobilinogen 1.0 Ur Leukocyte Esterase Trace H Urine RBC None seen Urine WBC 10-30/hpf H Ur Squamous Epith Cells 0-1 /hpf Amorphous Sediment 2+ Urine Bacteria Many (>30) H Urine Mucus 1+ H Salicylates U Opiates 300ng/mL cut Ur Oxycodone Screen Urine Methadone Screen Acetaminophen Ur Barbiturates Screen U Tricyclic Antidepress Ur Phencyclidine Scrn Ur Amphetamines Screen U Methamphetamines Scrn Ur MDMA Scrn (Ecstasy) U Benzodiazepines Scrn Urine Cocaine Screen U Marijuana (THC) Screen Ethyl Alcohol SARS-CoV-2 (PCR) 10/10/22 10/10/22 18:04 19:40 WBC RBC Hgb Hct MCV MCH MCHC RDW Plt Count Neut % (Auto) Lymph % (Auto) [place] % (Auto) Eos % (Auto) Baso % (Auto) Neut # (Auto) Lymph # (Auto) [place] # (Auto) Eos # (Auto) Baso # (Auto) PT INR APTT Sodium Potassium Chloride Carbon Dioxide BUN Creatinine Estimated GFR BUN/Creatinine Ratio Glucose Lactate Calcium Magnesium Total Bilirubin AST ALT Alkaline Phosphatase Ammonia Total Creatine Kinase CK-MB (CK-2) CK-MB (CK-2) Rel Index Troponin I Total Protein Albumin Globulin Albumin/Globulin Ratio Procalcitonin TSH Free T4 Free T3 Prolactin Urine Color Urine Appearance Urine pH Ur Specific [place] Urine Protein Urine Glucose (UA) Urine Ketones Urine Occult Blood Urine Nitrate Urine Bilirubin Urine Urobilinogen Ur Leukocyte Esterase Urine RBC Urine WBC Ur Squamous Epith Cells Amorphous Sediment Urine Bacteria Urine Mucus Salicylates U Opiates 300ng/mL cut Negative Ur Oxycodone Screen Negative Urine Methadone Screen Negative Acetaminophen Ur Barbiturates Screen Negative U Tricyclic Antidepress Negative Ur Phencyclidine Scrn Negative Ur Amphetamines Screen Negative U Methamphetamines Scrn Negative Ur MDMA Scrn (Ecstasy) Negative U Benzodiazepines Scrn Negative Urine Cocaine Screen Negative U Marijuana (THC) Screen Negative Ethyl Alcohol SARS-CoV-2 (PCR) Negative Assessment & Plan Assessment & Plan narrative: Jocelyn Cornelius is admitted for treatment of a urinary tract infection and an incidental finding of hypothyroidism. Urinary tract infection, acute and present on admission She is initiated on IV ceftriaxone and this will be continued U/A culture pending She was admitted for a uti in late April 2022 and her urine grew out e. Coli sensitive to ceftriaxone Hypothyroidism, suboptimally controlled She has a markedly elevated TSH and low free T3 and 4 Appears as though her dose of levothyroxine was raised from 112 mcg to 150 mcg daily She will need a recheck of her TSH in 1 month Essential hypertension, not well controlled on presentation.? Slightly elevated today and likely as a response to pain and the agitation of being in the hospital. Continue home dose of verapramil 120 mg p.o. b.i.d. and losartan 50 mg daily Dementia with behavioral disturbance especially at night Continue quetiapine b.i.d. dosing of 12.5 mg Other independent historians: none Discussion of results, plan of care with independent HCP/other Hospitalist Reviewed outside records: prior admission VTE Prophylaxis: Wells risk score 0 X Enoxaparin 40 mg subQ once daily Bilateral SCDs Patient is admitted to the inpatient service due to the severity of disease, risks of further disease progression and this stay is expected to exceed 2 midnights. FEN: IV fluids: NS at 100 ml/hour , diet: NPO until awake, labs: CBC, C/BMP, liver enzymes, Mag, PT/INR Consultants None Dispo: probable d/c back to [facility] Code status: DNR/DNI reviewed POLST form dated 10/02/20 with limited interventions [X] I have utilized all available immediate resources to obtain, update, or review of the patient's current medications VTE Deep Vein Thrombosis/Pulmonary Embolism Present on Admission: No MIPS - Admit I confirm the patient?s Advance Care Plan is present, Code status is documented, Surrogate decision maker is in patient?s record: Yes MIPS - DC The patient has current or prior documentation of left ventricular ejection fraction (LVEF) less than 40%, or moderate or severely depressed left ventricular systolic function.: No COVID-19 COVID-19 status: Negative Result date/Date tested (Pos, Neg/Pending): 10/10/22 Time Spent With Patient Critical Care time: I spent a total of [] minutes of critical care time on this patient's care today; this time is exclusive of procedural time. Scores GCS Amonate coma scale eye opening: To sound Milena coma scale verbal response: None Milena coma scale motor response: Localising Amonate coma scale total score: 9
[2022-10-11] VITALS (10 sets, daily range): BP systolic 132–170; BP diastolic 63–75; PULSE 72–83; RESP 13–22; TEMP 36.7–37.8; O2SAT 91–96
[2022-10-11 04:49] LABS: Add Manual Diff / Slide Review NO; Basophils Absolute Auto 0 /uL (0-100); Basophils Percent Auto 0.4 % (0-2); Eosinophils Absolute Auto 0 /uL (0-450); Eosinophils Percent Auto 0.3 % (2-4); Hemoglobin 9.8 g/dL (12.0-16.0); Lymphocytes Absolute Auto 400 /uL (1100-4500); Lymphocytes Percent Auto 4.6 % (25-40); Mean Corpuscular HGB Conc 33.7 % (30-36); Mean Corpuscular Hemoglobin 30.1 PG (26-34); Mean Corpuscular Volume 89.2 fL (80-100); Monocytes Absolute Auto 600 /uL (0-900); Monocytes Percent Auto 6.4 % (3-14); Neutrophils Absolute Auto 8200 /uL (1500-7000); Neutrophils Percent Auto 88.3 % (50-75); Platelet Count 123 X10^3/uL (150-400); Red Blood Cell Count 3.25 X10^6/uL (4.0-5.2); Red Cell Distribution Width 18.2 % (11.6-14.8); White Blood Cell Count 9.2 X10^3/uL (4.5-11.0)
[2022-10-11 04:51] LABS: Alanine Aminotransferase 17 IU/L (<35); Albumin 3.1 g/dL (3.5-5.0); Albumin Globulin Ratio 0.9 (1.0-2.8); Alkaline Phosphatase 91 U/L (38-126); Aspartate Aminotransferase 34 IU/L (14-36); Bilirubin Total 0.4 mg/dL (0.2-1.3); Blood Urea Nitrogen 17 mg/dL (7-17); Calcium 8.5 mg/dL (8.4-10.2); Carbon Dioxide 29 mmol/L (22-32); Chloride 105 mmol/L (98-107); Estimated Glomerular Filt Rate > 60 mL/min (>60); Globulin 3.3 g/dL (1.7-4.1); Glucose 78 mg/dL (80-110); HEMOLYSIS < 15 (0-50); Magnesium 1.8 mg/dL (1.6-2.3); Potassium 3.8 mmol/L (3.4-5.1); Sodium 140 mmol/L (137-145); Total Protein 6.4 g/dL (6.3-8.2)
[2022-10-11] MEDS: SODIUM CHLORIDE 0.9% 1,000 ML 100 ML IV ×2 (09:00→17:32)
--- NOTE | 2022-10-11 09:20 | P.PN_ITS ---
Subjective Subjective Date Patient Seen: 10/11/22 Interval history: On presentation patient was, as per?Staff at her faclity, reported to have been sleeping intermittently all day. She is not responsive to me, does not speak to me and does not withdraw from stimulus. Questionable responsiveness. However appears in no pain and is sleeping with some sleep apnea. Exam Vital Signs (past 8 hours): - 10/11/22 01:21 10/11/22 04:00 10/11/22 04:45 Temperature 98.3 F 98.6 F Pulse Rate 74 83 Respiratory Rate 18 18 Blood Pressure 143/63 H 150/71 H Pulse Oximetry 96 95 95 Oxygen Delivery Method Room Air Oxygen Flow Rate 0 0 10/11/22 07:35 Temperature 98.0 F Pulse Rate 80 Respiratory Rate 16 Blood Pressure 170/75 H Pulse Oximetry 95 Oxygen Delivery Method Oxygen Flow Rate 0 Oxygen Delivery Method Room Air Oxygen Flow Rate 0 Narrative Exam Narrative: Gen: cachectic elderly female, non-verbal HEENT: normocephalic, atraumatic Neck: supple, full ROM, no JVD, trachea is midline Resp: Lungs CTA, non-labored breathing, however some periods of apnea CV: RRR, no murmur or rubs Abd: soft, non-tender, normoactive BTs Skin: no lesions or rashes, dry and intact Neuro: Unable to assess, non arousable Objective Labs Result Diagrams: 10/11/22 04:08 10/11/22 04:08 Labs: Laboratory Results - last 24 hr 10/10/22 10/10/22 10/10/22 16:00 16:00 16:00 WBC 9.7 RBC 3.53 L Hgb 10.6 L Hct 31.3 L MCV 88.6 MCH 29.9 MCHC 33.8 RDW 17.5 H Plt Count 187 Neut % (Auto) 90.7 H Lymph % (Auto) 3.4 L [place] % (Auto) 5.5 Eos % (Auto) 0.1 L Baso % (Auto) 0.3 Neut # (Auto) 8800 H Lymph # (Auto) 300 L [place] # (Auto) 500 Eos # (Auto) 0 Baso # (Auto) 0 PT 11.3 INR 1.0 APTT 42 H Sodium 141 Potassium 4.4 Chloride 103 Carbon Dioxide 32 BUN 22 H Creatinine 0.74 Estimated GFR > 60 BUN/Creatinine Ratio 29.7 H Glucose 103 Lactate Calcium 9.0 Magnesium Total Bilirubin 0.4 AST 37 H ALT 20 Alkaline Phosphatase 97 Ammonia Total Creatine Kinase 33 CK-MB (CK-2) TNP CK-MB (CK-2) Rel Index TNP Troponin I < 0.012 Total Protein 7.0 Albumin 3.6 Globulin 3.4 Albumin/Globulin Ratio 1.1 Procalcitonin 0.29 TSH Free T4 Free T3 Prolactin 11.6 Urine Color Urine Appearance Urine pH Ur Specific [place] Urine Protein Urine Glucose (UA) Urine Ketones Urine Occult Blood Urine Nitrate Urine Bilirubin Urine Urobilinogen Ur Leukocyte Esterase Urine RBC Urine WBC Ur Squamous Epith Cells Amorphous Sediment Urine Bacteria Urine Mucus Salicylates < 1.0 U Opiates 300ng/mL cut Ur Oxycodone Screen Urine Methadone Screen Acetaminophen < 10 Ur Barbiturates Screen U Tricyclic Antidepress Ur Phencyclidine Scrn Ur Amphetamines Screen U Methamphetamines Scrn Ur MDMA Scrn (Ecstasy) U Benzodiazepines Scrn Urine Cocaine Screen U Marijuana (THC) Screen Ethyl Alcohol < 10 SARS-CoV-2 (PCR) 10/10/22 10/10/22 10/10/22 16:00 16:00 16:00 WBC RBC Hgb Hct MCV MCH MCHC RDW Plt Count Neut % (Auto) Lymph % (Auto) [place] % (Auto) Eos % (Auto) Baso % (Auto) Neut # (Auto) Lymph # (Auto) [place] # (Auto) Eos # (Auto) Baso # (Auto) PT INR APTT Sodium Potassium Chloride Carbon Dioxide BUN Creatinine Estimated GFR BUN/Creatinine Ratio Glucose Lactate 0.8 Calcium Magnesium 1.8 Total Bilirubin AST ALT Alkaline Phosphatase Ammonia Total Creatine Kinase CK-MB (CK-2) CK-MB (CK-2) Rel Index Troponin I Total Protein Albumin Globulin Albumin/Globulin Ratio Procalcitonin TSH 24.4 H Free T4 Free T3 Prolactin Urine Color Urine Appearance Urine pH Ur Specific [place] Urine Protein Urine Glucose (UA) Urine Ketones Urine Occult Blood Urine Nitrate Urine Bilirubin Urine Urobilinogen Ur Leukocyte Esterase Urine RBC Urine WBC Ur Squamous Epith Cells Amorphous Sediment Urine Bacteria Urine Mucus Salicylates U Opiates 300ng/mL cut Ur Oxycodone Screen Urine Methadone Screen Acetaminophen Ur Barbiturates Screen U Tricyclic Antidepress Ur Phencyclidine Scrn Ur Amphetamines Screen U Methamphetamines Scrn Ur MDMA Scrn (Ecstasy) U Benzodiazepines Scrn Urine Cocaine Screen U Marijuana (THC) Screen Ethyl Alcohol SARS-CoV-2 (PCR) 10/10/22 10/10/22 10/10/22 16:00 17:21 18:04 WBC RBC Hgb Hct MCV MCH MCHC RDW Plt Count Neut % (Auto) Lymph % (Auto) [place] % (Auto) Eos % (Auto) Baso % (Auto) Neut # (Auto) Lymph # (Auto) [place] # (Auto) Eos # (Auto) Baso # (Auto) PT INR APTT Sodium Potassium Chloride Carbon Dioxide BUN Creatinine Estimated GFR BUN/Creatinine Ratio Glucose Lactate Calcium Magnesium Total Bilirubin AST ALT Alkaline Phosphatase Ammonia < 9 L Total Creatine Kinase CK-MB (CK-2) CK-MB (CK-2) Rel Index Troponin I Total Protein Albumin Globulin Albumin/Globulin Ratio Procalcitonin TSH Free T4 0.66 L Free T3 1.83 L Prolactin Urine Color Lt. yellow Urine Appearance Cloudy Urine pH 7.0 Ur Specific [place] 1.020 Urine Protein Trace H Urine Glucose (UA) Negative Urine Ketones Trace H Urine Occult Blood Negative Urine Nitrate Positive H Urine Bilirubin Negative Urine Urobilinogen 1.0 Ur Leukocyte Esterase Trace H Urine RBC None seen Urine WBC 10-30/hpf H Ur Squamous Epith Cells 0-1 /hpf Amorphous Sediment 2+ Urine Bacteria Many (>30) H Urine Mucus 1+ H Salicylates U Opiates 300ng/mL cut Ur Oxycodone Screen Urine Methadone Screen Acetaminophen Ur Barbiturates Screen U Tricyclic Antidepress Ur Phencyclidine Scrn Ur Amphetamines Screen U Methamphetamines Scrn Ur MDMA Scrn (Ecstasy) U Benzodiazepines Scrn Urine Cocaine Screen U Marijuana (THC) Screen Ethyl Alcohol SARS-CoV-2 (PCR) 10/10/22 10/10/22 10/11/22 18:04 19:40 04:08 WBC 9.2 RBC 3.25 L Hgb 9.8 L Hct 29.0 L MCV 89.2 MCH 30.1 MCHC 33.7 RDW 18.2 H Plt Count 123 L Neut % (Auto) 88.3 H Lymph % (Auto) 4.6 L [place] % (Auto) 6.4 Eos % (Auto) 0.3 L Baso % (Auto) 0.4 Neut # (Auto) 8200 H Lymph # (Auto) 400 L [place] # (Auto) 600 Eos # (Auto) 0 Baso # (Auto) 0 PT INR APTT Sodium Potassium Chloride Carbon Dioxide BUN Creatinine Estimated GFR BUN/Creatinine Ratio Glucose Lactate Calcium Magnesium Total Bilirubin AST ALT Alkaline Phosphatase Ammonia Total Creatine Kinase CK-MB (CK-2) CK-MB (CK-2) Rel Index Troponin I Total Protein Albumin Globulin Albumin/Globulin Ratio Procalcitonin TSH Free T4 Free T3 Prolactin Urine Color Urine Appearance Urine pH Ur Specific [place] Urine Protein Urine Glucose (UA) Urine Ketones Urine Occult Blood Urine Nitrate Urine Bilirubin Urine Urobilinogen Ur Leukocyte Esterase Urine RBC Urine WBC Ur Squamous Epith Cells Amorphous Sediment Urine Bacteria Urine Mucus Salicylates U Opiates 300ng/mL cut Negative Ur Oxycodone Screen Negative Urine Methadone Screen Negative Acetaminophen Ur Barbiturates Screen Negative U Tricyclic Antidepress Negative Ur Phencyclidine Scrn Negative Ur Amphetamines Screen Negative U Methamphetamines Scrn Negative Ur MDMA Scrn (Ecstasy) Negative U Benzodiazepines Scrn Negative Urine Cocaine Screen Negative U Marijuana (THC) Screen Negative Ethyl Alcohol SARS-CoV-2 (PCR) Negative 10/11/22 04:08 WBC RBC Hgb Hct MCV MCH MCHC RDW Plt Count Neut % (Auto) Lymph % (Auto) [place] % (Auto) Eos % (Auto) Baso % (Auto) Neut # (Auto) Lymph # (Auto) [place] # (Auto) Eos # (Auto) Baso # (Auto) PT INR APTT Sodium 140 Potassium 3.8 Chloride 105 Carbon Dioxide 29 BUN 17 Creatinine 0.63 Estimated GFR > 60 BUN/Creatinine Ratio 27.0 H Glucose 78 L Lactate Calcium 8.5 Magnesium 1.8 Total Bilirubin 0.4 AST 34 ALT 17 Alkaline Phosphatase 91 Ammonia Total Creatine Kinase CK-MB (CK-2) CK-MB (CK-2) Rel Index Troponin I Total Protein 6.4 Albumin 3.1 L Globulin 3.3 Albumin/Globulin Ratio 0.9 L Procalcitonin TSH Free T4 Free T3 Prolactin Urine Color Urine Appearance Urine pH Ur Specific [place] Urine Protein Urine Glucose (UA) Urine Ketones Urine Occult Blood Urine Nitrate Urine Bilirubin Urine Urobilinogen Ur Leukocyte Esterase Urine RBC Urine WBC Ur Squamous Epith Cells Amorphous Sediment Urine Bacteria Urine Mucus Salicylates U Opiates 300ng/mL cut Ur Oxycodone Screen Urine Methadone Screen Acetaminophen Ur Barbiturates Screen U Tricyclic Antidepress Ur Phencyclidine Scrn Ur Amphetamines Screen U Methamphetamines Scrn Ur MDMA Scrn (Ecstasy) U Benzodiazepines Scrn Urine Cocaine Screen U Marijuana (THC) Screen Ethyl Alcohol SARS-CoV-2 (PCR) [facility] Medical History Dementia Hallucinations due to late onset dementia Memory loss Surgical History History of thyroidectomy Status post breast lumpectomy Status post parathyroidectomy Family History Father Stroke Social History household members: spouse Smoking Status: Never smoker alcohol intake: former Assessment & Plan Assessment & Plan narrative: Jocelyn Cornelius was admitted for treatment of a urinary tract infection and an incidental finding of hypothyroidism. Unable to give medication currently by mouth due to in not arousable. We will give thyroid medication intravenously. 1. Urinary tract infection, acute and present on admission * IV ceftriaxone continued * U/A culture pending, blood culture is also pending * She was admitted for a uti in late April 2022 and her urine grew out e. Coli sensitive to ceftriaxone 2. Hypothyroidism, suboptimally controlled * She has a markedly elevated TSH and low free T3 and free T4 * Appears as though her dose of levothyroxine was raised from 112 mcg to 150 mcg daily, will supplement today with intravenous levothyroxine * She will need a recheck of her TSH in 1 month 3. Essential hypertension, not well controlled on presentation.? Continues to be elevated, continue to follow. * Continue home dose of verapramil 120 mg p.o. b.i.d. and losartan 50 mg daily 4. Dementia with behavioral disturbance especially at night * Continue quetiapine b.i.d. dosing of 12.5 mg, this needs to be held until patient is more responsive VTE Prophylaxis: Enoxaparin 40 mg subQ once daily? Bilateral SCDs Dispo: probable d/c back to [facility] once stable. Code status:? DNR/DNI reviewed POLST form dated 10/02/20 with limited interventions Patient?s Advance Care Plan is present, Code status is documented, Surrogate decision maker is in patient?s record. COVID-19 COVID-19 status: Negative Result date/Date tested (Pos, Neg/Pending): 10/10/22 Time Spent With Patient Critical Care time: I spent a total of [] minutes of critical care time on this patient's care today; this time is exclusive of procedural time.
--- NOTE | 2022-10-11 11:25 | PC.NURSE ---
Pt remains unresponsive to any stimuli. She has not been arousable to voice, touch, sternal rub or repositioning in the bed. She has some moments of apnea that maybe normal for her sleep pattern of breathing. Glosgow coma scale is 3. Dr. Coates has been made aware and has come to the bedside to assess. No new orders at this time. She remains 95% on room air at this time, IV fluids infusing and mansfield catheter in place.
[2022-10-11] MEDS: LEVOTHYROXINE INJ 100 MCG/5 ML VIAL 200 MCG IV (13:38)
--- NOTE | 2022-10-11 15:35 | CM.DANOTE ---
DCP: Assessment, Pt is a 81yo female brought to ED on 10/10/22 from [facility] in [place] via ambulance with altered mental status with behavioral disturbances, found to have a UTI with bacteremia, hypothyroidism, suboptimally controlled. DCP: Latha Chang Insurance: [facility] Ad[employer]age This CM met with pt's in pt's Erica in pt's room. Pt laying in her bed and appears to sleeping with her eyes closed. reports that he has noted a decline in her cognition over quite some time He states that he goes to her [facility] every day from Noon to 2pm and that he feeds her lunch. He states that when he goes to see her she is sitting up in a reclyning w/c. Dr. Childs came in and spoke with pt's about pt's declining condition which could be related to worsening dementia. Dr. Childs and this CM and floor RN Yahaira present during the discussion. Hospice alternative was discussed with pt by Dr. Childs and ANGELIC Syed for patient. Patient's is going to consult with his son who is an RN, Anesthesiologist and supports him with making decisions. Per Dr. Gates recommendation, if pt does not arouse within the next day, if family is agreeable, hospice can be referred. This RN contacted Kathy [phone] at [facility] who is in agreement to accept patient's return with hospice referral for care at the [facility]. P: Pt is being monitored and cared for throughout the night with hopes for improvement although if no improvement, plan with family agreement is d/c to [facility] under the care of Hospice Services. Norma Quiñones RNbisque ware dipper Discharge Planning/Care Management CM Discharge Assessment Start: 10/11/22 15:22 Freq: Status: Active Protocol: Document 10/11/22 15:22 ADRY (Rec: 10/11/22 15:35 ADRY [id number]) Discharge Planning Assessment Assigned Volunteer Specialist Norma Quiñones RN, Replenisher Advance Directives? Yes: DPOA Advance Directives on File Yes History Provided By Family Member,Significant Other,Medical Record Has Patient been admitted in last 30 No days? Prior Living Arrangements Assisted Living Comment Pt resides at [facility] in [place] Household Members other Comment Pt resides in adult family home with other patients Type of transporation used prior to Relies on Others admit Facility Name Admitted From: [facility] Willing to Return to Facility? Yes: [facility]avez Independent with ADL's No Is patient alert and oriented? Yes: Alert/Worsening Dementia Per report Needs Assistance With Bathing,Eating,Grooming,Meal Prep,Toileting,Managing Medications,Home Chores / Shopping Caregiver for Another No DME Already Rented / Owned Wheelchair Comment has steff w/c Comment [facility] Barriers to Discharge No Discharge Plan Adult Family Home Transportation Arrangement Undecided as of yet Whiteboard Updated in Patient Room with Yes name and ext. # of Volunteer Specialist Review Status In Process Next Review Type Continued Stay Review
[2022-10-11] MEDS: ENOXAPARIN 40 MG/0.4 ML SYRINGE SUBCUT (17:32)
[2022-10-11] MEDS: cefTRIAXone 1,000 MG in SODIUM CHLORIDE 0.9% 100 ML 200 MG IV (19:06)
[2022-10-12] VITALS: PULSE 74; RESP 14; O2SAT 93; O2SAT 95
[2022-10-12 04:00] VITALS: BP 156/63; PULSE 74; RESP 13; TEMP 36.5; O2SAT 93
[2022-10-12] MEDS: SODIUM CHLORIDE 0.9% 1,000 ML 100 ML IV (04:17)
[2022-10-12 04:46] LABS: Add Manual Diff / Slide Review NO; Basophils Absolute Auto 100 /uL (0-100); Basophils Percent Auto 0.4 % (0-2); Eosinophils Absolute Auto 0 /uL (0-450); Eosinophils Percent Auto 0.1 % (2-4); Hematocrit 29.5 % (36-46); Hemoglobin 9.8 g/dL (12.0-16.0); Lymphocytes Absolute Auto 300 /uL (1100-4500); Lymphocytes Percent Auto 2.7 % (25-40); Mean Corpuscular Hemoglobin 29.9 PG (26-34); Mean Corpuscular Volume 90.5 fL (80-100); Monocytes Absolute Auto 400 /uL (0-900); Monocytes Percent Auto 2.8 % (3-14); Neutrophils Absolute Auto 12300 /uL (1500-7000); Platelet Count 106 X10^3/uL (150-400); Red Blood Cell Count 3.26 X10^6/uL (4.0-5.2); Red Cell Distribution Width 18.2 % (11.6-14.8); White Blood Cell Count 13.1 X10^3/uL (4.5-11.0)
[2022-10-12 05:11] LABS: Alanine Aminotransferase 16 IU/L (<35); Albumin 2.9 g/dL (3.5-5.0); Albumin Globulin Ratio 0.9 (1.0-2.8); Alkaline Phosphatase 91 U/L (38-126); Aspartate Aminotransferase 30 IU/L (14-36); BUN Creatinine Ratio 28.1 (6-22); Bilirubin Total 0.4 mg/dL (0.2-1.3); Blood Urea Nitrogen 18 mg/dL (7-17); Calcium 8.2 mg/dL (8.4-10.2); Carbon Dioxide 24 mmol/L (22-32); Chloride 106 mmol/L (98-107); Estimated Glomerular Filt Rate > 60 mL/min (>60); Globulin 3.3 g/dL (1.7-4.1); Glucose 54 mg/dL (80-110); HEMOLYSIS < 15 (0-50); Magnesium 1.7 mg/dL (1.6-2.3); Potassium 3.3 mmol/L (3.4-5.1); Sodium 141 mmol/L (137-145); Total Protein 6.2 g/dL (6.3-8.2)
[2022-10-12] MEDS: DEXTROSE 5%-0.45% NS 1,000 ML 75 ML IV (06:59)
[2022-10-12 08:00] VITALS: BP 146/63; PULSE 77; RESP 16; TEMP 36.7; O2SAT 96
--- NOTE | 2022-10-12 09:15 | CM.DPC ---
Addendum entered by Rossy Victoria R.N. 10/12/22 13:04: POLST form found in chart, copied for scanning, updated spouse that form was located. POLST states DNR with limited interventions. Addendum entered by Rossy Victoria R.N. 10/12/22 11:25: Discussed case at team rounds. Dr. Clay indicated, patient is not yet ready for hospice as of yet, is somewhat more responsive today and improving. In rounds, indicated that patient could potentially be readyfor discharge tomorrow or Wednesday. Met with patient's spouse, Erica, who is at bedside. Confirmed that they have both been for about 68 years. Patient moved into [facility], in May, spouse could no longer manage, was a two person transfer. They have four sons. Asked him if there is a POLST on patient, did not see one scanned in, or by chart. He thought that they had it on record, but can bring tomorrow. Discussed how patient would need to go back to [facility], via ambulance, since she is weak, unable to get in and out of a car, and let him know that he could get a bill for this. He stated, if that's the best way for her to go, so be it. Called Kathy over at [facility], and updated her that patient could be ready for discharge either tomorrow or the next day, and that hospice will not yet be ordered at this time, so she is aware. Original Note: DCP Cont: Patient is still semi-responsive, according to staff. Will discuss with spouse and team rounds if hospice will be ordered, for last note from DCP project planner indicated that spouse was going to discuss further with son, RN. Patient resides at [facility], plan is for her to return there. P: DCP to continue to follow, will see if hospice will be ordered, plan is for her to return to [facility]. Rossy Victoria RN/Ship'S Surveyor
[2022-10-12] MEDS: cefTRIAXone 2,000 MG in SODIUM CHLORIDE 0.9% 100 ML 200 MG IV (09:16)
[2022-10-12] MEDS: ENOXAPARIN 40 MG/0.4 ML SYRINGE SUBCUT (09:16)
--- NOTE | 2022-10-12 09:26 | DIET.CONS ---
Dietary Consultation Note Admission Date: 10/11/2022 09:50 Assessment: 81y F admitted minimally responsive with UTI referred to nutrition for malnutrition screening. Pt lives at [facility] with severe dementia. Chart review shows recent severe unintentional weight loss x5mo (-18.2%) with severe BMI 15.1, MNA score 9 (malnourished), Tommy score 8 (very high risk skin breakdown) with osteoporosis. Hospitalist reports pt ill-appearing and cachectic. Pt had been weight stable since 2018 at 55kg. Since admission pt has had no meaningful PO intake. Ht: 172.72 cm Wt: 45 kg (-18.2% over <5mo) BMI: 15.0 UBW: 55kg Last BM: () MNA: 9 Tommy Score: 8 Diet: 10/10/22 Breakfast Heart Healthy Diet Diet Modifications: 10/10/22 Dinner General (Regular) Diet Diet Modifications: Nutrition Percent Meal Consumed 0% 10/12/22 09:07 Percent Meal Consumed 0% 10/11/22 14:20 Labs: RBC 3.26 X10^6/uL (4.0-5.2) L 10/12/22 03:59 Hgb 9.8 g/dL (12.0-16.0) L 10/12/22 03:59 Hct 29.5 % (36-46) L 10/12/22 03:59 Creatinine 0.64 mg/dL (0.52-1.04) 10/12/22 03:59 Lactate 0.8 mmol/L (0.7-2.1) 10/10/22 16:00 Nutrition Diagnosis: Severe Acute Protein Calorie Malnutrition r/t advanced dementia aeb 18.2% unintentional weight loss in <5mo, BMI 15.1 (severe), MNA 9 (malnourished), Tommy 8 (high risk skin breakdown), cachectic appearing and 0% PO intake since admission due to altered mental status with UTI. -The patient is at much higher risk for medical and surgical complications because of his malnutrition. This increases the difficulty and complexity of medical and surgical interventions and increases the chances of poor outcomes such as morbidity and mortality. Interventions: 1. Recc ONS Ensure Enlive tid to support nutrition and hydration needs as tolerated. ONS provides 70% kcal and 80% protein needs. 2. Pt hospice candidate, recc consideration of moving to comfort care due to poor nutrition status and advanced dementia. EER: 1500kcals (35kcal/kg per PCM), 65-70g PRO (1.5g/kg per PCM) Monitoring/Evaluations: POC Electronically Signed by: Liat Mayer 10/12/22 09:26 Clinical Dietitian [address] [address]
[2022-10-12] MEDS: MAGNESIUM SULFATE 2 GM/50 ML PIGGYBACK IV (10:47)
[2022-10-12 12:00] VITALS: BP 120/84; PULSE 92; RESP 20; TEMP 36.3; O2SAT 93
[2022-10-12] MEDS: POTASSIUM CHLORIDE IN WATER 10 MEQ/100 ML PIGGYBACK 100 MEQ IV ×4 (12:50→16:00)
--- NOTE | 2022-10-12 15:19 | P.PN_ITS ---
Subjective Subjective Date Patient Seen: 10/12/22 Interval history: Beginning to be more interactive and even talking today. We will continue with current treatment. No new complaints by the patient or the patient's spouse. Or no new complaints by nursing. Exam Vital Signs (past 8 hours): - 10/12/22 08:00 10/12/22 12:00 Temperature 98.0 F 97.4 F L Pulse Rate 77 92 H Respiratory Rate 16 20 Blood Pressure 146/63 H 120/84 Pulse Oximetry 96 93 Oxygen Flow Rate 0 Oxygen Delivery Method Room Air Oxygen Flow Rate 0 Narrative Exam Narrative: Gen: cachectic elderly female, responding and verbal currently HEENT: normocephalic, atraumatic Neck: supple, full ROM, no JVD, trachea is midline Resp: Lungs CTA, non-labored breathing, however some periods of apnea CV: RRR, no murmur or rubs Abd: soft, non-tender, normoactive BTs Skin: no lesions or rashes, dry and intact Neuro:? Appears to have normal sensation of all extremity Objective Labs Result Diagrams: 10/12/22 03:59 10/12/22 03:59 Labs: Laboratory Results - last 24 hr 10/12/22 10/12/22 03:59 03:59 WBC 13.1 H RBC 3.26 L Hgb 9.8 L Hct 29.5 L MCV 90.5 MCH 29.9 MCHC 33.0 RDW 18.2 H Plt Count 106 L Neut % (Auto) 94.0 H Lymph % (Auto) 2.7 L [place] % (Auto) 2.8 L Eos % (Auto) 0.1 L Baso % (Auto) 0.4 Neut # (Auto) 21051 H Lymph # (Auto) 300 L [place] # (Auto) 400 Eos # (Auto) 0 Baso # (Auto) 100 Sodium 141 Potassium 3.3 L Chloride 106 Carbon Dioxide 24 BUN 18 H Creatinine 0.64 Estimated GFR > 60 BUN/Creatinine Ratio 28.1 H Glucose 54 L Calcium 8.2 L Magnesium 1.7 Total Bilirubin 0.4 AST 30 ALT 16 Alkaline Phosphatase 91 Total Protein 6.2 L Albumin 2.9 L Globulin 3.3 Albumin/Globulin Ratio 0.9 L PFSH Medical History Dementia Hallucinations due to late onset dementia Memory loss Surgical History History of thyroidectomy Status post breast lumpectomy Status post parathyroidectomy Family History Father Stroke Social History household members: other Smoking Status: Never smoker alcohol intake: former Assessment & Plan Assessment & Plan narrative: 1. Urinary tract infection, acute and present on admission * ?IV ceftriaxone continued * U/A culture pending, blood culture is also pending * She was admitted for a uti in late April 2022 and her urine grew out e. Coli sensitive to ceftriaxone 2. Hypothyroidism, suboptimally controlled * She has a markedly elevated TSH and low free T3 and free T4 * Appears as though her dose of levothyroxine was raised from 112 mcg to 150 mcg daily, will supplement today with intravenous levothyroxine again today and in the morning October 13. Patient is severely hypothyroid. TSH was 24.4 free T4 was 0.66 and free T3 was 1.83. Hopefully the intravenous levothyroxine will kick start replacement so that after 3 days of intravenous replacement the patient can be stabilized on her oral replacement. * She will need a recheck of her TSH as well as free T4 and free T3 in 1 month 3. Essential hypertension, not well controlled on presentation.? Continues to be elevated, continue to follow. * Continue home dose of verapramil 120 mg p.o. b.i.d. and losartan 50 mg daily * BP much better controlled today. 4. Dementia with behavioral disturbance especially at night * Continue quetiapine b.i.d. dosing of 12.5 mg, this needs to be held until patient is more responsive Continue to follow labs and follow the patient clinically. VTE Prophylaxis: Enoxaparin 40 mg subQ once daily? Bilateral SCDs Dispo: probable d/c back to [facility] once stable. Code status:? DNR/DNI reviewed POLST form dated 10/02/20 with limited interventions Patient?s Advance Care Plan is present, Code status is documented, Surrogate decision maker is in patient?s record. COVID-19 COVID-19 status: Negative Result date/Date tested (Pos, Neg/Pending): 10/10/22 Time Spent With Patient Critical Care time: I spent a total of [] minutes of critical care time on this patient's care today; this time is exclusive of procedural time.
[2022-10-12 16:15] VITALS: BP 136/63; PULSE 81; RESP 16; TEMP 37.3; O2SAT 96
[2022-10-12 16:18] LABS: Osmolality, Serum 297 mOsmol/kg (280-301)
[2022-10-12 20:00] VITALS: BP 150/66; PULSE 79; RESP 20; TEMP 37; O2SAT 97
[2022-10-13] VITALS (7 sets, daily range): BP systolic 113–166; BP diastolic 51–80; PULSE 63–72; RESP 15–20; TEMP 36.1–36.9; O2SAT 94–97
[2022-10-13 05:32] LABS: Add Manual Diff / Slide Review NO; Basophils Absolute Auto 0 /uL (0-100); Basophils Percent Auto 0.3 % (0-2); Eosinophils Absolute Auto 100 /uL (0-450); Eosinophils Percent Auto 1.1 % (2-4); Hematocrit 24.7 % (36-46); Hemoglobin 8.4 g/dL (12.0-16.0); Lymphocytes Absolute Auto 400 /uL (1100-4500); Lymphocytes Percent Auto 4.1 % (25-40); Mean Corpuscular HGB Conc 34.1 % (30-36); Mean Corpuscular Hemoglobin 30.5 PG (26-34); Mean Corpuscular Volume 89.4 fL (80-100); Monocytes Absolute Auto 500 /uL (0-900); Monocytes Percent Auto 5.9 % (3-14); Neutrophils Absolute Auto 7900 /uL (1500-7000); Neutrophils Percent Auto 88.6 % (50-75); Platelet Count 127 X10^3/uL (150-400); Red Blood Cell Count 2.76 X10^6/uL (4.0-5.2); Red Cell Distribution Width 17.8 % (11.6-14.8); White Blood Cell Count 8.9 X10^3/uL (4.5-11.0)
[2022-10-13 05:44] LABS: BUN Creatinine Ratio 28.6 (6-22); Blood Urea Nitrogen 18 mg/dL (7-17); Calcium 7.9 mg/dL (8.4-10.2); Carbon Dioxide 25 mmol/L (22-32); Chloride 107 mmol/L (98-107); Estimated Glomerular Filt Rate > 60 mL/min (>60); Glucose 100 mg/dL (80-110); HEMOLYSIS < 15 (0-50); Magnesium 2.2 mg/dL (1.6-2.3); Potassium 3.2 mmol/L (3.4-5.1); Sodium 140 mmol/L (137-145)
[2022-10-13] MEDS: cefTRIAXone 2,000 MG in SODIUM CHLORIDE 0.9% 100 ML 200 MG IV (09:28)
[2022-10-13] MEDS: ENOXAPARIN 40 MG/0.4 ML SYRINGE SUBCUT (09:29)
[2022-10-13] MEDS: LOSARTAN 50 MG TABLET PO (09:29)
[2022-10-13] MEDS: VERAPAMIL 120 MG TABLET PO (09:41)
[2022-10-13] MEDS: LEVOTHYROXINE 150 MCG TABLET PO (09:41)
--- NOTE | 2022-10-13 10:58 | CM.DPC ---
DCP Cont: Discussed patient during team rounds today, mentation continues to improve, uncertain if patient is medically ready yet today for discharge. Received a phone call from Renee at [facility], inquiring on patient. Just found out that she is currently under their services for P.T. only. Gave her an update on patient, that she is inpatient, and could be ready for discharge tomorrow, if not today, and she will be updated, they will need resumption orders. She indicated that her home health is good until 30, then, they will need to do a new start of care, if patient was still here after that, they would need a new face to face. P: DCP to continue to follow. Plan is for patient to go back to [facility], via BLS, with resumption of [facility]. Rossy Victoria RN/Signal System Testing Maintainer
--- NOTE | 2022-10-13 11:14 | P.PN_ITS ---
Exam Vital Signs (past 8 hours): - 10/13/22 04:00 10/13/22 04:00 10/13/22 08:00 Temperature 97.4 F L 96.9 F L Pulse Rate 70 68 Respiratory Rate 20 17 Blood Pressure 166/80 H 165/70 H Pulse Oximetry 97 97 97 Oxygen Delivery Method Room Air Oxygen Flow Rate 0 0 0 Oxygen Delivery Method Room Air Oxygen Flow Rate 0 Narrative Exam Narrative: Gen: cachectic elderly female, responding and verbal currently. More alert and looking around. HEENT: normocephalic, atraumatic Neck: supple, full ROM, no JVD, trachea is midline Resp: Lungs CTA, non-labored breathing CV: RRR, no murmur or rubs Abd: soft, non-tender, normoactive BTs Skin: no lesions or rashes, dry and intact Neuro:? Appears to have normal sensation of all extremity Objective Labs 10/13/22 04:35 10/13/22 04:35 Labs: Laboratory Results - last 24 hr 10/10/22 10/13/22 10/13/22 16:03 04:35 04:35 WBC 8.9 RBC 2.76 L Hgb 8.4 L Hct 24.7 L MCV 89.4 MCH 30.5 MCHC 34.1 RDW 17.8 H Plt Count 127 L Neut % (Auto) 88.6 H Lymph % (Auto) 4.1 L Murray % (Auto) 5.9 Eos % (Auto) 1.1 L Baso % (Auto) 0.3 Neut # (Auto) 7900 H Lymph # (Auto) 400 L Murray # (Auto) 500 Eos # (Auto) 100 Baso # (Auto) 0 Sodium 140 Potassium 3.2 L Chloride 107 Carbon Dioxide 25 BUN 18 H Creatinine 0.63 Estimated GFR > 60 BUN/Creatinine Ratio 28.6 H Glucose 100 Serum Osmolality 297 Calcium 7.9 L Magnesium 2.2 PFSH Medical History Dementia Hallucinations due to late onset dementia Memory loss Surgical History History of thyroidectomy Status post breast lumpectomy Status post parathyroidectomy Family History Father Stroke Social History household members: other Smoking Status: Never smoker alcohol intake: former Assessment & Plan Assessment & Plan narrative: . Urinary tract infection, acute and present on admission * ?IV ceftriaxone continued * U/A culture pending, blood culture is also pending * She was admitted for a uti in late April 2022 and her urine grew out e. Coli sensitive to ceftriaxone 2. Hypothyroidism, suboptimally controlled on presentation * She has a markedly elevated TSH and low free T3 and free T4 * Appears as though her dose of levothyroxine was raised from 112 mcg to 150 mcg daily, will supplement today with intravenous levothyroxine again today.? Patient is severely hypothyroid.? TSH was 24.4 free T4 was 0.66 and free T3 w as 1.83.? Hopefully the intravenous levothyroxine will kick start replacement so that after 3 days of intravenous replacement the patient can be stabilized on her oral replacement. * She will need a recheck of her TSH as well as free T4 and free T3 in 1 month * Will need to continue on intravenous levothyroxine if swallow assessment does not allow swallowing of oral medication. 3. Essential hypertension, not well controlled on presentation.? Continues to be elevated but acceptable, continue to follow. * Continue home dose of verapramil 120 mg p.o. b.i.d. and losartan 50 mg daily 4. Dementia with behavioral disturbance especially at night * Continue quetiapine b.i.d. dosing of 12.5 mg, this needs to be held until patient is more responsive 5. Decreased responsiveness. Patient's states that she is approximately 2/3 of normal at this time. Continue to follow. Likely the treatment of hypothyroidism and infection will continue to improve the patient. Continue to follow labs and follow the patient clinically. VTE Prophylaxis: Enoxaparin 40 mg subQ once daily? Bilateral SCDs Dispo: probable d/c back to [facility] once stable. Code status:? DNR/DNI reviewed POLST form dated 10/02/20 with limited interventions Patient?s Advance Care Plan is present, Code status is documented, Surrogate decision maker is in patient?s record. Time Spent With Patient Critical Care time: I spent a total of [] minutes of critical care time on this patient's care today; this time is exclusive of procedural time.
[2022-10-13] MEDS: KCL 20 MEQ IN NS 1,000 ML 84 MEQ IV ×2 (12:30→23:01)
[2022-10-13] MEDS: POTASSIUM CHLORIDE 20 MEQ/15 ML UDC 40 MEQ PO (12:31)
--- NOTE | 2022-10-13 16:14 | ST.IPCSEOM ---
Visit Care Team Role Provider Type Ebenezer Nieto DO Referring Provider Physician Specialty: Emergency Medicine Address: [address] [place] [address] Email: [email or web address] Latha Chang MD Primary Care Provider Physician Specialty: Internal Medicine Address: Phone: Email: Evert Chinchilla MD Family Provider Physician Specialty: Internal Medicine Address: [address] [place] [address], [facility] Email: [email or web address] Carla Segundo DO Emergency Provider Physician Specialty: Emergency Medicine Address: [address] [place] [address], [facility] Email: [email or web address] DO Admit Provider Physician Attending Provider Specialty: Internal Medicine Address: [address] [place] [address], [facility] Email: [email or web address] Current Diagnoses Urinary tract infection, site not specified (10/11/22) Past Medical History (Last Reviewed 10/11/22 @ 00:04 by DEVIN Thao) Dementia (Medical) Hallucinations due to late onset dementia (Medical) Memory loss (Medical) Speech-Language Pathology 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 Yarbrough Reason for Referral dysphagia/dementia Setting Assessment Location Acute Care Visit Type Note Type Initial evaluation Next Note Type Next Note Type Treatment Note Patient Information Identification Type Name,Wristband History Per H&P: Audrey Cornelius is an 81 female with late stage dementia, osteoporosis, hypothyroidism, and essential hypertension is non-verbal with MD unable to obtain a history from her. ? Per the ED provider,?she was observed to be more twitchy today and less interactive than her baseline. Staff at her facility reported she had been sleeping intermittently all day. Admitted for treatment of a urinary tract infection and an incidental finding of hypothyroidism. Pt was admitted with urinary tract infection, acute and present on admission, hypothyroidism, and essential hypertension, not well controlled on presentation. Subjective Observations Pt was in bed with her at bedside. pt more alert and awake that initially reported at admission. Pt was easily aroused for assessment of her swallow. Pt currently on a regular diet, which states is not what she is eating regularly. Reported by Patient Current Diet Regular,Thin liquids Baseline Feeding Method Dependent for feeding Objective Assessment Mental Status Alert,Responsive,Cooperative, Confused Observation of Lips at Rest Symmetrical Comment OME was informally observed as pt was unable to follow directions. She was able to suck from a straw and close her lips around a spoon when touched to her lips. Food and Liquid Trials Position During Assessment Upright (90 degrees),Slightly reclined Liquids Trialed Thin Solids Trialed Puree Administration Type Tea spoon,Controlled cup sip, Straw Oral Impairment Within functional limits Oral Phase Comments Pt was able to clear a spoon of yogurt with her lips, and move the bolus around her mouth and from front to back with out difficulty. She did not appear to have residual following swallowing. Pharyngeal Impairment Within functional limits Pharyngeal Phase Comments Pt demonstrated adequate hyolaryngeal elevation per palpation and observation. Pt 's swallow was audible inconsistently. She was observed to cough x1 with several consecutive swallows of thin liquid with a straw. With single swallows and fewer consecutive swallows, her swallow was not audible. Unable to assess wet voicing after swallows as pt not verbal. Fatigue/Endurance Mild fatigue Findings Swallowing Function Within functional limits Swallowing Function Comments Pureed texture was recommended for pt's ease of swallowing. Severity of Swallow Impairment Mildly impaired Contributing Factors to Swallow Reduced alertness or attention Impairment ,Difficulty following directions,Mastication inefficiency Prognosis Guarded Based on Cognitive status,Bed bound,Age ,Comorbidities Impact on Safety and Functioning Risk for aspiration Recommendations Instrumental Assessment No Swallowing Treatment Yes Frequency will follow up for tolerance and family education as needed Recommended Solids Puree Recommended Liquids Thin Safety Precautions/Swallowing Feed only when alert,Reduce Recommendations distractions,Remain upright ( 90 degrees) during all oral intake,Upright position at least 30 minutes after meals, Small bites and sips when eating,Slow rate; swallow between bites,Sip by straw only,1 to 1 feeding assistance ,Family assistance/supervision Medication Recommendations Whole in Carrier,Crushed in Carrier,One at a Time Discharge Recommendations care home care facility Education Patient/Caregiver Education Described results of evaluation,Family/caregivers expressed understanding of evaluation,Family/caregivers expressed agreement with goals & treatment plans,Family/ caregivers expressed understanding of safety precautions,Family/caregivers expressed understanding of feeding recommendations Goals Long-term Goals Pt will safely tolerate least restrictive diet without s/sx aspiration to meet hydration and nutritional needs.
[2022-10-14 05:26] LABS: Magnesium 1.9 mg/dL (1.6-2.3)
[2022-10-14 05:33] LABS: Add Manual Diff / Slide Review NO; Basophils Absolute Auto 0 /uL (0-100); Basophils Percent Auto 0.1 % (0-2); Eosinophils Absolute Auto 100 /uL (0-450); Eosinophils Percent Auto 0.7 % (2-4); Hematocrit 24.5 % (36-46); Hemoglobin 8.4 g/dL (12.0-16.0); Lymphocytes Absolute Auto 500 /uL (1100-4500); Lymphocytes Percent Auto 5.4 % (25-40); Mean Corpuscular HGB Conc 34.2 % (30-36); Mean Corpuscular Hemoglobin 30.5 PG (26-34); Mean Corpuscular Volume 89.2 fL (80-100); Monocytes Absolute Auto 500 /uL (0-900); Monocytes Percent Auto 5.3 % (3-14); Neutrophils Absolute Auto 7700 /uL (1500-7000); Neutrophils Percent Auto 88.5 % (50-75); Platelet Count 125 X10^3/uL (150-400); Red Blood Cell Count 2.74 X10^6/uL (4.0-5.2); Red Cell Distribution Width 18.4 % (11.6-14.8); White Blood Cell Count 8.7 X10^3/uL (4.5-11.0)
[2022-10-14 05:34] LABS: Alanine Aminotransferase 17 IU/L (<35); Albumin 2.5 g/dL (3.5-5.0); Albumin Globulin Ratio 0.8 (1.0-2.8); Alkaline Phosphatase 75 U/L (38-126); Aspartate Aminotransferase 30 IU/L (14-36); BUN Creatinine Ratio 31.7 (6-22); Bilirubin Total 0.2 mg/dL (0.2-1.3); Blood Urea Nitrogen 20 mg/dL (7-17); Calcium 7.7 mg/dL (8.4-10.2); Carbon Dioxide 24 mmol/L (22-32); Chloride 110 mmol/L (98-107); Estimated Glomerular Filt Rate > 60 mL/min (>60); Glucose 88 mg/dL (80-110); HEMOLYSIS < 15 (0-50); Potassium 3.8 mmol/L (3.4-5.1); Sodium 141 mmol/L (137-145); Total Protein 5.5 g/dL (6.3-8.2)
--- NOTE | 2022-10-14 06:01 | PC.NURSE ---
Patient responding to voices, moaning at times but very few words. sleeping throughout shift.
[2022-10-14 09:37] VITALS: BP 122/61; PULSE 71; RESP 16; TEMP 37; O2SAT 95
[2022-10-14] MEDS: ENOXAPARIN 40 MG/0.4 ML SYRINGE SUBCUT (09:55)
[2022-10-14] MEDS: KCL 20 MEQ IN NS 1,000 ML 84 MEQ IV (09:56)
--- NOTE | 2022-10-14 10:32 | P.PN_ITS ---
Subjective Subjective Date Patient Seen: 10/14/22 Interval history: Patient somnolent and sleeping. at bedside and his questions were answered. Exam Vital Signs (past 8 hours): - 10/14/22 09:30 10/14/22 09:37 Temperature 98.6 F Pulse Rate 71 Respiratory Rate 16 Blood Pressure 122/61 Pulse Oximetry 95 Oxygen Delivery Method Room Air Oxygen Flow Rate 0 Oxygen Delivery Method Room Air Oxygen Flow Rate 0 Narrative Exam Narrative: Gen: cachectic elderly female. Somnolent. HEENT: normocephalic, atraumatic Neck: supple, full ROM, no JVD, trachea is midline Resp: Lungs CTA, non-labored breathing CV: RRR, no murmur or rubs Abd: soft, non-tender, normoactive BTs Skin: no lesions or rashes, dry and intact Neuro:? Appears to have normal sensation of all extremity Objective Labs 10/14/22 04:22 10/14/22 04:22 Labs: Laboratory Results - last 24 hr 10/14/22 10/14/22 10/14/22 04:22 04:22 04:22 WBC 8.7 RBC 2.74 L Hgb 8.4 L Hct 24.5 L MCV 89.2 MCH 30.5 MCHC 34.2 RDW 18.4 H Plt Count 125 L Neut % (Auto) 88.5 H Lymph % (Auto) 5.[address] [facility] % (Auto) 5.3 Eos % (Auto) 0.7 L Baso % (Auto) 0.1 Neut # (Auto) 7700 H Lymph # (Auto) [address] [facility] # (Auto) 500 Eos # (Auto) 100 Baso # (Auto) 0 Sodium 141 Potassium 3.8 Chloride 110 H Carbon Dioxide 24 BUN 20 H Creatinine 0.63 Estimated GFR > 60 BUN/Creatinine Ratio 31.7 H Glucose 88 Calcium 7.7 L Magnesium 1.9 Total Bilirubin 0.2 AST 30 ALT 17 Alkaline Phosphatase 75 Total Protein 5.5 L Albumin 2.5 L Globulin 3.0 Albumin/Globulin Ratio 0.8 L PFSH Medical History Dementia Hallucinations due to late onset dementia Memory loss Surgical History History of thyroidectomy Status post breast lumpectomy Status post parathyroidectomy Family History Father Stroke Social History household members: other Smoking Status: Never smoker alcohol intake: former Assessment & Plan Assessment & Plan narrative: 1. Urinary tract infection, acute and present on admission * ?IV ceftriaxone completed x3 days * U/A culture with mixed melodie * She was admitted for a uti in late April 2022 and her urine grew out e. Coli sensitive to ceftriaxone 2. Hypothyroidism, suboptimally controlled on presentation * She has elevated TSH at 24 and low free T3 and free T4 * Appears as though her dose of levothyroxine was raised from 112 mcg to 150 mcg daily.?Patient is severely hypothyroid.? TSH was 24.4 free T4 was 0.66 and free T3 was 1.83.?Received 3 days of IV synthroid and now on 150mcg po daily. * She will need a recheck of her TSH as well as free T4 and free T3 in 1 wed 3. Essential hypertension, not well controlled on presentation.? Continues to be elevated but acceptable, continue to follow. * Continue home dose of verapramil 120 mg p.o. b.i.d. and losartan 50 mg daily 4. Dementia with behavioral disturbance especially at night * Continue quetiapine b.i.d. dosing of 12.5 mg, this needs to be held until an[place]ia ent is more responsive 5. Decreased responsiveness. Patient's states that she is approximately 2/3 of normal at this time. Continue to follow. Likely the treatment of hypothyroidism and infection will continue to improve the patient. VTE Prophylaxis: Enoxaparin 40 mg subQ once daily? Bilateral SCDs Dispo: probable d/c back to [facility] once stable. Code status:? DNR/DNI reviewed POLST form dated 10/02/20 with limited interventions Time Spent With Patient Critical Care time: I spent a total of [] minutes of critical care time on this patient's care today; this time is exclusive of procedural time.
--- NOTE | 2022-10-14 13:08 | SLP.IPNOTE ---
Attempted to see pt who was sleeping soundly. Her was at her bedside. He reported that the pt was alert most of yesterday and had eated lunch and dinner without difficulty. No charges for today. Will attempt to see pt tomorrow.
[2022-10-14 19:51] VITALS: BP 147/60; PULSE 64; RESP 17; TEMP 36.8; O2SAT 96
[2022-10-15 08:59] VITALS: BP 150/63; PULSE 66; RESP 16; TEMP 36.8; O2SAT 95
[2022-10-15 11:23] VITALS: BP 150/63; PULSE 66
[2022-10-15] MEDS: LOSARTAN 50 MG TABLET PO (11:23)
[2022-10-15] MEDS: ENOXAPARIN 40 MG/0.4 ML SYRINGE SUBCUT (11:23)
[2022-10-15] MEDS: VERAPAMIL 120 MG TABLET PO (11:23)
--- NOTE | 2022-10-15 11:50 | ST.IPDYTX ---
Visit Care Team Role Provider Type Ebenezer Nieto DO Referring Provider Physician Specialty: Emergency Medicine Address: [address] [place] [address] Email: [email or web address] Latha Chang MD Primary Care Provider Physician Specialty: Internal Medicine Address: Phone: Email: Evert Chinchilla MD Family Provider Physician Specialty: Internal Medicine Address: [address] [place] [address], [facility] Email: [email or web address] Carla Segundo DO Emergency Provider Physician Specialty: Emergency Medicine Address: [address] [place] [address], [facility] Email: [email or web address] Tolu Garcia DO Admit Provider Physician Attending Provider Specialty: Internal Medicine Address: [address] [place] [address] Email: [email or web address] FULL STACK SOFTWARE DEVELOPER Dysphagia Treatment FULL STACK SOFTWARE DEVELOPER Dysphagia Treatment Start: 10/13/22 15:44 Freq: Status: Active Protocol: Document 10/15/22 11:29 LNK (Rec: 10/15/22 11:50 LNK [id number]) Dysphagia Treatment Session Time Visit Start Time 11:00 Visit Stop Time 11:30 Total Visit Minutes 30 Setting Assessment Location Acute Care Visit Type Note Type Treatment Note Patient Information Identification Type Name,ID Wristband Subjective Observations pt was in her bed with eyes 1/ 2 open. Pt became more awake after sitting her up in bed. Pt's then came into room. Treatment Liquids Trialed Thin Solids Trialed Puree Administration Type Tea Spoon,Straw,Dependent Feeding Oral Strategies Upright at 90 degrees, Controlled Bite/Sip Size Pharyngeal Strategies Sitting Upright (90 deg),Small Bites and Sips Additional Dysphagia Treatment Pt needs to be awake (at times Strategies is awake with her eyes closed , per ) Treatment Activities PO trials with thin liquids and pureed textures safely tolerated. assisted pt with feeding 1:1. pt was arousable and was talking (not making sense). Pt appears to recognize her and responds better when he is around. Pt is not ready for diet advancement. Pt is stable with PO intake at this time. Will discharge ST. Assessment Patient Response to Treatment Fair Rehab Potential Fair Diet Recommendations Recommendations Continue Current Diet Medication Recommendations Crushed in Carrier Comments straws OK Additional Dietary Needs 1:1 Assistance Aspiration Precautions Recommended Precautions Upright at 90 Degrees,Frequent Rest Periods,Small Bites/Sips Treatment Plan Placement Recommendation after Discharge [facility] Appropriate for Continued Therapy No
--- NOTE | 2022-10-15 14:25 | CM.DPC ---
DCP: Plan is for pt to return to [facility] with hospice services. Pt hu is agreeable. This CM spoke with Kathy at [facility] who will accept pt back today and will anticipate [facility] to begin services tomorrow am. This RN spoke with Lavonne at [facility] and faxed over all required paperwork. Norma Quiñones RN Case Manager
--- NOTE | 2022-10-15 16:14 | P.DS_ITS ---
History of Present Illness History of Present Illness Date Patient Seen: 10/15/22 Time Patient Seen: 21:30 Chief complaint: Altered Mental Status found to have a UTI Narrative: Audrey Cornelius is an 81 female known to me with late stage dementia, osteoporosis, hypothyroidism, and essential hypertension is non-verbal to me and am unable to obtain a history from her. History is obtained from the ED provider based on her conversation with the patient's who has left for the evening.? Per the ED provider,?she was observed to be more twitchy today and less interactive than her baseline. Staff at her faclity reported she had been sleeping intermittently all day. She is not responsive to me, does not speak to me and seems to withdraw slightly to light touch. POLST form in her chart dated 10/02/20 indicates she is a DNR/DNI with limited interventions. Chest x-ray, C-spine CT, and chest x-ray were negative for any acute intracranial process. She does have a mild subpleural airspace opacity in the right upper lobe seen on prior studies. She presented afebrile, blood pressure 164/75 heart rate 79 respiratory rate 18 oxygen saturation of 96% on room air s he weighs 45 kg with a BMI of 15. She is mildly anemic with a hemoglobin and hematocrit of 10.6 and 31.3 respectively though this appears to be higher than her baseline, platelet count is 187, she has a slight left shift of 8800 chemistries are unremarkable, she is a mildly elevated AST of 37 troponin is negative her TSH was elevated at 24.4 with a free T4 of 0.66 and a free T3 of 1.83. Urine is positive for bacteria and nitrates comment toxicology is negative and COVID-19 PCR is negative. Discharge Providers Provider Date of admission: 10/11/22 09:50 Discharge Date: 10/15/22 Primary care physician: Latha Chang MD Consults: 10/10/22 21:13 Consult to Entry Processor Routine Comment: 10/11/22 12:53 Consult to Dietitian, Adult Routine Comment: Reason For Exam: Very cachectic and at risk for nutritional malnut. 10/13/22 11:01 Consult to Speech Therapy Evaluate & Treat Comment: Assess swallowing Physician Instructions: Evaluate and treat Discharge provider: Des Campa DO Summary Hospital Course Discharge Diagnosis: Urinary tract infection, acute and present on admission * ?IV ceftriaxone completed x3 days * U/A culture with mixed melodie * She was admitted for a uti in late April 2022 and her urine grew out e. Coli sensitive to ceftriaxone Hypothyroidism, suboptimally controlled on presentation * She has elevated TSH at 24 and low free T3 and free T4 * Appears as though her dose of levothyroxine was raised from 112 mcg to 150 mcg daily.?Patient is severely hypothyroid.? TSH was 24.4 free T4 was 0.66 and free T3 was 1.83.?Received 3 days of IV synthroid and now on 150mcg po daily. * She will need a recheck of her TSH as well as free T4 and free T3 in 6 weeks * Discharged on 150mcg daily of synthroid Essential hypertension, not well controlled on presentation.? Continues to be elevated but acceptable, continue to follow. * Continue home dose of verapramil 120 mg p.o. b.i.d. and losartan 50 mg daily4. Dementia with behavioral disturbance especially at night * Continue quetiapine b.i.d. dosing of 12.5 mg, this was stopped on discharge Decreased responsiveness.? Patient's states that she is approximately 2/3 of normal at this time.? Continue to follow.? Likely the treatment of hypothyroidism and infection will continue to improve the patient. Severe Acute Protein Calorie Malnutrition r/t advanced dementia aeb 18.2% unintentional weight loss in <5mo, BMI 15.1 (severe), MNA 9 (malnourished), Tommy 8 (high risk skin breakdown), cachectic appearing and 0% PO intake since admission due to altered mental status with UTI. * The patient is at much higher risk for medical and surgical complications because of his malnutrition. This increases the difficulty and complexity of medical and surgical interventions and increases the chances of poor outcomes such as morbidity and mortality. Hospital Course: Patient admitted for possible UTI due to altered mentation and decreased responsiveness. TSH found to be 24 so IV synthroid given. Patient continued to be somnolent most of the time and unable to take po pills. A 35 min conversation regarding GOC was discussed with that patient's dementia and overall decreased functioning would be helped by hospice services in case she doesn't improve. agreed and hospice was arranged. Time Spent with Patient Time spent: Greater than 30 minutes Exam Vital Signs (past 8 hours): - 10/15/22 08:59 10/15/22 11:23 Temperature 98.2 F Pulse Rate 66 66 Respiratory Rate 16 Blood Pressure 150/63 H 150/63 H Pulse Oximetry 95 Oxygen Flow Rate 0 Oxygen Delivery Method Room Air Oxygen Flow Rate 0 Narrative Exam Narrative: Gen: cachectic elderly female. Somnolent. HEENT: normocephalic, atraumatic Neck: supple, full ROM, no JVD, trachea is midline Resp: Lungs CTA, non-labored breathing CV: RRR, no murmur or rubs Abd: soft, non-tender, normoactive BTs Skin: no lesions or rashes, dry and intact Neuro:? Appears to have normal sensation of all extremity Objective Labs 10/14/22 04:22 10/14/22 04:22 [facility] Medical History Dementia Hallucinations due to late onset dementia Memory loss Surgical History History of thyroidectomy Status post breast lumpectomy Status post parathyroidectomy Family History Father Stroke Social History household members: other Smoking Status: Never smoker alcohol intake: former Discharge Plan Discharge Plan Patient Disposition: Hospice - Home Discharge orders & Medications Prescriptions: New levothyroxine 150 mcg Tablet 150 mcg PO 0600 90 Days Qty: 90 0RF Continued losartan 50 MG tablet 50 mg PO DAILY Qty: 0 Rx Instructions: *Pt currently taking one time daily verapamil 120 mg tablet 120 mg PO DAILY Rx Instructions: *Pt only taking one time daily cholecalciferol (vitamin D3) [Vitamin D3] 5,000 unit Tablet 5,000 unit PO DAILY senna 8.6 mg capsule 17.2 mg PO BEDTIME Qty: 30 0RF Discontinued levothyroxine 112 mcg capsule 112 mcg PO DAILY Qty: 30 0RF Follow up/Referrals: Evert Chinchilla MD [Family Provider] - Latha Chang MD [Primary Care Provider] - 10/29/22 10:00 am (Appt:10/29 @ 10:[address] Hu in [place] please bring your insurance cards & photo id with you to the appointment ) Visit Report/Discharge Packet Stand Alone Forms: Patient Portal/API, Stroke Signs & Symptoms Discharge Data Primary Care Provider: Latha Chang
--- NOTE | 2022-10-15 18:34 | CM.DPC ---
Addendum entered by Norma Quiñones R.N. 10/15/22 19:03: This CM spoke with Dr. Campa re. Safety concerns with pt transporting via non medical transport in a standard w/c. Prior to use of BLS. Dr. Campa in agreement that it was not in pt's best interest to be transported via standard w/c due to generalized weakness and immobility. Original Note: DCP: Pt agreeable to hospice services at [facility] per Dr. Campa. This CM spoke with pt's re. plan for transportation back to [facility] for pt. Pt's initially agreeable to BLS provided by [facility]. Pt's agreed to pay for services if [employer] would not cover. Pt called [employer] to attempt to get an authorization for BLS transport services while he was in pt's room. Pt then called [facility] in attempt to find out the cost for the services if he were to pay them today, vs if he were to have to pay them in the case that [employer] did not cover the cost. During this time, after talking with a [facility] [employer] sales representative. Pt's had mixed up that a pre-authorization would be needed for [employer] to cover any transportation. This CM received a call from Jacquie at [facility]. She stated that she would contact pt and clarify the mix up between him and [employer] sales representative, and that she would confirm with her boss that [employer] only needs a pre-auth when they are providing the transportation to MD appointments. 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 This CM attempted to call [employer] [facility] and did not get an answer. This CM re-approached pt's , pt's stated that it had been a long time since he had set up any tranportation and that he was unsure who he had used in the past. Pt's was understanding of the miscommunication between himself and [employer] sales representative at that time. Pt then agreed to acceptance of financial responsibility for BLS services if [facility] denied the claim. This CM spoke with Kathy at [facility] who is accepting of pt back to return back to [facility] via BLS at 1830 with [facility] to open care tomorrow. Lavonne called this CM from [facility] and confirmed that the Nurse will be out in AM to open care. Norma Quiñones RN CM
== END 2022-10-15 17:43 | disposition hospice, home (50) | DRG 689 ==
LOC: ED 19:14 → AC 19:16
PROVIDERS: Neuromusculoskeletal Medicine, Sports Medicine; Nurse Practitioner Family; Admitting Provider Internal Medicine; Emergency Provider Emergency Medicine; Family Provider Internal Medicine; PCP Internal Medicine; Referring Provider Emergency Medicine; Visit Provider Internal Medicine
DX: N39.0 Urinary tract infection, site not specified (principal); E43 Unspecified severe protein-calorie malnutrition; F03.918 Unspecified dementia, unspecified severity, with other behavioral disturbance; Z68.1 Body mass index [BMI] 19.9 or less, adult; E03.9 Hypothyroidism, unspecified; I10 Essential (primary) hypertension; B96.20 Unspecified Escherichia coli [E. coli] as the cause of diseases classified elsewhere; Z66 Do not resuscitate; Z20.822 Contact with and (suspected) exposure to COVID-19
CPT/HCPCS: 36415; 70450; 71045; 72125; 80048; 80053; 80305; 80320; 80329; 81001; 82140; 82550; 82962; 83605; 83735; 83930; 84145; 84146; 84439; 84443; 84481; 84484; 85025; 85610; 85730; 87040; 87077; 87086; 87186; 87635; 92526; 92610; 93005; 96365; 96375; 99284; 99285; C9803; G0378; G0480; J0696; J1650; J2060; J3475